=== PATIENT | male | born 1945 | race Caucasian/White ===

== ENCOUNTER 2017-07-06 16:52 | Inpatient (IN) | payer MEDICARE ==
[~2017-07-06] VITALS: Ht 175.3 cm; Wt 121.6 kg
[2017-07-06 16:52] VITALS: BP 113/60
[~2017-07-06 16:52] MED LIST: ADVAIR HFA 230M12 GM INH; ASPIRIN81 M2 PO; BENADRYL25 MG PO; CLOPIDOGREL75 MG PO; COUMADIN 2.5MG2.5 M1 PO; COUMADIN 4 MG TA4 M1 PO; COUMADIN 5 MG TA5 M1 PO; DOCUSATE S100 MG/10 PO; DUONEB 2.5-0.5 M3 ML INH; ENOXAPARIN100 MG/11 SUBQ; ENOXAPARIN150 MG/11 SUBQ; FENTANYL PA50 MCG/HR TRANSDERM; FLEXERIL PO; FOLIC ACID1 MG PO; FUROSEMIDE 40 M40 M1 PO; HYDROCODONE-AP1 EAC6 PO; LASIX 40 MG TAB40 M2 PO; LIDODERM 5%1 PATC1 TOP; LIPITOR 20 MG T20 M1 PO; LISINOPRIL10 MG PO; LISINOPRIL20 MG PO; MAXIPIME1 GM IVPB; METAMUCIL1 EAC1 PO; MILK OF MA2400 MG/10 PO; MINOCYCLINE HC100 M2 PO; MIRALAX17 GM PO; MULTIVITAMINS1 EAC7 PO; NEURONTIN 300300 M1 PO; NORMAL SALINE FL5 ML IV PUSH; OXYCODONE HCL 55 MG PO; PERCOCET 5-3251 EACH PO; PERCOCET PO; PLAVIX 75 MG TA75 M1 PO; PREDNISONE 10 M10 MG PO; SENOKOT-S1 TA1 PO; TYLENOL325 MG PO; VANCOMYCIN1.25 GM/21 IVPB; VENTOLIN HFA INH8 GM INH; VITAMIN D35000 UNI1 PO
[2017-07-06] MEDS ORDERED: CIPRO500 M1 PO (17:17)
[2017-07-06 17:28] LABS: HEMATOCRIT 41.7 % (42.0-52.0); MCH 29.9 pg (26.0-34.0); MCHC 33.5 g/dL (28.0-37.0); MCV 89.4 fL (80.0-100.0); MPV 8.8 fl. (7.2-11.1); NUCLEATED RBCS 0 /100WBC; PLATELET COUNT* 133 thou/uL (150-400); RBC 4.67 mil/uL (4.50-6.00); RDW-CV 14.2 % (10.5-14.5); WBC 15.9 thou/uL (4.0-11.0)
[2017-07-06 17:39] LABS: INR 1.1; PROTIME 10.7 Seconds (9.20-11.50)
[2017-07-06 18:12] LABS: ABSOLUTE LYMPHOCYTES 0.6 thou/uL (0.8-5.3); ABSOLUTE MONOCYTES 0.8 thou/uL (0.0-1.2); ABSOLUTE NEUTROPHILS 14.5 thou/uL (1.6-8.1)
[2017-07-06 18:13] LABS: PLATELET ESTIMATE ADEQUATE
[2017-07-06 18:24] LABS: CALCIUM 10.1 mg/dL (8.5-10.1); CREATININE 1.6 mg/dL (0.6-1.3); POTASSIUM 4.4 mmol/L (3.5-5.1)
[2017-07-06 18:27] LABS: URINE BILIRUBIN 1+ (Negative); URINE BLOOD 1+ (Negative); URINE CLARITY CLEAR; URINE COLOR YELLOW; URINE GLUCOSE-RANDOM 3+ (Negative); URINE KETONES 1+ (Negative); URINE LEUKOCYTES-REFLEX NEGATIVE (Negative); URINE NITRITE-REFLEX NEGATIVE (Negative); URINE PROTEIN TRACE (Negative); URINE UROBILINOGEN 0.2 E.U./dl (0.2-1.0)
[2017-07-06 18:28] LABS: ALBUMIN 3.3 g/dL (3.4-5.0); TOTAL BILIRUBIN 1.4 mg/dL (<0.1-1.0)
[2017-07-06 18:31] LABS: ICTOTEST (BILI CONFIRMATORY) Negative (Negative)
[2017-07-06 18:35] LABS: SQUAMOUS 0-3 Few /LPF (0-3)
[2017-07-06 18:36] LABS: BACTERIA-REFLEX >30 Many /HPF (None Seen); CELLULAR CASTS 0-3 Few /LPF (None Seen); CRYSTALS None Seen /LPF (None Seen); FINE GRANULAR CASTS 0-3 Few /LPF (None Seen); HYALINE CASTS 0-3 Few /LPF (None Seen); MUCUS >6 Heavy strn/LPF (None Seen); URINE RBC 3-10 Few /HPF (0-2); URINE WBC-REFLEX 6-15 Few /HPF (0-5)
[2017-07-06 20:15] VITALS: BP 112/74
[2017-07-06 20:16] VITALS: BP 108/50
[2017-07-07] VITALS (27 sets, daily range): BP systolic 95–156; BP diastolic 43–130
--- NOTE | 2017-07-07 02:41 | NUR ---
PT CAME FROM ER AT 2014 WITH SON. ASSESSMENT COMPLETED CHARTED. PT IS A RIGHT ABOVE THE KNEE AMPUTEE, AND WHEN AT HOME MISSED THE TRANSFER BETWEEN THE WHEELCHAIR AND BED AND LANDED ON THE FLOOR. PT STATES HE HAS SOME WEAKNESS, ON BEDREST CHRISTIAN, IV IN LEFT AC SL, MEDS RESTARTED EXCEPT FOR DIURETICS, NSAIDS, AND VANESSA INHIBITORS R/T RENAL FUNCTION. LEFT LEG HAS A VASCULAR WOUND, CONSULTED WOUND CARE NURSE. NO OTHER WOUNDS NOTED. PT HAS HISTORY OF DVT, CELLULITIS IN LEFT LEG, 2 LITERS OF O2, ALERT AND ORIENTED. PT HAS RED-GREEN COLOR BLINDNESS. VSS. SON WANTS DOCTOR TO SEE LEG AND PT RECIEVED BED BATH TONIGHT. WILL CONTINUE WITH PLAN OF CARE.
[2017-07-07 06:14] LABS: CALCIUM 9.3 mg/dL (8.5-10.1); CREATININE 1.3 mg/dL (0.6-1.3); MAGNESIUM 1.3 mg/dL (1.8-2.4); POTASSIUM 4.4 mmol/L (3.5-5.1)
--- NOTE | 2017-07-07 06:52 | NUR ---
PT WENT INTO VTACH AT AROUND 0515. THIS NURSE AND OTHER NURSES RAN INTO ROOM AND BROUGHT CRASH CART IN. TURNED O2 UP TO 4L AFTER PT STATED HE WAS HAVING TROUBLE BREATHING. PUT PADS ON PT AND LOWERED HEAD OF BED. CALLED CODE BLUE R/T HEART RHYTHM. PT WAS STILL BREATHING, STILL TALKING DURING THIS WHOLE PROCESS. AFTER REEL FILM INSPECTOR SHOWED UP, GAVE 200J AT 0519. CONVERTED BACK TO SR AND YELLED OUT. NO CHEST COMPRESSIONS NEEDED. CONTINUED TO HAVE PULSE. HAD TO SHOCK AGAIN AT 0540 FOR VTACH AND PT CONVERTED BACK TO SR. CALLED DOCTOR ERIN AND UPDATED ON STATUS AND GOT ORDERS FOR DIFFERENT LABS. CALLED DR. NICHOLE PER ORDER AND NOTIFIED OF CONDIION. TRANSFERED PT TO ICU, PT CONVERTED BACK TO VTACH IN THE ELEVATOR AND GAVE ANOTHER SHOCK TO CONVERT HIM BACK TO SR. GOT PT TO ICU AND GAVE REPORT TO CARBON CAPTURE POWER PLANT MANAGER NURSE. CALLED FAMILY MEMBER TO INFORM OF ROOM CHANGE AND CONDITION AND TOLD HIM TO COME SEE HIS FATHER. WILL CONTINUE TO MONITOR.
--- NOTE | 2017-07-07 07:10 | NUR ---
PT EMERGENTLY TRANSFERED TO ICU AT 0600. PT IN VENTRICULAR TACHYCARDIA ON TELEMETRY UNIT. PT SHOCKED TWICE ON UNIT AND ONCE IN ELEVATOR DURING TRANSIT. DR KHAN AND GAVINO NOTIFIED. PT RECIEVED AMIODARONE BOLUS FOLLOWED BY AMIODARONE DRIP AT 1 MG/MINUTE. NOTIFIED DR MANCIA REGARDING LOW MAGNESIUM LEVEL. RECIEVED ORDER TO INFUSE 2 GRAMS MAG SULFATE AND CONSULT NEPHROLOGY FOR ACUTE RENAL FAILURE. SECOND IV SITE STARTED IN RIGHT ANTICUBITAL PER NURSING STAFF.
--- NOTE | 2017-07-07 08:30 | NUR ---
0740 ASSUMED CARE OF PATIENT AT 0730. NSR. TO HOME CARE SCHEDULER PER BED AT 0740 AFTER OBTAINING INFORMED CONSENT
--- NOTE | 2017-07-07 08:47 | NUR ---
0730 ASSUMED CARE OF PATIENT. PLEASE SEE DOCUMENTED ASSESSMENT. DR BAIG TO SEE PATIENT. STAT EKG DONE MONITOR ALARMS A FIB. SINUS WITH BBB NOTED AND BOTH PAC'S AND PVC'S. SON HERE.
[2017-07-07 08:50] LABS: INR 1.2
--- NOTE | 2017-07-07 08:58 | NUR ---
PATIENT TO STAY NPO PER CARDIOLOGY AT THIS TIME
--- NOTE | 2017-07-07 09:58 | NUR ---
ROSARIO INSERTED. CONSENT OBTAINED FOR CATH
[2017-07-07 10:04] LABS: CHOLESTEROL 85 mg/dL (<200); HDL CHOLESTEROL 24 mg/dL (>40); LDL CHOLESTEROL 35 mg/dL (<100); TC:HDL 3.5 Ratio (Not establshd); TRIGLYCERIDE 134 mg/dL (<150); VLDL 27 mg/dL (<40)
[2017-07-07 10:05] LABS: SERUM ASSESSMENT Clear
[2017-07-07 10:40] LABS: MAGNESIUM 1.8 mg/dL (1.8-2.4); TROPONIN-I LEVEL 0.13 ng/mL (<0.06)
--- NOTE | 2017-07-07 12:37 | NUR ---
1148 PATIENT WENT INTO WIDE TACHYCARDIA AT RATE OF 195-200BPM. UNSUCCESSFUL VAGAL MANEUVERS. AMIO GTT STILL AT 1 MG/MN. CARDIOLOGY NOTIFIED. DWAYNE CAME AND PATIENT CARDIOVERTED AT 250 JOULES AFTER PREMEDICATION.
--- NOTE | 2017-07-07 12:39 | NUR ---
1215 PATIENT TO VIRTUAL ASSISTANT PER BED AFTER AMIO BOLUS COMPLETED
--- NOTE | 2017-07-07 13:37 | NUR ---
SPOKE WITH SON EARLIER. PT LIVES WITH SON AND [facility], THEY HAVE A HANDICAP ACCESSIBLE APT IN THE BASEMENT OF THEIR HOUSE FOR PT. PT NORMALLY CAN TRANSFER FROM HIS SCOOTER TO THE BED OR CHAIR, HE CAN TRANSFER IN AND OUT OF THE CAR. SON SAID HE HAS NOTICED RECENTLY THAT PT IS HAVING MORE DIFFICULT GETTING IN AND OUT OF THE CAR. PT WAS JUST SEEN BY HIS PCP DR. MARTINEZ, AND SON STATES THE DR WAS GOING TO SET PT UP FOR HOME HEALTH. SON DOESN'T KNOW IF THAT HAS BEEN DONE OR NOT, NO ONE HAS BEEN OUT TO SEE THE PT YET. CALLED DR. MARTINEZ'S OFFICE ([phone]) AND LEFT VM ASKING THE NURSE TO CALL ME BACK TO LET ME KNOW IF HH IS ARRANGED OR NOT. PT TO HAVE A CARDIAC CATH TODAY. CASE MGT WILL CONTINUE TO FOLLOW.
--- NOTE | 2017-07-07 15:02 | NUR ---
WOUND NURSE: PATIENT SEEN TO ASSESS COLT ON THE LEFT POSTERIOR CALF MEASURING 2.5 X 3.5 X 0.1 CM. PRESENTS DARK PURPLE PARTIALLY RUPTURED BULLA. PATIENT REPORTING HE BUMPED IT ON A POWER CHAIR AT HOME. CLEANSED WITH WOUND CLEANSER AND GAUZE, COVERED WITH AQUACEL AG UNDER A BORDERED FOAM. PATIENT WITH CARDIAC HX IN ICU AND WITH 3+ PERIPHERAL EDEMA. OPTD NOT TO COMPRESS D/T CARDIAC HX
--- NOTE | 2017-07-07 15:48 | 2DMMODE ---
[place] [address] 2 D/M-MODE ECHOCARDIOGRAM Name: RITU MONTE Room: [address] IN [facility]#: [id number] Admission: 07/06/17 Attend Phys: Deo Louie Discharge: Date of : 49 Date of Service: 07/07/17 1547 Report #: [id number] THIS REPORT FOR: //name// APPROVED REPORT Study performed: 07/07/2017 10:45:41 EXAM: Comprehensive 2D, Doppler, and color-flow Echocardiogram Patient Location: In-Patient Room #: [facility] Status: routine BSA: 2.28 HR: 90 bpm BP: 133/78 mmHg Rhythm: NSR Other Information Study Quality: Good Indications Dyspnea renal faliure, pneumonia, weakness 2D Dimensions LVEF(%): 32.17 (>50%) IVSd: 14.11 (7-11mm) LVOT Diam: 21.33 (18-24mm) LVDd: 60.65 mm PWd: 8.36 (7-11mm) Ascending Ao: 38.39 (22-36mm) LVDs: 51.24 (25-40mm) Aortic Root: 34.68 mm Coelho's LVEF: 32.17 % Volumes Left Atrial Volume (Systole) LA ESV Index: 34.50 mL/m2 Aortic Valve AoV Peak Tyrone.: 1.88 m/s AO Peak Gr.: 14.17 mmHg LVOT Max P.86 mmHg AO Mean Gr.: 8.05 mmHg LVOT Mean P.72 mmHg LVOT Max V: 1.65 m/s AO V2 VTI: 25.71 cm LVOT Mean V: 0.97 m/s SHIELA (VTI): 2.93 cm2 LVOT V1 VTI: 21.10 [place] [address] 2 D/M-MODE ECHOCARDIOGRAM Name: RITU MONTE Room: [address] IN .R.#: [id number] Admission: 07/06/17 Attend Phys: Deo Louie Discharge: Date of : 49 Date of Service: 07/07/17 1547 Report #: [id number] E/A Ratio: 0.59 MV Decel. Time: 294.22 ms MV E Max Tyrone.: 0.64 m/s MV PHT: 85.32 ms MVA (PHT): 2.58 cm2 TDI E/Lateral E': 4.57 E/Medial E': 8.00 Medial E' Tyrone.: 0.08 m/s Lateral E' Tyrone.: 0.14 m/s Pulmonary Valve PV Peak Tyrone.: 1.30 m/s PV Peak Gr.: 6.71 mmHg Tricuspid Valve TR Peak Gr.: 27.11 mmHg RVSP: 32.00 mmHg Left Ventricle Left ventricle is mildly dilated. Regional wall motion abnormalities are noted.The inferior wall is severely hypokinetic, the lateral wall is moderately hypokinetic. There is global dysfunction present as well, to a moderate degree There is normal left ventricular wall thickness. Left ventricular systolic function is normal. The left ventricular ejection fraction is within the normal range. LVEF is 35%. Grade I - abnormal relaxation pattern. Right Ventricle The right ventricle is normal size. The right ventricular systolic function is normal. Atria Left atrium is moderately dilated. The right atrium size is normal. Aortic Valve The aortic valve is normal in structure. No aortic regurgitation is present. There is no aortic valvular stenosis. Mitral Valve The mitral valve is normal in structure. Trace mitral regurgitation. No evidence of mitral valve stenosis. Tricuspid Valve The tricuspid valve is normal in structure. Trace tricuspid regurgitation. The RVSP is 30-[place] [address] 2 D/M-MODE ECHOCARDIOGRAM Name: RITU MONTE Room: [address] IN M.R.#: [id number] Admission: 07/06/17 Attend Phys: Deo Louie Discharge: Date of : 49 Date of Service: 07/07/17 1547 Report #: [id number] Pulmonic Valve The pulmonary valve is normal in structure. There is no pulmonic valvular regurgitation. Great Vessels The aortic root is normal in size. IVC is normal in size and collapses with >50% inspiration Pericardium There is no pericardial effusion. <Conclusion> Left ventricle is mildly dilated. LVEF is 35%. Regional wall motion abnormalities are noted.The inferior wall is severely hypokinetic, the lateral wall is moderately hypokinetic. There is global dysfunction present as well, to a moderate degree Grade I - abnormal relaxation pattern. The right ventricle is normal size. Left atrium is moderately dilated. There is no aortic valvular stenosis. No aortic regurgitation is present. Trace mitral regurgitation. Trace tricuspid regurgitation. The RVSP is 30-35 mmHg. There is no pericardial effusion. <ELECTRONICALLY SIGNED> By: Luis Alberto Maynard MD, FACC 07/07/17 1547 1547 1547 Luis Alberto Maynard MD, FACC /INF
--- NOTE | 2017-07-07 16:24 | NUR ---
1638 PATIENT RETURNED FROM BALANCE TRUING INSPECTOR WITH RADSTAT TO R WRIST. SEE POST CATH DOCUMENTATION. AMIODARONE DRIP OFF. INSTRUCTED ON ELEVATING RIGHT LIMB
--- NOTE | 2017-07-07 17:06 | NUR ---
PATIENT MAKING SOME PROGRESS TOWARDS GOALS. CARDIOVERTED AT NOON TODAY WITH RETURN TO SINUS RHYTHM TO HAND FILER BALANCE WHEEL AT 1215 WITH NO INTERVENTION. RIGHT RADIAL SITE CHARTED. WOUND CARE COMPLETED. ECHO DONE AND ULTRASOUND OF LEFT LEG IN PROGRESS. SON PRESENT MOST OF THE DAY
--- NOTE | 2017-07-07 17:07 | EKG ---
[place] [address] ELECTROCARDIOGRAM REPORT Name: RITU MONTE Room: [address] IN ..#: [id number] Admission: 07/06/17 Attend Phys: Camden Velasquez Discharge: Date of : 49 Report #: [id number] THIS REPORT FOR: //name// [facility] ED Test Date: 2017-07-06 Test Time: 17:07:40 Pat Name: RITU MONTE Department: Room: Gender: Specialty Cook: [place] : 1945 Requested By: Matheus Brown Order Number: [id number] MD: Luis Alberto Maynard Measurements Intervals [place] Rate: 93 P: NV: QRS: 22 QRSD: 124 T: 94 QT: 380 QTc: 473 Interpretive Statements nsr Ventricular premature complex Nonspecific intraventricular conduction delay Nonspecific T abnormalities, lateral leads Compared to ECG 09/03/2016 18:22:07 Ventricular premature complex(es) now present T-wave abnormality now present Sinus rhythm no longer present Atrial abnormality no longer present Myocardial infarct finding no longer present Electronically Signed On 07-07-2017 17:07:39 CDT by Luis Alberto Maynard [email or web address] <ELECTRONICALLY SIGNED> By: Luis Alberto Maynard MD, FAC 07/07/171706 06 06 Luis Alberto Maynard MD, FAC /EPI
--- NOTE | 2017-07-07 17:08 | EKG ---
[place] [address] ELECTROCARDIOGRAM REPORT Name: RITU MONTE Room: [address] ADM IN M.R.#: [id number] Admission: 07/06/17 Attend Phys: Camden Velasquez Discharge: Date of : 49 Report #: [id number] THIS REPORT FOR: //name// [place] Test Date: 2017-07-07 Test Time: 07:52:12 Pat Name: RITU MONTE Department: Room: [address] Gender: M Mortgage Manager: JOSE ALBERTO : 1945 Requested By: Deo Louie Order Number: [id number] Reading MD: Luis Alberto Maynard Measurements Intervals [place] Rate: 76 P: 65 RI: 191 QRS: 26 QRSD: 131 T: 88 QT: 382 QTc: 430 Interpretive Statements Sinus rhythm Ventricular premature complex Probable left atrial enlargement Nonspecific intraventricular conduction delay Inferior infarct, old Compared to ECG 09/03/2016 18:22:07 Ventricular premature complex(es) now present Myocardial infarct finding still present Electronically Signed On 07-07-2017 17:08:38 CDT by Luis Alberto Maynard [email or web address] <ELECTRONICALLY SIGNED> By: Luis Alberto Maynard MD, [facility] 07/07/17 1708 [phone] Luis Alberto Maynard MD, [facility] /EPI
--- NOTE | 2017-07-07 17:08 | EKG ---
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 : 1945 Requested By: Deo Louie Order Number: [id number] Mauri MD: Luis Alberto Maynard Measurements Intervals [place] Rate: 88 P: 62 TN: 185 QRS: 73 QRSD: 126 T: 163 QT: 319 QTc: 386 Interpretive Statements Sinus rhythm Multiform ventricular premature complexes Left atrial enlargement Nonspecific intraventricular conduction delay Inferior infarct, old Repol abnrm, severe global ischemia (LM/MVD) Compared to ECG 09/03/2016 18:22:07 Ventricular premature complex(es) now present Early repolarization now present Possible ischemia now present Myocardial infarct finding still present Electronically Signed On 07-07-2017 17:08:27 CDT by Luis Alberto Maynard [email or web address] <ELECTRONICALLY SIGNED> By: Luis Alberto Maynard MD, [facility] 07/07/17 1708 3 3 Luis Alberto Maynard MD, [facility] /EPI
--- NOTE | 2017-07-07 17:10 | EKG ---
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 : 1945 Requested By: Luis Alberto Maynard Order Number: [id number] Reading MD: Luis Alberto Maynard Measurements Intervals [place] Rate: 90 P: 58 MT: 193 QRS: 59 QRSD: 127 T: 135 QT: 306 QTc: 375 Interpretive Statements Sinus tachycardia Ventricular trigeminy Probable left atrial enlargement Nonspecific intraventricular conduction delay Inferior infarct, acute (RCA) Probable RV involvement, suggest recording right precordial leads Compared to ECG 09/03/2016 18:22:07 Ventricular premature complex(es) now present Sinus rhythm no longer present Myocardial infarct finding still present Electronically Signed On 07-07-2017 17:10:34 CDT by Luis Alberto Maynard [email or web address] <ELECTRONICALLY SIGNED> By: Luis Alberto Maynard MD, [facility] 07/07/17 1710 1200 1200 Luis Alberto aMynard MD, [facility] /EPI
[2017-07-08] VITALS (14 sets, daily range): BP systolic 79–126; BP diastolic 41–77
[2017-07-08 04:00] LABS: HEMATOCRIT 37.1 % (42.0-52.0); HEMOGLOBIN 12.5 gm/dL (14.0-18.0); MCH 29.7 pg (26.0-34.0); MCHC 33.7 g/dL (28.0-37.0); MCV 88.1 fL (80.0-100.0); MPV 8.8 fl. (7.2-11.1); RBC 4.21 mil/uL (4.50-6.00); WBC 10.2 thou/uL (4.0-11.0)
[2017-07-08 04:09] LABS: INR 1.1; PROTIME 10.8 Seconds (9.20-11.50)
[2017-07-08 04:13] LABS: CALCIUM 9.1 mg/dL (8.5-10.1); POTASSIUM 4.2 mmol/L (3.5-5.1)
--- NOTE | 2017-07-08 09:59 | NUR ---
ASSUMED PT CARE 0730. TRACING SR. VSS. PT TITRATED DOWN TO 2L NC. WHILE EATING PT DESATTING AND TITRATED BACK UP TO 4L NC. PER DIET ADVANCED. PT TOLERATING HEART HEALTHY DIET. PT WORKING WITH PHYSICAL THERAPY. NO DYSRHYTHMIAS THIS AM. WILL CONTINUE PLAN OF CARE.
--- NOTE | 2017-07-08 14:11 | NUR ---
SPOKE WITH SON AND PT ABOUT SNF, WHEN PT IS READY FOR DISCHARGE. PT AGREES THAT HE IS TOO WEAK TO RETURN TO HIS APT IN HIS SON'T HOME. DISCUSSED SNF OPTIONS. THEY DO NOT WANT [facility] OR [facility]. SON IS INTERESTED IN [facility] OR [place]. CALLED BOTH FACILITIES AND LEFT MESSAGE ON ADMISSIONS VOICE MAIL. FAXED REFERRAL INFO. STAN FROM [place] CALLED BACK AND SAID THEY HAVE A BED AVAILABLE AND CAN ACCEPT PT, THEY CAN TAKE HIM MONDAY OR MONDAY IF READY FOR DISCHARGE. HAVE NOT HEARD BACK FROM [facility], [place] ADMISSION [phone], MAIN NUMBER [phone] [place] ADMISSIONS [phone], MAIN NUMBER [phone]
--- NOTE | 2017-07-08 18:16 | NUR ---
BLOOD GLUCOSE 434. DR NOTIFIED PER PROTOCOL. SLIDING SCALE INCREASED AFTER LUNCH. PT RECEIVED HIGH DOSE SLIDING SCALE AT DINNER. 23 GIVEN. WILL CONTINUE TO MONITOR.
[2017-07-09] VITALS (11 sets, daily range): BP systolic 100–132; BP diastolic 49–84
--- NOTE | 2017-07-09 15:51 | EKG ---
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: : 1945 Requested By: Lamberto Blake Order Number: [id number] Mauri MD: Mikal Sellers Measurements Intervals [place] Rate: 60 P: 60 RI: 186 QRS: 52 QRSD: 139 T: 104 QT: 432 QTc: 432 Interpretive Statements Sinus rhythm Probable left atrial enlargement Nonspecific intraventricular conduction delay Nonspecific T abnormalities, lateral leads Inferior Q waves noted Compared to ECG 07/07/2017 12:00:49 T-wave abnormality now present Sinus tachycardia no longer present Ventricular premature complex(es) no longer present Electronically Signed On 07-09-2017 15:51:26 CDT by Mikal Sellers [email or web address] <ELECTRONICALLY SIGNED> By: Mikal Sellers MD, FACC 07/09/17 1551 [id number] Mikal Sellers MD, FACC /EPI
--- NOTE | 2017-07-09 16:07 | EKG ---
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: : 1945 Requested By: Mikal Sellers Order Number: [id number] Reading MD: Mikal Sellers Measurements Intervals [place] Rate: 54 P: 62 MT: 177 QRS: 56 QRSD: 139 T: 69 QT: 475 QTc: 451 Interpretive Statements Sinus rhythm Probable left atrial enlargement Nonspecific intraventricular conduction delay Compared to ECG 07/07/2017 12:00:49 Sinus tachycardia no longer present Ventricular premature complex(es) no longer present Myocardial infarct finding no longer present Electronically Signed On 07-09-2017 16:06:46 CDT by Mikal Sellers [email or web address] <ELECTRONICALLY SIGNED> By: Mikal Sellers MD, FAC 07/09/17 1606 7 7 Mikal Sellers MD, [facility] /EPI
--- NOTE | 2017-07-09 17:41 | NUR ---
SUHAST PROGRESSING TOWARDS GOALS. AOX4. APPROPRIATE. DENIES PAIN, UNLESS BOTTOM OF LEFT CALF IS PALPATED. [employer] AG WITH BOARDERED FOAM IN PLACE, DOUBLE LAYER TUBIGRIP PLACED PER DR CALVILLO. PATIENT REFUSES TO ELEVATED LEG ON TWO PILLOWS PER DR CALVILLO'S ORDERS. EDUCATION GIVEN, BUT STILL REFUSES. PATIENT WHEEZY ON AM ASSESSMENT, PRN BREATHING TX GIVEN WITH RELIEF. CLEAR/DIMINISHED THE REST OF SHIFT. REMAINS ON 3L NC. BLOOD GLUCOSE LEVELS REMAIN ELEVATED, DR GAMBLE ADDED LONG ACTING INSULIN AND SCHEDULED DOSE WITH MEALS IN ATTEMPT TO CONTROL THIS, HOWEVER THEY STILL REMAIN IN THE 300S. PATIENT FOLLOWS FLUID RESTIRCTION OF 1500 ML ADEQUATLEY. 1,000 IN ON DAY SHIFT. 500 ML LEFT FOR NOC SHIFT. DENIES FURTHER NEEDS FROM NURSING AT THIS TIME.
--- NOTE | 2017-07-09 22:40 | NUR ---
INITAL ASSESMENT COMPLETED AT 1999. PT GIVEN HS MEDS ORDERED. PT'S IV SITES IN LEFT AC AND LEFT HAND LEAKING. BOTH SITES DISCONTINUED. 22 GUAGE SALINE LOCK STARTED IN RIGHT FOREARM ON SECOND ATTEMPT. CALL LIGHT IN REACH, PT DEMONSTRATES PROPER USE.
--- NOTE | 2017-07-09 23:37 | CON ---
[address] [address] CONSULTATION Name: ELIOT MONTE Room: [address] IN .R.#: [id number] Admission: 07/06/17 Attend Phys: Camden Velasquez Discharge: Date of : 49 Report #: [id number] THIS REPORT FOR: //name// CC: Lamberto Louie DATE OF SERVICE: 07/09/2017 CONSULTATION: Infectious Diseases. HISTORY OF PRESENT ILLNESS: Eliot Monte is a 72-year-old white male who presented to the hospital on 07/06/2017. The patient was transferring from his scooter to his bed. He was not quite over the bed and rather than landing, he was on the edge of the bed, the bed slid away any he slithered down to the floor. The patient was weak and has an above-knee amputation, in that position was unable to get himself off the floor. He called 911 who noted the patient was very weak and brought him to the hospital for evaluation. In the ER, the patient gave a history of fever, but no chills, cough without dyspnea and chronic swelling and redness of his left lower leg, which was worse than baseline. He had seen his primary care doctor and his Lasix was doubled to 80 mg a day for this. In the ER, the patient was noted to have a glucose of 427 as well as a temperature of 100.3. He was admitted to the hospital. The next day, the patient developed ventricular tachycardia with pulse of 200, although his blood pressure was maintained. He had cardioversion x 2 and then underwent placement of a permanent pacemaker. Dr. Maynard felt the patient had an acute coronary event. In the course of this workup, the patient had 2 blood cultures. Infectious Disease consultation was requested when one of the 2 blood cultures began to grow Pseudomonas aeruginosa. PAST MEDICAL HISTORY: Includes diabetes mellitus. The patient says he has been told his diabetes was mild, that he was not doing any monitoring or controlling. The patient has chronic kidney disease, grade 3. He has a history of deep vein thrombosis, pulmonary embolus and hypercoagulable state. He is on warfarin. The patient has a diagnosis of coronary artery disease, congestive heart failure, myocardial infarction and now has a defibrillator pacemaker. The patient has history of peripheral artery disease and has had multiple stents in both legs as well as a venous ablation. 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 The patient has a history of chronic obstructive pulmonary disease. He did have C. difficile disease in 2015. Other surgical history includes tonsillectomy. ALLERGIES: The patient has no drug allergies. MEDICATION RECONCILIATION: Current medications include insulin sliding scale, cefepime 1 gram b.i.d., lisinopril 5 mg daily, carvedilol 6.25 mg b.i.d., amiodarone 600 mg daily, vancomycin 1 gram twice a day, lactobacillus 1 [place] [address] CONSULTATION Name: ELIOT MONTE Room: [address]#: [id number] Admission: 07/06/17 Attend Phys: Camden Velasquez Discharge: Date of : 49 Report #: [id number] twice a day, methylprednisolone 40 mg IV b.i.d., pantoprazole 40 mg daily, aspirin 81 mg daily, clopidogrel 75 mg daily, glucose, glucagon, hydrocodone, albuterol, promethazine, ondansetron, all p.r.n., melatonin 10 mg at bedtime. The patient was only on warfarin, but this has been on hold for the pacemaker defibrillator placement. SOCIAL HISTORY: The patient is single. He lives in the basement of his son's house. 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 He did smoke cigarettes more than a pack a day, but in 2012 quit using cigarettes and uses electronic cigarettes with low nicotine. No history of alcohol nor drugs. REVIEW OF SYSTEMS: CONSTITUTIONAL: The patient overall surprised how sick he has been. He was not thinking he was particularly ill when he came to the hospital. He apparently did have fevers, but not chills. He was not having any headache, sinus congestion, sore throat, trouble swallowing. The patient had a cough, but no dyspnea, chest pain. He has no history of arrhythmia. GASTROINTESTINAL: The patient does not complain of nausea, vomiting, diarrhea or constipation. GENITOURINARY: The patient has a Moran catheter now, but prior to admission was voiding normally. He is having increased urination associated with Lasix, but no dysuria or other signs of urinary tract infection. EXTREMITIES: Chronic stasis on his left leg, which was somewhat worse. PHYSICAL EXAMINATION: GENERAL: The patient appears his stated age, alert, oriented, comfortable, not in any distress. VITAL SIGNS: Show maximum temperature 100.3. He was afebrile after admission. SKIN: Shows venous stasis changes of the left leg. There is chronic swelling, chronic erythema. There is some crusting and it appears there was some previous weeping. There is a venous stasis wound on the left calf approximately 3 x 1 cm with a somewhat fibrinous base. The foot is puffy and I cannot feel any pulses. The right lower extremity has a below-knee amputation. ENT: Negative. NEUROLOGICAL: The patient is awake, alert, appropriate. NECK: Supple. HEART: Sounds S1, S2. Regular rate and rhythm. New pacemaker in the left shoulder. Site is unremarkable. LUNGS: Clear. ABDOMEN: Belly is obese. He was weighed 253, then 238 pounds even with his above knee amputation. The belly is soft, nontender with normal bowel sounds. GENITALIA: Shows a Moran catheter with clean urine. It is otherwise unremarkable. LABORATORY DATA: The white count was initially 15.9, is now 10.2, [place] [address] CONSULTATION Name: JONATHANELIOT JAMES Bret Room: [address] IN [facility]#: [id number] Admission: 07/06/17 Attend Phys: Camden Velasquez Discharge: Date of : 47 Report #: [id number] 12.5 with normal MCV, platelet 114,000. Electrolytes: Sodium 132, potassium 4.2, chloride 99, bicarbonate 23, BUN 17, creatinine was 1.6, now down to 1.0. Glucose has gone from 392 to 276. The hemoglobin A1c was 11. Liver function tests are normal. Troponin after cardioversion is 0.15, CPK is 655 with MB band of 7. TSH is normal. Folate was measured and found to be low at 3.8 (8.6-59). The echocardiogram showed ejection fraction 35% with decreased wall motion on the inferior aspect of the ventricle, which is very similar to the echocardiogram of last August. The urinalysis showed 6-15 white cells, positive bacteria. A urine culture had mixed ruben. Chest x-ray was initially clear, then had left lower lobe atelectasis or infiltrate, which has now improved. As noted, 1 out of 2 blood cultures has Pseudomonas aeruginosa susceptible to all antibiotics tested. The KARINA for ceftazidime was somewhat high at 4. ASSESSMENT AND PLAN: In summary, we have a gentleman who presents with overwhelming weakness. Workup demonstrates hyperglycemia and then he developed a ventricular tachycardia, which is successfully cardioverted. He has chronic venous stasis with weeping and a wound. Surprisingly, he had a positive blood culture for pseudomonas. Urinalysis showed probable urinary tract infection, but urine culture showed mixed ruben. At this time, I would like to treat the patient for the bacteremia with Cipro 400 mg IV q.12 hours. When the patient is stable, this can be changed to oral Cipro 750 mg p.o. q.12 hours. We will discontinue the vancomycin and cefepime. I would like to treat the venous stasis with elevation and compression. We will use Aquacel to the wound. We will need Cetaphil to moisturize the dry skin. We will have wound care nurse evaluate and do photo documentation after the weekend. I will order Tubigrip and elevation for now. I will take the liberty of adding a folate supplement because of the low folate level. We will want to do a followup urine testing as well as continue to follow the chest x-ray and the cardiac condition. I appreciate the opportunity to offer input in the care of the patient. Dr. Voss will return tomorrow for additional followup. Thank you for this consultation. <ELECTRONICALLY SIGNED> By: Jamar Gonzalez MD 07/09/17 2337 1052 24Jamar Gonzalez MD /nt
[2017-07-10] VITALS: BP 117/61
[2017-07-10 04:00] VITALS: BP 113/55
[2017-07-10 04:41] LABS: PROTIME 9.9 Seconds (9.20-11.50)
[2017-07-10 04:52] LABS: HEMATOCRIT 34.8 % (42.0-52.0); HEMOGLOBIN 11.6 gm/dL (14.0-18.0); MCH 29.9 pg (26.0-34.0); MCHC 33.3 g/dL (28.0-37.0); MCV 89.8 fL (80.0-100.0); MPV 9.9 fl. (7.2-11.1); NUCLEATED RBCS 0 /100WBC; PLATELET COUNT* 121 thou/uL (150-400); RBC 3.88 mil/uL (4.50-6.00); RDW-CV 14.3 % (10.5-14.5); WBC 8.4 thou/uL (4.0-11.0)
[2017-07-10 04:58] LABS: CALCIUM 10.4 mg/dL (8.5-10.1); CREATININE 1.2 mg/dL (0.6-1.3); POTASSIUM 4.5 mmol/L (3.5-5.1); TOTAL BILIRUBIN 0.3 mg/dL (<0.1-1.0); TOTAL PROTEIN 5.8 g/dL (6.4-8.2)
[2017-07-10 06:31] LABS: ABSOLUTE LYMPHOCYTES 0.3 thou/uL (0.8-5.3); ABSOLUTE MONOCYTES 0.4 thou/uL (0.0-1.2); ABSOLUTE NEUTROPHILS 7.7 thou/uL (1.6-8.1); ANISOCYTOSIS 1+; PLATELET ESTIMATE DECREASED; POIKILOCYTOSIS 1+
[2017-07-10 06:32] LABS: TOXIC GRANULATION Occasional
[2017-07-10 08:00] VITALS: BP 123/84
--- NOTE | 2017-07-10 11:00 | NUR ---
PATIENT TRANFERED TO 201 REPORT CALLED TO SARAVANAN MIRANDA. BLOOD GLUCOSE [address] ZURITA. PRIOR TO TRANSFER. RN INFORMED.
--- NOTE | 2017-07-10 12:16 | NUR ---
PT TO FLOOR FROMicu, APPEARS ALERT O X 4, DENIES CHEST [PAIN, OR SOB, DEFRILLLATOR WOUND SITE TO L CHEST APPEARS INTACT WITH STERI-STRIPS OPEN TO AIR, ROSARIO TO DD, SL, LLE WITH WOUND DRESSING INTACT, SB ON MONITOR MID 50S
--- NOTE | 2017-07-10 13:55 | NUR ---
PT. SON REPORTS MISSING MONEY CLIP WITH CREDIT CARDS AND ID. PT. OLD ROOM 210 SEARCHED, ICU ROOM SEARCHED, AND SECURITY CHECKED WITH NO LUCK IN FINDING. PT. ADMISSION REPORTS CLOTHING AND CELLPHONE UPON ADMISSION. PT. SON REPORT HE BROUGHT UP FOR INSURANCE CARDS. PT. SON TO CHECK AT HOME AND SEE IF MAYBE HE BROUGHHT BACK HOME.
--- NOTE | 2017-07-10 14:18 | NUR ---
WOUND DREESSING CGANGED TO L CALF,CLEANSED, AQUACEL , AND FOAM DRESSING, HAS COMPRESSION STOCKINGS
[2017-07-10 15:36] VITALS: BP 107/56
--- NOTE | 2017-07-10 18:50 | NUR ---
PT RESTING IN BED, WITHOUT C/O, ELEVATED BS TODAY. NO C/O PAIN
[2017-07-10 19:44] VITALS: BP 110/47
[2017-07-11] VITALS: BP 130/66
[2017-07-11 04:00] VITALS: BP 122/61; BP 122/661
[2017-07-11 05:17] LABS: INR 1.1; PROTIME 10.4 Seconds (9.20-11.50)
--- NOTE | 2017-07-11 05:26 | NUR ---
ASSUMED PT CARE AT 1930, NURSING ASSESSMENT COMPLETED AT START OF SHIFT, PT VOICED NO CONCERNS. 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 HR DROPPED TO LOW 40'S THROUGHOUT THE NIGHT. Q2H REPOSITIONING COMPLETED. CALL LIGHT WITHIN REACH. NO FALLS THIS SHIFT.
--- NOTE | 2017-07-11 10:20 | CARD ---
[address] [address] CARDIAC CATH REPORT Name: JONATHANJACOBRITU D Room: [address] IN [facility]#: [id number] Admission: 07/06/17 Attend Phys: Camden Velasquez Discharge: Date of : 47 Report #: [id number] THIS REPORT FOR: //name// APPROVED REPORT Study performed: 07/08/2017 10:54:38 Patient Status: In-Patient Room #: ICU4 Event Personnel: Mikal Sellers Box Bender, Deonna Jay RN Final Touch Up Painter, Emily Barboza RN Monitor, Canelo Agee (R) Scrub Exam: Insertion of Dual Chamber-Single Lead ICD The patient is a 72 year-old male with a history of ischemic cardiomyopathy and sustained unstable ventricular tachycardia.. Patient Info Last EF%: 35% Date: NYHA Heart Class: II Intraoperative Conscious Sedation Fentanyl 50 mcg Versed 2 mg Implanted Devices: Biotronik Inventra 7 VRT DX pro-MRI, model #098567, serial #[id number] Biotronik Plexa ProMRI DF1 S DX 65^15, model #977881, serial #[id number] Procedure After explaining the risks, benefits, and alternative options, informed consent was obtained from the patient. The patient was brought to the cardiac catheterization lab and the left chest and shoulder were prepped and draped in the usual fashion. During this case, Fluoroscopy and visipaque 10cc were used for imaging. After informed consent was obtained the patient was brought to the interventional radiology lab. The area of the left chest was prepped and draped in sterile fashion. Local anesthesia was achieved with 1% lidocaine. After an initial incision was made a device pocket was formed over the left pectoralis muscle using electrocautery and blunt dissection. Next the left subclavian vein was accessed using a micropuncture kit. A safety J guidewire was eventually advanced to the right atrium under fluoroscopic guidance. Next a [address] [place] [address] CARDIAC CATH REPORT Name: RITU MONTE Room: [address] IN [facility]#: [id number] Admission: 07/06/17 Attend Phys: Camden Velasquez Discharge: Date of : 47 Report #: [id number] tear-away introducer was advanced over the guidewire. The dilator and guidewire were removed and the pacing ICD lead advanced to a secure position within the right ventricular apex. The lead was actively fixed. Thresholds were checked and deemed to be satisfactory. There was no evidence of diaphragmatic pacing at maximum output. Tear-away introducer was removed. The lead was secured using the designated cuff and interrupted stitch of 2-0 silk suture. The device pocket was then flushed with antibiotic solution. A pacing ICD generator was attached to the defibrillator lead. The generator and redundant lead were placed within the device pocket. The deep tissues were closed using interrupted stitches of 2-0 Vicryl. The skin incision was then closed with a single subcuticular stitch of 4-0 Vicryl. Several Steri-Strips were placed across the incision. A sterile Telfa dressing was then covered with a Tegaderm. Complications The patient tolerated the procedure well and there were no complications associated with the procedure. Findings Sensed R-wave 10.0 mV. Sensed P-wave 5.0 mV. RV pacing threshold 0.6 V at 0.40 ms. RV pacing impedance 697 ohms. Shocking impedance 81 ohms. Charge time 9.4 seconds VF detection rate to 130 bpm. VT detection rate at the slow rate 154 bpm and epigastric 176 bpm. VF therapies anti-tachycardia pacing times one followed by 45 J shock times a day. Slow VT therapy monitor only. Past VT therapy anti-tach pacing 6 followed by 45-year-old shock times a day. Pacing mode VVI. Lower rate 40 bpm. Conclusion 1. Sustained unstable ventricular tachycardia. 2. Ischemic cardiomyopathy. 3. Successful implantation of a successful implantation of a pacing defibrillator lead placement. Recommendations 1. Follow-up site check in one week. <ELECTRONICALLY SIGNED> By: Mikal Sellers MD, FACC 07/11/17 1020 1020 1020[facility] Sellers MD, FAC /INF
[2017-07-11 12:49] VITALS: BP 113/61
[2017-07-11 15:21] VITALS: BP 112/57
--- NOTE | 2017-07-11 17:56 | CARD ---
[address] [address] CARDIAC CATH REPORT Name: RITU MONTE Room: [address] IN .R.#: [id number] Admission: 07/06/17 Attend Phys: Camden Velasquez Discharge: Date of : 47 Report #: [id number] THIS REPORT FOR: //name// APPROVED REPORT Study performed: 07/07/2017 11:51:55 Patient Details Patient Status: In-Patient Room #: The patient is a 72 year-old male Event Personnel Luis Alberto Maynard Postulant, Halina Murillo RTR Monitor, Canelo Agee (Joni) Tamra Santana Tina RN RN, Lamberto Blake Principal Automation Engineer Procedures Performed Art Access - R radial artery Left Heart Cath [id number] [facility] Hemostasis with Hemoband Indication Abnormal ECG, Arrhythmia Procedure Narrative The patient was brought urgently to the Cardiac Catheterization Laboratory and was prepped and draped in a sterile manner. The right wrist was infiltrated with 1% Lidocaine subcutaneous anesthesia. A Slender Glidesheath sheath was inserted into the right radial artery. Coronary angiography was performed using coronary diagnostic catheters. The right coronary system was accessed and visualized with a 6FR JR4 catheter. The left coronary system was accessed and visualized with a 6FR JL4 catheter. Closure device was deployed with a 6 Fr vascband. The patient tolerated the procedure well and there were no complications associated with the procedure. There was no hematoma. Intraoperative Conscious Sedation Sedation start time: 12:35 Case end Time: 13:46 Fluoro Time: 22 minutes Dose: DAP 751953 cGycm2 4561.81 mGy Contrast Type and Amount: Visipaque 400 [place] [address] CARDIAC CATH REPORT Name: RITU MONTE Room: [address]#: [id number] Admission: 07/06/17 Attend Phys: Camden Velasquez Discharge: Date of : 47 Report #: [id number] The patient's coronary anatomy is right dominant. Diagnostic Cath Left Main mild stenosis, 20% LAD 20% proximally, mid mild <20% apical lad mild diffuse disease <30% Diagonal 1 40% mid, medium sized Circumflex proximal mild disease 40%, mid is occluded and poorly filling collaterals present OM1 small OM2 small normal L PDA small seen w/ collat. severe mid body diffuse disease 70% L DALIA small seen w/ collat Right Coronary large normal Left Ventriculography Left Ventriculography was not performed. Hemodynamics The aortic pressure is 91/58 mmHg with a mean of 71 mmHg. PCI Technique Lesion Anticoagulation was achieved with Heparin. Patient was preloaded with Plavix. Percutaneous coronary intervention was performed on the circumflex artery atrioventricular groove continuation segment. The lesion stenosis prior to intervention was 100% with PRITI 3 flow. A xb 3.5 Guide Catheter was used to engage the lm ostium. A bmw and whisper Interventional Guidewire was used to cross the lesion. BALLOON DILATION A Balloon catheter 2.5 x 12 mm was inserted and inflated up to 0atm for 0seconds. Repeat angiography revealed the following post-dilatation results: 100% occluded. Final angiography reveals 100 % stenosis with PRITI 0 flow. COMMENTS Unable to cross occlusion with 2 different wires and balloon support. The vessel appeared to be chronically occluded and further attempts at crossing the lesion were abandoned. Conclusion 1. chronic occlusion of the mid circumflex that filled distally [place] [address] CARDIAC CATH REPORT Name: JONATHANRITU JAMES Bret Room: [address] IN [facility]#: [id number] Admission: 07/06/17 Attend Phys: Camden Velasquez Discharge: Date of : 47 Report #: [id number] Recommendations Cardiac Rehabilitation Referral Aggressive Medical Therapy Medications Administered Clopidogrel Diagnostic Cath Approved by: Luis Alberto Maynard MD Date/Time: <ELECTRONICALLY SIGNED> By: Lamberto Blake MD, [facility] 07/11/17 1755 1755 1755David Huey Blake MD, FACC /INF
--- NOTE | 2017-07-11 18:53 | NUR ---
PATINET RESTING IN BED. ROSARIO TO DRAIN WITRH CLEAR YELLOW OUTPUT. SB ON MONITOR. FIRST PORTION OF STRESS TESTING COMPLETED. R AKA WITH WOUND TO LEFT CALF, DRESSING CHANGED 07/10/17. BLOOD GLUCOSE ASSESSED AND TGREATED. HOURLY ROUNDING COMPLETD FOR Patient safety.
[2017-07-12] VITALS: BP 120/63
--- NOTE | 2017-07-12 03:38 | NUR ---
ASSUMED PT CARE AT 1930. ASSESSMENT COMPLETED CHARTED. AICD IN PLACE. IV SL AND PATIENT. NO C/O PAIN OR DISCOMFORT. LEFT LEG WOUND CARE COMPLETED DURING DAY SHIFT. A & O X 4, ABLE TO MAKE NEEDS KNOWN, CALL LIGHT WITHIN REACH. RIGHT LEG AMPUTATED ABOVE THE KNEE. WILL CONTINUE TO MONITOR.
[2017-07-12 04:00] VITALS: BP 127/77
[2017-07-12 05:42] LABS: CREATININE 0.9 mg/dL (0.6-1.3); POTASSIUM 4.4 mmol/L (3.5-5.1)
[2017-07-12 05:43] LABS: PROTIME 19.6 Seconds (9.20-11.50)
[2017-07-12 08:00] VITALS: BP 114/77
--- NOTE | 2017-07-12 08:49 | CON ---
[address] [address] CONSULTATION Name: RITU MONTE Room: [address] IN M.R.#: [id number] Admission: 07/06/17 Attend Phys: Camden Velasquez Discharge: Date of : 47 Report #: [id number] THIS REPORT FOR: //name// CC: Lamberto Louie REQUESTING PHYSICIAN: Dr. Louie. PRIMARY CARE DOCTOR: Dr. Tillman. REASON FOR CONSULTATION: Ventricular tachycardia. HISTORY OF PRESENT ILLNESS: The patient is a 72-year-old man admitted for respiratory insufficiency, pneumonia and presumed congestive heart failure yesterday, and he while on telemetry developed a wide complex tachycardia with hemodynamic instability. He was maintaining a pulse, but required 2 separate cardioversions. He was transferred emergently to the ICU and loaded with IV amiodarone per protocol, and presently, he remains in a sinus rhythm. His presenting ECG demonstrated deep Q-waves in the inferior leads. During the event though, he had marked ST segment depression. Clinically, he denies chest pain or pressure, but has been significantly more short of breath over the last several days. He went to see his primary care doctor, and his Lasix was doubled to 80 mg daily as he has been having considerable increase in lower extremity edema. He is also active smoker and has obstructive lung disease. Currently, he is on oxygen per nasal cannula with sats in the 98% range. He denies overt chest pain episodes. PAST MEDICAL HISTORY: Somewhat difficult to obtain. He is somewhat of a poor historian. He has a history of prior right-sided voppt-noi-hasa amputation due to peripheral vascular disease, had numerous peripheral procedures, but he is not usually followed by a rubber washer. He does carry a history of DVT and is on warfarin chronically. He is on Plavix for his history of peripheral vascular disease. He reports he had a heart catheterization procedure some years ago and has never had a coronary intervention. He denies any known history of HI. His son was present and was able to provide some information. He has a history of chronic kidney disease also, generalized fatigue, morbid obesity. HOME MEDICATIONS: Include only aspirin, Lasix 40 mg daily, Plavix and warfarin 5 mg. He presents with an INR of 1.2. PAST SURGICAL HISTORY: Prior tonsillectomy, prior DVTs on 3 separate events from 6187-1022. 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 SOCIAL HISTORY: Tobacco user every day. [place] [address] CONSULTATION Name: JONATHANRITU JAMES Bret Room: [address] IN [facility]#: [id number] Admission: 07/06/17 Attend Phys: Camden Velasquez Discharge: Date of : 49 Report #: [id number] REVIEW OF SYSTEMS: GASTROINTESTINAL: No abdominal pain, nausea, vomiting. GENITOURINARY: No dysuria or hematuria. CARDIOVASCULAR: Positive dyspnea with exertion, positive orthopnea, positive PND, positive edema. No chest pain. GENITOURINARY: No dysuria, hematuria. MUSCULOSKELETAL: No joint pain. HEMATOLOGIC: No anemia or bleeding disorders. RENAL: Positive kidney disease. ENDOCRINE: He is not known to be a diabetic. NEUROLOGIC: Denies numbness, weakness, slurred speech or visual changes. PHYSICAL EXAMINATION: VITAL SIGNS: Blood pressure is 132/68, respiratory rate is 19, pulse is 77, O2 sats 98% on 3 liters. GENERAL: This is a morbidly obese elderly male, who is alert, unkempt, but in no apparent distress. HEENT: Eyes are intact. No facial asymmetry. NECK: Supple. No jugular venous distention. CARDIOVASCULAR: Regular. I cannot hear a rub or gallop. LUNGS: Diminished breath sounds bilaterally. ABDOMEN: Obese, nontender. EXTREMITIES: Amputation on his right side above the knee and his left side has severe edema, which is somewhat brawny and erythematous with 2-3+. LABORATORY DATA: His hemoglobin is 14.0, white blood count is 14.9, platelet counts are 133,000. Sodium is 128, potassium is 4.4, chloride 96, CO2 is 20, BUN is 17, creatinine is 1.3, GFR is 55. INR is 1.2. Chest x-ray on the , this morning demonstrates new mild left basilar atelectasis, infiltrate, small left pleural effusion. EKG shows a sinus rhythm with Q-waves in the inferior leads, during the immediate post-cardioversion showed ST segment depression in anterior precordial leads with T-wave inversion of 1-1.5 mm. IMPRESSION: 1. Ventricular tachycardia-hemodynamically unstable. He required cardioversion upstairs, and this has improved with IV amiodarone. He was hypomagnesemic and is receiving IV mag sulfate replacement therapy. 2. Acute coronary syndrome. His ECG demonstrates evidence of a prior inferior myocardial infarction, probably old and global ischemia post-event. He likely has some degree of left ventricular dysfunction based on cardiomegaly on x-ray. Given his hemodynamic instability, I recommend evaluation with cardiac catheterization. Given his peripheral vascular disease, this will be performed via the right radial artery. 3. History of deep vein thrombosis. We are holding his warfarin for his [address] [address] CONSULTATION Name: JONATHANJACOBRITU Room: [address] IN M.R.#: [id number] Admission: 07/06/17 Attend Phys: Camden Velasquez Discharge: Date of : 49 Report #: [id number] cardiac catheterization. We will continue with his dual antiplatelet therapy. 4. Chronic kidney disease. We will need to monitor renal function closely. 5. Possible pneumonia. He will continue with broad spectrum antibiotics. 6. Acute congestive heart failure, systolic dysfunction. I would like to diurese him prior to his cardiac catheterization as he seems a bit orthopneic currently. <ELECTRONICALLY SIGNED> By: Luis Alberto Maynard MD, FACC 07/12/17 0849 0921 0949Luis Alberto Maynard MD, FAC /nt
--- NOTE | 2017-07-12 08:50 | CARD ---
[address] [address] CARDIAC CATH REPORT Name: RITU MONTE Room: [address] IN .R.#: [id number] Admission: 07/06/17 Attend Phys: Camden Velasquez Discharge: Date of : 49 Report #: [id number] THIS REPORT FOR: //name// CC: Lamberto Louie DATE OF SERVICE: 07/07/2017 PROCEDURE PERFORMED: Bedside DC cardioversion. INDICATION: The patient is a 72-year-old man who was admitted with congestive heart failure exacerbation and had had an episode of unstable ventricular tachycardia, was overnight transferred down to the ICU. He had done well on an IV amiodarone, but had sudden onset of palpitations and was noted to have a wide complex tachycardia at a rate of 200 beats per minute. The patient was alert and coherent. It did not terminate and he had increasing dyspnea, so we proceeded with a DC cardioversion. He was able to be given 2 mg of IV Versed and 25 ____ of IV fentanyl immediately prior to the cardioversion, which was successful with 250 joules biphasic converted to a sinus rhythm and heart rate in the low 100s. He will be reloaded with amiodarone and he has already plans for a diagnostic cardiac catheterization. IMPRESSION: 1. Ventricular tachycardia, unstable. 2. Successful DC cardioversion. <ELECTRONICALLY SIGNED> By: Luis Alberto Maynard MD, [facility] 07/12/17 0850 1226 [id number] Alberto Maynard MD, ZAKIYA /nt
--- NOTE | 2017-07-12 10:37 | NUR ---
ASSUMED PT CARE AT 0700 PT IS ALERT AND ORIENTED X 4 PT DENIES PAIN OR SOA ON 2L/NC, PT IS A FALL RISK BED ALARM IS ON, PT AMBULATION IS IMPAIRED PT/OT IS WORKING WITH PT, PT WENT FOR STRESS TEST, PT VSS, PT HAS DEFIBRLATOR STERI STRIPS IN PLACE, PT IS TURNED Q 2 HOURS, REPORT GIVEN TOON COMING NURSE
--- NOTE | 2017-07-12 10:47 | NUR ---
Spoke with Pt regarding disposition, Pt is in agreement with going to [facility] at [facility], [place], [facility] [place], updated Pt's son, Micah. Spoke with Idalia from [facility], they are able to accept. Following.
[2017-07-12 12:39] VITALS: BP 117/60
[2017-07-12 16:18] VITALS: BP 92/63
--- NOTE | 2017-07-12 18:16 | CARDNUC ---
[place] [address] CARDIAC NUCLEAR IMAGING REPORT Name: RITU MONTE Room: [address] IN [facility]#: [id number] Admission: 07/06/17 Attend Phys: Deo Louie Discharge: Date of : 49 Date of Service: 07/12/17 1816 Report #: [id number] THIS REPORT FOR: //name// APPROVED REPORT Study performed: 07/10/2017 11:25:00 Exam: Nuclear Stress Test Indication: Congestive Heart Failure Patient Location: In-Patient Room #: 201 Stress Tech: Karla Parks Stress Nurse: Tarah Hayden RN Ht: 5 ft 9 in Wt: 240 lbs BSA: 2.23 m2 BMI: 35.43 Medical History Medical History: CAD s/p [place], CHF, Arrhythmia Medications: carvedilol, amiodarone, lisinopril, warfarin, asa Allergies: No known drug allergies Cardiac Risk Factors: Age, DM, HTN, PVD, Smoking Previous Cardiac Procedures: Myocardial infarction, ICD Exercise History: Sedentary Physical Disabilities: Legs Meds Held (24 hrs): carvedilol Stress Test Details Stress Test: Pharmacologic stress testing performed using 0.4 mg of regadenoson per 5 mL given IV over 10 seconds. Reason for pharmacologic stress test: physical limitation. HR Resting HR: 57 bpm Max Heart Rate (APMHR): 150 bpm Max HR Achieved: 60 bpm Target HR (85% APMHR): 127 bpm % of APMHR: 40 Recovery HR: 62 bpm BP Resting BP: 106/53 mmHg Max BP: 126/60 mmHg ECG Resting ECG: [place] [id number] CARDIAC NUCLEAR IMAGING REPORT Name: RITU MONTE Room: [address]#: [id number] Admission: 07/06/17 Attend Phys: Deo Louie Discharge: Date of : 49 Date of Service: 07/12/17 1816 Report #: [id number] Stress ECG: Sinus Rhythm ST Change: None Arrhythmia: None Recovery ECG: Sinus Rhythm Recovery ST Change: None Recovery Arrhythmia: None Clinical Reason for Termination: Completed protocol Stress Symptoms: None Exercise duration: 0 min sec Exercise capacity: 1.0 METs The patient had no significant symptoms with Lexiscan infusion. Stress ECG Conclusion The baseline 12 elect cardiac gram showed sinus rhythm without significant ST or T wave abnormality. 80s obtained during and post Lexiscan infusion showed sinus rhythm with no significant ST or T wave changes when compared to baseline. There were no significant arrhythmias. NM EXAM: Myocardial Perfusion REST/STRESS Imaging Protocol: Stress Tc-99m/Rest Tc-99m 2 days Resting Data Rest SPECT myocardial perfusion imaging was performed in supine position 30 minutes following the intravenous injection of 42.0 mCi of Tc-99m Sestamibi. Time of rest injection: 0820 Date: 07/12/2017 The images were gated to evaluate regional wall motion and calculate left ventricular ejection fraction. Administration Route: IV Administration Site: Right Arm Pharmacologic Stress Pharmacologic stress test was performed by injecting Regadenoson 0.4 mg IV push followed by the intravenous injection of 38.1 mCi of Tc-99m Sestamibi. Time of stress injection: 1210 Date: 07/11/2017 Time of stress imagin Date: 07/11/2017 Administration Route: IV Administration Site: Right Arm Heart Rate at time of stress injection: 60 bpm. The images were gated to evaluate regional wall motion and calculate left [place] [address] CARDIAC NUCLEAR IMAGING REPORT Name: RITU MONTE Room: [address]#: [id number] Admission: 07/06/17 Attend Phys: Deo Louie Discharge: Date of : 49 Date of Service: 07/12/17 1816 Report #: [id number] Study Quality Study: Good Artifact: No artifact Study Data At rest, the left ventricular ejection fraction was 26%.. Post stress, the left ventricular ejection was 31%.. TID = 1.07. Perfusion Perfusion images show a large in size severe in intensity fixed defect involving the inferolateral wall from base to apex. No other significant fixed or reversible defects are identified. Wall Motion Gated studies show akinesis of the inferolateral wall. There is severe global hypokinesis. Nuclear Conclusion ECG Findings: negative for ischemia Clinical Findings: negative for ischemia Nuclear Findings: negative for ischemia Exercise Capacity: not assessed Left Ventricular Function: abnormal Risk Study: moderate Myocardial perfusion images show evidence of prior extensive infarction of the inferolateral wall without ischemia. Left ventricular systolic function is severely decreased with wall motion abnormalities as outlined above. This is a moderate risk study based on left ventricular systolic dysfunction. <Conclusion> The baseline 12 elect cardiac gram showed sinus rhythm without significant ST or T wave abnormality. 80s obtained during and post Lexiscan infusion showed sinus rhythm with no significant ST or T wave changes when compared to baseline. There were no significant arrhythmias. <ELECTRONICALLY SIGNED> By: Mikal Sellers MD, FACC 07/12/171815 15 15 Mikal Sellers MD, FACC /INF
--- NOTE | 2017-07-12 18:45 | NUR ---
PATIENT RESTING IN BED THROUGH OUT THIS SHIFT. PATIENT REPORTING NO PAIN, NAUSEA OR INCREASED SHORTNESS OF AIR. PATIENT PROGRESSING TOWARDS GOALS.
[2017-07-13] VITALS: BP 101/49
[2017-07-13 04:00] VITALS: BP 111/68
[2017-07-13 05:03] LABS: CALCIUM 10.1 mg/dL (8.5-10.1); CREATININE 0.8 mg/dL (0.6-1.3); POTASSIUM 4.7 mmol/L (3.5-5.1)
[2017-07-13 05:11] LABS: INR 4.7
[2017-07-13 05:12] LABS: PROTIME 44.3 Seconds (9.20-11.50)
--- NOTE | 2017-07-13 06:42 | NUR ---
ASSUMED PT CARE AT 1930. ASSESSMENT COMPLETED CHARTED. TUBE SHANK CEMENTER HAND ON LEFT LEG, RIGHT LEG AMPUTEE, ABLE TO MAKE NEEDS KNOWN, CALL LIGHT WITHIN REACH. SLEPT THROUGHOUT THE NIGHT WITH PRN MELATONIN. WILL CONTINUE TO MONITOR.
--- NOTE | 2017-07-13 09:23 | NUR ---
Rehab consult placed, updated clinical rehab specialist. If rehab is able to accept, Pt will be ready to dc today. If Pt is not a rehab candidate, Pt should be ready to dc to skilled in the next few days. Following.
[2017-07-13 11:25] VITALS: BP 94/76
--- NOTE | 2017-07-13 13:45 | NUR ---
Pt discharging to [facility] acute rehab today. Pt and son in agreement. CM will fax dc orders once available.
[2017-07-13] MEDS ORDERED: PACERONE 200 M200 M1 PO (15:34)
[2017-07-13] MEDS ORDERED: CARVEDILOL3.125 MG PO (15:35)
[2017-07-13] MEDS ORDERED: CETAPHIL226 GM TOP (15:36)
[2017-07-13] MEDS ORDERED: FOLIC ACID1 MG PO (15:37)
[2017-07-13] MEDS ORDERED: PROBIOTIC1 EAC1 PO (15:38)
[2017-07-13] MEDS ORDERED: LISINOPRIL5 MG PO (15:39)
[2017-07-13] MEDS ORDERED: PREDNISONE 10 M10 MG PO (15:40)
[2017-07-13] MEDS ORDERED: TYLENOL325 MG PO (15:41)
[2017-07-13] MEDS ORDERED: ALBUTEROL2.5 MG/31 INH (15:42)
[2017-07-13] MEDS ORDERED: DULCOLAX5 MG PO (15:43)
[2017-07-13 15:45] VITALS: BP 105/59
[2017-07-13] MEDS ORDERED: BENADRYL25 MG PO (15:46)
[2017-07-13] MEDS ORDERED: GLUCOSE4 GM PO (15:47)
[2017-07-13] MEDS ORDERED: NORCO 5-325 TA1 EACH PO (15:48)
[2017-07-13] MEDS ORDERED: GLUTOSE GEL 1515 G1 PO (15:48)
[2017-07-13] MEDS ORDERED: MELATONIN10 M2 PO (15:50)
[2017-07-13] MEDS ORDERED: PHENERGAN 25 MG25 M1 PO (15:51)
[2017-07-13] MEDS ORDERED: HUMALOG100 UNIT/1 SUBQ ×2 (15:53→15:54)
[2017-07-13] MEDS ORDERED: LANTUS100 UNIT/M SUBQ (15:58)
[2017-07-13] MEDS ORDERED: MAG-AL PLUS SUS30 ML PO (16:00)
--- NOTE | 2017-08-02 13:38 | CON ---
[address] [address] CONSULTATION Name: RITU MONTE Room: [address] IN M.R.#: [id number] Admission: 07/06/17 Attend Phys: Camden Velasquez Discharge: 07/13/17 Date of : 47 Report #: [id number] THIS REPORT FOR: //name// CC: Lamberto Louie DATE OF SERVICE: 07/13/2017 REASON FOR CONSULTATION: Evaluation and recommendations regarding post-acute rehabilitation in a male known to this service from previous consultation as well as acute inpatient stay. He is currently admitted with pneumonitis, sepsis, Pseudomonas. He is followed by Dr. Voss. He also had significant acute on chronic systolic congestive heart failure, cardiomyopathy, coronary artery disease. He was seen by Cardiology and interventions were attempted. He also has a history of an AKA. He has been working with physical and occupational therapy. He does live in an accessible home with his son and chfrgknw-uk-vci who can provide help if needed. He was previously independent to modified independent with activities of daily living. Current level of function with occupational therapy is limited. He is supervision to minimum assistance with physical therapies. MEDICATIONS: Reviewed and available in the APR. ALLERGIES: No known drug allergies. Vital signs and laboratories were both reviewed. IMAGING: Reviewed. 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 diff in the past. FAMILY HISTORY: Diabetes. SOCIAL HISTORY: E-cigarettes. Otherwise, no recreational drug use, tobacco use. He does have occasional alcohol use. REVIEW OF SYSTEMS: A 14-point review of systems is done and is negative except as mentioned in the HPI. PHYSICAL EXAMINATION: GENERAL: Alert, oriented, in no apparent distress. VITAL SIGNS: Reviewed and are stable. HEENT: Head atraumatic, normocephalic. Pupils equal, round, reactive. ABDOMEN: Soft, nontender, [place] [address] CONSULTATION Name: RITU MONTE Room: [address] IN [facility]#: [id number] Admission: 07/06/17 Attend Phys: Camden Velasquez Discharge: 07/13/17 Date of : 47 Report #: [id number] NEUROLOGIC: Cranial nerves 2-12 are grossly intact. No focal neuro deficit. ASSESSMENT: 1. Cardiac debility. 2. Sepsis secondary to a left lower lobe pneumonia and left lower extremity cellulitis. 3. Above-knee amputation on the right. PLAN: 1. Recommend acute inpatient rehabilitation to facilitate safe discharge to the home setting where he does have an accessible house and family that can help. 2. Continue with antibiotics and cardiac recommendations per those 2 disciplines. <ELECTRONICALLY SIGNED> By: Carly Escobar DO 08/02/17 1338 1424 1901Carly Escobar DO /keturah
== END 2017-07-13 17:00 | DRG 853 ==
LOC: M.ERS 16:52 → M.2W 18:30 → M.TBA-ER 18:30 → M.ICU 18:30 → M.2W 19:38 → M.ICU 07-07 06:05 → M.2W 07-10 12:03
PROVIDERS: Emergency Medicine Emergency Medical Services; Internal Medicine; Internal Medicine Cardiovascular Disease; ADMIT Internal Medicine
PROC: 5A2204Z Restoration of Cardiac Rhythm, Single (ICD-10-PCS; principal; 2017-07-07)
PROC: 0JH60PZ Insertion of Cardiac Rhythm Related Device into Chest Subcutaneous Tissue and Fascia, Open Approach (ICD-10-PCS; 2017-07-11)
PROC: 4A023N7 Measurement of Cardiac Sampling and Pressure, Left Heart, Percutaneous Approach (ICD-10-PCS; 2017-07-11)
PROC: B211YZZ Fluoroscopy of Multiple Coronary Arteries using Other Contrast (ICD-10-PCS; 2017-07-11)
PROC: 0JH608Z Insertion of Defibrillator Generator into Chest Subcutaneous Tissue and Fascia, Open Approach (ICD-10-PCS; 2017-07-11)
DX: A41.52 Sepsis due to Pseudomonas (principal); J18.1 Lobar pneumonia, unspecified organism; I50.23 Acute on chronic systolic (congestive) heart failure; I21.4 Non-ST elevation (NSTEMI) myocardial infarction; I47.2 Ventricular tachycardia; I24.9 Acute ischemic heart disease, unspecified; L03.116 Cellulitis of left lower limb; D68.59 Other primary thrombophilia; I48.92 Unspecified atrial flutter; N17.9 Acute kidney failure, unspecified; I13.0 Hypertensive heart and chronic kidney disease with heart failure and stage 1 through stage 4 chronic kidney disease, or unspecified chronic kidney disease; I25.5 Ischemic cardiomyopathy; E66.01 Morbid (severe) obesity due to excess calories; I25.10 Atherosclerotic heart disease of native coronary artery without angina pectoris; E11.65 Type 2 diabetes mellitus with hyperglycemia; F17.290 Nicotine dependence, other tobacco product, uncomplicated; N18.3 Chronic kidney disease, stage 3 (moderate); E11.51 Type 2 diabetes mellitus with diabetic peripheral angiopathy without gangrene; E11.22 Type 2 diabetes mellitus with diabetic chronic kidney disease; I48.91 Unspecified atrial fibrillation; Z89.611 Acquired absence of right leg above knee; Z79.82 Long term (current) use of aspirin; Z86.718 Personal history of other venous thrombosis and embolism; Z68.39 Body mass index [BMI] 39.0-39.9, adult; Z86.711 Personal history of pulmonary embolism; I25.2 Old myocardial infarction; Z83.3 Family history of diabetes mellitus; Z79.899 Other long term (current) drug therapy

== ENCOUNTER 2017-07-13 14:36 | Inpatient (IN) | payer MEDICARE ==
[~2017-07-13] VITALS: Ht 175.3 cm; Wt 121.6 kg
[~2017-07-13 14:36] MED LIST changes: +CIPRO500 M1 PO
[2017-07-13] MEDS ORDERED: PACERONE 200 M200 M1 PO (15:34)
[2017-07-13] MEDS ORDERED: CARVEDILOL3.125 MG PO (15:35)
[2017-07-13] MEDS ORDERED: CETAPHIL226 GM TOP (15:36)
[2017-07-13] MEDS ORDERED: FOLIC ACID1 MG PO (15:37)
[2017-07-13] MEDS ORDERED: PROBIOTIC1 EAC1 PO (15:38)
[2017-07-13] MEDS ORDERED: LISINOPRIL5 MG PO (15:39)
[2017-07-13] MEDS ORDERED: PREDNISONE 10 M10 MG PO (15:40)
[2017-07-13] MEDS ORDERED: TYLENOL325 MG PO (15:41)
[2017-07-13] MEDS ORDERED: ALBUTEROL2.5 MG/31 INH (15:42)
[2017-07-13] MEDS ORDERED: DULCOLAX5 MG PO (15:43)
[2017-07-13] MEDS ORDERED: BENADRYL25 MG PO (15:46)
[2017-07-13] MEDS ORDERED: GLUCOSE4 GM PO (15:47)
[2017-07-13] MEDS ORDERED: GLUTOSE GEL 1515 G1 PO (15:48)
[2017-07-13] MEDS ORDERED: NORCO 5-325 TA1 EACH PO (15:48)
[2017-07-13] MEDS ORDERED: MELATONIN10 M2 PO (15:50)
[2017-07-13] MEDS ORDERED: PHENERGAN 25 MG25 M1 PO (15:51)
[2017-07-13] MEDS ORDERED: HUMALOG100 UNIT/1 SUBQ ×2 (15:53→15:54)
[2017-07-13] MEDS ORDERED: LANTUS100 UNIT/M SUBQ (15:58)
[2017-07-13] MEDS ORDERED: MAG-AL PLUS SUS30 ML PO (16:00)
[2017-07-13 17:05] VITALS: BP 114/56
--- NOTE | 2017-07-13 18:33 | NUR ---
ORDER RECEIVED TO DISCHARE PATIENT TO REHAB. IV AND TELEMETRY PACK REMOVED. REPORT CALLED TO RESTAURANT CULINARY MANAGER. PATIENT UTILIZING URINAL AND BEDPAN. HOURLY ROUNDING COMPLETD FOR PATIENT SAFETY.
--- NOTE | 2017-07-13 18:42 | NUR ---
PATIENT ADMITTED TO ROOM 323 BY BED FROM TELE UNIT. PATIENT ALERT/ORIENTED, NO COMPLAINTS OF PAIN, HAS TUBIGRIP STOCKING TO LEFT LE/CELLULITIS. RIGHT AKA IN 2015. PATIENT PREVIOUSLY ON UNIT BACK IN 2014 WHEN HE HAD THE R AKA. ORIENTED TO UNIT AND THERAPY SCHEDULE. PATIENT STATES HE KNOWS THE "DRILL". VERY PLEASANT GENTLEMAN STATES HE'S WILLING TO PARTICIPATE
[2017-07-13 20:05] VITALS: BP 104/60
--- NOTE | 2017-07-14 00:22 | NUR ---
ASSUMED CARE AT 1930. PATIENT RESTING IN BED. [place], BUT DOES NOT HAVE HEARING AIDES. HX OF RT AKA APRIL 2014. TURNS SELF, OBSERVED SLEEPING ON SIDE. REFUSES ASSIST WITH TURNS. LT LEG UP ON PILLOW, TUBIGRIP IN PLACE. EDEMA AND ERYTHEMA NOTED. TAKES PILLS WHOLE WITH WATER. REQUESTS INSULIN GIVEN IN ARMS. SLIDING SCALE INSULIN GIVEN FOR BLOOD SUGAR OF 398. ASSESSMENT COMPLETE. SALINE LOCK TO LT FORARM. HAD MOD SOFT BM PER BEDPAN AT 2044, REFUSED TO GET UP TO BSC. VOIDS PER URINAL. HOURLY ROUNDS CONTINUE. BED ALARM ON. CALL LITE IN REACH.
[2017-07-14 03:59] LABS: HEMATOCRIT 40.6 % (42.0-52.0); HEMOGLOBIN 13.3 gm/dL (14.0-18.0); MCH 29.3 pg (26.0-34.0); MCHC 32.6 g/dL (28.0-37.0); MCV 89.9 fL (80.0-100.0); MPV 8.9 fl. (7.2-11.1); RBC 4.52 mil/uL (4.50-6.00); RDW-CV 14.2 % (10.5-14.5); WBC 13.5 thou/uL (4.0-11.0)
[2017-07-14 04:06] LABS: CALCIUM 10.4 mg/dL (8.5-10.1); CREATININE 0.8 mg/dL (0.6-1.3); POTASSIUM 4.3 mmol/L (3.5-5.1)
[2017-07-14 04:28] LABS: INR 5.1; PROTIME 48.5 Seconds (9.20-11.50)
--- NOTE | 2017-07-14 05:41 | NUR ---
SLEPT SOUNDLY UNTIL AROUND 0445 WHEN C/O TUBIGRIP SLIPPING. TUBIGRIP REMOVED AND PICTURES TAKEN OF LT CALF AND LEFT FOOT. LT CALF HAS MACERATED AREA, CLEANSED WITH WOUND CLEANSER, AQUACEL AG APPLIED WITH MIPILEX. LT FOOT HAS BULLA THAT IS IRREGULARILY SHAPED, BUT INTACT. BOTH AREAS PHOTOGRAPHED. TUBIGRIP REAPPLIED. TOLERATED WELL. ATTEMPTING TO RETURN TO SLEEP. HOURLY ROUNDS CONTINUE. BED ALARM ON. CALL LITE IN REACH.
[2017-07-14 08:47] VITALS: BP 99/63
--- NOTE | 2017-07-14 10:56 | NUR ---
Nutrition: Pt admitted to Rehab with cardiac debility. Wt: 238 up to 268# - fluid-related. Edema in all extremities. H/o Rt AKA, DM HTN, HF, DLD. Pt is noncompliant, per RN, and education is unnecessary. RX: warfarin, lisinopril, Cipro, albuteraol, L. acidophilus, insulin, folic acid, aspirin. Labs: TG WNL, BG 400 now down to 127, A1c 11%, alb 2, prealb 11.8, Na 132. +BM. Eating 100% of CHO controlled diet. Poor nutrition-quality of life R/T noncompliance AEB RN report, DM, AKA, labs above. Encourage good meal intake and hydration. RD will follow weekly on Rehab unit.
--- NOTE | 2017-07-14 13:11 | NUR ---
FOLLOWING LUNCH PT C/O OF FEELING WEIRD, BP CHECKED AND WAS 83/49. PT RETURNED TO BED, 1300 FUROSEMIDE HELD. PT STATES HE IS FEELING A LITTLE BETTER, WILL CONTINUE TO MONITOR.
--- NOTE | 2017-07-14 16:54 | NUR ---
I have reviewed the documentation by WILMA AGUILAR from JULY 14, 2017 to 07/14/17 and I concur with it. FRACISCO KAN.
--- NOTE | 2017-07-14 17:10 | NUR ---
SW met with pt to complete initial assessment, introduce self, and SW role on inpt rehab unit. Pt is home with family who pt says is there all of the time. Pt has DME including a hospital bed, ADA bathroom, wc, and scooter. Pt has hx of HH and knows of one he does not want but pt son might know the name of the agency. SW to continue to follow to assist with safe dc planning.
--- NOTE | 2017-07-14 18:09 | NUR ---
PT CONTINUED TO FEEL BETTER THROUGHOUT THE AFTERNOON AND WORKED WITH THERAPY AT BED LEVEL. CALL LIGHT AND PERSONAL BELONGINGS WITHIN REACH.
[2017-07-14 20:11] VITALS: BP 93/47
[2017-07-14 21:00] VITALS: BP 104/62
[2017-07-14 21:07] LABS: eGFR IF AFRICAN AMERICAN 55 (>59)
--- NOTE | 2017-07-15 05:16 | NUR ---
ASSUMED CARE AT 1920. PT ALERT AND ORIENTED. PLEASANT. C/O PAIN TO LEFT LEG AND FOOT. LLE EDEMA WITH TUBIGRIP ON. NORCO GIVEN FOR PAIN. TAKES PILLS WHOLE WITHOUT ISSUES. HAS ON O2 2L NC. PT REQUESTED TO USE BEDPAN X 2 FOR BM. REFUSED TO GET UP ONTO BSC. NURSING STAFF DID ALL CARES. PT USED URINAL. ABLE TO MOVE WELL IN BED AND DOES TURN SELF. USED CALL LIGHT APPROPRIATELY. ALL NEEDS MET. WILL CONTINUE TO MONITOR.
[2017-07-15 07:52] VITALS: BP 82/52
[2017-07-15 09:00] VITALS: BP 86/54
[2017-07-15 15:08] LABS: PARATHYROID HORMONE 221 pg/mL (15-65)
--- NOTE | 2017-07-15 18:16 | NUR ---
ASSUMED CARE AT 0730 PATIENT ALERT/ORIENTED, PAIN TO LEFT LEG BUT REFUSES ANY MEDICATIONS. DID PARTICIPATE IN THERAPIES TODAY IN BED ONLY, B/P'S LOW TODAY AND CARDIOLOGY CONSULTED, DR PATEL UP TO SEE PATIENT AND ADJUSTED MEDICATIONS SEE EMAR. HOURLY ROUNDING COMPLETED, BED/CHAIR ALARMS IN PLACE, CALL LIGHT IN REACH. PATIENT DID REFUSE TO GO TO DINING ROOM FOR MEALS EVEN THOUGH EDUCATED ON IMPORTANCE FOR THERAPY SESSIONS.
[2017-07-15 20:00] VITALS: BP 84/46
[2017-07-16 04:52] LABS: PROTIME 29.6 Seconds (9.20-11.50)
[2017-07-16 05:01] LABS: INR 3.1
--- NOTE | 2017-07-16 05:16 | NUR ---
ASSUMED PT CARE AT 1930. PT ALERT AND ORIENTED X3, POLITE AND COOPERATIVE WITH CARES. PT DENIED PAIN. LLE EDEMA, TURBIGRIP IN PLACE. PT TAKES PILLS WHOLE WITHOUT DIFFICUTLY. 2L 02 PER NC OVERNIGHT. NO STOOL THIS SHIFT. PT USED URINAL, STAFF EMPTIED. PT ABLE TO MOVE WELL IN BED, TURNS SELF. USED CALL LIGHT APPROPRIATELY. CALL LIGHT AND FREQUENTLY USED ITEMS WITHIN REACH. BED ALARM ON FOR SAFETY. HOURLY ROUNDING IN PROGRESS, WILL CONTINUE TO MONITOR.
[2017-07-16 07:52] VITALS: BP 99/50
--- NOTE | 2017-07-16 15:01 | EKG ---
[place] [address] ELECTROCARDIOGRAM REPORT Name: BRYAN MONTEY Room: [address] ADM IN M.R.#: [id number] Admission: 07/13/17 Attend Phys: Carly Escobar DO Discharge: Date of : 49 Report #: [id number] THIS REPORT FOR: //name// [facility] Test Date: 2017-07-16 Test Time: 08:37:07 Pat Name: RTIU MONTE Department: Room: [address] Gender: M Rug Hooker: : 1945 Requested By: Lamberto Blake Order Number: [id number] Mauri MD: Lamberto Blake Measurements Intervals [place] Rate: 54 P: 63 DE: 177 QRS: 42 QRSD: 141 T: -20 QT: 469 QTc: 445 Interpretive Statements Ventricular-paced complexes sinus bradycardia early transition Probable left atrial enlargement Nonspecific intraventricular conduction delay Minimal ST depression, inferior leads Compared to ECG 07/09/2017 08:18:16 ST (T wave) deviation now present ventricular beats now noted Electronically Signed On 07-16-2017 15:01:04 CDT by Lamberto Blake [email or web address] <ELECTRONICALLY SIGNED> By: Lamberto Blake MD, [facility] 07/16/17 1501 0837 0837 Lamberto Blake MD, [facility] /EPI
--- NOTE | 2017-07-16 18:31 | NUR ---
ASSUMED CARE AT 0730 PATIENT IS ALERT/ORIENTED, BED ALARMS IN PLACE, CALL LIGHT IN REACH, HOURLY ROUNDING COMPLETED. DR PATEL D/C'D PATIENTS B/P'S MEDS ALTOGETHER, RESTARTED COUMADIN. PATIENT STILL REFUSING TO GET OUT OF BED TODAY. SPOKE WITH SON THIS AFTERNOON AND HE STATED CONCERNS WITH PATIENTS MOTIVATION. HE STATED AT HOME HE JUST LAYED AROUND AND EVEN THOUGH THEY ENCOURAGED HIM TO GO OUT WITH THEM, HE REFUSED. SPOKE WITH HIM AT LENGTH AND EXPLAINED THAT HE WILL BE GETTING OUT OF BED OR HE WILL NOT BE ELIGABLE TO STAY ON THIS FLOOR FOR REHAB. PATIENT STATES UNDERSTANDING AND THAT THE SWELLING IN HIS LEG IS GOING DOWN AND THAT HE WILL PARTICIPATE IN THERAPIES TOMORROW. DRESSING AND PICTURES TAKEN OF ESTELA.
[2017-07-16 20:27] VITALS: BP 102/42
--- NOTE | 2017-07-17 05:11 | NUR ---
ASSUMED PT CARE AT 1930. PT ALERT AND ORIENTED X3, POLITE AND COOPERATIVE WITH CARES. PT TAKES PILLS WHOLE WITH WATER WITHOUT DIFFICULTY. PT INCONTINENT OF STOOL X2 THIS SHIFT FOR LARGE AMOUNTS OF TARRY STOOL. ALSO USED BEDPAN FOR ADDITIONAL STOOLS. TUBIGRIP TO LEFT LEG INTACT. PROTECTIVE BARRIER WIPE TO BLISTER ON TOP OF LEFT FOOT AND CETAPHIL TO TOES OF LEFT FOOT. MELATONIN AT HS PER PT REQUEST. PT SLEPT OFF ON ON OVERNIGHT. USES CALL LIGHT APPROPRIATELY. CALL LIGHT AND FREQUENTLY USED ITEMS WITHIN REACH. HOURLY ROUNDING IN PROGRESS, WILL CONTINUE TO MONITOR.
[2017-07-17 08:00] VITALS: BP 107/50
[2017-07-17 08:12] LABS: HEMATOCRIT 34.6 % (42.0-52.0); HEMOGLOBIN 11.4 gm/dL (14.0-18.0); MCH 28.9 pg (26.0-34.0); MCV 87.6 fL (80.0-100.0); MPV 8.6 fl. (7.2-11.1); RBC 3.95 mil/uL (4.50-6.00); RDW-CV 13.7 % (10.5-14.5); WBC 19.7 thou/uL (4.0-11.0)
[2017-07-17 08:21] LABS: PROTIME 28.3 Seconds (9.20-11.50)
[2017-07-17 08:23] LABS: CALCIUM 8.6 mg/dL (8.5-10.1); CREATININE 7.6 mg/dL (0.6-1.3); MAGNESIUM 2.6 mg/dL (1.8-2.4)
[2017-07-17 08:45] VITALS: BP 107/50
[2017-07-17 10:29] LABS: HEMOGLOBIN 11.5 gm/dL (14.0-18.0); MCHC 32.8 g/dL (28.0-37.0); MCV 88.5 fL (80.0-100.0); MPV 8.8 fl. (7.2-11.1); NUCLEATED RBCS 0 /100WBC; PLATELET COUNT* 259 thou/uL (150-400); RBC 3.96 mil/uL (4.50-6.00); RDW-CV 14.1 % (10.5-14.5); WBC 24.4 thou/uL (4.0-11.0)
[2017-07-17 11:16] LABS: CALCIUM 8.7 mg/dL (8.5-10.1); CREATININE 7.8 mg/dL (0.6-1.3)
[2017-07-17 11:58] LABS: ABSOLUTE LYMPHOCYTES 1.2 thou/uL (0.8-5.3); ABSOLUTE NEUTROPHILS 22.2 thou/uL (1.6-8.1); PLATELET ESTIMATE ADEQUATE
[2017-07-17 11:59] LABS: MACROCYTES Occasional
--- NOTE | 2017-07-17 15:34 | EKG ---
[place] [address] ELECTROCARDIOGRAM REPORT Name: RITU MONTE Room: [address] DIS IN M.R.#: [id number] Admission: 07/13/17 Attend Phys: Carly Escobar DO Discharge: 07/17/17 Date of : 49 Report #: [id number] THIS REPORT FOR: //name// [facility] Test Date: 2017-07-17 Test Time: 14:26:42 Pat Name: RITU MONTE Department: Room: [address] Gender: M Central Office Trouble Shooter: ENRIQUE : 1945 Requested By: Lamberto Blake Order Number: [id number] Mauri MD: Jamar Monzon Measurements Intervals [place] Rate: 48 P: 57 FL: 188 QRS: 17 QRSD: 149 T: 2 QT: 430 QTc: 385 Interpretive Statements Sinus bradycardia Probable left atrial enlargement Nonspecific intraventricular conduction delay Inferior infarct, old Compared to ECG 07/16/2017 08:37:07 Myocardial infarct finding now present ST (T wave) deviation no longer present Electronically Signed On 07-17-2017 15:34:12 CDT by Jamar Monzon [email or web address] <ELECTRONICALLY SIGNED> By: Jamar Monzon MD, [facility] 07/17/17 1534 1426 1426 Jamar Monzon MD, [facility] /EPI
--- NOTE | 2017-07-17 15:39 | NUR ---
PATIENT'S LABS THIS AM REPORTED TO DR GAMBLE, STAT REDRAWS TO VERIFY. DR GAMBLE ORDERED FOR PATIENT TO BE ADMITED TO TELE DUE TO RENAL FUNCTION HIGH. REPORT CALLED TO FRANK AT 1228. ROSARIO CATHETER INSERTED BEFORE PATIENT LEFT FLOOR, USING STERILE PROCEDURES, CATHETER INSERTED, IMMEDIATE RETURN OF LIGHT YELLOW URINE IN TUBE. BALLOON INFLATED WITH 10CC STERILE WATER. PATIENT TOLERATED WITH MILD DISCOMFORT. PATIENT ALSO HAD A BM BEFORE LEAVING FLOOR, SENT DOWN SAMPLE FOR CDIFF AND QUAIC. PATIENT WAS TRANPORTED TO TELE ROOM 213 VIA BED.
--- NOTE | 2017-08-14 12:16 | D ---
[facility] [address] [place] [address] DISCHARGE SUMMARY Name: JONATHANJACOBRITU Room: [address] IN M.R.#: [id number] Admission: 07/13/17 Attend Phys: Carly Escobar DO Discharge: 07/17/17 Date of : 49 Report #: [id number] THIS REPORT FOR: //name// CC: Lamberto Ecsobar DATE OF SERVICE: 07/17/2017 DISCHARGE DIAGNOSIS: Cardiac debility. DISPOSITION: Discharge to acute telemetry for further monitoring. The patient was working with therapies over the course of the last several days when he was noted to have a potassium of 6, a BUN of 165 and a creatinine of 7.6. He was transferred acutely to have more acute medical management. Medication reconciliation was completed. Goal would be to return to acute inpatient rehabilitation when stabilized. DISCHARGE PHYSICAL EXAMINATION: GENERAL: Alert, oriented, no apparent distress. VITAL SIGNS: Reviewed and are stable. HEENT: Head atraumatic, normocephalic. Pupils equal, round, reactive. ABDOMEN: Soft, nontender, nondistended. <ELECTRONICALLY SIGNED> By: Carly Escobar DO 08/14/17 1216 1431 1519Carly Escobar DO /nt
--- NOTE | 2017-09-06 11:20 | PLAN ---
[facility] [address] [place] [address] REHAB UNIT PLAN OF CARE Name: RITU MONTE Room: [address] IN [facility].#: [id number] Admission: 07/13/17 Attend Phys: Carly Escobar, Discharge: 07/17/17 Date of : 49 Report #: [id number] THIS REPORT FOR: //name// CC: Lamberto Escobar This is a 72-year-old male admitted to inpatient rehabilitation to facilitate safe discharge home, status post acute hospitalization for cardiac issues. He also has a left lower extremity cellulitis and a right above knee amputation. Previous level of function was modified independent to independent with activities of daily living. Current level of function is minimum to moderate assistance of 1-2 depending on therapy, activity and time of day. Estimated length of stay is 14-18 days with discharge disposition to the home setting where he has an accessible house and a supportive family. REHABILITATION PROGNOSIS: Good. MEDICAL PROGNOSIS: Good. Physical therapy will see the patient 60-90 minutes per day, 5 days per week, working on upper and lower body strength, balance, coordination, navigation. Occupational therapy will work with the patient 60-90 minutes per day, 5 days per week, working on upper and lower body strength, balance, coordination, navigation, bathing, dressing, and toileting. Speech language pathology will do a cognitive screen given his age and cardiac issues. This is an overall plan of care, may change from time to time, we will team weekly and make changes to plan of care as needed. <ELECTRONICALLY SIGNED> By: Carly Escobar DO 09/06/17 1120 1327 0401Carly Escobar DO /nt
--- NOTE | 2017-09-06 11:20 | H ---
[facility] [address] [place] [address] HISTORY AND PHYSICAL Name: RITU MONTE Room: [address] IN ..#: [id number] Admission: 07/13/17 Attend Phys: Carly Escobar, Discharge: 07/17/17 Date of : 49 Report #: [id number] THIS REPORT FOR: //name// CC: Lamberto Escobar HISTORY OF PRESENT ILLNESS: This is a 72-year-old male known to this service from previous consultation and previous acute inpatient admission, who presents to inpatient rehabilitation to facilitate safe discharge home, status post acute hospitalization for cardiac debility. He also has a right above knee amputation, alterations in mobility, activities of daily living and functional impairment. No significant changes since the preadmission screening. Previous level of function was modified independent to independent with activities of daily living. Current level of function is minimum to moderate assistance of 1-2 depending on therapy, activity and time of day. Estimated length of stay is 14-18 days with discharge disposition to the home setting where he has an accessible house and supportive family. He also has left lower extremity cellulitis and is being followed by wound care. PAST MEDICAL HISTORY: Unchanged from consultation. MEDICATIONS: Reconciled by myself and are available in the MAR. FAMILY HISTORY: Unchanged from consultation. SOCIAL HISTORY: Unchanged from consultation. REVIEW OF SYSTEMS: A 14-point review of systems was done today, is negative except as mentioned in the HPI, specifically no fever, chest pain, shortness of breath, abdominal pain or distention, change in bowel or change in bladder. PHYSICAL EXAMINATION: GENERAL: Alert, oriented, in no apparent distress. VITAL SIGNS: Reviewed and are stable. HEENT: Head: Atraumatic, normocephalic. Pupils are equal, round, reactive. ABDOMEN: Soft, nontender, nondistended. NEUROLOGIC: Cranial nerves 2-12 are grossly intact with no focal neuro deficits. 5/5 strength in the bilateral upper and lower extremities. SKIN: Warm and dry. There is a left calf lesion. MUSCULOSKELETAL: No clubbing, cyanosis or edema. ASSESSMENT: 1. Cardiac debility. 2. Right lower extremity above-knee amputation. 3. Left lower extremity cellulitis. 4. Alterations in mobility and [place] [address] HISTORY AND PHYSICAL Name: JONATHANRITU JAMES Bret Room: [address]#: [id number] Admission: 07/13/17 Attend Phys: Carly Escobar DO Discharge: 07/17/17 Date of : 49 Report #: [id number] PLAN: 1. Admission to inpatient rehabilitation. 2. PT, OT, speech management, case management to make evaluations and recommendations. 3. Plan of care is pending and we will team him weekly. 4. Wound care will see regarding the lower extremity cellulitis. 5. Nonweightbearing on the right lower extremity. <ELECTRONICALLY SIGNED> By: Carly Escobar DO 09/06/17 1120 1326 1406Kelfelisha Escobar DO /nt
== END 2017-07-17 14:04 | disposition short-term general hospital (02) | DRG 947 ==
LOC: M.REH 14:36
PROVIDERS: Family Medicine; Internal Medicine; Internal Medicine Cardiovascular Disease; ADMIT Physical Medicine & Rehabilitation
DX: R53.81 Other malaise (principal); A41.52 Sepsis due to Pseudomonas; L03.116 Cellulitis of left lower limb; I50.22 Chronic systolic (congestive) heart failure; I47.2 Ventricular tachycardia; I42.9 Cardiomyopathy, unspecified; D68.59 Other primary thrombophilia; N17.9 Acute kidney failure, unspecified; I73.9 Peripheral vascular disease, unspecified; I25.10 Atherosclerotic heart disease of native coronary artery without angina pectoris; R00.1 Bradycardia, unspecified; E11.65 Type 2 diabetes mellitus with hyperglycemia; E66.01 Morbid (severe) obesity due to excess calories; F17.290 Nicotine dependence, other tobacco product, uncomplicated; Z68.39 Body mass index [BMI] 39.0-39.9, adult; Z79.82 Long term (current) use of aspirin; Z79.4 Long term (current) use of insulin; Z79.899 Other long term (current) drug therapy; Z89.611 Acquired absence of right leg above knee; Z95.810 Presence of automatic (implantable) cardiac defibrillator; Z86.718 Personal history of other venous thrombosis and embolism; Z79.01 Long term (current) use of anticoagulants; Z95.820 Peripheral vascular angioplasty status with implants and grafts; I25.2 Old myocardial infarction; Z83.3 Family history of diabetes mellitus

== ENCOUNTER 2017-07-17 11:59 | Inpatient (IN) | payer MEDICARE ==
[~2017-07-17] VITALS: Ht 175.3 cm; Wt 101.2 kg
--- NOTE | ~2017-07-17 | PROC ---
[address] [address] PROCEDURE REPORT Name: RITU MONTE Room: [address] IN ..#: [id number] Admission: 07/17/17 Attend Phys: Micheal Burciaga MD Discharge: Date of : 49 Report #: [id number] THIS REPORT FOR: //name// For GI report, please see the Provation report in Perceptive 7 content. By: [id number] Records Staff [facility] /ILDEFONSO
[~2017-07-17 11:59] MED LIST changes: +ALBUTEROL2.5 MG/31 INH; +CARVEDILOL3.125 MG PO; +CETAPHIL226 GM TOP; +DULCOLAX5 MG PO; +GLUCOSE4 GM PO; +GLUTOSE GEL 1515 G1 PO; +HUMALOG100 UNIT/1 SUBQ; +LANTUS100 UNIT/M SUBQ; +LISINOPRIL5 MG PO; +MAG-AL PLUS SUS30 ML PO; +MELATONIN10 M2 PO; +NORCO 5-325 TA1 EACH PO; +PACERONE 200 M200 M1 PO; +PHENERGAN 25 MG25 M1 PO; +PROBIOTIC1 EAC1 PO
[2017-07-17 15:18] VITALS: BP 111/60
[2017-07-17 16:23] LABS: CALCIUM 9.3 mg/dL (8.5-10.1); CREATININE 8.1 mg/dL (0.6-1.3)
[2017-07-17 16:24] LABS: POTASSIUM 6.5 mmol/L (3.5-5.1)
[2017-07-17 20:00] VITALS: BP 109/37
[2017-07-17 21:04] LABS: URINE BILIRUBIN NEGATIVE (Negative); URINE BLOOD 3+ (Negative); URINE CLARITY SL CLOUDY; URINE COLOR OTHER; URINE GLUCOSE-RANDOM 2+ (Negative); URINE KETONES NEGATIVE (Negative); URINE LEUKOCYTES-REFLEX TRACE (Negative); URINE NITRITE-REFLEX NEGATIVE (Negative); URINE PROTEIN 1+ (Negative); URINE UROBILINOGEN 0.2 E.U./dl (0.2-1.0)
[2017-07-17 21:25] LABS: CASTS None Seen /LPF (None Seen); SQUAMOUS 0-3 Few /LPF (0-3); URINE WBC-REFLEX 6-15 Few /HPF (0-5)
[2017-07-17 21:26] LABS: BACTERIA-REFLEX 1-9 Few /HPF (None Seen); CRYSTALS None Seen /LPF (None Seen); URINE RBC >20 Many /HPF (0-2)
[2017-07-18] VITALS (7 sets, daily range): BP systolic 97–134; BP diastolic 44–63
[2017-07-18 06:48] LABS: ABSOLUTE LYMPHOCYTES 0.6 thou/uL (0.8-5.3); ABSOLUTE MONOCYTES 0.7 thou/uL (0.0-1.2); ABSOLUTE NEUTROPHILS 14.3 thou/uL (1.6-8.1); BASOPHILS 0.2 %; HEMATOCRIT 27.6 % (42.0-52.0); MCH 29.7 pg (26.0-34.0); MCHC 33.8 g/dL (28.0-37.0); MCV 88.1 fL (80.0-100.0); MONOCYTES 4.6 %; MPV 8.3 fl. (7.2-11.1); NUCLEATED RBCS 0 /100WBC; POLYS 91.2 %; RBC 3.14 mil/uL (4.50-6.00); RDW-CV 13.9 % (10.5-14.5); WBC 15.7 thou/uL (4.0-11.0)
[2017-07-18 06:59] LABS: INR 3.5
[2017-07-18 07:00] LABS: HEMOGLOBIN 9.3 gm/dL (14.0-18.0); PLATELET COUNT* 181 thou/uL (150-400)
[2017-07-18 07:11] LABS: CALCIUM 8.8 mg/dL (8.5-10.1); CREATININE 8.8 mg/dL (0.6-1.3)
[2017-07-18 07:20] LABS: POTASSIUM 6.3 mmol/L (3.5-5.1)
--- NOTE | 2017-07-18 09:35 | CON ---
[address] [address] CONSULTATION Name: RITU MONTE Room: [address] IN M.R.#: [id number] Admission: 07/17/17 Attend Phys: Micheal Burciaga MD Discharge: Date of : 49 Report #: [id number] THIS REPORT FOR: //name// CC: Micheal Tillman NEPHROLOGY CONSULTATION CONSULTING PHYSICIAN: Micheal Burciaga M.D. REASON FOR CONSULTATION: Acute kidney injury. HISTORY OF PRESENT ILLNESS: A 72-year-old gentleman who was transferred out from the rehab facility due to acute kidney injury. His creatinine was 0.8 on 07/14/2017. Today, it is trended up to 7.6. It was confirmed with a repeat of 7.8 and 8.1. He also has developed some hyperkalemia. He feels well. He has absolutely no complaints. He did develop some diarrhea last night; he had 4 loose bowel movements. He was also having some problems with bradycardia and was also on lisinopril. He had a cardiac catheterization on 07/06/2017 at 400 mL of dye that he received for that procedure. He has a Moran catheter in place. He has poor and diminished oral intake. His white cell count has been trending up. He is being treated for Pseudomonas sepsis and Infectious Disease was following him as well. C. diff was ordered to evaluate the diarrhea. Beta ayana was put on hold yesterday for heart rates in the 40s. REVIEW OF SYSTEMS: Constitutional, psych, heme, eyes, ENT, respiratory, cardiac, GI, and endocrine, all negative, except as documented above. PAST MEDICAL HISTORY: 1. History of V-Tac during this hospitalization. He was shocked multiple times and underwent cardiac catheterization and had an AICD placed. 2. Pseudomonas sepsis. 3. Left lower extremity cellulitis. 4. History of a right ubwnk-fyy-sgrj amputation. 5. History of deep venous thrombosis and pulmonary embolism. 6. Peripheral vascular disease. 7. History of non-traumatic ischemic infarction, right lower leg. 8. History of bilateral lower extremity DVTs. 9. Coronary artery disease. 10. Chronic systolic heart failure. 11. History of permanent pacemaker. SOCIAL HISTORY: Positive for tobacco. FAMILY HISTORY: Not pertinent, 72-year-old gentleman. CURRENT MEDICATIONS: [place] [address] CONSULTATION Name: RITU MOTNE Room: [address]#: [id number] Admission: 07/17/17 Attend Phys: Micheal Burciaga MD Discharge: Date of : 49 Report #: [id number] PHYSICAL EXAMINATION: VITAL SIGNS: Blood pressure 111/60, pulse 50, respirations 17 and temperature 36.7. GENERAL: On exam, in no acute distress. EYES: Extraocular movements intact. EARS: Externally normal. CARDIOVASCULAR: Bradycardic. No pericardial friction rub. LUNGS: Clear to auscultation. ABDOMEN: Soft, nontender. LYMPHATICS: Right AKA. Left lower extremity is wrapped. PSYCHIATRIC: Awake, alert and oriented. NEUROLOGIC: No asterixis. LABORATORY DATA: Sodium 126, potassium 6.5, chloride 91, bicarbonate 24, BUN 180, creatinine 8.1, glucose 173 and calcium 9.3. White cell count 24, hemoglobin 11.5 and platelets 259,000. INR is 3. ASSESSMENT AND PLAN: 1. Acute kidney injury. Creatinine was 0.8 on 07/14/2017; up to 8 now in the setting of diarrhea, lisinopril, bradycardia and cardiac catheterization, which was 10 days ago and unlikely to be contributing to current condition. 2. Ventricular tachycardia during this recent hospitalization, with AICD placed. 3. Pseudomonas sepsis. 4. Cardiomyopathy with 07/06/2017 ejection fraction of 35%. 5. Coronary artery disease. 6. Right sxtxj-muk-yulj amputation. 7. Left lower extremity cellulitis. 8. History of deep venous thrombosis and pulmonary embolism. He is anticoagulated. 9. Diabetes type 2. 10. Hyperkalemia. PLAN: 1. He had a rapid rise in his creatinine. We will first try hydrating aggressively. 2. Check kidney ultrasound and kidney Doppler. 3. Discontinue lisinopril. 4. Check U/A. 5. Renal diet. 6. We will administer measures to reverse the hyperkalemia and repeat potassium in 2 hours' time. The patient is on a monitor. 7. Send MARCELINO, ANCA and anti-GBM antibody to assess for RPGN. 8. Check labs again in the a.m. 9. No acute indications for dialysis. Should his potassium remain refractory [address] [address] CONSULTATION Name: LAVELLRITU Room: [address] IN M.R.#: [id number] Admission: 07/17/17 Attend Phys: Micheal Burciaga MD Discharge: Date of : 49 Report #: [id number] to medical therapy, then he will need dialysis tonight. Thank you for requesting my opinion in the care and management of this patient. <ELECTRONICALLY SIGNED> By: Jovana Mena MD 07/18/17 0935 1636 0046Avern Mena MD /nt
[2017-07-18 10:47] LABS: CALCIUM 8.9 mg/dL (8.5-10.1)
[2017-07-18 12:30] LABS: INR 3.3; PROTIME 31.5 Seconds (9.20-11.50)
[2017-07-18 14:34] LABS: INR 2.6; PROTIME 24.5 Seconds (9.20-11.50)
[2017-07-18 14:36] LABS: CALCIUM 8.8 mg/dL (8.5-10.1); CREATININE 8.9 mg/dL (0.6-1.3)
[2017-07-18 14:40] LABS: POTASSIUM 6.3 mmol/L (3.5-5.1)
[2017-07-18 18:34] LABS: CALCIUM 8.2 mg/dL (8.5-10.1)
[2017-07-18 18:38] LABS: POTASSIUM 6.2 mmol/L (3.5-5.1)
[2017-07-19] VITALS: BP 97/62
[2017-07-19 04:00] VITALS: BP 86/51
[2017-07-19 05:27] LABS: HEMATOCRIT 24.9 % (42.0-52.0); HEMOGLOBIN 8.3 gm/dL (14.0-18.0); MCH 29.6 pg (26.0-34.0); MCHC 33.5 g/dL (28.0-37.0); MCV 88.5 fL (80.0-100.0); MPV 8.4 fl. (7.2-11.1); NUCLEATED RBCS 0 /100WBC; PLATELET COUNT* 135 thou/uL (150-400); RBC 2.81 mil/uL (4.50-6.00); RDW-CV 14.3 % (10.5-14.5); WBC 8.7 thou/uL (4.0-11.0)
[2017-07-19 05:33] LABS: INR 2.6; PROTIME 24.7 Seconds (9.20-11.50)
[2017-07-19 05:45] LABS: ALBUMIN 1.9 g/dL (3.4-5.0); CALCIUM 7.1 mg/dL (8.5-10.1); MAGNESIUM 2.1 mg/dL (1.8-2.4); TOTAL BILIRUBIN 0.4 mg/dL (<0.1-1.0); TOTAL PROTEIN 4.8 g/dL (6.4-8.2)
[2017-07-19 05:47] LABS: POTASSIUM 5.2 mmol/L (3.5-5.1)
[2017-07-19 06:31] LABS: ALBUMIN 1.9 g/dL (3.4-5.0); CALCIUM 7.6 mg/dL (8.5-10.1); CREATININE 7.1 mg/dL (0.6-1.3); MAGNESIUM 2.2 mg/dL (1.8-2.4); PHOSPHORUS* 7.7 mg/dL (2.5-4.9); POTASSIUM 5.4 mmol/L (3.5-5.1)
[2017-07-19 08:00] VITALS: BP 89/44
[2017-07-19 09:03] LABS: ABSOLUTE LYMPHOCYTES 0.9 thou/uL (0.8-5.3); ABSOLUTE MONOCYTES 0.9 thou/uL (0.0-1.2)
[2017-07-19 09:04] LABS: PLATELET ESTIMATE DECREASED
[2017-07-19 09:05] LABS: ANISOCYTOSIS 1+; HYPOCHROMASIA Occasional
[2017-07-19 16:08] VITALS: BP 129/109
[2017-07-19 16:58] LABS: % SATURATION 49 % (20-39); IRON 104 ug/dL (50-175)
[2017-07-19 20:00] VITALS: BP 95/45
[2017-07-20 00:07] VITALS: BP 103/47
[2017-07-20 02:09] LABS: HEPATITIS B SURFACE AG Negative (Negative)
[2017-07-20 03:42] VITALS: BP 104/52
[2017-07-20 08:00] VITALS: BP 107/67
[2017-07-20 08:11] LABS: HEMATOCRIT 22.2 % (42.0-52.0); HEMOGLOBIN 7.5 gm/dL (14.0-18.0); MCH 29.5 pg (26.0-34.0); MCHC 33.7 g/dL (28.0-37.0); MCV 87.6 fL (80.0-100.0); MPV 8.4 fl. (7.2-11.1); RBC 2.53 mil/uL (4.50-6.00); WBC 8.3 thou/uL (4.0-11.0)
[2017-07-20 08:28] LABS: INR 3.4; PROTIME 32.9 Seconds (9.20-11.50)
[2017-07-20 08:32] LABS: ALBUMIN 1.7 g/dL (3.4-5.0); CALCIUM 6.9 mg/dL (8.5-10.1); CREATININE 6.2 mg/dL (0.6-1.3); MAGNESIUM 1.7 mg/dL (1.8-2.4); POTASSIUM 4.7 mmol/L (3.5-5.1); TOTAL BILIRUBIN 0.4 mg/dL (<0.1-1.0); TOTAL PROTEIN 4.7 g/dL (6.4-8.2)
[2017-07-20 09:12] LABS: GLOMERULR BASEM MEMBRN AB 3 units (0-20)
[2017-07-20 09:44] LABS: ALBUMIN 1.8 g/dL (3.4-5.0); CALCIUM 7.3 mg/dL (8.5-10.1); CREATININE 6.3 mg/dL (0.6-1.3); PHOSPHORUS* 7.4 mg/dL (2.5-4.9); POTASSIUM 4.9 mmol/L (3.5-5.1)
[2017-07-20 11:09] LABS: ANA INTERPRETATION Negative (Negative)
[2017-07-20 12:06] VITALS: BP 102/49
[2017-07-20 15:07] LABS: URINE PROTEIN 328 mg/24 hr (30-150); URINE PROTEIN (MG/DL) 27.3 mg/dL (Not Estab.)
[2017-07-20 16:00] VITALS: BP 109/40
[2017-07-20 20:00] VITALS: BP 105/37
[2017-07-21] VITALS (7 sets, daily range): BP systolic 101–151; BP diastolic 45–79
[2017-07-21 05:00] LABS: HEMATOCRIT 20.8 % (42.0-52.0); MCHC 33.7 g/dL (28.0-37.0); MCV 88.9 fL (80.0-100.0); RBC 2.34 mil/uL (4.50-6.00); RDW-CV 13.6 % (10.5-14.5); WBC 7.2 thou/uL (4.0-11.0)
[2017-07-21 05:03] LABS: INR 3.6; PROTIME 34.8 Seconds (9.20-11.50)
[2017-07-21 05:31] LABS: ALBUMIN 1.8 g/dL (3.4-5.0); CALCIUM 7.3 mg/dL (8.5-10.1); PHOSPHORUS* 9.4 mg/dL (2.5-4.9); POTASSIUM 5.5 mmol/L (3.5-5.1); TOTAL BILIRUBIN 0.3 mg/dL (<0.1-1.0); TOTAL PROTEIN 5.1 g/dL (6.4-8.2)
[2017-07-21 05:32] LABS: CREATININE 7.6 mg/dL (0.6-1.3)
[2017-07-21 09:50] LABS: HEMOGLOBIN 7.1 gm/dL (14.0-18.0); MCH 30.1 pg (26.0-34.0); MCHC 33.7 g/dL (28.0-37.0); MCV 89.4 fL (80.0-100.0); MPV 8.8 fl. (7.2-11.1); RBC 2.35 mil/uL (4.50-6.00); RDW-CV 13.8 % (10.5-14.5); WBC 8.8 thou/uL (4.0-11.0)
[2017-07-22] VITALS (7 sets, daily range): BP systolic 116–133; BP diastolic 48–65
[2017-07-22 04:30] LABS: MCH 29.9 pg (26.0-34.0); MCHC 33.8 g/dL (28.0-37.0); MCV 88.5 fL (80.0-100.0); MPV 8.7 fl. (7.2-11.1); RBC 2.22 mil/uL (4.50-6.00); RDW-CV 13.8 % (10.5-14.5); WBC 9.6 thou/uL (4.0-11.0)
[2017-07-22 04:40] LABS: PROTIME 14.5 Seconds (9.20-11.50)
[2017-07-22 04:51] LABS: HEMATOCRIT 19.7 % (42.0-52.0); HEMOGLOBIN 6.7 gm/dL (14.0-18.0)
[2017-07-22 05:01] LABS: INR 1.5
[2017-07-22 05:24] LABS: CALCIUM 7.9 mg/dL (8.5-10.1); POTASSIUM 5.1 mmol/L (3.5-5.1)
[2017-07-22 13:05] LABS: HEMATOCRIT 23.6 % (42.0-52.0); HEMOGLOBIN 7.9 gm/dL (14.0-18.0)
[2017-07-23] VITALS (8 sets, daily range): BP systolic 99–137; BP diastolic 45–79
[2017-07-23 04:55] LABS: HEMATOCRIT 21.9 % (42.0-52.0); HEMOGLOBIN 7.3 gm/dL (14.0-18.0); MCH 28.8 pg (26.0-34.0); MCHC 33.5 g/dL (28.0-37.0); MCV 86.1 fL (80.0-100.0); MPV 8.1 fl. (7.2-11.1); RBC 2.54 mil/uL (4.50-6.00); RDW-CV 16.3 % (10.5-14.5); WBC 9.1 thou/uL (4.0-11.0)
[2017-07-23 05:02] LABS: INR 1.2; PROTIME 11.4 Seconds (9.20-11.50)
[2017-07-23 05:16] LABS: CALCIUM 8.7 mg/dL (8.5-10.1); CREATININE 6.9 mg/dL (0.6-1.3); POTASSIUM 4.9 mmol/L (3.5-5.1)
--- NOTE | 2017-07-23 10:00 | CON ---
[address] [address] CONSULTATION Name: RITU MONTE Room: [address] IN .R.#: [id number] Admission: 07/17/17 Attend Phys: Micheal Burciaga MD Discharge: Date of : 49 Report #: [id number] THIS REPORT FOR: //name// CC: Micheal Tillman MD DICTATED BY: Madelin Bueno [facility] DATE OF SERVICE: 07/20/2017 PRIMARY CARE PHYSICIAN: Lamberto Tillman MD Please note at the time of this dictation, the patient was seen and physically examined by myself. REASON FOR CONSULTATION: Acute anemia. HISTORY OF PRESENT ILLNESS: This is a 72-year-old male who had been in the rehab setting after being initially admitted to the hospital with sepsis and acute kidney injury the end of June. It was noted then, he was also to have respiratory insufficiency, pneumonia, congestive heart failure, he then developed a wide complex tachycardia, hemodynamically stable, requiring a couple of cardioversions and then subsequently taken to the cytogenetics laboratory manager and had an AICD placed at that time. Due to the significance of his hospitalization, he was transferred to the rehab center for further strengthening. He was then transferred back down to the hospital setting when he was noted to have an elevated BUN and creatinine and his GFR was 9 needing some dialysis. 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 The patient states he had colonoscopies it has been 10+ years ago. He stated that he did have polyps at that time. In looking back at his hemoglobin, the patient when he was first admitted on 07/06/2017 had a hemoglobin of 14. At the time of this consultation, his hemoglobin is 7.5. It is also noted that last evening, he had a very large melanotic stool that was sent off and was positive for blood. He does not recall where his last colonoscopy was done at that time. ALLERGIES: No known drug allergies. MEDICATIONS FROM HOME: See the MAR. PAST MEDICAL HISTORY: Significant for V-tach with subsequent AICD placement, pseudomonas sepsis, left lower extremity cellulitis history, peripheral artery disease, coronary artery disease, congestive heart failure, [place] [address] CONSULTATION Name: RITU MONTE Room: [address] IN [facility]#: [id number] Admission: 07/17/17 Attend Phys: Micheal Burciaga MD Discharge: Date of : 47 Report #: [id number]. PAST SURGICAL HISTORY: Permanent pacemaker and defibrillator, cardiac cath, right above the knee amputation and an IVC filter placed, multiple bilateral lower extremity revascularizations. FAMILY HISTORY: Father has esophageal cancer. SOCIAL HISTORY: He continues to smoke. Denies any alcohol or tobacco use at this time. REVIEW OF SYSTEMS: Twelve-point review of systems is essentially negative except what is mentioned in the HPI. PHYSICAL EXAMINATION: VITAL SIGNS: Temperature 36.3, pulse 50, respirations 18, blood pressure 102/49. HEART: Regular rate and rhythm. LUNGS: Diminished, but clear. ABDOMEN: Soft, positive bowel sounds in all 4 quadrants with no masses or tenderness noted. LABORATORY DATA: Hemoglobin 7.5 on admission, on 07/06/2017 he was 14, hematocrit 22.4, white count is 8.3, platelets 117. PT is 32.9, INR is 3.4. Sodium 130, potassium 4.7, chloride 95, CO2 of 27, BUN is 87, creatinine 6.2, GFR is 9, glucose is 103, total bilirubin 0.4, alkaline phosphatase 47, ALT 18, AST is 18. IMPRESSION: 1. Acute anemia. 2. Anticoagulant therapy. 3. Thrombocytopenia. 4. Acute kidney injury requiring dialysis. 5. History of colon polyps. 6. Family history of esophageal cancer in his father. PLAN: 1. The patient needs EGD and colonoscopy once his coagulability has been reversed. 2. INR remains elevated plus the patient is on Plavix and aspirin. These will need to be discontinued to evaluate his ongoing drop in hemoglobin and melanotic stool. 3. Protonix drip. 4. Further recommendations to be made once Dr. Kennedy sees [place] [address] CONSULTATION Name: RITU MONTE Room: [address] IN [facility]#: [id number] Admission: 07/17/17 Attend Phys: Micheal Burciaga MD Discharge: Date of : 47 Report #: [id number] Thank you for allowing us to participate in this patient's care. Please do not hesitate to call with any questions in regard to this consult. <ELECTRONICALLY SIGNED> By: Arpit Kennedy MD 07/23/17 1000 1627 1954Arpit Kennedy MD /nt
--- NOTE | 2017-07-23 15:17 | CON ---
[address] [address] CONSULTATION Name: RITU MONTE Room: [address] IN .R.#: [id number] Admission: 07/17/17 Attend Phys: Micheal Burciaga MD Discharge: Date of : 47 Report #: [id number] THIS REPORT FOR: //name// CC: Micheal Tillman DATE OF SERVICE: 07/18/2017 This is LUCIEN Lindsay dictating in collaboration with Dr. Harish Douglas. REASON FOR CONSULTATION: Temporary dialysis catheter placement. HISTORY OF PRESENT ILLNESS: The patient is a 72-year-old male that is well known to our practice with a history of peripheral artery disease. He previously underwent right lower extremity revascularization ultimately requiring a right above the knee amputation in April of 2014. He has undergone multiple bilateral lower extremity revascularizations in the past. He was admitted to the hospital this admission with acute kidney injury. He was recently hospitalized with respiratory insufficiency, pneumonia, congestive heart failure. He developed a wide complex tachycardia with hemodynamic instability during that admission requiring 2 separate cardioversions. He ultimately underwent a cardiac catheterization and had a defibrillator placed. He was ultimately transferred to rehab, but was transferred back into inpatient with a creatinine of 7.6. He currently reports only mild shortness of breath. He does report developing recent blisters on his left lower extremity, is wearing a Tubigrip. He has been evaluated by Nephrology. We have been asked to evaluate the patient for placement of a temporary dialysis catheter for the initiation of dialysis. PAST MEDICAL HISTORY: 1. Recent ventricular tachycardia with subsequent AICD placement. 2. Pseudomonas sepsis. 3. Left lower extremity cellulitis. 4. History of right vqpzw-gjt-fcyi amputation. 5. History of deep venous thrombosis and pulmonary emboli. 6. Peripheral artery disease. 7. History of nontraumatic ischemic infarction of the right lower extremity. 8. Coronary artery disease. 9. Chronic systolic heart failure. PAST SURGICAL HISTORY: 1. Permanent pacemaker/defibrillator placement. 2. Cardiac catheterization. 3. Right kgvhj-bjk-atuv amputation. 4. Inferior vena cava filter [place] [address] CONSULTATION Name: RITU MONTE Room: [address] IN [facility]#: [id number] Admission: 07/17/17 Attend Phys: Micheal Burciaga MD Discharge: Date of : 47 Report #: [id number] 5. Right fixbn-ojy-ikth amputation. 6. Right catbk-lsm-xkrl amputation stump debridement. 7. Multiple bilateral lower extremity revascularizations. 9. Bilateral greater saphenous vein radiofrequency ablation. FAMILY HISTORY: Significant for stroke in his mother, cancer in his father. SOCIAL HISTORY: He is a continued smoker. ALLERGIES: No known drug allergies. HOME MEDICATIONS: Please refer to the MAR. REVIEW OF SYSTEMS: A 12-point review of systems has been reviewed and is negative except for the above-mentioned in the history of present illness. PHYSICAL EXAMINATION: VITAL SIGNS: Temperature 36.5, heart rate 74, blood pressure 123/56. GENERAL: He is alert, oriented, in no acute distress. HEENT: Head is normocephalic, atraumatic. NECK: Supple, without jugular venous distention. HEART: Regular rate and rhythm. There is a pacemaker in place to the left chest wall. Incision is clean, dry and intact, mild ecchymosis. CHEST: Lungs are diminished, no wheezing or rhonchi noted. ABDOMEN: Soft, hypoactive bowel sounds, nontender. EXTREMITIES: He has palpable bilateral radial and femoral pulses. He has a well-healed right above the knee amputation with moderate edema. He has 3+ edema to the left lower extremity with erythema. There are areas of ruptured bullae on the left posterior lower leg as well as the dorsum of the left foot. He has nonpalpable left pedal pulses. NEUROLOGIC: No focal deficits. LABORATORY DATA: Hemoglobin 9.3, hematocrit 27.6, white blood cell count 15.7, platelets 181. Sodium 128, potassium 6.0, chloride 93, CO2 of 22, BUN is 188. Creatinine is 9.0. Glucose is 118. INR is 3.3. ASSESSMENT AND PLAN: 1. Acute renal insufficiency in need of hemodialysis. We will plan for placement of a tunneled dialysis catheter at the bedside today. His INR is currently 3.3. One unit of FFP has been ordered to transfuse. He has been given Kayexalate. 2. Peripheral artery disease with history of a right cmhkf-fys-dtbs amputation as well as multiple bilateral lower extremity revascularizations. He currently has 2 wounds on the left lower leg from ruptured bullae, nonpalpable pulses. His wounds are likely associated with his edema. We will check an arterial duplex to ensure [place] [address] CONSULTATION Name: HARMSEN,RITU D Room: [address] IN M.R.#: [id number] Admission: 07/17/17 Attend Phys: Micheal Burciaga MD Discharge: Date of : 47 Report #: [id number] 3. History of deep venous thrombosis and pulmonary emboli, chronically anticoagulated with warfarin. 4. Recent ventricular tachycardia status post AICD placement. 5. Sepsis. Continue IV antibiotic therapy per Infectious Disease, Cipro has been discontinued in light of his acute renal insufficiency. We thank you for the opportunity to participate in the care of the patient. Please feel free to contact our office with any questions or concerns. <ELECTRONICALLY SIGNED> By: Rupert Thorpe DO 07/23/17 1517 1248 [id number] Mckeon /keturah
[2017-07-24] VITALS (10 sets, daily range): BP systolic 92–158; BP diastolic 33–93
[2017-07-24 05:24] LABS: HEMATOCRIT 23.4 % (42.0-52.0); HEMOGLOBIN 7.8 gm/dL (14.0-18.0); MCH 28.9 pg (26.0-34.0); MCHC 33.3 g/dL (28.0-37.0); MCV 86.7 fL (80.0-100.0); MPV 8.1 fl. (7.2-11.1); RBC 2.71 mil/uL (4.50-6.00); RDW-CV 16.3 % (10.5-14.5)
[2017-07-24 05:34] LABS: INR 1.1; PROTIME 10.9 Seconds (9.20-11.50)
[2017-07-24 05:39] LABS: CREATININE 8.4 mg/dL (0.6-1.3); MAGNESIUM 1.9 mg/dL (1.8-2.4); POTASSIUM 4.9 mmol/L (3.5-5.1)
[2017-07-25] VITALS: BP 122/56
[2017-07-25 04:38] VITALS: BP 137/74
[2017-07-25 05:56] LABS: ALBUMIN 2.5 g/dL (3.4-5.0); POTASSIUM 4.9 mmol/L (3.5-5.1); TOTAL BILIRUBIN 0.4 mg/dL (<0.1-1.0); TOTAL PROTEIN 5.6 g/dL (6.4-8.2)
[2017-07-25 05:58] LABS: CREATININE 5.5 mg/dL (0.6-1.3)
[2017-07-25 08:00] VITALS: BP 137/74
[2017-07-25 20:05] VITALS: BP 138/58
[2017-07-25] MEDS ORDERED: PANTOPRAZOLE SO40 M1 PO (23:19)
[2017-07-25] MEDS ORDERED: TRAMADOL 50 MG50 MG PO (23:19)
[2017-07-25] MEDS ORDERED: FERREX 150 PLU1 EAC1 PO (23:19)
[2017-07-25] MEDS ORDERED: CARAFATE 1 GM TA1 G1 PO (23:19)
[2017-07-25] MEDS ORDERED: MIDODRINE HCL 55 M1 PO (23:19)
[2017-07-25] MEDS ORDERED: CALCIUM ACETAT667 MG PO (23:19)
[2017-07-25] MEDS ORDERED: CETAPHIL GENTL TOP (23:19)
[2017-07-26] VITALS: BP 142/66
[2017-07-26 05:12] LABS: HEMATOCRIT 24.3 % (42.0-52.0); HEMOGLOBIN 8.1 gm/dL (14.0-18.0); MCH 28.9 pg (26.0-34.0); MCHC 33.3 g/dL (28.0-37.0); MCV 86.9 fL (80.0-100.0); MPV 8.2 fl. (7.2-11.1); RBC 2.8 mil/uL (4.50-6.00); RDW-CV 16.1 % (10.5-14.5); WBC 10.6 thou/uL (4.0-11.0)
[2017-07-26 05:34] LABS: CALCIUM 9.6 mg/dL (8.5-10.1); CREATININE 5.5 mg/dL (0.6-1.3); MAGNESIUM 1.9 mg/dL (1.8-2.4); POTASSIUM 4.2 mmol/L (3.5-5.1)
[2017-07-26 08:05] VITALS: BP 123/69
[2017-07-26 11:33] VITALS: BP 123/69
[2017-07-26] MEDS ORDERED: TRAMADOL 50 MG50 MG PO (15:59)
--- NOTE | 2017-07-26 16:07 | PATH ---
[address] [address] PATHOLOGY RPT PROCEDURE Name: ELIOT MONTE Room: [address] IN .R.#: [id number] Admission: 07/17/17 Date of : 49 Discharge: 07/26/17 Report #: [id number] Path Case #: [id number] [facility] Accession Number: [id number] . 01 Material submitted: . PART A: DUODENAL ULCER BIOPSY PART B: GASTRITIS BIOPSY PART C: ESOPHAGITIS/ESOPHAGEAL ULCER BIOPSY . 02 Diagnosis: A. Duodenal ulcer biopsy: - Benign duodenal mucosa with prominence of Essie's glands suggesting hyperplasia, negative for cryptitis, granulomas, and dysplasia. . B. Gastritis biopsy: - Moderate nonspecific active gastritis with dystrophic calcification, negative for Helicobacter pylori organisms, granulomas and dysplasia. . C. Esophagitis/esophageal ulcer biopsy: - Acutely inflamed and necrotic fibromuscular ulcer bed, negative for granulomas, diagnostic viral inclusions, and dysplasia (see comment). [facility]/07/25/2017 . 02 Comment: No epithelial tissues are present in the esophageal biopsy (C). (DEREK:pit; 07/25/2017) . Special stain on B: H. pylori immuno . 02 Electronically signed: . Tiago Avilez MD, Pathologist NPI- [id number] . 01 Gross description: . A. Received in formalin labeled "Eliot Harmsen, duodenal ulcer biopsy" and consists of a 0.3 cm soft aceves tissue fragment which is entirely submitted as A1. . B. Received in formalin labeled "Eliot Harmsen, gastritis BX" and consists of a 0.2 cm soft aceves tissue fragment which is entirely submitted as B1. . C. Received in formalin labeled "Eliot Emekaen, esophagitis, esophageal ulcer biopsy" and consists of 2 soft oliver tissue fragments each averaging 0.4 cm. They are entirely submitted as C1. (RAÚL; 07/24/2017) JBR/JBR . 02 Pathologist provided ICD-10: K29.50, K20.9, K22.10 [place] [address] PATHOLOGY RPT PROCEDURE Name: ELIOT MONTE Room: [address] IN M.R.#: [id number] Admission: 07/17/17 Date of : 49 Discharge: 07/26/17 Report #: [id number] Path Case #: [id number] . 02 CPT . 466112, [id number], [id number], [id number] Performed at: [address] [facility] [address], [place], [place] [id number] MD Hilario Eldridge MD Phone: [phone] Performed at: 02 [facility] [address], [place], [place] [id number] MD Tiago Avilez MD Phone: [phone]
--- NOTE | 2017-08-01 16:18 | CON ---
[address] [address] CONSULTATION Name: RITU MONTE Room: [address] IN M.R.#: [id number] Admission: 07/17/17 Attend Phys: Micheal Burciaga MD Discharge: 07/26/17 Date of : 47 Report #: [id number] THIS REPORT FOR: //name// CC: Micheal Tillman DATE OF SERVICE: 07/20/2017 ADDENDUM TO CONSULT #[id number] I have personally seen and examined the patient who presents with acute on chronic anemia with melenic stool. The patient also complains of GERD and occasional dysphagia. She is on anticoagulation therapy including warfarin and Plavix and has an INR of 3.5. We will continue monitoring hemoglobin and transfuse as needed. We tried to reverse the INR and consider endoscopic evaluation. The patient is agreeable with plan. <ELECTRONICALLY SIGNED> By: Arpit Kennedy MD 08/01/17 1618 0934 1051Farviktoria Kennedy MD /nt
--- NOTE | 2017-09-06 08:35 | OP ---
[facility] [address] [place] [address] OPERATIVE REPORT Name: RITU MONTE Room: [address] IN .R.#: [id number] Admission: 07/17/17 Attend Phys: Micheal Burciaga MD Discharge: 07/26/17 Date of : 49 Report #: [id number] THIS REPORT FOR: //name// CC: Micheal Tillman DATE OF SERVICE: 07/26/2017 PREOPERATIVE DIAGNOSIS: Acute renal failure. POSTOPERATIVE DIAGNOSIS: Acute renal failure. SURGEON: Rupert Thorpe DO. MEAT GRINDER: None. PROCEDURE: 1. Ultrasound-guided access, right internal jugular vein. 2. Tunneled dialysis catheter placement. ANESTHESIA: Moderate sedation. ESTIMATED BLOOD LOSS: Minimal. SPECIMEN: None. COMPLICATIONS: None. CONDITION: Stable. DISPOSITION: Floor. INDICATIONS FOR THE PROCEDURE AND CONSENT: The patient was admitted with acute renal insufficiency as well as peripheral vascular disease. The patient is being evaluated for hemodialysis by nephrology team on a short, possible long-term basis. A recommendation for tunneled dialysis catheter placement was made. Risks and benefits were discussed, infection, bleeding, need for additional procedures. The patient wished to proceed, was consented and scheduled. PROCEDURE IN DETAIL: After timeout was performed, the patient was placed in supine position with sterile prep and drape of the anterior neck and chest wall. Ultrasound was utilized to identify the internal jugular vein and Seldinger technique used to place an introducer sheath over a wire. A second wire was placed through the introducer sheath. The introducer sheath was removed. Serial dilation was performed and under fluoroscopic guidance, the tunneled [address] [address] OPERATIVE REPORT Name: LAVELLRITU Bret Room: [address] IN M.R.#: [id number] Admission: 07/17/17 Attend Phys: Micheal Burciaga MD Discharge: 07/26/17 Date of : 49 Report #: [id number] dialysis catheter advanced over two wires into the atriocaval junction. Catheter was then tunneled out on to the anterior chest wall after instilling lidocaine and making a counter incision without difficulty. Each port was applied to the catheter and aspirated and flushed without difficulty and locked with hep saline 1000 units per mL. The neck incision was closed with a 4-0 Monocryl suture and a stay suture placed at the exit site of the catheter. Sterile dressings were applied. The patient tolerated the procedure well. All lap, needle and instrument counts correct. <ELECTRONICALLY SIGNED> By: Rupert Thorpe DO 09/06/17 0835 1017 1122Rupert Thorpe DO /nt
== END 2017-07-26 15:23 | DRG 871 ==
LOC: M.2W 11:59
PROVIDERS: Internal Medicine; Internal Medicine Nephrology; Nurse Practitioner Family; Pathology Anatomic Pathology & Clinical Pathology; ADMIT Internal Medicine
PROC: 02HV33Z Insertion of Infusion Device into Superior Vena Cava, Percutaneous Approach (ICD-10-PCS; principal; 2017-07-18)
PROC: 30243K1 Transfusion of Nonautologous Frozen Plasma into Central Vein, Percutaneous Approach (ICD-10-PCS; principal; 2017-07-18)
PROC: B548ZZA Ultrasonography of Superior Vena Cava, Guidance (ICD-10-PCS; principal; 2017-07-18)
PROC: 5A1D70Z Performance of Urinary Filtration, Intermittent, Less than 6 Hours Per Day (ICD-10-PCS; 2017-07-19)
PROC: 5A1D70Z Performance of Urinary Filtration, Intermittent, Less than 6 Hours Per Day (ICD-10-PCS; 2017-07-21)
PROC: 30243N1 Transfusion of Nonautologous Red Blood Cells into Central Vein, Percutaneous Approach (ICD-10-PCS; 2017-07-22)
PROC: 0DB68ZX Excision of Stomach, Via Natural or Artificial Opening Endoscopic, Diagnostic (ICD-10-PCS; 2017-07-23)
PROC: 0DB38ZX Excision of Lower Esophagus, Via Natural or Artificial Opening Endoscopic, Diagnostic (ICD-10-PCS; 2017-07-23)
PROC: 0DB98ZX Excision of Duodenum, Via Natural or Artificial Opening Endoscopic, Diagnostic (ICD-10-PCS; 2017-07-23)
PROC: 5A1D70Z Performance of Urinary Filtration, Intermittent, Less than 6 Hours Per Day (ICD-10-PCS; 2017-07-24)
PROC: 0TB13ZX Excision of Left Kidney, Percutaneous Approach, Diagnostic (ICD-10-PCS; 2017-07-24)
DX: A41.52 Sepsis due to Pseudomonas (principal); K22.11 Ulcer of esophagus with bleeding; K26.0 Acute duodenal ulcer with hemorrhage; N17.9 Acute kidney failure, unspecified; L03.116 Cellulitis of left lower limb; I47.2 Ventricular tachycardia; I50.32 Chronic diastolic (congestive) heart failure; E44.0 Moderate protein-calorie malnutrition; I42.9 Cardiomyopathy, unspecified; I74.3 Embolism and thrombosis of arteries of the lower extremities; D68.59 Other primary thrombophilia; K22.10 Ulcer of esophagus without bleeding; E11.40 Type 2 diabetes mellitus with diabetic neuropathy, unspecified; K21.0 Gastro-esophageal reflux disease with esophagitis; K26.9 Duodenal ulcer, unspecified as acute or chronic, without hemorrhage or perforation; E87.5 Hyperkalemia; D50.9 Iron deficiency anemia, unspecified; E78.5 Hyperlipidemia, unspecified; F17.210 Nicotine dependence, cigarettes, uncomplicated; E66.01 Morbid (severe) obesity due to excess calories; I25.2 Old myocardial infarction; D69.6 Thrombocytopenia, unspecified; R31.9 Hematuria, unspecified; I25.10 Atherosclerotic heart disease of native coronary artery without angina pectoris; J44.9 Chronic obstructive pulmonary disease, unspecified; Z95.810 Presence of automatic (implantable) cardiac defibrillator; Z89.611 Acquired absence of right leg above knee; Z86.718 Personal history of other venous thrombosis and embolism; Z79.01 Long term (current) use of anticoagulants; Z86.711 Personal history of pulmonary embolism; Z98.890 Other specified postprocedural states; Z68.32 Body mass index [BMI] 32.0-32.9, adult; Z79.2 Long term (current) use of antibiotics; Z79.82 Long term (current) use of aspirin; Z79.4 Long term (current) use of insulin; Z79.899 Other long term (current) drug therapy; Z80.0 Family history of malignant neoplasm of digestive organs; Z82.3 Family history of stroke

== ENCOUNTER 2017-07-26 13:58 | Inpatient (IN) | payer MEDICARE ==
[~2017-07-26] VITALS: Ht 175.3 cm; Wt 96.3 kg
[~2017-07-26 13:58] MED LIST changes: +CALCIUM ACETAT667 MG PO; +CARAFATE 1 GM TA1 G1 PO; +CETAPHIL GENTL TOP; +FERREX 150 PLU1 EAC1 PO; +MIDODRINE HCL 55 M1 PO; +PANTOPRAZOLE SO40 M1 PO; +TRAMADOL 50 MG50 MG PO
[2017-07-26] MEDS ORDERED: TRAMADOL 50 MG50 MG PO (15:59)
[2017-07-26 17:00] VITALS: BP 113/59
[2017-07-26 19:30] VITALS: BP 106/60
[2017-07-27 04:19] LABS: HEMATOCRIT 24.7 % (42.0-52.0); HEMOGLOBIN 8.3 gm/dL (14.0-18.0); MCH 28.9 pg (26.0-34.0); MCHC 33.7 g/dL (28.0-37.0); MCV 85.8 fL (80.0-100.0); RBC 2.87 mil/uL (4.50-6.00); RDW-CV 15.8 % (10.5-14.5); WBC 9.3 thou/uL (4.0-11.0)
[2017-07-27 04:38] LABS: ALBUMIN 2.6 g/dL (3.4-5.0); CALCIUM 9.1 mg/dL (8.5-10.1); CREATININE 5.1 mg/dL (0.6-1.3); POTASSIUM 4.2 mmol/L (3.5-5.1); TOTAL BILIRUBIN 0.3 mg/dL (<0.1-1.0); TOTAL PROTEIN 5.6 g/dL (6.4-8.2)
[2017-07-27 07:30] VITALS: BP 118/71
[2017-07-27 20:00] VITALS: BP 103/63
[2017-07-28 07:19] LABS: ALBUMIN 2.8 g/dL (3.4-5.0); CALCIUM 10.5 mg/dL (8.5-10.1); CREATININE 4.3 mg/dL (0.6-1.3); POTASSIUM 3.8 mmol/L (3.5-5.1); TOTAL BILIRUBIN 0.4 mg/dL (<0.1-1.0); TOTAL PROTEIN 6.5 g/dL (6.4-8.2)
[2017-07-28 08:00] VITALS: BP 116/63
[2017-07-28 19:55] VITALS: BP 123/69
[2017-07-29 07:12] LABS: HEMATOCRIT 24.9 % (42.0-52.0); HEMOGLOBIN 8.4 gm/dL (14.0-18.0); MCH 29.2 pg (26.0-34.0); MCHC 33.9 g/dL (28.0-37.0); MCV 86.1 fL (80.0-100.0); MPV 7.7 fl. (7.2-11.1); RBC 2.89 mil/uL (4.50-6.00); WBC 7.5 thou/uL (4.0-11.0)
[2017-07-29 07:28] LABS: ALBUMIN 2.8 g/dL (3.4-5.0); CALCIUM 10.4 mg/dL (8.5-10.1); CREATININE 3.8 mg/dL (0.6-1.3); POTASSIUM 3.8 mmol/L (3.5-5.1); TOTAL BILIRUBIN 0.5 mg/dL (<0.1-1.0); TOTAL PROTEIN 6.3 g/dL (6.4-8.2)
[2017-07-29 08:08] VITALS: BP 128/65
[2017-07-29 19:54] VITALS: BP 122/67
[2017-07-30 07:08] LABS: CALCIUM 10.6 mg/dL (8.5-10.1); CREATININE 3.2 mg/dL (0.6-1.3); POTASSIUM 3.6 mmol/L (3.5-5.1)
[2017-07-30 08:05] VITALS: BP 106/52
[2017-07-30 20:11] VITALS: BP 100/80
[2017-07-31 08:04] VITALS: BP 137/76
[2017-07-31 20:14] VITALS: BP 111/76
[2017-08-01 07:49] VITALS: BP 105/58
[2017-08-01 09:13] LABS: HEMATOCRIT 26.6 % (42.0-52.0); HEMOGLOBIN 8.6 gm/dL (14.0-18.0); MCH 28.6 pg (26.0-34.0); MCHC 32.5 g/dL (28.0-37.0); MCV 87.9 fL (80.0-100.0); MPV 8.2 fl. (7.2-11.1); RBC 3.02 mil/uL (4.50-6.00); RDW-CV 16.4 % (10.5-14.5)
[2017-08-01 09:15] LABS: CALCIUM 11.5 mg/dL (8.5-10.1); CREATININE 2.8 mg/dL (0.6-1.3); MAGNESIUM 1.7 mg/dL (1.8-2.4); POTASSIUM 3.5 mmol/L (3.5-5.1)
[2017-08-01 11:20] VITALS: BP 105/58
[2017-08-01 19:30] VITALS: BP 121/73
[2017-08-02 07:52] VITALS: BP 128/67
[2017-08-02 19:50] VITALS: BP 105/65
[2017-08-03 08:01] VITALS: BP 124/69
[2017-08-03 19:22] VITALS: BP 131/63
[2017-08-04 08:00] VITALS: BP 106/47
[2017-08-04 19:55] VITALS: BP 105/47
[2017-08-05 07:30] VITALS: BP 115/69
[2017-08-05 07:48] LABS: CALCIUM 11.6 mg/dL (8.5-10.1); CREATININE 2.4 mg/dL (0.6-1.3)
[2017-08-05 20:00] VITALS: BP 122/74
[2017-08-06 07:45] VITALS: BP 109/52
[2017-08-06 19:50] VITALS: BP 109/64
[2017-08-07 07:16] LABS: HEMOGLOBIN 8.4 gm/dL (14.0-18.0); MCH 29.4 pg (26.0-34.0); MCHC 33.5 g/dL (28.0-37.0); MCV 87.6 fL (80.0-100.0); MPV 7.7 fl. (7.2-11.1); NUCLEATED RBCS 0 /100WBC; PLATELET COUNT* 115 thou/uL (150-400); RBC 2.85 mil/uL (4.50-6.00); RDW-CV 16.7 % (10.5-14.5)
[2017-08-07 07:34] LABS: CALCIUM 11.3 mg/dL (8.5-10.1); CREATININE 2.1 mg/dL (0.6-1.3); POTASSIUM 3.7 mmol/L (3.5-5.1); TOTAL BILIRUBIN 0.4 mg/dL (<0.1-1.0); TOTAL PROTEIN 6.3 g/dL (6.4-8.2)
[2017-08-07 08:00] VITALS: BP 117/64
[2017-08-07 08:25] LABS: ABSOLUTE EOSINOPHILS 0.1 thou/uL (0.0-0.7); ABSOLUTE LYMPHOCYTES 0.7 thou/uL (0.8-5.3); ABSOLUTE MONOCYTES 0.3 thou/uL (0.0-1.2); ABSOLUTE NEUTROPHILS 2.9 thou/uL (1.6-8.1)
[2017-08-07 08:26] LABS: PLATELET ESTIMATE DECREASED
[2017-08-07 08:27] LABS: HYPOCHROMASIA 1+; MACROCYTES 1+
[2017-08-07 08:28] LABS: ANISOCYTOSIS 1+; MICROCYTES 1+
[2017-08-07 20:27] VITALS: BP 100/55
[2017-08-08 08:09] VITALS: BP 114/61
[2017-08-08 19:49] VITALS: BP 111/77
[2017-08-09 07:22] LABS: HEMATOCRIT 25.5 % (42.0-52.0); HEMOGLOBIN 8.6 gm/dL (14.0-18.0); MCH 29.3 pg (26.0-34.0); MCHC 33.6 g/dL (28.0-37.0); MCV 87.3 fL (80.0-100.0); MPV 7.9 fl. (7.2-11.1); RBC 2.92 mil/uL (4.50-6.00); WBC 4.2 thou/uL (4.0-11.0)
[2017-08-09 07:25] LABS: POTASSIUM 3.8 mmol/L (3.5-5.1)
[2017-08-09 07:28] LABS: INR 1.3
[2017-08-09 07:57] VITALS: BP 128/67
[2017-08-09 19:30] VITALS: BP 118/68
[2017-08-10 07:48] VITALS: BP 123/71
[2017-08-10 08:12] LABS: CALCIUM 11.6 mg/dL (8.5-10.1); CREATININE 1.9 mg/dL (0.6-1.3); HEMATOCRIT 24.9 % (42.0-52.0); HEMOGLOBIN 8.3 gm/dL (14.0-18.0); MCHC 33.3 g/dL (28.0-37.0); MCV 87.3 fL (80.0-100.0); MPV 7.8 fl. (7.2-11.1); POTASSIUM 3.4 mmol/L (3.5-5.1); RBC 2.85 mil/uL (4.50-6.00); WBC 3.5 thou/uL (4.0-11.0)
[2017-08-10 08:52] LABS: PROTIME 20.8 Seconds (9.20-11.50)
[2017-08-10 08:59] LABS: INR 2.2
[2017-08-10 19:30] VITALS: BP 124/76
[2017-08-11 02:06] LABS: GLYCOHEMOGLOBIN (HGB A1C) 7.4 % (4.8-5.6)
[2017-08-11] MEDS ORDERED: ASPIR 8181 MG PO (06:47)
[2017-08-11] MEDS ORDERED: PLAVIX 75 MG TA75 M1 PO (06:55)
[2017-08-11] MEDS ORDERED: COUMADIN 5 MG TA5 M1 PO (06:58)
[2017-08-11] MEDS ORDERED: [UNRECOGNIZED DRUG - OTHER] PO (07:05)
[2017-08-11 07:26] VITALS: BP 105/58
[2017-08-11 07:32] VITALS: BP 105/58
[2017-08-11 07:35] LABS: PROTIME 32.7 Seconds (9.20-11.50)
[2017-08-11 07:36] LABS: INR 3.4
[2017-08-11 08:23] VITALS: BP 117/70
[2017-08-11 09:40] VITALS: BP 105/58
[2017-08-11 14:11] LABS: CALCIUM 11.3 mg/dL (8.5-10.1); CREATININE 1.8 mg/dL (0.6-1.3); MAGNESIUM 1.6 mg/dL (1.8-2.4); POTASSIUM 3.5 mmol/L (3.5-5.1)
--- NOTE | 2017-08-11 14:47 | EKG ---
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1945 Requested By: Carly Escobar Order Number: [id number] Reading MD: Lamberto Blake Measurements Intervals Foster Rate: 83 P: 35 [place]: 194 QRS: 23 QRSD: 133 T: 39 QT: 406 QTc: 477 Interpretive Statements Sinus rhythm early transition Probable left atrial enlargement Nonspecific intraventricular conduction delay Borderline repolarization abnormality Compared to ECG 07/17/2017 14:26:42 Sinus bradycardia no longer present Electronically Signed On 08-11-2017 14:47:01 CDT by Lamberto Blake [email or web address] <ELECTRONICALLY SIGNED> By: Lamberto Blake MD, [facility] 08/11/17 1447 1416 1416 Lamberto Blake MD, [facility] /EPI
[2017-08-11 15:07] LABS: CALCIUM 11.8 mg/dL (8.5-10.1); CREATININE 1.9 mg/dL (0.6-1.3); POTASSIUM 3.4 mmol/L (3.5-5.1)
[2017-08-11 19:50] VITALS: BP 128/66
[2017-08-12 07:21] LABS: PROTIME 44.3 Seconds (9.20-11.50)
[2017-08-12 07:23] LABS: MAGNESIUM 1.7 mg/dL (1.8-2.4)
[2017-08-12 07:28] LABS: INR 4.7
[2017-08-12 07:40] VITALS: BP 122/51
[2017-08-12 08:00] VITALS: BP 122/51
[2017-08-12 11:13] VITALS: BP 123/65
[2017-08-12 19:58] VITALS: BP 110/61
[2017-08-13 08:08] LABS: HEMOGLOBIN 7.7 gm/dL (14.0-18.0); MCH 29.1 pg (26.0-34.0); MCHC 33.6 g/dL (28.0-37.0); MCV 86.5 fL (80.0-100.0); MPV 7.6 fl. (7.2-11.1); RBC 2.66 mil/uL (4.50-6.00); RDW-CV 16.6 % (10.5-14.5); WBC 3.3 thou/uL (4.0-11.0)
[2017-08-13 08:18] LABS: CALCIUM 11.2 mg/dL (8.5-10.1); CREATININE 1.6 mg/dL (0.6-1.3); MAGNESIUM 1.8 mg/dL (1.8-2.4); POTASSIUM 3.8 mmol/L (3.5-5.1)
[2017-08-13 08:22] LABS: PROTIME 50.9 Seconds (9.20-11.50)
[2017-08-13 08:24] VITALS: BP 109/72
[2017-08-13 09:00] LABS: INR 5.4
[2017-08-13 14:17] VITALS: BP 132/57
--- NOTE | 2017-08-13 14:42 | EKG ---
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1945 Requested By: Vernell Case Order Number: [id number] Mauri MD: Mikal Sellers Measurements Intervals [place] Rate: 48 P: 57 NM: 185 QRS: 22 QRSD: 134 T: 74 QT: 446 QTc: 399 Interpretive Statements Sinus bradycardia Nonspecific intraventricular conduction delay Compared to ECG 08/11/2017 14:16:07 Sinus rhythm no longer present Electronically Signed On 08-13-2017 14:42:33 CDT by Mikal Sellers [email or web address] <ELECTRONICALLY SIGNED> By: Mikal Sellers MD, [facility] 08/13/17 1442 8 8 Mikal Sellers MD, [facility] /EPI
--- NOTE | 2017-08-13 14:50 | EKG ---
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1945 Requested By: Vernell Case Order Number: [id number] Mauri MD: Mikal Sellers Measurements Intervals [place] Rate: 56 P: 81 [place]: 192 QRS: 12 QRSD: 132 T: 53 QT: 438 QTc: 423 Interpretive Statements Sinus rhythm Nonspecific intraventricular conduction delay Inferior infarct, old Compared to ECG 08/11/2017 14:16:07 Myocardial infarct finding now present Electronically Signed On 08-13-2017 14:50:01 CDT by Mikal Sellers [email or web address] <ELECTRONICALLY SIGNED> By: Mikal Sellers MD, [facility] 08/13/17 1450 5 5 Mikal Sellers MD, [facility] /EPI
[2017-08-13 18:10] LABS: HEMATOCRIT 23.8 % (42.0-52.0); HEMOGLOBIN 8.1 gm/dL (14.0-18.0)
[2017-08-13 18:20] LABS: PROTIME 33.8 Seconds (9.20-11.50)
[2017-08-13 18:39] LABS: INR 3.5
[2017-08-13 19:30] VITALS: BP 130/61
[2017-08-14 07:59] LABS: HEMATOCRIT 23.7 % (42.0-52.0); HEMOGLOBIN 7.8 gm/dL (14.0-18.0); MCH 28.7 pg (26.0-34.0); MPV 6.9 fl. (7.2-11.1); RBC 2.72 mil/uL (4.50-6.00); RDW-CV 16.5 % (10.5-14.5); WBC 3.4 thou/uL (4.0-11.0)
[2017-08-14 08:00] VITALS: BP 126/66
[2017-08-14 08:04] LABS: PROTIME 17.6 Seconds (9.20-11.50)
[2017-08-14 08:07] LABS: CALCIUM 11.6 mg/dL (8.5-10.1); CREATININE 1.6 mg/dL (0.6-1.3); MAGNESIUM 1.7 mg/dL (1.8-2.4); POTASSIUM 3.7 mmol/L (3.5-5.1)
[2017-08-14 08:31] LABS: INR 1.8
--- NOTE | 2017-08-14 12:16 | H ---
[address] [address] HISTORY AND PHYSICAL Name: RITU MONTE Room: [address] IN ..#: [id number] Admission: 07/26/17 Attend Phys: Carly Escobar DO Discharge: Date of : 49 Report #: [id number] THIS REPORT FOR: //name// CC: Lamberto Escobar HISTORY OF PRESENT ILLNESS: This is a 72-year-old male admitted to inpatient rehabilitation to facilitate safe discharge home, status post acute hospitalization. He is familiar to this service from previous admission as well as consultation. He did have pacemaker placement and sepsis while he was on acute, previously he did have increase in his BUN and creatinine was, taken down to telemetry to be monitored closely where he was also requiring hemodialysis. He is now stable and appropriate for rehabilitation, again to facilitate safe discharge to the home setting. No significant changes since the preadmission screening. Previous level of function was minimum to moderate assistance of 1-2 depending on therapy, activity and time of day. He does have a Moran. He has mild impairment of comprehension, expression, social interaction, problem solving and memory. Currently, he is minimum to moderate assistance of 1-2 depending on therapy, activity and time of day. He is dependent with his toilet transfers. ALLERGIES: No changes. SOCIAL HISTORY: No changes. FAMILY HISTORY: No changes. PAST MEDICAL HISTORY: No changes. PAST SURGICAL HISTORY: No changes with the exception of the port that was placed for his dialysis. REVIEW OF SYSTEMS: A 14-point review of systems is done today, is negative except as mentioned in HPI, specifically no fever, chest pain, shortness of breath, abdominal pain or distention. PHYSICAL EXAMINATION: GENERAL: Alert, oriented, in no apparent distress. VITAL SIGNS: Reviewed and are stable. HEENT: Head atraumatic, normocephalic. Pupils equal, round and rapid. ABDOMEN: Soft, nontender, nondistended. NEUROLOGIC: Cranial nerves 2-12 are grossly intact. No focal neuro deficits, 5/5 strength in bilateral upper and lower extremity, does have above-knee amputation that is stable and intact. ASSESSMENT: 1. Status post sepsis and acute kidney injury requiring hemodialysis[place] [address] HISTORY AND PHYSICAL Name: RITU MONTE Room: [address] [facility] IN [facility].#: [id number] Admission: 07/26/17 Attend Phys: Carly Escobar DO Discharge: Date of : 49 Report #: [id number] debility. 2. Above-knee amputation. PLAN: 1. Low endurance. 2. PT, OT, speech, language, case management, nursing and HIMS to make evaluations and recommendations. Plan of care is pending. We will team him weekly. We will have Renal follow along with him and consult. Already ordered his appropriate labs. <ELECTRONICALLY SIGNED> By: Carly Escobar DO 08/14/17 1216 1538 1604Carly Escobar DO /keturah
[2017-08-14 19:30] VITALS: BP 113/74
[2017-08-14 21:07] LABS: eGFR IF AFRICAN AMERICAN 48 (>59)
[2017-08-15 07:28] LABS: INR 1.7; PROTIME 16.6 Seconds (9.20-11.50)
[2017-08-15 07:48] VITALS: BP 128/70
[2017-08-15 08:20] VITALS: BP 125/70
[2017-08-15] MEDS ORDERED: CARAFATE 1 GM TA1 G1 PO (10:20)
[2017-08-15] MEDS ORDERED: PACERONE 200 M200 M1 PO (12:16)
[2017-08-15] MEDS ORDERED: MIDODRINE HCL 55 M1 PO (12:49)
[2017-08-15 15:11] LABS: PARATHYROID HORMONE 65 pg/mL (15-65)
--- NOTE | 2017-09-06 11:20 | PLAN ---
[address] [address] REHAB UNIT PLAN OF CARE Name: RITU MONTE Room: [address] IN [facility].#: [id number] Admission: 07/26/17 Attend Phys: Carly Escobar DO Discharge: 08/15/17 Date of : 49 Report #: [id number] THIS REPORT FOR: //name// CC: Lamberto Escobar OVERALL PLAN OF CARE This is a 72-year-old male known to this service from previous admission. He is now admitted with acute kidney injury requiring hemodialysis and debility. No significant changes since his admission. MEDICAL PROGNOSIS: Good. REHABILITATION PROGNOSIS: Good. Estimated length of stay is 12-14 days with discharge disposition to the home setting with supportive family. Previous level of function was minimum assistance of 1-2. Current level of function is minimum assistance of 1-2 with dependency on toileting. He also has mild impairment of comprehension, expression, social interaction, problem solving, and memory. He does have a Moran intact at this time. Physical therapy will see the patient 60-90 minutes per day, 5 days per week, working on upper and lower body strength, balance, coordination, navigation. Occupational therapy will work with the patient 60-90 minutes per day, 5 days per week, working on upper and lower body strength, balance, coordination, navigation, bathing, dressing, and toileting. Speech and language pathology will work with the patient 30-90 minutes per day, 5 days per week, working on comprehension, expression, social interaction, problem solving and memory. This is an overall plan of care, may change from time to time. We will team weekly and make changes to plan of care as needed. <ELECTRONICALLY SIGNED> By: Carly Escobar DO 09/06/17 1120 1539 Cherrie Escobar DO /nt
--- NOTE | 2017-09-21 12:46 | D ---
[facility] [address] [place] [address] DISCHARGE SUMMARY Name: RITU MONTE Room: [address] IN M.Joni.#: [id number] Admission: 07/26/17 Attend Phys: Carly Escobar DO Discharge: 08/15/17 Date of : 49 Report #: [id number] THIS REPORT FOR: //name// CC: Lamberto Escobar DATE OF SERVICE: 08/15/2017 DISCHARGE DIAGNOSES: Cardiac debility and sepsis. DISCHARGE DISPOSITION: To home with home health, PT, OT, nursing. Port was removed, hemodialysis was discontinued. Recommendations for followup included primary care physician, Dr. Tillman within 1 week and nephrology within 1 month. Also, follow up included wound care within 1 week. DISCHARGE PHYSICAL EXAMINATION: GENERAL: Alert, oriented, in no apparent distress. VITAL SIGNS: Reviewed and are stable. HEENT: Head atraumatic, normocephalic. Pupils are equal, round, and reactive. ABDOMEN: Soft, nontender, and nondistended. NEUROLOGIC: Cranial nerves 2-12 are grossly intact with no focal neuro deficits, 5/5 strength in the bilateral upper and lower extremities. He does have an above knee amputation, which is well healed. He does have wound on the lower extremity. <ELECTRONICALLY SIGNED> By: Carly Escobar DO 09/21/17 1246 1127 1220Kelfelisha Escobar DO /keturah
--- NOTE | 2017-10-08 08:16 | D ---
[facility] [place] [address] [place] [address] DISCHARGE SUMMARY Name: RITU MONTE Room: [address] IN M.R.#: [id number] Admission: 07/26/17 Attend Phys: Carly Escobar DO Discharge: 08/15/17 Date of : 47 Report #: [id number] THIS REPORT FOR: //name// CC: Lamberto Escobar DATE OF SERVICE: 08/15/2017 DISCHARGE DIAGNOSES: Left lower extremity peripheral arterial disease with nonhealing wounds, status post previous history of amputation. Discharge disposition is to home. Medications were reviewed and reconciled by myself and are available in the MAR. Notifications for physician were given. He will follow with his orthopedic surgeon within 1-2 weeks. He will follow with his wound care doctor within 1 week and his primary care physician within one week. Any prescriptions needed were given for one month's time. DISCHARGE PHYSICAL EXAMINATION: GENERAL: Alert, oriented, in no apparent distress. VITAL SIGNS: Reviewed and are stable. HEENT: Head atraumatic, normocephalic. Pupils are equal, round, and reactive. ABDOMEN: Soft, nontender, and nondistended. NEUROLOGIC: Cranial nerves 2-12 are grossly intact with no focal neuro deficits. <ELECTRONICALLY SIGNED> By: Carly Escobar DO 10/08/17 0816 1338 [id number] Escobar DO /keturah
== END 2017-08-15 15:45 | disposition home health service (06) | DRG 947 ==
LOC: M.REH 13:58
PROVIDERS: Family Medicine; Internal Medicine; Internal Medicine Nephrology; Nurse Practitioner Family; ADMIT Physical Medicine & Rehabilitation
PROC: 0JPT3XZ Removal of Tunneled Vascular Access Device from Trunk Subcutaneous Tissue and Fascia, Percutaneous Approach (ICD-10-PCS; principal; 2017-08-01)
DX: R53.81 Other malaise (principal); A41.52 Sepsis due to Pseudomonas; N17.0 Acute kidney failure with tubular necrosis; I47.2 Ventricular tachycardia; D68.59 Other primary thrombophilia; K22.10 Ulcer of esophagus without bleeding; K26.3 Acute duodenal ulcer without hemorrhage or perforation; I50.22 Chronic systolic (congestive) heart failure; N18.4 Chronic kidney disease, stage 4 (severe); E11.22 Type 2 diabetes mellitus with diabetic chronic kidney disease; I25.10 Atherosclerotic heart disease of native coronary artery without angina pectoris; R00.1 Bradycardia, unspecified; E11.65 Type 2 diabetes mellitus with hyperglycemia; E66.01 Morbid (severe) obesity due to excess calories; E11.51 Type 2 diabetes mellitus with diabetic peripheral angiopathy without gangrene; E87.5 Hyperkalemia; D64.9 Anemia, unspecified; K29.50 Unspecified chronic gastritis without bleeding; K29.00 Acute gastritis without bleeding; R60.9 Edema, unspecified; E83.42 Hypomagnesemia; I48.91 Unspecified atrial fibrillation; E87.6 Hypokalemia; E83.52 Hypercalcemia; I25.5 Ischemic cardiomyopathy; Z79.01 Long term (current) use of anticoagulants; Z95.0 Presence of cardiac pacemaker; Z87.891 Personal history of nicotine dependence; Z86.711 Personal history of pulmonary embolism; Z86.718 Personal history of other venous thrombosis and embolism; Z83.3 Family history of diabetes mellitus; Z89.611 Acquired absence of right leg above knee; Z68.31 Body mass index [BMI] 31.0-31.9, adult; Z79.02 Long term (current) use of antithrombotics/antiplatelets; Z79.4 Long term (current) use of insulin

== ENCOUNTER → 2017-08-18 | Outpatient (CLI) | payer MEDICARE ==
[~2017-08-18] MED LIST changes: +ACIDOPHILUS1 EAC4 PO; +AMBIEN 5 MG TABL5 M1 PO; +ASPIR 8181 MG PO; +BISACODYL SUPP10 MG RECTAL; +CEFEPIME 22 GM/100 M IV; +COLACE 100 MG100 MG PO; +FLORANEX TABLE1 EACH PO; +HYDROCODON-ACE1 EAC7 PO; +KEFLEX500 M1 PO; +LIDOCAINE 2%2 %/5 GM TOP; +PROMETHAZINE IV; +VANCOMYCIN1.25 GM/22 IV; +ZOFRAN IV; +[UNRECOGNIZED DRUG - OTHER] PO
== END ==
LOC: M.WC 08:59
DX: E11.622 Type 2 diabetes mellitus with other skin ulcer (principal); I70.242 Atherosclerosis of native arteries of left leg with ulceration of calf; L97.221 Non-pressure chronic ulcer of left calf limited to breakdown of skin; E11.621 Type 2 diabetes mellitus with foot ulcer; L97.521 Non-pressure chronic ulcer of other part of left foot limited to breakdown of skin; E11.36 Type 2 diabetes mellitus with diabetic cataract; E11.22 Type 2 diabetes mellitus with diabetic chronic kidney disease; N18.9 Chronic kidney disease, unspecified; I50.9 Heart failure, unspecified; I25.2 Old myocardial infarction; K21.9 Gastro-esophageal reflux disease without esophagitis; Z99.2 Dependence on renal dialysis; Z86.718 Personal history of other venous thrombosis and embolism; Z86.711 Personal history of pulmonary embolism; Z87.891 Personal history of nicotine dependence

== ENCOUNTER → 2017-08-23 | Outpatient (CLI) | payer MEDICARE | LOC: M.WC 04:37 | DX: E11.621 Type 2 diabetes mellitus with foot ulcer (principal); L97.521 Non-pressure chronic ulcer of other part of left foot limited to breakdown of skin; I70.248 Atherosclerosis of native arteries of left leg with ulceration of other part of lower leg; E11.622 Type 2 diabetes mellitus with other skin ulcer; L97.221 Non-pressure chronic ulcer of left calf limited to breakdown of skin; E11.51 Type 2 diabetes mellitus with diabetic peripheral angiopathy without gangrene; K21.9 Gastro-esophageal reflux disease without esophagitis; E11.36 Type 2 diabetes mellitus with diabetic cataract; E11.22 Type 2 diabetes mellitus with diabetic chronic kidney disease; I50.9 Heart failure, unspecified; N18.9 Chronic kidney disease, unspecified; I25.2 Old myocardial infarction; Z86.718 Personal history of other venous thrombosis and embolism; Z86.711 Personal history of pulmonary embolism; Z87.891 Personal history of nicotine dependence; Z68.31 Body mass index [BMI] 31.0-31.9, adult; Z99.2 Dependence on renal dialysis ==

== ENCOUNTER 2017-08-30 12:43 | Inpatient (IN) | payer MEDICARE ==
[~2017-08-30] VITALS: Ht 175.3 cm; Wt 94.8 kg
[~2017-08-30 12:43] MED LIST changes: -ACIDOPHILUS1 EAC4 PO; -AMBIEN 5 MG TABL5 M1 PO; -BISACODYL SUPP10 MG RECTAL; -CEFEPIME 22 GM/100 M IV; -COLACE 100 MG100 MG PO; -FLORANEX TABLE1 EACH PO; -HYDROCODON-ACE1 EAC7 PO; -KEFLEX500 M1 PO; -LIDOCAINE 2%2 %/5 GM TOP; -PROMETHAZINE IV; -VANCOMYCIN1.25 GM/22 IV; -ZOFRAN IV
[2017-08-30 12:45] VITALS: BP 156/84
[2017-08-30 13:31] LABS: HEMATOCRIT 26.8 % (42.0-52.0); HEMOGLOBIN 8.8 gm/dL (14.0-18.0); MCH 29.1 pg (26.0-34.0); MCHC 32.9 g/dL (28.0-37.0); MCV 88.3 fL (80.0-100.0); NUCLEATED RBCS 0 /100WBC; PLATELET COUNT* 384 thou/uL (150-400); RBC 3.03 mil/uL (4.50-6.00); RDW-CV 19.2 % (10.5-14.5); WBC 8.1 thou/uL (4.0-11.0)
[2017-08-30 13:40] LABS: CALCIUM 10.7 mg/dL (8.5-10.1); CREATININE 2.5 mg/dL (0.6-1.3)
[2017-08-30 13:42] LABS: POTASSIUM 6.3 mmol/L (3.5-5.1)
[2017-08-30 13:45] LABS: ALBUMIN 3.3 g/dL (3.4-5.0); TOTAL BILIRUBIN 0.3 mg/dL (<0.1-1.0); TOTAL PROTEIN 7.4 g/dL (6.4-8.2)
[2017-08-30 13:53] LABS: ABSOLUTE BASOPHILS 0.1 thou/uL (0.0-0.2); ABSOLUTE EOSINOPHILS 0.1 thou/uL (0.0-0.7); ABSOLUTE LYMPHOCYTES 0.9 thou/uL (0.8-5.3); ABSOLUTE MONOCYTES 0.2 thou/uL (0.0-1.2); ABSOLUTE NEUTROPHILS 6.9 thou/uL (1.6-8.1); ATYPICAL LYMPHS 1 %
[2017-08-30 13:54] LABS: PLATELET ESTIMATE ADEQUATE; POLYCHROMASIA 1+
[2017-08-30 14:20] LABS: POTASSIUM 6.4 mmol/L (3.5-5.1)
[2017-08-30 14:32] LABS: TROPONIN-I LEVEL <0.06 ng/mL (<0.06)
[2017-08-30 14:57] LABS: PROTIME > 210.1 Seconds (9.20-11.50)
[2017-08-30 15:01] LABS: INR > 18.0
[2017-08-30 15:02] LABS: APTT 121.7 Seconds (25.0-31.3)
[2017-08-30 15:55] VITALS: BP 109/58
[2017-08-30 16:20] VITALS: BP 97/68
[2017-08-30 17:43] VITALS: BP 115/62
[2017-08-30 17:45] VITALS: BP 88/58
[2017-08-30 19:21] LABS: CALCIUM 10.5 mg/dL (8.5-10.1); CREATININE 2.5 mg/dL (0.6-1.3)
[2017-08-30 20:35] VITALS: BP 115/57
[2017-08-31] VITALS (7 sets, daily range): BP systolic 102–126; BP diastolic 40–61
[2017-08-31 03:52] LABS: HEMATOCRIT 22.5 % (42.0-52.0); HEMOGLOBIN 7.5 gm/dL (14.0-18.0); MCH 29.5 pg (26.0-34.0); MCHC 33.6 g/dL (28.0-37.0); MCV 87.8 fL (80.0-100.0); MPV 6.9 fl. (7.2-11.1); RBC 2.56 mil/uL (4.50-6.00); RDW-CV 19.2 % (10.5-14.5); WBC 5.9 thou/uL (4.0-11.0)
[2017-08-31 04:01] LABS: CALCIUM 9.6 mg/dL (8.5-10.1); CREATININE 2.4 mg/dL (0.6-1.3); PHOSPHORUS* 4.3 mg/dL (2.5-4.9); POTASSIUM 4.3 mmol/L (3.5-5.1); PROTIME 29.1 Seconds (9.20-11.50)
--- NOTE | 2017-08-31 10:42 | EKG ---
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: Chirag MOSQUERA : 1945 Requested By: Amanda Thorpe Order Number: [id number] MD: Lamberto Blake Measurements Intervals [place] Rate: 49 P: 36 [place]: 203 QRS: 9 QRSD: 141 T: 32 QT: 436 QTc: 394 Interpretive Statements Sinus bradycardia early transition consider previous IWMI Compared to ECG 08/13/2017 08:26:40 no change Electronically Signed On 08-31-2017 10:42:26 CDT by Lamberto Blake [email or web address] <ELECTRONICALLY SIGNED> By: Lamberto Blake MD, [facility] 08/31/17 1042 1353 52 Lamberto Blake MD, [facility] /EPI
--- NOTE | 2017-08-31 10:43 | EKG ---
[place] [address] ELECTROCARDIOGRAM REPORT Name: RITU MONTE Room: [address] ADM IN M.R.#: [id number] Admission: 08/30/17 Attend Phys: Toni Spicer MD Discharge: Date of : 49 Report #: [id number] THIS REPORT FOR: //name// [facility] ED Test Date: 2017-08-30 Test Time: 13:59:29 Pat Name: RITU MONTE Department: Room: [address] Gender: M Larry Operator: Chirag MOSQUERA : 1945 Requested By: Toni Spicer Order Number: [id number] Mauri MD: Lamberto Blake Measurements Intervals [place] Rate: 49 P: 35 [place]: 195 QRS: 9 QRSD: 148 T: 36 QT: 445 QTc: 402 Interpretive Statements Sinus bradycardia Probable left atrial enlargement Nonspecific intraventricular conduction delay consider old inferior MA Baseline wander in lead(s) V3 Electronically Signed On 08-31-2017 10:43:36 CDT by Lamberto Blake [email or web address] <ELECTRONICALLY SIGNED> By: Lamberto Blake MD, [facility] 08/31/17 1043 1359 1359 Lamberto Blake MD, [facility] /EPI
[2017-09-01] VITALS: BP 103/55
[2017-09-01 04:00] VITALS: BP 122/67
[2017-09-01 04:12] LABS: HEMATOCRIT 22.8 % (42.0-52.0); HEMOGLOBIN 7.4 gm/dL (14.0-18.0); MCH 28.9 pg (26.0-34.0); MCHC 32.4 g/dL (28.0-37.0); MCV 89.3 fL (80.0-100.0); MPV 7.1 fl. (7.2-11.1); RBC 2.55 mil/uL (4.50-6.00); RDW-CV 19.6 % (10.5-14.5); WBC 5.8 thou/uL (4.0-11.0)
[2017-09-01 04:17] LABS: INR 2.8; PROTIME 27.2 Seconds (9.20-11.50)
[2017-09-01 04:22] LABS: CALCIUM 10.5 mg/dL (8.5-10.1); MAGNESIUM 1.9 mg/dL (1.8-2.4); POTASSIUM 4.1 mmol/L (3.5-5.1)
[2017-09-01 08:00] VITALS: BP 109/52
--- NOTE | 2017-09-01 08:27 | CON ---
[facility] [address] [place] [address] CONSULTATION Name: RITU MONTE Room: [address] IN .R.#: [id number] Admission: 08/30/17 Attend Phys: Toni Spicer MD Discharge: Date of : 49 Report #: [id number] THIS REPORT FOR: //name// CC: Lamberto Spicer INDICATION: Anticoagulation management. HISTORY OF PRESENT ILLNESS: The patient is a very pleasant 72-year-old gentleman, well known to myself. He was admitted to the hospital after having uncontrollable bleeding from a recent debridement site on his left foot. He has peripheral vascular disease. He is status post right AKA. The patient was initially seen by our service in June of this year with ventricular tachycardia. He ultimately underwent ICD placement for secondary prevention. By echocardiogram, he has moderate left ventricular systolic dysfunction with wall motion abnormalities, consistent with ischemic cardiomyopathy. By catheterization, he was found to have a chronically occluded circumflex that fills distally by collaterals. Percutaneous coronary intervention to this region was not successful. He has a diffusely diseased PDA. Findings consistent with ischemic cardiomyopathy. His hospitalizations of recent had been complicated by renal failure and lower gastrointestinal bleeding. He is on warfarin, aspirin and Plavix. He is on warfarin for a history of DVT and pulmonary embolus. Presently, he is not having chest pain or symptoms to suggest heart failure. PAST MEDICAL HISTORY: 1. Coronary artery disease. 2. Ischemic cardiomyopathy. 3. Symptomatic ventricular tachycardia. 4. Status post ICD placement for secondary prevention. 5. History of DVT and pulmonary emboli. 6. Peripheral vascular disease. 7. History of DVT. 8. Type 2 diabetes mellitus. 9. Hypertension. 10. Chronic renal insufficiency. CURRENT MEDICATIONS: Keflex 500 mg p.o. t.i.d., amiodarone 400 mg p.o. daily, Plavix 75 mg p.o. daily, aspirin 81 mg p.o. daily, iron 150 mg p.o. daily, folic acid 1 mg daily, insulin 15 units b.i.d., midodrine 5 mg t.i.d., Protonix 40 mg b.i.d., sliding scale insulin, Carafate 1 g a.c. PHYSICAL EXAMINATION: VITAL SIGNS: Blood pressure 102/58, pulse 52 and regular. GENERAL: This is a pleasant gentleman who was not in distress. [place] [address] CONSULTATION Name: RITU MONTE Room: [address]#: [id number] Admission: 08/30/17 Attend Phys: Toni Spicer MD Discharge: Date of : 49 Report #: [id number] HEENT: He is wearing glasses. Extraocular muscles intact. Mucous membranes moist. NECK: Shows no jugular venous distention. There are no carotid bruits. CHEST: Reveals clear lung lion without wheezes or rales. CARDIOVASCULAR: Reveals regular rhythm with normal S1, S2. I do not appreciate gallop or murmur. ICD site appears to have a superficial infection involving the incision. The pocket itself appears stable and nontender. ABDOMEN: Reveals normal bowel sounds. The abdomen is soft, nontender. EXTREMITIES: Shows previous right lower extremity amputation with left lower extremity wrapped. IMPRESSION AND RECOMMENDATIONS: 1. Persistent bleeding post-debridement of foot wounds. Okay to discontinue Coumadin at this time. He has been reversed with vitamin K. I suspect this will stop his overt bleeding. 2. Superficial infection of implantable cardioverter-defibrillator site. Recommend Keflex 500 mg t.i.d. at this point in time. 3. Ischemic cardiomyopathy, presently well compensated. 4. Coronary artery disease. Continue aspirin and Plavix as tolerated. He is not having any angina at this point in time. 5. Hypertension. Blood pressure low-normal presently. We will follow. 6. Diabetes. Per primary physician. 7. Peripheral vascular disease. Per Vascular Surgery. <ELECTRONICALLY SIGNED> By: Mikal Sellers MD, FACC 09/01/17 0827 1211 1237Mikal Sellers MD, FACC /nt
--- NOTE | 2017-09-01 10:55 | EKG ---
[place] [address] ELECTROCARDIOGRAM REPORT Name: RITU MONTE Room: [address] ADM IN M.R.#: [id number] Admission: 08/30/17 Attend Phys: Toni Spicer MD Discharge: Date of : 49 Report #: [id number] THIS REPORT FOR: //name// [facility] Test Date: 2017-09-01 Test Time: 07:59:43 Pat Name: RITU MONTE Department: Room: [address] Gender: M Electrical/Instrument Technician: : 1945 Requested By: Ted Napoles Order Number: [id number] Mauri MD: Lamberto Blake Measurements Intervals [place] Rate: 55 P: 51 NE: 202 QRS: 28 QRSD: 138 T: 68 QT: 510 QTc: 488 Interpretive Statements Ventricular-paced complexes sinus bradycardia with pac's Probable left atrial enlargement previous inferior-posterior infarction Compared to ECG 08/30/2017 13:59:29 pac's and ventricular paced beats seen Electronically Signed On 09-01-2017 10:55:04 CDT by Lamberto Blake [email or web address] <ELECTRONICALLY SIGNED> By: Lamberto Blake MD, FACC 09/01/17 1055 0759 0759 Lamberto Blake MD, [facility] /EPI
[2017-09-01 12:07] VITALS: BP 102/53
[2017-09-01 16:26] VITALS: BP 133/66
[2017-09-01 20:00] VITALS: BP 128/61
[2017-09-02] VITALS: BP 102/53
[2017-09-02 04:00] VITALS: BP 103/56
[2017-09-02 05:01] LABS: CALCIUM 9.8 mg/dL (8.5-10.1); CREATININE 1.7 mg/dL (0.6-1.3); MAGNESIUM 2.1 mg/dL (1.8-2.4); POTASSIUM 4.6 mmol/L (3.5-5.1)
[2017-09-02 05:11] LABS: INR 4.7
[2017-09-02 08:00] VITALS: BP 133/67
[2017-09-02 11:26] VITALS: BP 135/58
[2017-09-02 15:47] VITALS: BP 124/55
[2017-09-02 20:00] VITALS: BP 100/56
[2017-09-03] VITALS: BP 109/62
[2017-09-03 04:00] VITALS: BP 106/57
[2017-09-03 05:04] LABS: HEMATOCRIT 24.2 % (42.0-52.0); HEMOGLOBIN 7.8 gm/dL (14.0-18.0); MCHC 32.2 g/dL (28.0-37.0); MCV 90.1 fL (80.0-100.0); MPV 7.3 fl. (7.2-11.1); RBC 2.69 mil/uL (4.50-6.00); RDW-CV 19.4 % (10.5-14.5); WBC 6.3 thou/uL (4.0-11.0)
[2017-09-03 05:12] LABS: POTASSIUM 4.2 mmol/L (3.5-5.1)
[2017-09-03 05:33] LABS: CALCIUM 10.6 mg/dL (8.5-10.1); CREATININE 1.6 mg/dL (0.6-1.3)
[2017-09-03 05:34] LABS: INR 5.3
[2017-09-03 05:35] LABS: PROTIME 50.4 Seconds (9.20-11.50)
[2017-09-03 05:41] LABS: PROTIME 44.8 Seconds (9.20-11.50)
[2017-09-03 08:00] VITALS: BP 113/67
[2017-09-03 12:00] VITALS: BP 118/59
[2017-09-03 15:43] VITALS: BP 125/64
[2017-09-03 19:55] VITALS: BP 123/60
[2017-09-04] VITALS: BP 112/52
[2017-09-04 04:00] VITALS: BP 98/54
[2017-09-04 05:22] LABS: PROTIME 29.1 Seconds (9.20-11.50)
[2017-09-04 08:00] VITALS: BP 123/60
[2017-09-04 12:48] VITALS: BP 108/68
[2017-09-04 15:33] VITALS: BP 122/51
[2017-09-04 19:30] VITALS: BP 122/89
[2017-09-05] VITALS: BP 118/69
[2017-09-05 04:00] VITALS: BP 117/61
[2017-09-05 04:30] LABS: HEMATOCRIT 26.3 % (42.0-52.0); HEMOGLOBIN 8.4 gm/dL (14.0-18.0); MCH 28.9 pg (26.0-34.0); MCHC 31.9 g/dL (28.0-37.0); MCV 90.7 fL (80.0-100.0); MPV 7.2 fl. (7.2-11.1); RBC 2.9 mil/uL (4.50-6.00); RDW-CV 20.1 % (10.5-14.5); WBC 6.7 thou/uL (4.0-11.0)
[2017-09-05 04:40] LABS: CALCIUM 10.6 mg/dL (8.5-10.1); CREATININE 1.4 mg/dL (0.6-1.3); POTASSIUM 4.2 mmol/L (3.5-5.1)
[2017-09-05 04:46] LABS: INR 1.9; PROTIME 18.4 Seconds (9.20-11.50)
[2017-09-05 08:00] VITALS: BP 138/60
[2017-09-05 12:00] VITALS: BP 111/53
[2017-09-05 19:45] VITALS: BP 120/61
[2017-09-06 04:00] VITALS: BP 114/65
[2017-09-06 05:11] LABS: HEMATOCRIT 25.8 % (42.0-52.0); HEMOGLOBIN 8.3 gm/dL (14.0-18.0)
[2017-09-06 05:33] LABS: INR 1.7; PROTIME 16.8 Seconds (9.20-11.50)
[2017-09-06 07:30] VITALS: BP 107/58
[2017-09-06 15:57] VITALS: BP 120/53
[2017-09-06 19:45] VITALS: BP 137/79
[2017-09-07] VITALS: BP 134/59
[2017-09-07 05:07] LABS: HEMATOCRIT 25.6 % (42.0-52.0); HEMOGLOBIN 8.4 gm/dL (14.0-18.0); MCH 29.6 pg (26.0-34.0); MCHC 32.7 g/dL (28.0-37.0); MCV 90.3 fL (80.0-100.0); MPV 6.8 fl. (7.2-11.1); RBC 2.83 mil/uL (4.50-6.00); RDW-CV 19.5 % (10.5-14.5); WBC 4.9 thou/uL (4.0-11.0)
[2017-09-07 05:19] LABS: INR 1.6; PROTIME 15.2 Seconds (9.20-11.50)
[2017-09-07 05:29] LABS: CALCIUM 10.6 mg/dL (8.5-10.1); CREATININE 1.4 mg/dL (0.6-1.3); POTASSIUM 4.2 mmol/L (3.5-5.1)
[2017-09-07 20:00] VITALS: BP 111/72
[2017-09-07 20:30] VITALS: BP 111/61
[2017-09-07 21:00] VITALS: BP 104/44
[2017-09-07 22:00] VITALS: BP 116/62
[2017-09-07 23:00] VITALS: BP 113/60
[2017-09-08] VITALS: BP 117/69
[2017-09-08 01:00] VITALS: BP 136/71
[2017-09-08 04:00] VITALS: BP 114/56
[2017-09-08 04:42] LABS: HEMATOCRIT 24.9 % (42.0-52.0); MCH 29.2 pg (26.0-34.0); MCHC 32.2 g/dL (28.0-37.0); MCV 90.8 fL (80.0-100.0); MPV 7.3 fl. (7.2-11.1); RBC 2.74 mil/uL (4.50-6.00); RDW-CV 19.2 % (10.5-14.5); WBC 4.5 thou/uL (4.0-11.0)
[2017-09-08 04:57] LABS: CALCIUM 9.8 mg/dL (8.5-10.1); CREATININE 1.2 mg/dL (0.6-1.3); MAGNESIUM 1.8 mg/dL (1.8-2.4); POTASSIUM 4.1 mmol/L (3.5-5.1)
[2017-09-08 04:59] LABS: INR 1.4; PROTIME 13.9 Seconds (9.20-11.50)
[2017-09-08 08:00] VITALS: BP 117/60
[2017-09-08 16:02] VITALS: BP 114/56
[2017-09-08 20:37] VITALS: BP 121/53
[2017-09-09] VITALS: BP 107/55
[2017-09-09 04:25] LABS: CALCIUM 10.3 mg/dL (8.5-10.1); CREATININE 1.1 mg/dL (0.6-1.3); MAGNESIUM 1.7 mg/dL (1.8-2.4); POTASSIUM 4.1 mmol/L (3.5-5.1)
[2017-09-09 04:27] LABS: INR 1.6; PROTIME 15.6 Seconds (9.20-11.50)
[2017-09-09 08:08] VITALS: BP 112/66
[2017-09-09] MEDS ORDERED: KEFLEX500 M1 PO (12:11)
[2017-09-09] MEDS ORDERED: HYDROCODON-ACE1 EAC7 PO (12:11)
[2017-09-09] MEDS ORDERED: ACIDOPHILUS1 EAC4 PO (12:11)
[2017-09-09] MEDS ORDERED: ENOXAPARIN100 MG/11 SUBQ (12:12)
[2017-09-09 14:35] VITALS: BP 112/66
--- NOTE | 2017-09-22 14:40 | OP ---
[facility] [address] [place] [address] OPERATIVE REPORT Name: RITU MONTE Room: [address]#: [id number] Admission: 08/30/17 Attend Phys: Toni Spicer MD Discharge: 09/09/17 Date of : 49 Report #: [id number] THIS REPORT FOR: //name// CC: Lamberto Spicer DATE OF SERVICE: 09/07/2017 PREOPERATIVE DIAGNOSIS: Peripheral vascular disease with ulcer, left lower extremity in the setting of diabetes mellitus and renal insufficiency. POSTOPERATIVE DIAGNOSIS: Peripheral vascular disease with ulcer, left lower extremity in the setting of diabetes mellitus and renal insufficiency. SURGEON: Rupert Thorpe DO. DIPPER CLOCK AND WATCH HANDS: None. ANESTHESIA: Moderate sedation. PROCEDURES: 1. Ultrasound-guided access, right common femoral artery. 2. Aortogram. 3. Catheter position third order, left lower extremity angiogram. 4. Angioplasty and stent with Bard Humeston 6 mm x 150, Ultraverse 5 mm x 20, 3 mm x 100 and stenting with , 6 x 50 and a 6 mm x 150 Supera stent of the left SFA and proximal popliteal artery. 5. Limited angiogram, right common femoral artery. 6. Angio-Seal closure, right common femoral artery. ESTIMATED BLOOD LOSS: 50 mL. SPECIMEN: None. COMPLICATIONS: None. CONDITION: Stable. DISPOSITION: Home. INDICATIONS FOR THE PROCEDURE AND CONSENT: The patient is a 72-year-old male status post right leg amputation and severe wounds of his left lower extremity, was recently admitted to the hospital and had renal insufficiency. His angiogram was delayed to allow his kidneys to recover and to limit his immediate exposure to contrast. Risks and benefits of left lower extremity angiogram including contrast nephropathy was discussed with the patient. The patient [address] [address] OPERATIVE REPORT Name: RITU MONTE Room: [address]#: [id number] Admission: 08/30/17 Attend Phys: Toni Spicer MD Discharge: 09/09/17 Date of : 47 Report #: [id number] wished to proceed, was consented and scheduled. PROCEDURE IN DETAIL: After timeout was performed, the patient was placed in supine position with sterile prep and drape of the anterior abdomen, bilateral groins and bilateral thighs. Ultrasound was utilized to identify the right common femoral artery. Seldinger technique was used to place a 6-Burundian sheath. Glidewire Advantage and UF catheter were advanced into the infrarenal aorta and an aortogram was performed. This demonstrated the aorta to be widely patent without flow limitation or stenosis. The bilateral common, internal and external iliac arteries were seen to be patent and without significant disease. I retracted the UF catheter to the angiogram position and the left lower extremity external iliac artery and common and proximal profunda arteries were well visualized and noted to be free of disease. The origin of the left SFA stent was identified and it was noted to be completely occluded. I then advanced the UF catheter into the left common femoral region left lower extremity angiogram. This demonstrated left SFA stent to be completely occluded with reconstitution in the mid popliteal artery below a previously placed stent. Below this, there were small collaterals and the anterior tibial vessel appeared to be the predominant runoff to the lower extremity. I administered the patient with 6000 units of heparin with intention to treat and exchanged for an up and over 6-Burundian sheath. I then was able to use a Glidewire Advantage and seeker catheter and was able to advance quite easily through down to the mid popliteal artery. An outflow angiogram demonstrated the distal popliteal and what was likely the posterior tibial vessel to be patent. Unfortunately, my catheter did not wish to tract in the true lumen of the stent and it likely was in a subintimal or space between the stent and the artery. I then spent the majority of the case attempting to balloon and stent this area. Because there was a previously placed stent and the artery was heavily calcified, I had quite a bit of difficulty advancing balloons through the entire SFA and popliteal. I was able with a combination of wires, catheters and balloons to open a channel between the common femoral and popliteal artery. Please see the operative record for the sequence. Ultimately, I was only able to balloon with small balloons of a 3 mm size in certain locations and required 0.018 technology. There was a very heavily calcified portion within the proximal SFA. Then, I was not able to pass any 0.035 catheter through because of the hang or catch on either the piece of plaque or on the stent. I was able to pass a 0.014 and 0.018 technology through this. I therefore requested if there was any stent available on the shelf, that would work over an 0.018 system. I was handed the Guillermo product, which was a 6 x 150 Supera stent. I did deploy it under fluoroscopic guidance. However, because of the severe resistance in stenosis within this area, the stent deployed more proximally than I would have liked, then up into the common femoral vessel. It was then post-angioplastied with Bard Humeston angioplasty balloon [place] [address] OPERATIVE REPORT Name: RITU MONTE Room: [address]#: [id number] Admission: 08/30/17 Attend Phys: Toni Spicer MD Discharge: 09/09/17 Date of : 47 Report #: [id number] pass Viabahn stents beyond this area and stent all the way down to the popliteal. Completion angiography demonstrated excellent radiographic result without flow limitation or stenosis. Below knee angiography demonstrated an inline flow to the anterior tibial vessel and some flow within the peroneal and posterior tibial collaterals. At this point, I terminated the procedure. I retracted my sheath into the right external iliac artery and performed a limited angiogram, which demonstrated to be appropriate for Angio-Seal closure and a 6-Burundian Angio-Seal was selected and deployed in standard fashion. Pressure was held for hemostasis. The patient tolerated the procedure well. All lap, needle and instrument counts were correct. <ELECTRONICALLY SIGNED> By: Rupert Thorpe DO 09/22/17 1440 [id number] [id number] Thorpe DO /nt
--- NOTE | 2017-09-27 10:37 | CON ---
[address] [address] CONSULTATION Name: RITU MONTE Room: [address] IN .R.#: [id number] Admission: 08/30/17 Attend Phys: Toni Spicer MD Discharge: 09/09/17 Date of : 49 Report #: [id number] THIS REPORT FOR: //name// CC: Lamberto Spicer DATE OF SERVICE: 08/31/2017 REQUESTING PHYSICIAN: Toni Spicer M.D. REASON FOR CONSULTATION: Acute kidney injury and hyperkalemia. HISTORY OF PRESENT ILLNESS: The patient is a 72-year-old gentleman well known to us. We have seen him while he was here a month ago. He has chronic kidney disease stage 3, has severe peripheral vascular disease, coronary artery disease, diabetes mellitus type 2, cardiomyopathy. He presents now with the complaints of bleeding from his chronic wound of his left leg. His INR was elevated, so he was admitted, he was found also to be in acute kidney injury. Creatinine went up to 2.4, baseline around 1.8, 1.9, potassium was 6.3. He was given some treatment for potassium in the ER and potassium now is normal. PAST MEDICAL HISTORY: As mentioned earlier. FAMILY HISTORY: Noncontributory. SOCIAL HISTORY: Used to smoke, but no current tobacco or alcohol abuse. MEDICATIONS: Prior to admission reviewed. Here in the hospital. He is on cephalexin 500 t.i.d., folic acid, Plavix, aspirin, amiodarone, insulin, Protonix, and Carafate. REVIEW OF SYSTEMS: Positive for overall not feeling well, being weak, poor appetite. No chest pain, no shortness of breath. He had some bleeding from his wound, but now bleeding stopped. PHYSICAL EXAMINATION: GENERAL: Awake, alert, oriented. VITAL SIGNS: Blood pressure now is 102/58, heart rate 52, afebrile. HEENT: Pupils are round. NECK: Supple. LUNGS: Clear. CARDIOVASCULAR: Regular rate. ABDOMEN: Obese, soft. EXTREMITIES: He has a right above knee amputation, left. His wound is dressed. LABORATORY DATA: Report from this morning revealed hemoglobin [place] 7.5. [place] [address] CONSULTATION Name: RITU MONTE Room: [address]#: [id number] Admission: 08/30/17 Attend Phys: Toni Spicer MD Discharge: 09/09/17 Date of : 47 Report #: [id number] sodium 135, potassium 4.3, chloride 103, carbon dioxide 24, BUN 41, creatinine 2.4. ASSESSMENT: A 72-year-old gentleman with bleeding from his left leg wound. The patient was on Coumadin. INR is back to therapeutic now. Bleeding stopped. He developed acute kidney injury likely due to bleeding and mild hyperkalemia also due to acute kidney injury. Today, his kidney function is stabilizing. His potassium is normal. Recommend to keep him euvolemic. He has good p.o. intake. There is no need for IV fluids. Antibiotics per primary team. Keep on low potassium diet and avoid VANESSA inhibitors and angiotensin receptor blockers. Thank you very much for asking my opinion on patient's renal function and hyperkalemia. <ELECTRONICALLY SIGNED> By: Blanco Beltran MD 09/27/17 1037 [id number] [id number] Beltran MD /[facility]
== END 2017-09-09 19:00 | DRG 673 ==
LOC: M.ERS 12:43 → M.2W 14:43 → M.TBA-ER 14:43 → M.2W 16:10
PROVIDERS: Internal Medicine; Nurse Practitioner Family; ADMIT Internal Medicine
PROC: 047L3FZ Dilation of Left Femoral Artery with Three Intraluminal Devices, Percutaneous Approach (ICD-10-PCS; principal; 2017-08-30)
PROC: 047N3EZ Dilation of Left Popliteal Artery with Two Intraluminal Devices, Percutaneous Approach (ICD-10-PCS; principal; 2017-08-30)
DX: N17.0 Acute kidney failure with tubular necrosis (principal); I50.23 Acute on chronic systolic (congestive) heart failure; T82.7XXA Infection and inflammatory reaction due to other cardiac and vascular devices, implants and grafts, initial encounter; D68.32 Hemorrhagic disorder due to extrinsic circulating anticoagulants; D68.59 Other primary thrombophilia; I13.0 Hypertensive heart and chronic kidney disease with heart failure and stage 1 through stage 4 chronic kidney disease, or unspecified chronic kidney disease; E11.51 Type 2 diabetes mellitus with diabetic peripheral angiopathy without gangrene; N18.3 Chronic kidney disease, stage 3 (moderate); R00.1 Bradycardia, unspecified; I87.8 Other specified disorders of veins; F17.210 Nicotine dependence, cigarettes, uncomplicated; E87.5 Hyperkalemia; E11.22 Type 2 diabetes mellitus with diabetic chronic kidney disease; E86.0 Dehydration; I25.10 Atherosclerotic heart disease of native coronary artery without angina pectoris; K27.9 Peptic ulcer, site unspecified, unspecified as acute or chronic, without hemorrhage or perforation; E83.52 Hypercalcemia; I25.5 Ischemic cardiomyopathy; Y83.8 Other surgical procedures as the cause of abnormal reaction of the patient, or of later complication, without mention of misadventure at the time of the procedure; Y92.89 Other specified places as the place of occurrence of the external cause; Z79.82 Long term (current) use of aspirin; Z79.01 Long term (current) use of anticoagulants; Z86.718 Personal history of other venous thrombosis and embolism; Z89.611 Acquired absence of right leg above knee; Z95.820 Peripheral vascular angioplasty status with implants and grafts; Z79.899 Other long term (current) drug therapy; Z83.3 Family history of diabetes mellitus; Z95.810 Presence of automatic (implantable) cardiac defibrillator

== ENCOUNTER → 2017-08-30 | Outpatient (CLI) | payer MEDICARE | LOC: M.WC 05:09 | DX: E11.621 Type 2 diabetes mellitus with foot ulcer (principal); I70.245 Atherosclerosis of native arteries of left leg with ulceration of other part of foot; L97.521 Non-pressure chronic ulcer of other part of left foot limited to breakdown of skin; E11.622 Type 2 diabetes mellitus with other skin ulcer; L97.221 Non-pressure chronic ulcer of left calf limited to breakdown of skin; I70.248 Atherosclerosis of native arteries of left leg with ulceration of other part of lower leg; L97.821 Non-pressure chronic ulcer of other part of left lower leg limited to breakdown of skin; L02.818 Cutaneous abscess of other sites; E11.51 Type 2 diabetes mellitus with diabetic peripheral angiopathy without gangrene; E11.36 Type 2 diabetes mellitus with diabetic cataract; E11.22 Type 2 diabetes mellitus with diabetic chronic kidney disease; N18.9 Chronic kidney disease, unspecified; I25.10 Atherosclerotic heart disease of native coronary artery without angina pectoris; I50.9 Heart failure, unspecified; I25.2 Old myocardial infarction; K21.9 Gastro-esophageal reflux disease without esophagitis; Z99.2 Dependence on renal dialysis; Z86.718 Personal history of other venous thrombosis and embolism; Z86.711 Personal history of pulmonary embolism; Z87.891 Personal history of nicotine dependence; Z89.611 Acquired absence of right leg above knee ==

== ENCOUNTER 2017-09-20 04:06 | Inpatient (IN) | payer MEDICARE ==
[~2017-09-20] VITALS: Ht 175.3 cm; Wt 98.4 kg
[~2017-09-20 04:06] MED LIST changes: +ACIDOPHILUS1 EAC4 PO; +HYDROCODON-ACE1 EAC7 PO; +KEFLEX500 M1 PO
--- NOTE | 2017-09-20 12:43 | NUR ---
1220-PT ARRIVED ON UNIT WITH RUBEN PEDRO IN WHEELCHAIR. PT HAS RAKA, LLE IS WRAPPED AND PIX TAKEN AT WOUND CLINIC AND PLACED IN CHART. MRI WITH AND WITHOUT CONTRAST OF LLE ORDER HAS BEEN PLACED COMMENTS AND IN COMMENT SECTION HAVE MRI READ TODAY. PT ABLE TO PIVOT TO BED FROM WHEELCHAIR UPON ADMISSION BUT PT IS FATIGUED. DR ABRAMS PAGED AT THIS TIME TO INFORM THAT PT HAS ARRIVED MRI CALLED AND STATED THAT THE PT WILL GO TO MRI AT 1500. WILL ADMIT PT INTO SYSTEM AND CONTINUE TO ASSESS AND MONITOR.
[2017-09-20 14:27] LABS: ABSOLUTE BASOPHILS 0.1 thou/uL (0.0-0.2); ABSOLUTE EOSINOPHILS 0.2 thou/uL (0.0-0.7); ABSOLUTE MONOCYTES 0.4 thou/uL (0.0-1.2); ABSOLUTE NEUTROPHILS 5.5 thou/uL (1.6-8.1); BASOPHILS 0.7 %; EOSINOPHILS 2.5 %; HEMATOCRIT 28.9 % (42.0-52.0); HEMOGLOBIN 9.3 gm/dL (14.0-18.0); LYMPHOCYTES 13.8 %; MCH 28.9 pg (26.0-34.0); MCHC 32.1 g/dL (28.0-37.0); MCV 90.1 fL (80.0-100.0); MONOCYTES 5.8 %; MPV 7.1 fl. (7.2-11.1); NUCLEATED RBCS 0 /100WBC; PLATELET COUNT* 265 thou/uL (150-400); POLYS 77.2 %; RBC 3.21 mil/uL (4.50-6.00); WBC 7.2 thou/uL (4.0-11.0)
[2017-09-20 14:35] LABS: INR 1.7; PROTIME 16.8 Seconds (9.20-11.50)
[2017-09-20 14:36] LABS: CALCIUM 10.5 mg/dL (8.5-10.1); CREATININE 1.2 mg/dL (0.6-1.3); MAGNESIUM 1.8 mg/dL (1.8-2.4); POTASSIUM 4.5 mmol/L (3.5-5.1)
[2017-09-20 18:55] VITALS: BP 108/59
[2017-09-20 20:00] VITALS: BP 110/61
[2017-09-21 00:31] VITALS: BP 110/62
[2017-09-21 05:00] LABS: HEMATOCRIT 28.1 % (42.0-52.0); MCH 28.9 pg (26.0-34.0); MCHC 32.1 g/dL (28.0-37.0); MCV 89.8 fL (80.0-100.0); MPV 7.7 fl. (7.2-11.1); RBC 3.13 mil/uL (4.50-6.00); WBC 6.4 thou/uL (4.0-11.0)
--- NOTE | 2017-09-21 05:10 | NUR ---
PT SLEPT AT INTERVALS TONIGHT, VOIDED PER URINAL, NPO SINCE MIDNIGHT, PLEASANT, PRN PAIN MEDS PER REQUEST, LEFT LEG ON PILLOW WITH DRESSINGS C/D/I, CALL LIGHT IN REACH, WILL CONTINUE TO MONITOR
[2017-09-21 05:15] LABS: CALCIUM 10.5 mg/dL (8.5-10.1); CREATININE 1.1 mg/dL (0.6-1.3); MAGNESIUM 1.9 mg/dL (1.8-2.4); POTASSIUM 4.5 mmol/L (3.5-5.1)
[2017-09-21 08:00] VITALS: BP 99/59
--- NOTE | 2017-09-21 11:04 | EKG ---
[place] [address] ELECTROCARDIOGRAM REPORT Name: RITU MONTE Room: [address] ADM IN M.R.#: [id number] Admission: 09/20/17 Attend Phys: Toni Spicer MD Discharge: Date of : 49 Report #: [id number] THIS REPORT FOR: //name// 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 [employer]: BS : 1945 Requested By: Rupert Thorpe Order Number: [id number] Reading MD: Luis Alberto Maynard Measurements Intervals [place] Rate: 57 P: 67 [place]: 202 QRS: 45 QRSD: 136 T: 50 QT: 515 QTc: 502 Interpretive Statements Ventricular-paced complexes No further rhythm analysis attempted due to paced rhythm Probable left atrial enlargement Nonspecific intraventricular conduction delay Compared to ECG 09/01/2017 07:59:43 Intraventricular conduction delay now present Sinus bradycardia no longer present Myocardial infarct finding no longer present Electronically Signed On 09-21-2017 11:04:25 CDT by Luis Alberto Maynard [email or web address] <ELECTRONICALLY SIGNED> By: Luis Alberto Maynard MD, FAC 09/21/17 1104 1033 1033 Luis Alberto Maynard MD, FAC /EPI
[2017-09-21 13:30] VITALS: BP 110/62
[2017-09-21 13:59] VITALS: BP 133/69
--- NOTE | 2017-09-21 16:45 | NUR ---
SW attempted to meet pt but pt was out of the room. SW will continue to follow. Pt known to BERNICE/CM from previous admissions and on the inpt rehab unit.
[2017-09-21 17:45] VITALS: BP 154/54
--- NOTE | 2017-09-21 18:52 | NUR ---
SHIFT NOTE - PT OFF UNIT THIS AFTERNOON FOR I/D OF LEFT LEG AND NEW DRESSING PLACEMENT. RETURNED TO FLOOR AT 1820. PHOTO IN THE CHART. USED URINIAL WITHOUT DIFFICULTLY.
[2017-09-21 20:35] VITALS: BP 103/44
[2017-09-22 04:00] VITALS: BP 110/61
--- NOTE | 2017-09-22 05:36 | NUR ---
PT SLEPT ON AND OFF THIS SHIFT. ASSESSMENT DOCUMENTED, MEDS GIVEN PER E-APR. IV PATNET. PAIN MEDS GIVEN PER E-MAR WITH RELIEF. PT STATED HE IS HAVING LEFT HIP PAIN WHICH IS NEW FOR HIM. PT STATES HE IS NO LONGER TAKING AMIODARONE AND DOES NOT KNOW WHY IT IS ON HIS MED LIST. PT STATED THAT HE IS ALSO UNSURE IF HE WANTS TO RETURN TO THE FACILITY HE WAS AT. DRESSING REMAINED C/D/I. WILL CONTINUE WITH PLAN OF CARE.
[2017-09-22 15:02] VITALS: BP 99/55
[2017-09-22 16:34] VITALS: BP 120/62
--- NOTE | 2017-09-22 17:54 | NUR ---
PATIENT IS ALERT AND ORIENTED TODAY VERY PLEASANT. VITAL SIGNS STABLE ON ROOM AIR. CALL LIGHT IS IN REACH, HAD SOME COMPLAINTS OF PAIN THAT IS CONTROLLED WITH ORAL PAIN MEDICATIONS. WOUND VAC PLACED TODAY BY WOUND NURSE. WILL CONTINUE TO MONITOR.
--- NOTE | 2017-09-22 18:38 | NUR ---
WOUND CARE NOTE: CONSULT RECEIVED FOR WOUND VAC PLACEMENT. PATIENT IS POD #1 FROM AN I&D TO HIS LEFT LATERAL AND POSTERIOR LEG WOUNDS. LEFT LATERAL LEG: ULCERATION MEASURING 2.5X2.5X1. MOIST, RED, NON-GRANULAR WOUND BED. NURIA-WOUND PALE IN COLOR. CLEANSED WITH WOUND CERTIFIED PHARMACIST ASSISTANT, PATTED DRY. SKIN PREPPED. CUT BLACK FOAM TO FIT INTO WOUND BED. SECURED WITH DRAPE. LEFT POSTERIOR LEG: ULCERATION MEASURING 13.2X3X0.7. MOIST, RED, YELLOW, NON-GRANULAR WOUND BED. NURIA-WOUND WITH SLIGHT MACERATION AND ECCHYMOSIS. CLEANSED WOUND WITH WOUND CLEANSER, PATTED DRY. SKIN PREPPED. CUT BLACK FOAM TO FIT INTO WOUND BED. SECURED WITH DRAPE. BRIDGED POSTERIOR AND LATERAL WOUNDS TOGETHER. GOOD SEAL OBTAINED WITH SUCTION AT 150MMHG. LEFT FOOT, DORSAL ASPECT: FULL THICKNESS ULCERATION MEASURING 4.8X4.3X0.8. WOUND BED IS 90% PINK, MOIST, GRANULAR TISSUE. 10% YELLOW ADHERENT SLOUGH. NURIA-WOUND IS EDEMATOUS. CLEANSED WITH WOUND CLEANSER, PATTED DRY. APPLIED AQUACEL AG AND COVERED WITH ABD. SECURED WITH KERLIX AND VANESSA. LEFT LORENZ: AREA APPEARS TO BE A CONTUSION. PURPLE DISCOLORATION. AFTER CLEANSING, TOP LAYER OF SKIN PEELED AWAY REVEALING A MOIST, PURPLE WOUND BED. CLEANSED WITH WOUND CLEANSER, PATTED DRY. APPLIED OPTIFOAM AG AND SECURED WITH KERLIX AND VANESSA. PATIENT TOLERATED DRESSING CHANGE WELL, DID HAVE PAIN DURING WOUND VAC PLACEMENT AND REQUESTED PAIN MEDICATION FROM HIS RN. EDUCATED PATIENT ON WOUND VAC, HAS HAD BEFORE AND REMEMBERS. RECOMMEND ELEVATE LLE TIGHT BLOOD GLUCOSE CONTROL ENCOURAGE GOOD NUTRITION AND HYDRATION FOLLOW UP IN WOUND CENTER UPON DISCHARGE
[2017-09-23] VITALS: BP 127/66
[2017-09-23 04:41] LABS: HEMOGLOBIN 9.1 gm/dL (14.0-18.0); MCH 28.4 pg (26.0-34.0); MCHC 32.4 g/dL (28.0-37.0); MCV 87.8 fL (80.0-100.0); MPV 7.8 fl. (7.2-11.1); RBC 3.19 mil/uL (4.50-6.00); RDW-CV 16.8 % (10.5-14.5); WBC 7.5 thou/uL (4.0-11.0)
--- NOTE | 2017-09-23 04:55 | NUR ---
PATIENT SLEPT WELL DURING THIS SHIFT. PT WITH 2100 BLOOD SUGAR OF 113, NO HUMALOG NEEDED. LANTUS 15 UNITS SCHEDULED GIVEN AT HS. PT WITH SALINE LOCK IN LT FOREARM. PT REQUESTED HYDROCODONE 1 TAB AT HS FOR LEG PAIN. PT VOIDS YELLOW URINE PER URINAL. PT IS ON ROOM AIR. PT HAS WOUND VAC ON LT LOWER EXTREMITY. DSG IN PLACE WITH NO AIR LEAKS NOTED. PT TO BE TURNED Q2H BUT REPOSITIONS BY HIMSELF. PT DENIES NEEDS AT THIS TIME. FREQUENTLY USED ITEMS AND CALL LIGHT WITHIN REACH. SIDERAILS UPX3. WILL CONTINUE TO MONITOR.
[2017-09-23 05:33] LABS: CALCIUM 10.4 mg/dL (8.5-10.1); CREATININE 1.2 mg/dL (0.6-1.3); MAGNESIUM 1.9 mg/dL (1.8-2.4); POTASSIUM 4.6 mmol/L (3.5-5.1); TOTAL BILIRUBIN 0.2 mg/dL (<0.1-1.0); TOTAL PROTEIN 5.9 g/dL (6.4-8.2)
[2017-09-23 08:30] VITALS: BP 118/45
--- NOTE | 2017-09-23 17:32 | NUR ---
PATIENT IS ALERT AND ORIENTED TODAY VERY PLEASANT. VITAL SIGNS STABLE ON ROOM AIR. NO COMPLAINTS OF PAIN TODAY OTHER THAN A HEADACHE THAT WAS CONTROLLED WITH TYLENOL THIS MORNING. CALL LIGHT IS IN REACH, WILL CONTINUE TO MONITOR.
[2017-09-24] VITALS: BP 143/71
[2017-09-24 08:40] VITALS: BP 117/79
[2017-09-24 16:41] VITALS: BP 116/60
--- NOTE | 2017-09-24 17:39 | NUR ---
PATIENT HAS BEEN ALERT AND ORIENTED TODAY VERY PLEASANT. VITAL SIGNS STABLE ON ROOM AIR, HAS REQUESTED TWO BREATHING TREATMENTS TODAY, LUNGS ARE CLEAR. APPETITE IS GOOD. REFUSED WOUND CARE AND PHOTOS TODAY, DUE TO WOUND VAC PLACEEMENT, SAID THE WOUND CARE NURSE WOULD BE HERE TOMORROW. NO COMPLAINTS OF PAIN TODAY, CALL LIGHT IS IN REACH, WILL CONTINUE TO MONITOR.
[2017-09-24 18:47] LABS: INR 1.2; PROTIME 11.2 Seconds (9.20-11.50)
[2017-09-25 00:28] VITALS: BP 118/64
[2017-09-25 08:00] VITALS: BP 114/61
[2017-09-25 16:00] VITALS: BP 116/64
--- NOTE | 2017-09-25 16:20 | NUR ---
RECEIVED CONSULT FOR POSSIBLE REHAB ADMISSION. CONSULT HAS BEEN ACKNOWLEDGED BY PRINTS AND DRAWINGS CURATOR AND DR. DAVIS. PATIENT ADMITTED WITH PVD AND LE OPEN WOUND. PT/OT/ST EVALUATIONS ARE PENDING. WILL FOLLOW ALONG WITH PATIENT TO SEE THERAPY EVALUATIONS, PROGRESS AND MEDICAL AND WOUND CARE NEEDS TO SEE IF PATIENT QUALIFIES FOR ACUTE REHAB. THANK YOU FOR THIS REFERRAL.
--- NOTE | 2017-09-25 17:03 | NUR ---
SHIFT NOTE - WOUND NURSE CHANGED DRESSING AND WOUND VAC. PT TOLERATED WELL. PT ABLE TO USE URINAL. GAVE HYDROCODONE ONCE THIS SHIFT. IV CAME OUT THIS SHIFT. NO REPLACED BECAUSE NO IV MEDICATIONS AT THIS TIME. PT TO POSSIBLY GO TO OR FOR DEBRIDEMENT ON 09/27 WITH .
[2017-09-26 00:11] VITALS: BP 123/80
--- NOTE | 2017-09-26 06:16 | NUR ---
ASSESSMENT COMPLETE. PT SLEPT GOOD THROUGH THE NIGHT. DENIES NEED FOR PAIN MEDICATION. DENIES N/V. WOUND VAC TO LEFT LEG IN PLACE, DRESSING INTACT. PT ENCOURAGED TO TURN Q2 HOURS. PT IS ON ROOM AIR WITH ADEQAUTE SATS. PO ABX GIVEN SCHEDULED. PT REPORTS CONSTIPATION, SENNA GIVEN. PT USES URINAL NEEDED. SEE ASSESSMENT AND VITALS FOR OTHER DETAILS. CALL LIGHT WITHIN REACH, WILL CONTINUE PLAN OF CARE
[2017-09-26 08:00] VITALS: BP 109/69
[2017-09-26 12:35] LABS: ABSOLUTE EOSINOPHILS 0.2 thou/uL (0.0-0.7); ABSOLUTE LYMPHOCYTES 1.2 thou/uL (0.8-5.3); ABSOLUTE MONOCYTES 0.5 thou/uL (0.0-1.2); ABSOLUTE NEUTROPHILS 5.4 thou/uL (1.6-8.1); BASOPHILS 0.6 %; EOSINOPHILS 3.3 %; HEMATOCRIT 29.7 % (42.0-52.0); HEMOGLOBIN 9.5 gm/dL (14.0-18.0); MCH 27.4 pg (26.0-34.0); MCHC 31.8 g/dL (28.0-37.0); MPV 7.1 fl. (7.2-11.1); NUCLEATED RBCS 0 /100WBC; PLATELET COUNT* 345 thou/uL (150-400); POLYS 73.1 %; RBC 3.45 mil/uL (4.50-6.00); RDW-CV 16.7 % (10.5-14.5); WBC 7.4 thou/uL (4.0-11.0)
[2017-09-26 12:45] LABS: ALBUMIN 2.9 g/dL (3.4-5.0); CALCIUM 11.9 mg/dL (8.5-10.1); CREATININE 1.4 mg/dL (0.6-1.3); POTASSIUM 4.4 mmol/L (3.5-5.1); TOTAL BILIRUBIN 0.2 mg/dL (<0.1-1.0); TOTAL PROTEIN 6.9 g/dL (6.4-8.2)
[2017-09-26 13:50] LABS: ESR (SEDRATE) 80 mm/hr (0-20)
--- NOTE | 2017-09-26 15:27 | NUR ---
SW continuing to follow and completed initial assessment. Pt possibly to have procedure tomorrow. Awaiting decision on dc plan...SW informed pt considering inpt rehab option or possibly [facility] in the future? Pt was at home with family at times to assist but was independent with transfers and ADLs; pt family reported that they would want pt to be more independent at home. Pt has hx with [facility] and has hx with [facility] but does not want to return to [facility]. SW to continue to follow to assist with safe dc planning.
[2017-09-26 17:42] VITALS: BP 129/72
--- NOTE | 2017-09-26 18:54 | NUR ---
PATIENT A&OX4, ROOM AIR, LEFT UPPER MIDLINE PLACED TODAY SALINE LOCK WITH ABX. PATIENT UP WITH ASSISTX1-2 WITH TRANSFER FROM BED TO BSC. PATIENT HAD LARGE BM TODAY. WOUND VAC DRESSING TO LEFT LEG REINFORCED. C/O HEADACHE AND LT LEG PAIN, PARTAIL RELIEF WITH MEDICATION. NO OTHER CONCERNS AT THIS TIME. APPROPRAITE AND COOPORATIVE WITH CARE.
[2017-09-26 21:08] LABS: IgA 126 mg/dL (61-437); IgG 783 mg/dL (700-1600); IgM 35 mg/dL (20-172)
[2017-09-27 00:22] VITALS: BP 118/56
--- NOTE | 2017-09-27 06:34 | NUR ---
ASSESSMENT COMPLETE. PT SLEPT THROUGH THE NIGHT WITHOUT ANY CONCERNS. PT GIVEN PRN PAIN MEDICATION ONCE AT HS. DRESSINGS AND WOUND VAC TO LEFT LEG IN PLACE. PT HAS BEEN NPO FOR I&D OF WOUND TODAY. CONSENTS SIGNED AND IN CHART. IV CEFAPIME GIVEN ORDERED. PT HAS MIDLINE IN LEFT UPPER ARM, FLUSHES WITHOUT DIFFICULTY. PT IS ON ROOM AIR WITH [place]DEQAUTE SATS. DENIES N/V. SEE ASSESSMENT AND VITALS FOR OTHER DETAILS. CALL LIGHT WITHIN REACH, WILL CONTINUE PLAN OF CARE
[2017-09-27 08:00] VITALS: BP 104/55
--- NOTE | 2017-09-27 11:34 | CON ---
[facility] [address] [place] [address] CONSULTATION Name: RITU MONTE Room: [address] IN .R.#: [id number] Admission: 09/20/17 Attend Phys: Toni Spicer MD Discharge: Date of : 47 Report #: [id number] THIS REPORT FOR: //name// CC: Lamberto Thorpe DATE OF SERVICE: 09/26/2017 INFECTIOUS DISEASE CONSULTATION ATTENDING PHYSICIAN: Dr. Riggs. REASON FOR EVALUATION: Left lower extremity peripheral vascular disease, complicated by chronic lower extremity wounds, apparently now secondarily infected. HISTORY OF PRESENT ILLNESS: He has polymicrobial growth including Pseudomonas and Proteus in preliminary cultures. He is scheduled to undergo operative debridement for a second time of the sites. He does have some degree of pain and discomfort. He has not been systemically ill in terms of fevers, although he has had some generalized discomfort and weakness. Appetite has been somewhat variable. ALLERGIES: None known. MEDICATIONS: Include ceftriaxone, ipratropium and albuterol inhaler, midodrine, folic acid, sucralfate, pantoprazole, insulin and lactobacillus. Warfarin was held. PAST MEDICAL HISTORY: As described above, diabetes mellitus type 2, complicated by vasculopathy and multiple lower extremity vascular procedures, including the right zigbi-lsj-kfwf amputation in 2015 and history of C. diff colitis. SOCIAL HISTORY: Former smoker. No ethanol. FAMILY HISTORY: Noncontributory. REVIEW OF SYSTEMS: Denies any significant pulmonary-related complaints. No GI issues at present. PHYSICAL EXAMINATION: GENERAL: Appears chronically ill and undernourished. He is alert, cooperative. He is not encephalopathic. He is in hdoy-je-iuqozwzc distress. VITAL SIGNS: Temperature 98.5, pulse 46, respirations 16 and blood pressure 109/69[place] [address] CONSULTATION Name: JONATHANRITU JAMES Bret Room: [address]#: [id number] Admission: 09/20/17 Attend Phys: Toni Spicer MD Discharge: Date of : 47 Report #: [id number] SKIN: Warm, dry. No rashes. HEENT: Otherwise, unremarkable. NECK: Supple. LUNGS: He does have some wheezes. HEART: Regular. Borderline bradycardic. I do not appreciate a murmur. ABDOMEN: Soft, nontender. EXTREMITIES: He has a right yupbv-pdx-jcdy amputation. He has got a dressing in place on the left lower extremity. LABORATORY DATA: Cultures with polymicrobial growth including Pseudomonas aeruginosa, collected on 09/20/2017. Also had Proteus mirabilis, the latter of which was moderately resistant in vitro in view of previous Pseudomonas susceptibilities showed resistance to ticarcillin, intermediate to levofloxacin and was dated 08/30 of this year. ASSESSMENT AND PLAN: Lower extremity chronic ulcers. This has been complicated by gram-negative polymicrobial infection. We will adjust therapy. Ceftriaxone may well cover the Proteus, although this would not cover the Pseudomonas. We will treat with latter generation cephalosporins. I am going to get a chest x-ray as well, ionized calcium and serum immunoglobulins and then we will follow perioperatively. <ELECTRONICALLY SIGNED> By: Kevin Voss MD 09/27/17 1134 1203 [id number] Voss MD /nt
[2017-09-27 12:18] VITALS: BP 117/64
--- NOTE | 2017-09-27 13:35 | NUR ---
Nutrition: Pt assessed for LOS. Admitted with LLE DM wound. NPO for debridement today. RD familiar with pt. From assisted living. H/o DM, CKD III, PAD, PUD, CAD, HF, HTN, DLD. RX: insulin, warfarin. Albumin 2.9, BG ok, BUN 31, cr 1.4. Usual wt is ~215#. Current wt is 217#. Inadequate oral intake R/T diet order AEB NPO status. Please advance diet to goal of CHO controlled once pt is clinically able. Mild risk.
[2017-09-27 16:00] VITALS: BP 107/64
--- NOTE | 2017-09-27 17:28 | NUR ---
PATIENT A&OX4. POST I&D ON 2L O2 DUE TO ANETHESIA 98%. MIDLINE LEFT UPPER ARM SALINE LOCK. WENT FOR I&D AT 1200, WOUND VAC PLACED TO 3 WOUNDS TO LEFT LEG. WOUND VAC IN PLACE SUCTION GOOD AND DRESSING INTACT. C/O HEADACHE AND LEG PAIN, RELIEF WITH MEDICATION. UP WITH ASSISTX1-2 WITH GAITBELT TO BSC. TRASFER WELL WITH MINIMAL ASSISTANCE. NO OTHER CONCERNS AT THIS TIME. APPROPRIATE AND COOPORATIVE WITH CARE.
[2017-09-28 00:03] VITALS: BP 116/52
[2017-09-28 04:16] LABS: HEMATOCRIT 26.3 % (42.0-52.0); HEMOGLOBIN 8.5 gm/dL (14.0-18.0); MCH 27.9 pg (26.0-34.0); MCHC 32.4 g/dL (28.0-37.0); MCV 86.1 fL (80.0-100.0); MPV 7.2 fl. (7.2-11.1); RBC 3.05 mil/uL (4.50-6.00); RDW-CV 16.4 % (10.5-14.5); WBC 6.9 thou/uL (4.0-11.0)
[2017-09-28 04:27] LABS: PROTIME 10.2 Seconds (9.20-11.50)
[2017-09-28 04:32] LABS: CALCIUM 10.8 mg/dL (8.5-10.1); CREATININE 1.3 mg/dL (0.6-1.3); MAGNESIUM 2.1 mg/dL (1.8-2.4); POTASSIUM 4.4 mmol/L (3.5-5.1)
--- NOTE | 2017-09-28 05:18 | NUR ---
ASSESSMENT COMPLETE. PT SLEPT THROUGH THE NIGHT WITHOUT ANY CONCERNS. PRN PAIN MEDICATION GIVEN ONCE NEEDED FOR LEFT LEG PAIN. PT IS ON 2L PER NC WITH CAPNO IN PLACE OVERNIGHT. PT HAS WOUND VAC TO LEFT LEG, CONT AT 150. PT DENIES N/V. MIDLINE IN LEFT UPPER ARM, SALINE LOCKED. SEE ASSESSMENT AND VITALS FOR OTHER DETAILS. CALL LIGHT WITHIN REACH, WILL CONTINUE PLAN OF CARE
[2017-09-28 08:15] VITALS: BP 122/68
[2017-09-28 14:35] LABS: HEMATOCRIT 27.4 % (42.0-52.0); HEMOGLOBIN 8.9 gm/dL (14.0-18.0)
[2017-09-28 16:06] VITALS: BP 105/43
--- NOTE | 2017-09-28 16:35 | NUR ---
CONTINUING TO FOLLOW PATIENT ALONG WITH DR. DAVIS. PATIENT HAD I&D WITH WOUND VAC PLACEMENT. CONTINUEING TO WORK AND PROGRESS WITH THERAPIES. PLAN TO ACCEPT PATIENT TO ACUTE REHAB ONCE MEDICALLY STABLE.
--- NOTE | 2017-09-28 17:46 | NUR ---
PATIENT IS ALERT AND ORIENTED TODAY VERY PLEASANT. VITAL SIGNS HAVE BEEN STABLE ON ROOM AIR TODAY. NO COMPLAINTS TODAY OTHER THAN A HEADACHE THIS MORNING. CALL LIGHT IS IN REACH, WILL CONTINUE TO MONITOR.
[2017-09-28 20:00] VITALS: BP 114/43
[2017-09-29 02:07] LABS: eGFR IF AFRICAN AMERICAN 71 (>59)
--- NOTE | 2017-09-29 04:37 | NUR ---
PT UP MOST OF THE NIGHT, IV ANTIBIOTIC GIVEN, VOIDED PER URINAL, DRSG C/D/I TO LEFT LEG WITH WOUND VAC IN PLACE, PLEASANT, CALL LIGHT IN REACH, WILL CONTINUE TO MONITOR
[2017-09-29 04:52] LABS: INR 1.1; PROTIME 10.7 Seconds (9.20-11.50)
[2017-09-29 06:05] LABS: PARATHYROID HORMONE 87 pg/mL (15-65)
[2017-09-29 07:45] VITALS: BP 117/52
[2017-09-29 11:15] VITALS: BP 117/52
--- NOTE | 2017-09-29 11:29 | NUR ---
Pt to dc today to inpt rehab. Pt had a meeting today with food service representative from [facility] as pt is considering if he might be able to transition to [facility] whenever he is ready to dc from inpt rehab.
[2017-09-29] MEDS ORDERED: CEFEPIME 22 GM/100 M IV (12:08)
[2017-09-29] MEDS ORDERED: ACIDOPHILUS1 EAC4 PO (12:13)
--- NOTE | 2017-09-29 13:32 | NUR ---
PATIENT IS ALERT AND ORIENTED TODAY VERY PLEASANT. UP WITH ASSIST TO RESTROOM OF BEDSIDE COMMODE. PAIN MEDICATIONS GIVEN BEFORE DRESSING/WOUND VAC CHANGE. VITAL SIGNS ARE STABLE ON ROOM AIR. PATIENT IS BEING DISCHARGED TO REHAB UNIT. LEFT VIA BED TO REHAB IN STABLE CONDITION TRANSPORTED BY NURSING STAFF WITH BELONGINGS.
[2017-09-29 13:45] VITALS: BP 117/52
--- NOTE | 2017-10-04 07:36 | OP ---
[facility] [address] [place] [address] OPERATIVE REPORT Name: RITU MONTE Room: [address]#: [id number] Admission: 09/20/17 Attend Phys: Toni Spicer MD Discharge: 09/29/17 Date of : 47 Report #: [id number] THIS REPORT FOR: //name// CC: Lamberto Thorpe DATE OF SERVICE: 09/27/2017 PREOPERATIVE DIAGNOSIS: Left lower extremity venous ulcers. POSTOPERATIVE DIAGNOSIS: Left lower extremity venous ulcers. OPERATION: 1. Excisional debridement of the 4 right lower extremity wounds. Wound #1 measured 11 x 3 cm in dimension. Wound #1 was the left posterior medial calf, #2 is the left lateral posterior calf and measures 2 x 2 cm dimension, next is a left anterior lower leg that measures 3 x 3 cm in dimension, next is dorsum of the left foot, which measures about 5 x 5 cm in dimension. 2. Wound VAC placement to the wounds. SURGEON: Harish Douglas DO. INDUSTRY ANALYST: None. ANESTHESIA: General. ESTIMATED BLOOD LOSS: 25 mL. FLUIDS: 100 crystalloid. URINE OUTPUT: None. SPECIMENS: None. COMPLICATIONS: None. FINDINGS: Wounds all had nonviable tissue, slough, fibrinous exudate and debris. These were all debrided down to and including subcutaneous tissue. He tolerated it well. The wound VAC had a good seal and suction. CLINICAL HISTORY: The patient is a 72-year-old man with chronic left lower extremity wounds. He has been getting local wound care and wound VAC therapy to lower calf wounds. He has felt the third wound on the anterior leg that has eschar overlying it and some drainage that has already been cultured. He has a wound on the dorsum of his foot, which has been treating with [employer] [address] OPERATIVE REPORT Name: LAVELLRITU D Room: [address]#: [id number] Admission: 09/20/17 Attend Phys: Toni Spicer MD Discharge: 09/29/17 Date of : 47 Report #: [id number] DETAILS OF PROCEDURE: After informed consent was obtained, the patient was taken to the operating room and placed on the OR bed in supine position. He was administered LMA anesthesia by the anesthesia team. Left lower extremity was prepped and draped in usual sterile fashion. Full timeout was performed identifying correct patient and procedure. Next, all 4 lower extremity wounds were surgically debrided with scalpel and pickups. Debrided nonviable tissue, slough exudate including subcutaneous tissue from all 4 wounds. There was excellent bleeding noted. These were all controlled with direct pressure. He tolerated it well given his general anesthetic. The wounds were irrigated with antibiotic solution. Once hemostasis was ensured in the wounds, the 3 lower leg wounds were then dressed with a wound VAC dressing. It had good seal and suction. The dorsal foot wound was then covered with Aquacel Ag, 4 x 4s, and wrapped with an Jaden wrap. All sponge, sharp and instrument counts reported as correct x 2. He tolerated the procedure well and was transferred to recovery in stable condition. <ELECTRONICALLY SIGNED> By: Harish Douglas DO 10/04/17 0736 [id number] Douglas DO /nt
--- NOTE | 2017-10-15 12:29 | OP ---
[facility] [address] [place] [address] OPERATIVE REPORT Name: RITU MONTE Room: [address]#: [id number] Admission: 09/20/17 Attend Phys: Toni Spicer MD Discharge: 09/29/17 Date of : 49 Report #: [id number] THIS REPORT FOR: //name// CC: Lamberto Thorpe DICTATED BY: Slava Cormier DO DATE OF SERVICE: 09/21/2017 PREOPERATIVE DIAGNOSIS: Left lower leg wounds. POSTOPERATIVE DIAGNOSIS: Left lower leg wounds. SURGEON: Rupert Thorpe DO. SALES REPRESENTATIVE LEATHER GOODS: Slava Cormier DO, PGY3. OPERATION PERFORMED: Debridement of left lower extremity wounds x 2. ANESTHESIA: General. ESTIMATED BLOOD LOSS: 40 mL. SPECIMEN REMOVED: Culture of calf wound. COMPLICATIONS: None. INDICATIONS: The patient is a 72-year-old male with chronic wounds of the left lower extremity. He was admitted from clinic for necessary debridement of his wounds under anesthesia due to possible involvement of the Achilles sheath. DESCRIPTION OF PROCEDURE: After informed consent was obtained, the patient was brought to the operating room and placed in the supine position. General anesthesia was administered. Preoperative Ancef was given. The patient was prepped and draped in the usual sterile fashion. A surgical pause was taken to confirm proper patient and procedure. The left posterior calf wounds were initially about 2 x 2 cm on the superior wound and 2 x 2 cm on the inferior calf. These wounds were debrided sharply using a 10 blade and a large curette. There was a significant amount of purulent and necrotic tissue inside of both wounds. This was removed and cultured. The two wounds were noticed to track along fascial plane and communicate. A #10 blade was used to open the overlying skin between these 2 wounds as well as extending from either wound superiorly and inferiorly to unroof all tunneled areas. The wound was then thoroughly curetted until healthy bleeding tissue was encountered. The wound edges were [facility] [address] [place] [address] OPERATIVE REPORT Name: RITU MONTE Room: [address] IN ..#: [id number] Admission: 09/20/17 Attend Phys: Toni Spicer MD Discharge: 09/29/17 Date of : 49 Report #: [id number] sharply excised using Metzenbaum scissors and a 10 blade. A perforating vein was ligated using a 2-0 silk stick tie. The wound was irrigated. Hemostasis was achieved using Bovie electrocautery. Attention was then turned to the lateral left leg wound, which was also found to have necrotic tissue. This was curetted and the posterior margin was sharply excised to clean wound edges to clean bleeding tissue. Bovie electrocautery was used to obtain hemostasis. Wound was irrigated and hemostatic. The forefoot wound was previously debrided in clinic and was not treated during this operation. Both wounds were once more examined for hemostasis. They were dressed with Aquacel Ag, 4 x 4s, ABD and wrapped with Kerlix and a tight Jaden wrap. The patient tolerated the procedure well. He was emerged from anesthesia and transferred to the PACU. The patient will return to the floor, is planned for wound VAC placement tomorrow. <ELECTRONICALLY SIGNED> By: Rupert Thorpe DO 10/15/17 1229 1829 1935Jocapri Thorpe DO /nt
== END 2017-09-29 13:46 | DRG 264 ==
LOC: M.WC 04:06 → M.3W 11:57
PROVIDERS: Family Medicine; Specialist; ADMIT Internal Medicine
PROC: 0JBP0ZZ Excision of Left Lower Leg Subcutaneous Tissue and Fascia, Open Approach (ICD-10-PCS; principal; 2017-09-21)
PROC: 05HY33Z Insertion of Infusion Device into Upper Vein, Percutaneous Approach (ICD-10-PCS; 2017-09-26)
PROC: 0KBT0ZZ Excision of Left Lower Leg Muscle, Open Approach (ICD-10-PCS; 2017-09-27)
DX: E11.51 Type 2 diabetes mellitus with diabetic peripheral angiopathy without gangrene (principal); I50.22 Chronic systolic (congestive) heart failure; L97.829 Non-pressure chronic ulcer of other part of left lower leg with unspecified severity; I25.10 Atherosclerotic heart disease of native coronary artery without angina pectoris; N18.3 Chronic kidney disease, stage 3 (moderate); E11.22 Type 2 diabetes mellitus with diabetic chronic kidney disease; M25.552 Pain in left hip; I48.91 Unspecified atrial fibrillation; B96.4 Proteus (mirabilis) (morganii) as the cause of diseases classified elsewhere; B96.5 Pseudomonas (aeruginosa) (mallei) (pseudomallei) as the cause of diseases classified elsewhere; Z89.611 Acquired absence of right leg above knee; Z86.718 Personal history of other venous thrombosis and embolism; Z95.820 Peripheral vascular angioplasty status with implants and grafts; I25.2 Old myocardial infarction; Z95.810 Presence of automatic (implantable) cardiac defibrillator; Z87.891 Personal history of nicotine dependence; Z79.4 Long term (current) use of insulin; Z79.01 Long term (current) use of anticoagulants; Z79.899 Other long term (current) drug therapy; Z83.3 Family history of diabetes mellitus

== ENCOUNTER 2017-09-29 11:45 | Inpatient (IN) | payer MEDICARE ==
[~2017-09-29] VITALS: Ht 175.3 cm; Wt 100.5 kg
[2017-09-29] MEDS ORDERED: CEFEPIME 22 GM/100 M IV (12:08)
[2017-09-29] MEDS ORDERED: ACIDOPHILUS1 EAC4 PO ×2 (12:13)
[2017-09-29 13:30] VITALS: BP 106/42
--- NOTE | 2017-09-29 16:34 | NUR ---
ASSUMMED CARE OF PT UPON ADMISSION TO UNIT, PT ALERT AND ORIENTED, DRESSING TO LEFT LEG DRY AND INTACT, PER REPORT FROM DISCHARGING UNIT DRESSING/WD VAC CHANGED PER WD CARE NURSE TODAY AND PICTURES TAKEN, PT STATES WOUNDS ARE LOOKING BETTER WITH EACH DRESSING CHANGE, MIDLINE IN UPPER LEFT ARM, PT DENIES NEED FOR PAIN MEDICATION AT THIS TIME, PT ENCOURAGED TO TURN ON SIDE, ASSESSMENT COMPLETE, HOURLY ROUNDING COMPLTED WILL CONTINUE TO MONITOR.
[2017-09-29 20:17] VITALS: BP 126/66
[2017-09-30 04:16] LABS: HEMATOCRIT 27.7 % (42.0-52.0); HEMOGLOBIN 8.8 gm/dL (14.0-18.0); MCH 27.5 pg (26.0-34.0); MCHC 31.9 g/dL (28.0-37.0); MCV 86.3 fL (80.0-100.0); MPV 8.1 fl. (7.2-11.1); RBC 3.21 mil/uL (4.50-6.00); RDW-CV 16.4 % (10.5-14.5)
[2017-09-30 04:33] LABS: INR 1.1; PROTIME 10.9 Seconds (9.20-11.50)
[2017-09-30 04:46] LABS: CALCIUM 10.8 mg/dL (8.5-10.1); CREATININE 1.4 mg/dL (0.6-1.3); POTASSIUM 4.6 mmol/L (3.5-5.1)
--- NOTE | 2017-09-30 04:47 | NUR ---
PATIENT SLEPT WELL DURING THIS SHIFT. PT ABLE TO REPOSITION HIMSELF IN BED. PT WITH WOUND VAC ON LT LEG. DSG INTACT; NO AIR LEAKS NOTED. PT WITH 2100 BLOOD SUGAR OF 116. LANTUS 15 UNITS AND HUMALOG 4 UNITS GIVEN. PT GIVEN ONE HYDROCODONE AT HS FOR LEG PAIN. PT WITH MIDLINE IN LT UPPER ARM; ANTIBIOTICS INFUSED PER DR ORDER. PT VOIDS YELLOW URINE. PT IN ISOLATION FOR MRSA. FREQUENTLY USED ITEMS AND CALL LIGHT WITHIN REACH. SIDERAILS UPX3 AND BED ALARM ON. WILL CONTINUE TO MONITOR.
[2017-09-30 07:57] VITALS: BP 117/53
--- NOTE | 2017-09-30 17:02 | NUR ---
ASSUMMED CARE OF PT AT 729, PT ALERT AND ORIENTED, TRANSFERS WITH SLIDING BOARD, PT PERFERS NOT TO USE SLIDING BOARD, WANTS TO STAND AND PIVOT, THERAPY DISCUSSED WITH PT AND HE HAS AGREED HE WILL USE SLIDING BOARD THRU THE WEEKEND UNTIL HE CAN DISCUSS WITH THERAPY AGAIN ON MONDAY, MIDLINE IN UPPER LEFT ARM, DRESSING C/D/I TO LEFT LEG, ISOLATION MAINTAINED, WD VAC PATENT AND DRAINING DK RED/BROWN DRAINAGE, PT DENIES NEED FOR PAIN MEDICATION THIS SHIFT, TAKING FOOD AND FLUIDS WELL, HOURLY ROUNDING COMPLETED, PARTICIPATED IN ALL THERAPIES, ASSESSMENT COMPLETE, WILL CONTINUE TO MONITOR.
[2017-09-30 22:17] VITALS: BP 125/80
[2017-10-01 04:05] LABS: INR 1.1; PROTIME 11.1 Seconds (9.20-11.50)
--- NOTE | 2017-10-01 05:06 | NUR ---
ASSUMED CARES AT 1920. ALERT AND ORIENTED. PLEASANT. TOOK NORCO AT BEDTIME FOR SLEEP AND ANY DISCOMFORT DURING THE NIGHT. CONTINUE ON CONTACT ISOLATION. LEFT LOWER EXTREMITY VANESSA WRPAPPED AND INTACT. WOUND VAC AT 150 WITH NO LEAKAGE NOTED. MIDLINE CATHETER TO LEFT UPPER ARM. MIN ASSIST WITH GAIT BELT. UP TO BSC. DID HAVE BM. NURSING ASSISTED WITH CARES AND DRESSING. TURNS SELF IN BED. USED URINAL AND NURSING EMPTIED. CALL LIGHT IN REACH AND BED ALARM ON.
[2017-10-01 09:23] VITALS: BP 102/49
--- NOTE | 2017-10-01 18:32 | NUR ---
ASSUMMED CARE OF PT AT 0730, PT ALERT AND ORIENTED, PT TRANSFERS WITH GB AND SLIDING BOARD, GOING FROM BED INTO WHEELCHAIR WAS MIN ASSIST, BUT GOING FROM WHEELCHAIR INTO BED WAS DIFFICULTY AND NEEDED ASSIST OF 2. PT COMPLAINS OF LEFT LEG PAIN WITH MOVEMENT BUT DENIES NEED FOR PAIN MEDICATION, PT REFUSED TO GET IN CHAIR UNTIL THIS AFTERNOON, SLEEPING ON AND OFF MUCH OF SHIFT, DID MINIMAL GROOMING AND BATHING, PT VOIDS PER URINAL, NO BM THIS SHIFT, ISOLATION PRECAUTIONS MAINTAINED, PT TAKING FOOD AND FLUIDS WELL, HOURLY ROUNDING COMPLETED, ASSESSMENT COMPLETE, WILL CONTINUE TO MONITOR.
[2017-10-01 20:41] VITALS: BP 121/68
[2017-10-02 04:57] LABS: INR 1.2; PROTIME 12.1 Seconds (9.20-11.50)
--- NOTE | 2017-10-02 05:39 | NUR ---
ASSUMED CARES AT 1920. ALERT AND ORIENTED. CALM AND COOPERATIVE. CONTACT ISOLATION. C/O SOME RIGHT PHANTOM PAIN. NORCO GIVEN. WOUND VAC RUNNING ON 150 MMHG. NO LEAKS NOTED. DRESSING TO LLE INTACT. MIDLINE CATHETER TO AMAN. FLUSHING WELL. USED URINAL AND NURSING EMPTIED. NO ISSUES OVERNIGHT. CALL LIGHT IN REACH AND BED ALARM.
[2017-10-02 08:00] VITALS: BP 111/54
--- NOTE | 2017-10-02 11:00 | NUR ---
SW met with pt to complete initial assessment, introduce self, and SW role on inpt rehab unit. Pt familiar with inpt rehab unit from previous rehab stay; pt known to SW as well from previous admissions. Pt lived at home with family however pt is hopeful to be able to transition to [facility] at hi. After [facility] met with pt and assessed, they are not likely to accept pt due to pt severity of wounds. SW discussed with pt who said that he only wants to go the [facility] and he would want to return home if he was unable to go there. Pt discussed he will plan to go to the wound clinic once a week and have HH services. Pt has a wc and was questioning receiving a motorized wc eventually. SW to continue to follow to assist with safe dc planning.
--- NOTE | 2017-10-02 11:44 | NUR ---
Nutrition: Consult for wound. Pt admitted to Rehab with PAD and wounds. Labs: albumin 2.9, BUN 23, cr 1.4, BG ok. Has wound VAC. Eating 80-100% of CHO controlled diet. +BM yday. Wt is stable, 218#. Usual wt is ~215#. H/o PAD, HTN, DLD. Increased nutrient needs R/T wound healing AEB wounds, PAD. RD will order Seferino b.i.d., and recommend MVI use. Low risk. Follow weekly.
--- NOTE | 2017-10-02 13:32 | NUR ---
WOUND NURSE: PATIENT SEEN FOR WOUND CARE TO LEFT FOOT AND LEG WOUNDS. REMOVED DRESSINGS AND CLEANSED WITH SOAP AND WATER, RINSED WITH WATER, THEN PATTED DRY. APPLIED SKIN PREP TO INTACT PERIWOUND TISSUE, APPLIED AQUACEL AG TO AREAS OF EXCORIATION BY THE TIBIAL WOUND. ALL LEG WOUNDS WERE TREATED USING WOUND VAC WITH SKIN PREP, TRANSPARENT DRAPE, AND GRANUFOAM. ALL 3 WOUNDS WERE BRIDGED TOGETHER. VAC WAS SET AT 150MMHG CONTINOUS NEGATIVE PRESSURE. FOOT WOUNDS WERE TREATED WITH AQUACEL AG UNDER ABD. THE FOOT AND LEG WAS LOOSELY WRAPPED WITH KERLEX ROLL GAUZE UNDER 6 INCH VANESSA WRAP. CALF AND LATERAL LEG WOUND PRESENTED WITH BEEFY RED GRANULATION TISSUE IN THE WOUND BED. THE TIBIAL WOUND CONTAINED PALE PINKISH RED, NONGRANULATING TISSUE AND A BLACKENED AREA IN THE CENTRAL MOST PART OF THE WOUND. THERE IS MODERATE TO LARGE AMOUNT OF SEROSANGUINOUS DRAINAGE NOTED FROM THE WOUND. PATIENT REPORTED PAIN OF 4 FOLLOWING COMPLETION OF THE WOUND CARE. PATINT WAS INSTRUCTED ON MEASURES TO PROMOTE WOUND HEALING WITH AND WITH FUTURE REINFORCEMENT NEEDED.
--- NOTE | 2017-10-02 17:05 | NUR ---
PT CARE ASSUMED AT 0730, AM ASSESSMENT AND VITAL SIGNS COMPLETED DOCUMENTED. PT WORKED WITH OT, PT AND ST TODAY BUT HAS BEEN DIFFICULT TO GET OUT OF BED FOR EXTENDED PERIODS DUE TO MULTIPLE COMPLAINTS WHEN HE IS UP. PT REFUSES TO ELEVATE THE LEFT LEG WHEN HE IS IN A WHEELCHAIR AND HAS REFUSED TO OFFERS TO SIT IN THE RECLINER. IV VANCOMYCIN ADDED TO ABX THERAPY AND STARTED TODAY. DRESSING TO AMAN MIDLINE C/D/I. WOUND VAC CONTINUES TO OPERATE ORDERED. FALL PRECAUTIONS AND HOURLY ROUNDING CONTINUE. FREQUENT TURNS AND REPOSITIONS ATTEMPTED BUT FREQUENTLY REFUSES TO CHANGE POSITION WELL. NO ACUTE DISTRESS, MINIMAL PROGRESS TOWARD DISCHARGE GOALS.
[2017-10-02 20:09] VITALS: BP 103/70
[2017-10-03 04:14] LABS: INR 1.5; PROTIME 14.2 Seconds (9.20-11.50)
--- NOTE | 2017-10-03 05:40 | NUR ---
ASSUMED CARES AT 1920. ALERT AND ORIENTED. ALREADY IN BED. HAS WOUND VAC AT 150 MMHG WITH DARK RED/BROWNISH DRAINAGE NOTED. DRESSING TO LLE INTACT. C/O LEFT LEG PAIN. NORCO GIVEN. MIDLINE CATHETER TO AMAN FLUSHING WELL. PT USED URINAL AND NURSING EMPTIED. SLEPT VERY LITTLE. DID NOT GET UP DURING THE NIGHT. CALL LIGHT IN REACH AND BED ALARM ON.
[2017-10-03 09:18] VITALS: BP 141/70
--- NOTE | 2017-10-03 13:35 | NUR ---
SW called pt dtr in law Sayda in preparation for team conference tomorrow. Sayda did not answer so SW left detailed message requesting call back with any questions or concerns. Sayda called back and discussed that pt son will plan to visit with pt sudhakar about looking into other options for LONG TERM; possibly [facility] (even though pt does not want to go back there for SNF). SW to continue to follow to assist with safe dc planning.
--- NOTE | 2017-10-03 18:26 | NUR ---
PT CARE ASSUMED THIS AM, ASSESSMENT AND VITAL SIGNS COMPLETED AND DOCUMENTED. PT WAS OUT OF BED FOR SOME THERAPY SESSIONS BUT REFUSED TO GET OUT OF BED TO GO TO DINING ROOM FOR MEALS. WOUND VAC AND DRESSINGS TO LEFT LOWER LEG REMAIN IN PLACE. PT'S APPETITE HAS BEEN GOOD, BLOOD GLUCOSE WELL CONTROLLED AND PROTEIN ENCOURAGED FOR WOUND HEALING. IV ABX CONTINUE WITHOUT ADVERSE REACTIONS. FALL PRECAUTIONS AND HOURLY ROUNDING IN PLACE.
[2017-10-03 20:38] VITALS: BP 113/56
[2017-10-04 04:37] LABS: INR 1.8; PROTIME 17.7 Seconds (9.20-11.50)
--- NOTE | 2017-10-04 05:16 | NUR ---
ASSUMED PT CARE AT 1930. PT ALERT AND ORIENTED X4, POLITE AND COOPERATIVE WITH CARES. PT ALREADY IN BED AT SHIFT CHANGE. WOUND VAC SET AT 150 MMHG WITH DARK REDDISH/BROWN DRAINAGE NOTED TO LLE. DRESSING TO LLE INTACT. C/O LEFT LEG PAIN, NORCO GIVEN AT HS. MIDLINE CATHETER TO AMAN FLUSHES WELL, ANTIBIOTICS INFUSED PER ORDERS. PT USED URINAL, STAFF EMPTIED. USES CALL LIGHT APPROPRIATELY. CALL LIGHT AND FREQUENTLY USED ITEMS WITHIN REACH. HOURLY ROUNDING IN PROGRESS, WILL CONTINUE TO MONITOR.
[2017-10-04 08:17] VITALS: BP 123/54
--- NOTE | 2017-10-04 16:54 | NUR ---
SW met with pt to review team conference summary and plan for pt to remain on rehab unit at least another week with team to reassess pt length of stay during team conference next Monday. Pt in agreement with plan and states that he wants to continue to work and make progress towards strengthening and healing. SW discussed planning to contact [facility] to ask to reevaluate pt possibly being able to move there at dc. SW also discussed other [facility] options if needed. SW to continue to follow to assist with safe dc planning.
--- NOTE | 2017-10-04 18:15 | NUR ---
ASSUMED CARE AT 0730 PATIENT ALERT/ORIENTED, PAIN TO LEFT LEG WITH PAIN MEDS GIVEN BEFORE WOUND VAC CHANGE BY WOUND NURSE AT 1300. PATIENT ALERT/ORIENTED, UP WITH ASSIST OF ONE WITH SLIDE BOARD AND GAIT BELT WITH THERAPIES, IV ANTIBIOTICS INFUSING TO [facility] PICC. PARTICIPATED IN ALL THERAPIES TODAY, DID NOT GO TO DINING ROOM TODAY, BUT AGREES TO GO TOMORROW. HOURLY ROUNDING COMPLETED. BED/CHAIR ALARMS IN PLACE, CALL LIGHT IN REACH
[2017-10-04 20:15] VITALS: BP 112/42
[2017-10-05 04:08] LABS: INR 2.2; PROTIME 21.4 Seconds (9.20-11.50)
--- NOTE | 2017-10-05 05:54 | NUR ---
ASSUMED PT CARE AT 1930. PT ALERT AND ORIENTED X4, POLITE AND COOPERATIVE WITH CARES. PT ALREADY IN BED AT SHIFT CHANGE. WOUND VAC TO LLE RUNNING WITHOUT DIFFICUTLY. DRESSING TO LLE INTACT. C/O LEFT LEG PAIN, NORCO GIVEN AT HS. PT STAYS UP LATE WATCHING TELEVISION AND LAPTOP. IV ABX INFUSING TO AMAN PICC WITHOUT DIFFICULTY. PT USED URINAL, STAFF EMPTIES. USES CALL LIGHT APPROPRIATELY. CALL LIGHT AND FREQUENTLY USED ITEMS WITHIN REACH. HOURLY ROUNDING IN PROGRESS, WILL CONTINUE TO MONITOR.
[2017-10-05 08:18] VITALS: BP 132/72
--- NOTE | 2017-10-05 15:50 | NUR ---
CM WAS INFORMED BY COUNTY EXTENSION AGENT THAT PATIENT IS IN NEED OF DME OR ADJUSTMENT TO W/C FOR WOUND AND NEW AKA, AND SHE INFORMS THAT THE PATIENT'S W/C WAS PROVIDED BY [employer]. CM SPOKE TO ROSS WITH [employer] TO INQUIRE ABOUT THE ORDER NEEDED TO OBTAIN DME, AND SHE INFORMS THAT WHAT IS NEEDED IS ON THE [facility] ORDER, BUT THE PHYSISCIAN WILL NEED TO WRITE ADDITIONAL INFO TO RECIEVE THE DME. CM TO PROVIDE DR DAVIS WITH WHAT IS REQUIRED. CM TO FAX ORDER AND ADDITIONAL INFO TO [employer] WHEN AVAILABLE. CM WILL REMAIN AVAILABLE TO ASSIST AND FOLLOW NEEDED.
--- NOTE | 2017-10-05 18:48 | NUR ---
ASSUMED CARE AT 0730 PATIENT ALERT/ORIENTED, UP WITH ASSIST OF ONE AND SLIDE BOARD/GAIT BELT, UP 30 MIN AT A TIME DUE TO WOUNDS TO LLE. WOUND VAC INTACT/DRAINING. DRESSING TO LLE INTACT. TYLENOL GIVEN X1 FOR HEADACHE WITH GOOD RELIEF. PARTICIPATED IN ALL THERAPIES TODAY, UP TO CHAIR FOR MEALS. HOURLY ROUNDING COMPLETED, BED/CHAIR ALARMS IN PLACE, CALL LIGHT IN REACH.
[2017-10-05 20:19] VITALS: BP 139/80
[2017-10-06 04:49] LABS: ABSOLUTE EOSINOPHILS 0.2 thou/uL (0.0-0.7); ABSOLUTE LYMPHOCYTES 1.2 thou/uL (0.8-5.3); ABSOLUTE MONOCYTES 0.4 thou/uL (0.0-1.2); ABSOLUTE NEUTROPHILS 3.6 thou/uL (1.6-8.1); BASOPHILS 0.6 %; EOSINOPHILS 3.4 %; HEMATOCRIT 27.7 % (42.0-52.0); LYMPHOCYTES 21.9 %; MCHC 32.6 g/dL (28.0-37.0); MCV 85.9 fL (80.0-100.0); MONOCYTES 7.6 %; MPV 8.2 fl. (7.2-11.1); NUCLEATED RBCS 0 /100WBC; PLATELET COUNT* 191 thou/uL (150-400); POLYS 66.5 %; RBC 3.23 mil/uL (4.50-6.00); WBC 5.5 thou/uL (4.0-11.0)
[2017-10-06 05:06] LABS: INR 2.3; PROTIME 21.8 Seconds (9.20-11.50)
--- NOTE | 2017-10-06 05:07 | NUR ---
ASSUMED CARES AT 1920. ALERT AND ORIENTED. PLEASANT. TAKES PILLS WITHOUT ISSUES. WOUND VAC AT 175 MMHG AND DRESSING TO LLE INTACT. NO LEAKAGE. MIDLINE CATHETER TO AMAN. MIN ASSIST WITH GAIT BELT. SLIDING BOARD. UP TO BSC. DID HAVE BM. NURSING ASSISTED WITH CARES AND BOARD PLACEMENT. DRESSING TO JULIANNE SKIN TEAR IS INTACT. SLEPT FOR SHORT TIME. CALL LIGHT IN REACH.
[2017-10-06 05:21] LABS: CALCIUM 10.2 mg/dL (8.5-10.1); POTASSIUM 4.3 mmol/L (3.5-5.1); TOTAL BILIRUBIN 0.2 mg/dL (<0.1-1.0); TOTAL PROTEIN 5.9 g/dL (6.4-8.2)
[2017-10-06 08:36] VITALS: BP 138/57
--- NOTE | 2017-10-06 14:30 | NUR ---
SW discussed with PT the pt possible wc/mobility needs and recommendations. PT yesterday voiced concern that pt may need more support and/or adjustments to pt manual wc. Pt had previously mentioned to SW that he was questioning possibility of a motorized wc. Pt said that he is already working with a company but could not recall the name and that he thought it was [employer] who he was working with and has his phone number. Pt plans to contact [employer] and then SW can assist with coordinating pt, PT, and company to eval for pt wc needs. SW to continue to follow to assist with safe dc planning.
--- NOTE | 2017-10-06 14:58 | NUR ---
REPORT GIVEN TO RUBEN JOHNSON
--- NOTE | 2017-10-06 17:41 | NUR ---
TOOK OVER CARE OF PATIENT AT 1500 TODAY, AGREE WITH PREVIOUS NURSES ASSESSMENT. PATIENT HAS HAD NO COMPLAINTS TODAY. WOUND VAC AND DRESSING CHMAGED BY WOUND NURSE. CALL LIGHT IS IN REACH, WILL CONTINUE TO MONITOR.
[2017-10-06 20:11] VITALS: BP 124/64
--- NOTE | 2017-10-07 05:59 | NUR ---
PT UP LATE, WOUND VAC TO LEFT LEG, MAX ASSIST TO THE BSC WITH SLIDING BOARD AND TWO ASSIST, IV ANTIBIOTICS GIVEN, VOID PER URINAL BY SELF, BED ALARM ON FOR SAFETY, CALL LIGHT IN REACH, WILL CONTINUE TO MONITOR
[2017-10-07 08:00] VITALS: BP 142/58
--- NOTE | 2017-10-07 14:54 | NUR ---
ASSUMED CARE THIS AM, NO DISTRESS NOTED, [place], AFFECT IS APATHETIC. SEE ASSESSMENT FOR DETAILS. GENERALLY COMPLIANT WITH MEDS/ CARES, TYPICALLY DECLINES TO REPOSITION, RELUCTANT TO PARTICIPATE WITH THERAPY, AT TIMES TRYING TO EVADE THE THERAPY SESSION DUE TO VARIOUS REASONS. AMAN MIDLINE REMOVED DUE TO INFILTRATION, NEW 22G TO RAC X 1 ATTEMPT PLACED, GRACIOUS RETURN, YASMIN IV ABT W/O S/S ADR. CONT POC.
[2017-10-07 20:10] VITALS: BP 149/69
--- NOTE | 2017-10-08 05:18 | NUR ---
PT SLEPT AT INTERVALS DURING THE NIGHT, NEW IV WAS PLACED EARLY THIS AM, IV ANTIBIOTICS THEN GIVEN, PT VOIDED PER URINAL, PT TURNED SELF BUT REFUSED ASSIST ON TURNING TO A SIDE. WOUND VAC C/D/I ON LLE. CALL LIGHT IN REACH, BED ALARM ON FOR SAFETY, WILL CONTINUE TO MONITOR
--- NOTE | 2017-10-08 08:16 | PLAN ---
[address] [address] REHAB UNIT PLAN OF CARE Name: RITU MONTE Room: [address] IN [facility].#: [id number] Admission: 09/29/17 Attend Phys: Carly Escobar DO Discharge: Date of : 47 Report #: [id number] THIS REPORT FOR: //name// CC: Lamberto Escobra DATE OF SERVICE: 09/30/2017 Overall Plan of Care This is a 72-year-old male admitted to inpatient rehabilitation to facilitate safe discharge home, status post acute hospitalization for left lower extremity peripheral vascular disease, nonhealing wound, infected with Proteus and Pseudomonas with known right above-knee amputation. He has negative wound therapy on the left lower extremity, changes on Monday, Monday, and Monday, is being followed by ID and wound care, as well as vascular. Previous level of function prior to this was modified independent with activities of daily living. Current level of function is siiwvjg-zk-nrcyzzzoz depending on therapy, activity, and time of day. He does have arvb-te-aroeetzu impairment of his comprehension, expression, social interaction, problem solving, and memory. MEDICAL PROGNOSIS: Fair. REHABILITATION PROGNOSIS: Fair. Estimated length of stay is 14 to 16 days with discharge disposition to the home setting where he lives with his son in a basement apartment. The son can assist. Physical therapy will see the patient 60 to 90 minutes per day, 5 days per week, working on upper and lower body strength, balance, coordination, and navigation. Occupational therapy will work with the patient 60 to 90 minutes per day, 5 days per week, working on upper and lower body strength, balance, coordination, navigation, bathing, dressing, and toileting. Speech and language pathology will work with the patient 30 to 60 minutes per day, 5 days per week, working on memory, cognition, expression, social interaction, [place] [address] REHAB UNIT PLAN OF CARE Name: RITU MONTE Room: [address] IN .R.#: [id number] Admission: 09/29/17 Attend Phys: Carly Escobar DO Discharge: Date of : 47 Report #: [id number] This is an overall plan of care, may change from time to time, we will team weekly and make changes to plan of care as needed. <ELECTRONICALLY SIGNED> By: Carly Escobar DO 10/08/17 0816 1620 [id number] Escobar DO /nt
--- NOTE | 2017-10-08 08:16 | H ---
[address] [address] HISTORY AND PHYSICAL Name: RITU MONTE Room: [address] IN [facility].#: [id number] Admission: 09/29/17 Attend Phys: Carly Escobar DO Discharge: Date of : 47 Report #: [id number] THIS REPORT FOR: //name// CC: Lamberto Escobar DATE OF SERVICE: 09/29/2017 HISTORY OF PRESENT ILLNESS: This is a 72-year-old male, known to this service from previous consultation as well as an acute inpatient hospitalization in the past. He is admitted to rehab post-acute hospitalization on 09/20/2017 with a left lower extremity peripheral vascular disease with nonhealing wound, infected with Proteus and Pseudomonas, who is status post I and D with wound VAC placement, requiring IV antibiotics and close monitoring of the wound as well as the bacterial content and infection given the fact that he has previous right above knee amputation as well as peripheral vascular disease, DVT, history of PE and diabetes. MEDICAL PROGNOSIS: Fair. REHABILITATION PROGNOSIS: Fair. ESTIMATED LENGTH OF STAY: 12-14 days with discharge disposition to the home setting. PREVIOUS LEVEL OF FUNCTION: Prior to this was modified independent with activities of daily living. Current level of function is minimum to dependent depending on therapy, activity and time of day. He does have qmcs-ws-drullgwj impairment of comprehension, expression, social interaction, problem solving and memory. He is participating in all therapies. No significant changes since the preadmission screening. He does have an accessible house living in the basement apartment of his son's home. PAST MEDICAL HISTORY: Unchanged from consultation and is notable for hypertension, diabetes, chronic kidney disease, PVD, atrial fibrillation, peripheral arterial disease, coronary artery disease, previous history of DVT and PE. PAST SURGICAL HISTORY: Unchanged from consultation. ALLERGIES: No known drug allergies. SOCIAL HISTORY: Tobacco: Former smoker. No alcohol or illicit drug use. FAMILY HISTORY: Unchanged from previous consultation and [place] [id number] HISTORY AND PHYSICAL Name: RITU MONTE Room: [address] IN [facility].#: [id number] Admission: 09/29/17 Attend Phys: Carly Escobar DO Discharge: Date of : 47 Report #: [id number] MEDICATIONS: Have been reviewed and reconciled by myself. REVIEW OF SYSTEMS: A 14-point review of systems is done and is negative except as mentioned in HPI, specifically no fever, chest pain, shortness of breath, abdominal pain or distention, change in bowel or change in bladder. PHYSICAL EXAMINATION: GENERAL: Alert, oriented, no apparent distress. VITAL SIGNS: Reviewed and are stable. HEENT: Head is atraumatic, normocephalic. Pupils equal, round, reactive. ABDOMEN: Soft, nontender, nondistended. NEUROLOGIC: Cranial nerves 2-12 are grossly intact. No focal neuro deficits, 5/5 strength in bilateral upper and lower extremity. SKIN: Warm and dry. Left lower extremity does display some Jaden wrap with freshly changed negative wound pressure device. Wounds are not directly visualized at this time. Right above knee amputation is well healed. NEUROLOGIC: Cranial nerves 2-12 are grossly intact. MUSCULOSKELETAL: No clubbing, cyanosis or edema. ASSESSMENT: 1. Status post left lower extremity peripheral vascular disease, nonhealing wound, status post I and D, cultured with Proteus and Pseudomonas, on long-term IV antibiotics. 2. Multiple medical comorbidities including hypertension, diabetes, chronic kidney disease. 3. Coronary artery disease, peripheral vascular disease, atrial fibrillation, peripheral arterial disease and history of a right above-knee amputation. PLAN: 1. Admission to inpatient rehabilitation. 2. PT, OT, case management, speech and HIMS to make evaluations and recommendations. 3. Medications have been reviewed. 4. Plan of care is pending and we will team weekly. <ELECTRONICALLY SIGNED> By: Carly Escobar DO 10/08/17 0816 1617 1713Kcleveland Escobar DO /nt
[2017-10-08 09:30] VITALS: BP 126/63
--- NOTE | 2017-10-08 17:34 | NUR ---
PATIENT HAS BEEN ALERT AND OREINTED TODAY, NO COMPLAINTS OF PAIN TODAY, REFUSES TO GET UP AND MOST POSTION CHANGES ALTHOUGH POSITIONS HIMSELF BED FREQUENTLY. VITAL SIGNS STABLE. DID NOT TAKE PHOTOS OF WOUNDS SINCE WOUND NURSE WILL CHANGE DRESSING AND WOUND VAC TOMORROW. PATIENT TO BEDSIDE COMMODE WITH SLIDE BOARD TODAY. CALL LIGHT IS IN REACH, WILL CONTINUE TO MONITOR.
[2017-10-08 20:00] VITALS: BP 145/61
--- NOTE | 2017-10-09 04:25 | NUR ---
ASSUMED PT CARE AT 1930. ASSESSMENT COMPLETED CHARTED. [id number] WHICH HE REFUSES BUT MOVES HIMSELF FREQUENTLY. PT SLEEPING ON AND OFF ALL NIGHT, STARTED NEW IV IN RIGHT FOREARM TO GIVE ABT TONIGHT, TO HAVE CENTRAL LINE REPLACED TOMORROW. C/O LEFT LEG PAIN OF 2/10 WITH NO NEED FOR MEDICATION PER PT. ABLE TO MAKE NEEDS KNOWN. WILL CONTINUE TO MONITOR.
[2017-10-09 07:44] VITALS: BP 154/56
--- NOTE | 2017-10-09 11:11 | NUR ---
SW called and left a message for Morris at [facility] to discuss pt situation further and explore if there is a possibility of pt to dc to [facility] after all. SW to continue to assist with possible motorized wc need and wound vac order. Plan for reteam on Monday, possible pt to dc home with family or [facility] with HH services and follow up wound care. SW to continue to follow to assist with safe dc planning.
--- NOTE | 2017-10-09 14:48 | NUR ---
WOUND CARE NOTE: PATIENT TO HAVE I AND D TOMORROW. SPOKE WITH VASCULAR ROD WELDER AND PLAN TO DEFER DRESSING CHANGE UNTIL MONDAY BECAUSE WILL HAVE DRESSINGS CHANGED TOMORROW IN OR.
--- NOTE | 2017-10-09 15:13 | NUR ---
INFUSION NURSE CALLED STATING SHE WILL PLACE A NEW MIDLINE FIRST THING IN THE AM.
--- NOTE | 2017-10-09 16:59 | NUR ---
PATIENT REMAINS ALERT AND ORIENTED. WOUND VAC IN PLACE- DRESSING CHANGE DERFERRED DUE TO SURGERY TOMORROW. NPO AFTER MIDNIGHT. MIDLINE TO BE PLACED IN AM. PARTICPATED WITH THERAPIES. TOLERARTING MEALS. TRANSFERRING WITH ASSIST OF 1, GB, AND SLIDEBOARD. ENCOURAGED TO REPOSITION EVERY 2 HOURS- PATIENT SOMETIMES REFUSES. UP TO CHAIR FOR 30 MINUTE INTERVALS. BED ALARM IN USE. CALL LIGHT WITHIN REACH. WILL CONTINUE TO MONITOR.
[2017-10-09 20:00] VITALS: BP 139/66
--- NOTE | 2017-10-10 05:30 | NUR ---
PT SLEPT FAIRLY WELL OVERNIGHT, WATCHING MOVIES ON COMPUTER LATE. HS ACCUCHECK 108, INSULIN GIVEN ORDERED. PT NPO SINCE MIDNIGHT FOR DEBRIDEMENT LLE TODAY. RFA SL IV ABX GIVEN ORDERED. PT TURNS SELF IN BED WITH REMINDERS. LLE DRSG CDI, WOUND VAC ON AND OPERATING. PT HAS DENIED PAIN OR PROBLEMS THIS SHIFT. USING URINAL TO VOID INDEPENDENTLY. ABLE TO USE CALL LITE AND MAKE NEEDS KNOWN.
--- NOTE | 2017-10-10 06:21 | NUR ---
[employer] CALLED TO INQUIRE ABOUT INSURANCE COVERAGE FOR DEBRIDEMENT SCHEDULED FOR TODAY. MESSAGE LEFT FOR CASE MANAGEMENT BY THIS NURSE THIS MORNING TO FOLLOW UP AND CONFIRM COVERAGE FOR PLANNED PROCEDURE. WILL REPORT TO ONCOMING DAY RN.
[2017-10-10 06:23] VITALS: BP 139/66
--- NOTE | 2017-10-10 09:39 | NUR ---
CONSULTED TO PLACE MIDLINE. CHART AND HISTORY REVIEWED. PT REQUESTED IT BE PLACED IN LEFT ARM. LEFT CEPHALIC IDENTIFIED. INABLE TO ADVANCE WIRE. RIGHT UPPER ARM ASSESSED AND RIGHT CEPHALIC IDENTIFIED AND NOTED TO BE WIDLEY PATENT. RIGHT CEPHALIC MIDLINE PLACED WITH EASE. LINE TRIMMED AT 11CM AND ADVANCED TO 0CM. GOOD BRISK BLOOD RETURN NOTED AND FLUSHED WITH EASE. LINE RELEASED FOR USE. PRIMARY NURSING AWARE.
--- NOTE | 2017-10-10 10:10 | NUR ---
ASSUMED CARE FOR THIS PATIENT THIS AM, A/O, AFFECT FLAT, VSS, DENIES DISCOMFORT AT THIS TIME. NEG PRESSURE DRESSING TO LLE WOUNDS INTACT, LLE WRAPPED IN KERLIX/VANESSA, DSG IS C/D/I. NPO FOR PROCEDURE THIS AM, CONSENT SIGNED, GLUCOSE 81. PLACED IN GOWN, TO PRE-OP BEFORE 10 AM, PERSONAL EFFECTS GATHERED AND READY TO TRANSPORT TO NEW ROOM.
--- NOTE | 2017-11-27 10:19 | D ---
[facility] [address] [place] [address] DISCHARGE SUMMARY Name: RITU MONTE Room: [address] IN M.R.#: [id number] Admission: 09/29/17 Attend Phys: Carly Escobar DO Discharge: 10/10/17 Date of : 49 Report #: [id number] THIS REPORT FOR: //name// CC: Lamberto Escobar DATE OF SERVICE: 10/10/2017 DISCHARGE DIAGNOSES: Status post sepsis with acute kidney injury requiring hemodialysis with debility and alterations in activities of daily living. DISCHARGE DISPOSITION: To home with home health PT, OT and nursing. Maintain ADA diet. Follow with primary care physician within 1 week and wound care weekly as well as renal as needed for hemodialysis. MEDICATIONS: Reviewed and reconciled by myself and are available in MR. Notifications for physician were given. Maintain fall precautions, nonweightbearing on the right lower extremity. Fall precautions. DISCHARGE PHYSICAL EXAMINATION: GENERAL: Alert, oriented, in no apparent distress. VITAL SIGNS: Reviewed and are stable. HEENT: Atraumatic, normocephalic. Pupils equal, round, reactive. ABDOMEN: Soft, nontender, nondistended. NEUROLOGIC: Cranial nerves 2-12 are grossly intact with no focal neuro deficits, 5/5 strength in bilateral upper and lower extremities. SKIN: Warm and dry. EXTREMITIES: Right AKA is noted. Left lower extremity wounds are also noted. <ELECTRONICALLY SIGNED> By: Carly Escobar DO 11/27/17 1019 1610 1945Kelly Jonathan Escobar DO /nt
== END 2017-10-10 09:43 | disposition home health service (06) | DRG 299 ==
LOC: M.REH 11:45
PROVIDERS: Internal Medicine; Specialist; ADMIT Physical Medicine & Rehabilitation
DX: E11.51 Type 2 diabetes mellitus with diabetic peripheral angiopathy without gangrene (principal); N17.0 Acute kidney failure with tubular necrosis; I13.0 Hypertensive heart and chronic kidney disease with heart failure and stage 1 through stage 4 chronic kidney disease, or unspecified chronic kidney disease; I50.22 Chronic systolic (congestive) heart failure; R53.81 Other malaise; Z95.820 Peripheral vascular angioplasty status with implants and grafts; L08.89 Other specified local infections of the skin and subcutaneous tissue; B96.5 Pseudomonas (aeruginosa) (mallei) (pseudomallei) as the cause of diseases classified elsewhere; B96.4 Proteus (mirabilis) (morganii) as the cause of diseases classified elsewhere; Z16.39 Resistance to other specified antimicrobial drug; E11.22 Type 2 diabetes mellitus with diabetic chronic kidney disease; I48.91 Unspecified atrial fibrillation; D64.9 Anemia, unspecified; I25.10 Atherosclerotic heart disease of native coronary artery without angina pectoris; N18.3 Chronic kidney disease, stage 3 (moderate); B95.62 Methicillin resistant Staphylococcus aureus infection as the cause of diseases classified elsewhere; E87.5 Hyperkalemia; Z86.711 Personal history of pulmonary embolism; Z86.718 Personal history of other venous thrombosis and embolism; Z79.01 Long term (current) use of anticoagulants; Z89.611 Acquired absence of right leg above knee; I25.2 Old myocardial infarction; Z95.810 Presence of automatic (implantable) cardiac defibrillator; Z83.3 Family history of diabetes mellitus; Z87.891 Personal history of nicotine dependence

== ENCOUNTER 2017-10-10 08:37 | Inpatient (IN) | payer MEDICARE ==
[~2017-10-10] VITALS: Ht 175.3 cm; Wt 105.7 kg
[2017-10-10 08:00] VITALS: BP 155/74
[~2017-10-10 08:37] MED LIST changes: +CEFEPIME 22 GM/100 M IV
[2017-10-10 10:07] VITALS: BP 144/63
[2017-10-10 10:46] LABS: ABSOLUTE EOSINOPHILS 0.2 thou/uL (0.0-0.7); ABSOLUTE LYMPHOCYTES 1.1 thou/uL (0.8-5.3); ABSOLUTE MONOCYTES 0.4 thou/uL (0.0-1.2); ABSOLUTE NEUTROPHILS 3.2 thou/uL (1.6-8.1); EOSINOPHILS 4.6 %; HEMATOCRIT 29.8 % (42.0-52.0); HEMOGLOBIN 9.6 gm/dL (14.0-18.0); LYMPHOCYTES 21.9 %; MCH 27.5 pg (26.0-34.0); MCHC 32.1 g/dL (28.0-37.0); MCV 85.5 fL (80.0-100.0); MONOCYTES 7.7 %; MPV 7.9 fl. (7.2-11.1); NUCLEATED RBCS 0 /100WBC; PLATELET COUNT* 176 thou/uL (150-400); POLYS 64.8 %; RBC 3.49 mil/uL (4.50-6.00); RDW-CV 17.3 % (10.5-14.5); WBC 4.9 thou/uL (4.0-11.0)
[2017-10-10 10:55] LABS: CALCIUM 10.7 mg/dL (8.5-10.1); CREATININE 0.9 mg/dL (0.6-1.3); POTASSIUM 3.9 mmol/L (3.5-5.1)
--- NOTE | 2017-10-10 11:50 | NUR ---
BERNICE attempted to talk with pt dtr in law Sayda in preparation for team conference tomorrow and to discuss safe dc planning but Sayda was unable to answer and so SW left detailed message requesting call back with any questions or comments. SW to continue to follow to assist with safe dc planning, arranging for wound vac and follow up on other DME as well; possible IV abx. Possible ISHMAEL with [facility] and wound care OP follow up at dc. Pt off unit for debridement today.
--- NOTE | 2017-10-10 14:00 | NUR ---
vss, assumed care OF PT FROM PACU, PT IS A&O4 ON RA AND DENIES ANY PAIN AT THIE TIME, HE IS SB ON THE MONITOR IS NONE POP BEARING/ BEDREST AT THIS TIME, PT GOAL IS TO D/C TO REHAB. WILL FOLLOW WITH PLAN OF CARE, AND HOURLY ROUNDS
--- NOTE | 2017-10-10 14:13 | OP ---
[facility] [address] [place] [address] OPERATIVE REPORT Name: RITU MONTE Room: [address] IN [facility]#: [id number] Admission: 10/10/17 Attend Phys: Bret Fernandez Discharge: Date of : 49 Report #: [id number] THIS REPORT FOR: //name// CC: Lamberto Napoles DATE OF SERVICE: 10/10/2017 PREOPERATIVE DIAGNOSIS: Chronic left lower extremity wounds secondary to diabetes and venous insufficiency. POSTOPERATIVE DIAGNOSIS: Chronic left lower extremity wounds secondary to diabetes and venous insufficiency. OPERATION: 1. Excisional debridement of the left anterior lower leg wound down to and including fascia, 5 x 5 x 1 cm in dimension. 2. Excisional debridement down to and including subcutaneous tissue of wound on the dorsum of the foot that measured 4 x 4 x 0.1 cm in dimension. 3. Excisional debridement down to and including subcutaneous tissue of the left lateral leg wound, which measures 3 x 2 x 1 cm in dimension. 4. Excisional debridement of the left posterior calf wound, which measures 13 x 4 x 0.1 cm in dimension. SURGEON: Hairsh Douglas DO. VENEER JOINTER RETURNER: SONU Correia. ANESTHESIA: LMA. ESTIMATED BLOOD LOSS: 50 mL. FLUIDS: Less than 100 crystalloid. URINE OUTPUT: None. SPECIMENS: None. COMPLICATIONS: None. FINDINGS: He had fibrinous debris and slough in all the wounds and the primary anterior tibial wound, some nonviable subcutaneous tissue and fascia as well. This was all sharply debrided and excised back. All the wounds were sharply debrided and excised tissue back to good healthy bleeding tissue. This is all controlled with direct pressure. [address] [address] OPERATIVE REPORT Name: RITU MONTE Room: [address] IN [facility].#: [id number] Admission: 10/10/17 Attend Phys: Bret Fernandez Discharge: Date of : 49 Report #: [id number] CLINICAL HISTORY: The patient is a 72-year-old man with chronic left lower extremity wounds. He has had multiple debridements, most of his wounds are progressing well. Most of the anterior holland wound still has some tissue necrosis that needs further debridement, so we plan to debride all the wounds in the operating room today. DESCRIPTION OF PROCEDURE: After informed consent was obtained, the patient was taken to the operating room and placed on the OR bed in supine position. He was administered LMA anesthesia by the anesthesia team. Left lower extremity was prepped and draped in the usual sterile fashion. A full timeout was performed identifying correct patient and procedure. Using pickups and scalpel, I started with the left anterior holland wound. This was sharply debrided and excised tissue down to and including some fascia overlying the tibialis anterior muscle. 100% of the wound was debrided back to good healthy bleeding tissue. I then turned my attention to the dorsal foot wound. Again, this was debrided down to and including subcutaneous tissues with the pickups and scalpel to healthy bleeding tissue, and then the left lateral lower leg wound again was debrided down to and including subcutaneous tissues and excised with tissue with pickups and scalpel, all nonviable fibrinous debris and slough as well and then turned to my posterior calf wound, which again tissue was excised with pickups and scalpel down to and including the subcutaneous tissue, again to good healthy bleeding tissue. All the wounds were then irrigated with antibiotic solution. Once hemostasis was ensured in the wounds, they were packed with Aquacel Ag. Because of the good bleeding that was noted, I did not feel that the VAC would be appropriate at this point and packed the wound with Aquacel Ag, 4 x 4 gauze and Kerlix and Jaden wraps. We plan to re-dress the wound VAC tomorrow with his regular scheduled local wound care changes. He tolerated the procedure well. All sponge, sharp and instrument counts reported correct x 2 and was transferred to recovery area in stable condition. <ELECTRONICALLY SIGNED> By: Harish Douglas DO 10/10/17 1413 1224 1300Harish Douglas DO /nt
[2017-10-10 15:43] VITALS: BP 122/101
[2017-10-10 19:30] VITALS: BP 106/63
[2017-10-10 23:00] VITALS: BP 123/69
--- NOTE | 2017-10-11 02:39 | NUR ---
RECEIVED REPORT AND ASSUMED CARE AT 1900. VSS. CARDIAC MONITORING IN PLACE. PT DENIES ANY COMPLAINTS OF PAIN. ASSESSMENT COMPLETED CHARTED. MEDICATION ADMIN PER EMAR. DISCUSSED PLAN OF CARE WITH PT, VERBALIZED UNDERSTANDING. PT ON BEDREST, ON RA. POSITION CHANGE ENCOURAGED EVERY TWO HOURS, PT REFUSES AT TIMES, EDUCATED ON RISK OF PRESSURE SORE WITHOUT OFF LOADING/CHANGING POSITION, PT VERBALIZED UNDERSTANDING. PT HAD I AND D LLE 10/10/17. RIGHT AKA. BED LOCKED IN LOWEST POSITION, CALL LIGHT WITHIN REACH. BED ALARM ON HOURLY ROUNDING COMPLETED AND ALL NEEDS MET. WILL CONTINUE TO MONITOR
[2017-10-11 04:00] VITALS: BP 123/62
[2017-10-11 04:34] LABS: ABSOLUTE BASOPHILS 0.1 thou/uL (0.0-0.2); ABSOLUTE EOSINOPHILS 0.3 thou/uL (0.0-0.7); ABSOLUTE LYMPHOCYTES 1.1 thou/uL (0.8-5.3); ABSOLUTE MONOCYTES 0.4 thou/uL (0.0-1.2); ABSOLUTE NEUTROPHILS 3.4 thou/uL (1.6-8.1); BASOPHILS 1.1 %; EOSINOPHILS 4.8 %; HEMOGLOBIN 9.5 gm/dL (14.0-18.0); LYMPHOCYTES 21.6 %; MCH 27.6 pg (26.0-34.0); MCHC 31.8 g/dL (28.0-37.0); MCV 86.6 fL (80.0-100.0); MPV 8.7 fl. (7.2-11.1); NUCLEATED RBCS 0 /100WBC; PLATELET COUNT* 175 thou/uL (150-400); POLYS 64.5 %; RBC 3.46 mil/uL (4.50-6.00); RDW-CV 17.1 % (10.5-14.5); WBC 5.3 thou/uL (4.0-11.0)
[2017-10-11 04:38] LABS: CALCIUM 10.7 mg/dL (8.5-10.1); POTASSIUM 4.2 mmol/L (3.5-5.1)
[2017-10-11 08:00] VITALS: BP 132/56
--- NOTE | 2017-10-11 10:27 | NUR ---
SW met with pt to reassess and follow as pt left inpt rehab yesterday for debridement and plans to return to inpt rehab tomorrow. Pt alert, oriented. Pt lived with his son and son's family with hx of [facility] and hx of [facility]. Pt does not want to return to [facility]. Pt had wanted to go to [facility]; BERNICE called again to clarify pt wound and needs to see if pt would be able to dc to [facility], however, [facility] again stated that they would be unable to accept pt due to pt medical needs. Pt open to dc to [facility] after inpt rehab stay. Pt does not want to consider [facility] after all. SW to continue to follow to assist with safe dc planning. BERNICE called pt contact with agency that may be pending motorized wheelchairEnrico at [phone] and left a detailed message requesting a return call. SW to follow for arranging for wound vac needs at dc as well.
[2017-10-11 11:57] VITALS: BP 119/59
--- NOTE | 2017-10-11 13:55 | NUR ---
Nutrition: Consult received for "wound." RD has been following pt on Rehab unit. Seferino was ordered b.i.d. - RD will reorder. Pt has wound VAC. H/o PAD, wounds. Transferred from Rehab to acute for wound debridement. Has been eating 80-100% of meals, per OOYYO. BG WNL, albumin 3. CHO controlled diet. No other nutrition interventions needed today. Mild risk. RECOMMEND MVI.
--- NOTE | 2017-10-11 14:00 | NUR ---
VSS, ASSUMED CARE IN THE AM, ASSESSMENT PERFORMED AND CHARTED, FALL PRECAUTIONS IN PLACE AND CALL LIGHT IN REACH, PT IS A&O4 AND IS ON RA, HE IS TRANCING SB WITH PVC AAND IS A AND AV PACED, I HAVE REACHED OUT TO CARDIOLOGY AND THEY ARE NOT WORRIED ABOUT HIS LOWE HR, PT HAS PAIN IN LLE And has been up in chair WORKING WITH PT/OT, PT IS PROGRESSING TOWARDS GOAL AND HOURLY ROUNDS HAVE BEEN COMPLETED, WILL FOLLOW WITH PLAN. PT IS UP WITH ONE TO CHAIR
--- NOTE | 2017-10-11 15:17 | NUR ---
WOUND CARE NOTE: CONSULT RECEIVED FOR WOUNDS. PATIENT WELL KNOWN TO ME. PRESENTS POD #1 DEBRIDEMENT OF 4 ULCERATIONS TO LEFT LEG/FOOT. LEFT FOOT, DORSUM: FULL THICKNESS UCLERATION MEASURING 4.3X4.5X0.5. RED, MOIST GRANULAR WOUND BED. NURIA-WOUND EDEMATOUS. CLEANSED WITH WOUND CLEANSER, PATTED DRY. APPLIED AQUACEL AG AND SECURED WITH KERLIX AND LIGHT VANESSA. LEFT ANTERIOR LEG: FULL THICKNESS ULCERATION MEASURING 6.7X4.5X1.5. RED, MOIST, NON-GRANULAR TISSUE. APPROXIMATELY 40% YELLOW, ADHERENT, MOIST SLOUGH. CLEANSED WOUND WITH WOUND CLEANSER, PATTED DRY. NURIA-WOUND INTACT. SKIN PREPED. APPLIED GRANUFOAM INTO WOUND BED. DRAPED. LEFT LATERAL LEG: FULL THICKNESS ULCERATION MEASURING 2X3X0.5. RED, MOIST, GRANULAR TISSUE. NURIA-WOUND INTACT. SKIN PREPPED. APPLIED GRANUFOAM INTO WOUND BED. DRAPED. LEFT POSTERIOR LEG: FULL THICKNESS ULCERATION MEASURING 12X3.1X0.5. PINK, MOIST, NON-GRANULAR WOUND BED. NURIA-WOUND INTACT. SKIN PREPPED. APPLIED GRANUFOAM INTO WOUND BED THEN DRAPED. LEFT LATERAL, ANTERIOR, AND POSTERIOR LEG WOUNDS WERE ALL BRIDGED TOGETHER AND IMPLEMENTED WOUND VAC AT 175 MMHG. GOOD SEAL OBTAINED. PATIENT WITHOUT ANY QUESTIONS, HAS BEEN ON THIS THERAPY FOR AWHILE. RECOMMEND TIGHT BLOOD GLUCOSE CONTROL ENCOURAGE GOOD NUTRITION/HYDRATION IF PATIENT STATES VANESSA WRAP IS TOO TIGHT, LOOSEN
[2017-10-11 16:00] VITALS: BP 128/65
[2017-10-11 19:50] VITALS: BP 142/72
[2017-10-12] VITALS: BP 147/67
[2017-10-12 04:00] VITALS: BP 128/71
[2017-10-12 04:38] LABS: ABSOLUTE EOSINOPHILS 0.2 thou/uL (0.0-0.7); ABSOLUTE LYMPHOCYTES 1.3 thou/uL (0.8-5.3); ABSOLUTE MONOCYTES 0.4 thou/uL (0.0-1.2); ABSOLUTE NEUTROPHILS 2.6 thou/uL (1.6-8.1); BASOPHILS 0.7 %; EOSINOPHILS 4.7 %; HEMATOCRIT 28.4 % (42.0-52.0); HEMOGLOBIN 9.3 gm/dL (14.0-18.0); LYMPHOCYTES 29.1 %; MCH 27.8 pg (26.0-34.0); MCHC 32.8 g/dL (28.0-37.0); MCV 84.9 fL (80.0-100.0); MONOCYTES 8.3 %; MPV 8.5 fl. (7.2-11.1); NUCLEATED RBCS 0 /100WBC; PLATELET COUNT* 166 thou/uL (150-400); POLYS 57.2 %; RBC 3.35 mil/uL (4.50-6.00); RDW-CV 17.3 % (10.5-14.5); WBC 4.6 thou/uL (4.0-11.0)
[2017-10-12 05:03] LABS: CALCIUM 10.8 mg/dL (8.5-10.1); CREATININE 0.9 mg/dL (0.6-1.3)
--- NOTE | 2017-10-12 05:43 | NUR ---
A&O X4 CALM COOPERITVE. PT HAS PACEMAKER, SB ON THE MONITOR. SLIDING BOARD TO WHEELCHAIR. 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 PT TO BE TRASFERED TO REHAB SOME TIME IN THE AM. SEE MAR. SEE CHARTING. VITALS WNL. FALL PREACUTIONS IN PLACE. HOURLY ROUNDING FOR SAFETY.
[2017-10-12 08:00] VITALS: BP 134/63
[2017-10-12 09:49] LABS: INR 1.2; PROTIME 12.1 Seconds (9.20-11.50)
--- NOTE | 2017-10-12 10:49 | NUR ---
ASSUMED PT CARE AT 0700 PT IS ALERT AND ORIENTED X 4 PT C/O PAIN DOES NOT WANT PAIN MEDS, PT DENIES SOA ON RA, PT IS UP WITH ASSIST X 2 USES SLIDE BOARD AND WHEELCHAIR FOR AMBULATION PT IS A FALL RISK BED ALARM IS ON, PT IS SB ON THE MONITOR PT HAS PAACEMAKER PHYSICIANS ARE AWARE THAT PT HEART RATE IS LOW AND STOPPED BETA BLOCKERS THIS PT WILL DISCAHRGE WITH NO BETA BLOCKERS DUE TO LOW HEART RATE, PT IS DISCHARGING TO INPATIENT REHAB TODAY AWAITING CONFIRMATION, PT IS Q 2 TURNS, PT HAS WOUND VAC ON LEFT LORENZ WHERE WOUND IS UNABLE TO OBTAIN DISCHARGE PICTURES WOUND VAC T0 STAY ON, WILL CONTINUE TO MONITOR
[2017-10-12 11:56] VITALS: BP 136/71
--- NOTE | 2017-10-12 11:56 | NUR ---
Pt discharging back to acute rehab today, to room 324. Updated nurse, faxed dc orders. Updated family.
[2017-10-12] MEDS ORDERED: COLACE 100 MG100 MG PO (11:58)
[2017-10-12] MEDS ORDERED: VANCOMYCIN1.25 GM/22 IV (12:01)
[2017-10-12] MEDS ORDERED: FLORANEX TABLE1 EACH PO (12:03)
[2017-10-12] MEDS ORDERED: LIDOCAINE 2%2 %/5 GM TOP (12:05)
[2017-10-12] MEDS ORDERED: PROMETHAZINE IV (12:15)
[2017-10-12] MEDS ORDERED: ZOFRAN IV (12:16)
[2017-10-12 16:37] VITALS: BP 127/64
[2017-10-12 20:10] VITALS: BP 155/93
[2017-10-13] VITALS: BP 138/73
[2017-10-13 04:00] VITALS: BP 131/63
--- NOTE | 2017-10-13 06:06 | NUR ---
PT SLEPT ON AND OFF THIS SHIFT. ASSESSMENT DOCUMENTED. MEDS GIVEN PER E-MAR. MIDLINE PATENT. PT HAD LARGE BM THIS SHIFT. NO REPORTS OF PAIN. TELE MONITOR IN PLACE READING RUCHI TO AV PACED. WILL CONTINUE WITH PLAN OF CARE.
[2017-10-13 09:30] VITALS: BP 120/63
--- NOTE | 2017-10-13 11:30 | NUR ---
DISCUSSED WITH . CM SPOKE WITH VICTORINO. BYPASS VS.ARTERIOGRAM ON . PT.WILL NEED TO STAY ON ACUTE FLOOR UNTIL THEN.
[2017-10-13 12:32] VITALS: BP 109/60
[2017-10-13 14:09] LABS: INR 1.2; PROTIME 12.6 Seconds (9.20-11.50)
--- NOTE | 2017-10-13 15:00 | NUR ---
ASSUMED PT CARE AT 0700 PT IS ALERT AND ORIENTED X 4 PT C/O PAIN GAVE PAIN MEDS BEFORE WOUND CARE NURSE AND VASCULAR NURSE CHANGE DRESSING AND WOUND VAC, PT IS UP WITH SLIDING BOARD TO BEDSIDE COMMODE AND WHEELCHAIR PT USES URINAL, PT IS SB 1ST ON THE MONITOR, TALKED WITH VASCULAR NURSE FREIDA PIERSON AND VASCULAR WILL DO A BYPASS NEXT WEEK LOOKING AT MONDAY PT WILL STAY ON UNIT UNTIL THEN AND MAY TRANSFER TO REHAB AFTER PROCEDURE, PT HAS BRUISING AND SCABS ON ARMS, PT HAS VANCYO TROUGH WHICH WAS DONE AROUND 1400 WILL HOLD DOSE UNTIL RESULTS ARE BACK LAB HAVING ISSUES WITH MACHINE, WILL CONTINUE TO MONITOR
[2017-10-13 16:36] VITALS: BP 145/75
[2017-10-13 20:00] VITALS: BP 150/97
[2017-10-14] VITALS: BP 133/68
[2017-10-14 04:00] VITALS: BP 146/60
[2017-10-14 04:48] LABS: INR 1.3
--- NOTE | 2017-10-14 05:09 | NUR ---
PT ALERT ORIENTED. WOUND VAC TO LEFT LEG. R BKA. WC IN ROOM. TELEMETRT SHOWS SB 30S-50S. INTERMITTENTLY V-PACED BBB. PT REQUESTED A SLEEPING MEDICATION. DR ABRAMS NOTIFIED. MELATONIN ORDERED. PT AWAKE UNTIL 0400 ON LAP TOP WATCHING VIDEOS. PT STATED HE HAS DRIFTED OFF ASLEEP FOR BREIF PERIODS. RATES PAIN 2/10. REFUSES PAIN MEDICATION. WILL CONTINUE TO MONITOR.
[2017-10-14 08:00] VITALS: BP 144/79
--- NOTE | 2017-10-14 08:00 | NUR ---
AM ASSESSMENT COMPLETE, DEFER TO COMPUTER CHARTING. DCS ENGINEER TRACKING SB WITH V-PACED, PJC, PAC'S AT TIMES - PATIENT REPORTS THAT HIS HEART RATE IS ALWAYS SLOW. DENIES DIZZZINESS, CHEST PAIN, SOA AT THIS TIME. DOES REPORT HAVING LEFT LEG DISCOMFORT, REFUSING PAIN MEDICATION WHEN OFFERED. DRESSING CDI TO LOWER LEFT LEG WITH WOUND VAC IN PLACE. IN BED WITH HOB ELEVATED, WATCHING MOVIE ON HOME LAP TOP - CALL LIGHT WITHIN REACH. WILL MONITOR.
[2017-10-14 12:00] VITALS: BP 131/59
[2017-10-14 14:00] VITALS: BP 129/69
--- NOTE | 2017-10-14 18:08 | NUR ---
REGRIND MILL OPERATOR TRACKING WITH NO CHANGE IN RHYTHM, CONTINUES TO HAVE PERIODS OF RUCHI RHYTHM DROPPING IN TO 40'S AT TIMES - THEN BACK TO 50'S, PACING AT TIMES - CARDIOLOGY AWARE. CONTINUES TO REPORTING PAIN IN LEFT LEG A 2 AND REFUSING PAIN MEDICATION WHEN OFFERED. CALL PLACED TO DR MCKEON TO NOTIFY OF PER DR ABRAMS REQUEST TO NOTIFY VASCULAR RESULTS OF PJ MAPPING CLOT NOTED, DR MCKEON RETURNING CALL AND AWARE OF CLOT, NO NEW ORDERS RECEIVED. PATIENT TURNING SELF IN BED INDEPENDENTLY. CALL LIGHT REMAINS WITHIN REACH, WILL CONTINUE WITH PLAN OF CARE.
[2017-10-14 20:00] VITALS: BP 144/61
[2017-10-15] VITALS: BP 149/53
[2017-10-15 04:00] VITALS: BP 138/59
--- NOTE | 2017-10-15 04:11 | NUR ---
PT ALERT ORIENTED. L LEG WITH WOUND VAC -175 AND VANESSA WRAPPED. RBKA. PT IS WC BOUND. TELEMETRY SHOWS SB SR PVCS 1ST DEGREE AVB. ON RA. RATES PAIN AT 2/10 L LEG. REFUSED PAIN MEDICATION. VOIDS PER URINAL.
[2017-10-15 04:59] LABS: INR 1.3; PROTIME 13.8 Seconds (9.20-11.50)
[2017-10-15 08:00] VITALS: BP 121/56
--- NOTE | 2017-10-15 11:30 | NUR ---
ASSUMED CARE OF PATIENT AT THIS TIME. REPORT RECEIVED FROM MILTON MIRANDA. PATIENT RESTING IN BED. PATIENTHAS COMPLAINTS OF SHORTNESS OF BREATH. OXYGEN ON AT 2L/NC WITH SATS AT 100%. DR ABRAMS AWARE AND CHEST X-RAY TO BE ORDERED. WILL CONTINUE TO MONITOR.
[2017-10-15 12:01] VITALS: BP 125/52
--- NOTE | 2017-10-15 12:32 | NUR ---
PATINET RESTING IN BED. VITAL SIGNS STABLE AND PATIENT IN NO APPARENT SIGNS OF DISTRESS AT THIS TIME. WOUND VAC IN PLACE. REPORT GIVEN TO ONCOMING NURSE AT 11:30. HOURLY ROUNDING COMPLETED FOR PATINET SAFETY.
[2017-10-15 16:21] VITALS: BP 114/98
--- NOTE | 2017-10-15 17:58 | NUR ---
PATIENT RESTING IN BED. PATIENT DENIES ANY PAIN. PATIENT WAS SHORT OF AOR THIS AFTERNOON, DR DIETRICH AND LASIX GIVEN ORDERED. PATIENT DENIES SHORTNESS OF AIR AT THIS TIME. PATIENT HAS WOUND VAC IN PLACE TO LEFT LEG. PATIENT HAS GOOD APPETITE. PATIENT DENIES ANY NEEDS AT THIS TIME. CALL LIGHT WITHIN REACH. WILL CONTINUE TO MONITOR.
[2017-10-15 20:00] VITALS: BP 125/58
--- NOTE | 2017-10-15 23:51 | NUR ---
CALL TO DOCTOR ABRAMS REGARDING SLEEPING MEDS, SEE ORDERS.
[2017-10-16] VITALS: BP 135/88
[2017-10-16 04:00] VITALS: BP 122/73
[2017-10-16 05:21] LABS: INR 1.3; PROTIME 13.4 Seconds (9.20-11.50)
--- NOTE | 2017-10-16 05:47 | NUR ---
PATIENT RESTED IN BED, NO ACUTE CHANGES. PATIENT DID NOT SHOW SIGNS OF DISTRESS. FALL PRECAUTIONS IN PLACE, BED ALARM ON, CALL LIGHT WITH IN REACH, HOURLY ROUNDING OBSERVED. PATIENT DID NOT SHOW SIGNS OF DISTRESS.
[2017-10-16 08:00] VITALS: BP 116/78
[2017-10-16 16:00] VITALS: BP 148/110
[2017-10-16 20:00] VITALS: BP 150/59
[2017-10-17] VITALS (14 sets, daily range): BP systolic 91–144; BP diastolic 44–73
--- NOTE | 2017-10-17 03:32 | NUR ---
PT ALERT ORIENTED. BENADRYL GIVEN HS FOR SLEEP. PT NPO AT MN. ORDER TO START NS AT 80MLS/HR AT MN. PT REFUSED IVF. DR MCKEON ANSWERING SERVICE NOTIFIED. RN CONTINUED TO TALK WITH PT AND HE EVENTUALLY AGREED TO RUN NS AT A LOWER RATE. MS STATUS. NOT MONITORED. PT PLACED IN GOWN.
[2017-10-17 04:51] LABS: HEMATOCRIT 31.2 % (42.0-52.0); MCH 27.4 pg (26.0-34.0); MCHC 32.1 g/dL (28.0-37.0); MCV 85.3 fL (80.0-100.0); MPV 8.7 fl. (7.2-11.1); RBC 3.66 mil/uL (4.50-6.00); RDW-CV 16.7 % (10.5-14.5); WBC 4.6 thou/uL (4.0-11.0)
[2017-10-17 05:01] LABS: APTT 30.4 Seconds (25.0-31.3); INR 1.2; PROTIME 12.1 Seconds (9.20-11.50)
[2017-10-17 05:28] LABS: ALBUMIN 3.2 g/dL (3.4-5.0); CALCIUM 10.8 mg/dL (8.5-10.1); POTASSIUM 3.8 mmol/L (3.5-5.1); TOTAL BILIRUBIN 0.2 mg/dL (<0.1-1.0); TOTAL PROTEIN 6.1 g/dL (6.4-8.2)
--- NOTE | 2017-10-17 10:48 | NUR ---
RECEIVED CONSULT FOR POSSIBLE REHAB ADMISSION. CONSULT HAS BEEN ACKNOWLEDGED BY LOCOMOTIVE MECHANIC AND DR. DAVIS. PATIENT KNOWN TO THIS REHAB UNIT AND WAS RECENTLY ON THIS UNIT. HE WAS DISCHARGED TO ACUTE ON 10/10/17 FOR SURGICAL I&D TO LLE. PLAN WAS FOR PATIENT TO RETURN TO REHAB 10/12/17 HOWEVER PATIENT FOUND TO HAVE OCCLUDDED LE STENTS WITH NEED FOR REVASCULARIZATION. PATIENT TO HAVE SURGERY TODAY. WILL FOLLOW ALONG WITH PATIENT TO SEE HOW HE DOES POST OP AND AWAIT SX RESULTS AND THERAPY EVALUATIONS TO DETERMINE IF PATIENT QUALIFIES TO RETURN TO ACUTE REHAB. THANK YOU FOR THIS CONSULT.
--- NOTE | 2017-10-17 12:38 | OP ---
[facility] [address] [place] [address] OPERATIVE REPORT Name: RITU MONTE Room: [address] IN .R.#: [id number] Admission: 10/10/17 Attend Phys: Bret Fernandez Discharge: Date of : 49 Report #: [id number] THIS REPORT FOR: //name// CC: Lamberto Napoles DATE OF SERVICE: 10/17/2017 PREOPERATIVE DIAGNOSIS: Critical left lower extremity ischemia. POSTOPERATIVE DIAGNOSIS: Critical left lower extremity ischemia. OPERATION: 1. Left femoral endarterectomy with a bovine pericardial patch angioplasty. 2. Left femoral popliteal open thrombectomy. 3. Left lower extremity angiogram. 4. Left popliteal and superficial femoral artery angioplasty and stent with a 6 x 59 Atrium iCAST stent in the mid left SFA. SURGEON: Harish Douglas DO. FINANCIAL SERVICES EDUCATION CONSULTANT: SONU Correia. ANESTHESIA: General. ESTIMATED BLOOD LOSS: 150 mL. FLUIDS: See Anesthesia report. URINE OUTPUT: See Anesthesia report. IMPLANTS: A 6 x 59 Atrium iCAST stent in the left mid SFA in previous placed position of in-stent restenosis. SPECIMENS: None. COMPLICATIONS: None. FINDINGS: Left common femoral artery had moderate amount of plaque, but his previous Supera stent was crossing well into the femoral artery and into the external iliac artery. This stent was thrombosed. After thrombectomy, angioplasty and stenting of the SFA and popliteal, he had now jehovah's witness of inline flow through the stents into his primarily anterior tibial artery runoff. He also had peroneal and posterior tibial artery runoff occluded at the ankle. Upon completion, he had good anterior tibial artery Doppler signal. [address] [address] OPERATIVE REPORT Name: LAVELLRITU Bret Room: [address] IN [facility].#: [id number] Admission: 10/10/17 Attend Phys: Bret Fernandez Discharge: Date of : 49 Report #: [id number] CLINICAL HISTORY: The patient is a 72-year-old man with chronic left lower extremity wounds. He had previously undergone multiple percutaneous interventions to the left lower extremity. His wounds have been healing. However, during recent hospitalization, it was found that his stents were thrombosed. Recommended revascularization for optimization of perfusion for wound healing. DESCRIPTION OF PROCEDURE: After informed consent was obtained, the patient was taken to the operating room and placed on the OR bed in supine position. He was administered general anesthesia by the Anesthesia team. Left lower extremity was prepped and draped in the usual sterile fashion. Full timeout was performed identifying correct patient and procedure. Next, a longitudinal incision was made in the left groin. Dissection was carried down through skin and subcutaneous tissue both sharply and electrocautery. The femoral sheath was entered. The common femoral artery was circumferentially mobilized. It was controlled with Silastic vessel loops in Goodman fashion. I then dissected out the deep femoral artery and the superficial femoral artery, controlled with Silastic vessel loops in Goodman fashion as well. I then administered 8000 units of intravenous heparin. This was allowed to circulate for 3 minutes. I then occluded the external iliac and deep femoral artery, made a longitudinal arteriotomy on the common femoral artery, extended with Goodman scissors on to the superficial femoral artery as well. The previously placed Supera stent was obviously extending well into the common femoral artery, near the external iliac artery. I transected it and removed it from the proximal superficial femoral artery. At this point, it was no longer crossing the deep femoral artery. There was no backbleeding from the previously placed stents. I then sequentially thrombectomized it with 3, 4 and 5 Bishop catheters with return of a small amount of thrombus and a moderate amount of backbleeding. At this point, I then flushed all the vessels and then re-occluded them. I performed a patch angioplasty with a bovine pericardial patch with running 5-0 Prolene suture. At this point, I then punctured the patch in an antegrade fashion with a micropuncture needle, passed the microwire using Seldinger technique in the microsheath in the superficial femoral artery. I then performed the left lower extremity angiogram, with the findings noted above. I then passed a Glidewire Advantage and a seeker catheter down into the distal popliteal artery and performed followup imaging confirmed intraluminal position from the distal popliteal artery and his tibial runoff. At this point, I then exchanged out for an 0.018 wire and then serial angioplasty of the popliteal and superficial femoral artery with 4 mm and subsequently 5 mm Ultraverse balloon. There was good result with return of inline flow, but there was an area within the mid SFA, where there was a moderately severe stenosis from external compression of his stent. Therefore, I decided to place balloon expandable [facility] [address] [place] [address] OPERATIVE REPORT Name: RITU MONTE Room: M.007-P ADM IN M.R.#: [id number] Admission: 10/10/17 Attend Phys: Bret Fernandez Discharge: Date of : 49 Report #: [id number] stent to optimize radial force in this area. Again, as it appeared to be external compression, at this point, I then positioned the 6 mm Atrium iCAST stent across the area and deployed this in standard fashion. Followup imaging demonstrated good position. He still had some [id number] residual stenosis, but felt this would better support this area from compression. At this point, he had a good anterior tibial artery Doppler signal that was confirmed angiographically. Satisfied with the result, the heparin was then partially reversed with 40 mg protamine. Once hemostasis was ensured, wound was irrigated with antibiotic solution. It was closed in layers with 2-0 and 3-0 Vicryl and 4-0 Monocryl on the skin and Dermabond was applied. His other lower extremity wounds were dressed with silver alginate dressings. He tolerated the procedure well and was transferred to recovery in stable condition. <ELECTRONICALLY SIGNED> By: Harish Douglas DO 10/17/17 1238 1102 1220Harish Douglas DO /nt
--- NOTE | 2017-10-17 13:17 | NUR ---
PATIENT CARE ASSUMED AT 1220 IN ICU AFTER ARRIVING FROM PACU. PATIENT UPON ARRIVING WAS STILL GROGGY/NOT ANSWERING QUESTIONS. SINCE IS NOW AOX4, ABLE TO ANSWER ALL QUESTIONS APPROPRIATELY. ON 5L NC UPON ARRIVING, TITRATED DOWN TO 4 AND O2 SAT REMAINS AT 98%. RATES PAIN IN HEAD/STOMACH/GROIN AT 5. TYLNEOL AND HYDROCODONE GIVEN PER PATIENT REQUEST. HE STATES "THIS IS THE ONLY THING THAT WORKS." PATIENT HAS NOTED AICD/PACEMAKER WITH PACING FUNCTIONED TURNED OFF PER PACU NURSE. PATIENT HAD COMPLEX LEFT LEG SURGERY WITH INCLUDED ANGIOPLASTY AND THROMBECTOMY. PATIENT STATES HE HAS SENSATION IN HIS TOES AND KNEE, BUT DOES NOT FEEL PAIN THERE, ONLY PAIN IS IN GROIN WHERE APPROX 3 INCH INCISION SITE IS AND IT RADIATES TO HIS STOMACH. DERMABOND COVERING THAT INCISION IS INTACT, INCISION IS WELL APPROXIMATED WITH MINIMAL SWELLING/BRUISING. PATIENT HAD WOUND VAC, BUT PER PACU NURSE AT THIS TIME PHYSICIAN IS LEAVING IT OFF. DRESSING IS AQUACEL AG/KERLIX/VANESSA PLACED BY PHYSICIAN. IS INTACT/CLEAN/DRY. UNABLE TO PALPATE OR DOPPLER PEDAL PULSE IN LEFT LEG R/T DRESSING, BUT PATIENT HAS SENSATION AND CAP REFILL IS LESS THAN 3 SECONDS. VITALS STABLE. AFEBRILE. BLOOD SUGAR WNL. PATIENT REFUSING LUNCH AT THIS TIME. SON IN ROOM, UPDATED ON PLAN OF CARE. PATIENT AND SON DENY FURTHER CONCERNS ABOUT PATIENT CARE AT THIS TIME.
[2017-10-17 13:19] LABS: HEMATOCRIT 30.1 % (42.0-52.0); HEMOGLOBIN 9.6 gm/dL (14.0-18.0)
[2017-10-17 13:35] LABS: POTASSIUM 3.3 mmol/L (3.5-5.1)
--- NOTE | 2017-10-17 15:16 | NUR ---
PATIENT STATING LEFT GROIN INCISION "HURTS A LOT". STATES IT IS A 5/10, BUT STATES HE DOES NOT NEED MEDICATION. EDUCATED THAT ICE HELPS WITH THE SWELLING, BUT PATIENT STATED "I'LL JUST SIT HERE AND RELAX". SITE CHECKED AND IS SOFT AND STILL WELL APPROXIMATED WITH SOME SWELLING/BRUISING.
--- NOTE | 2017-10-17 18:04 | NUR ---
PATIENT HAS RESTED COMFORTABLY SINCE ADMISSION TO ICU. GIVEN HYDROCODONE AND TYLENOL PRN X2, STATES PAIN IS STILL THERE BUT CONTROLLED. TRACING SINUS RUCHI ON OVERLOCK WAISTLINE JOINER WITH RATE IN 40S AND 50S WITH PVCS AND PACS, THIS IS PATIENT'S BASELINE. CARDIOLOGY HAS BEEN NOTIFIED. ON 4L NC WITH SAT IN HIGH 90S. BLOOD PRESSURES SOFT, ON MIDODRINE. FLUIDS INFUSING PER EMAR IN RIGHT UPPER EXTREMETY. PATIENT REPORTS NO APPETITE. BLOOD SUGARS WNL. TURNED Q2H TO PROMOTE FURTHER SKIN INTEGRITY. NEUROVASCULAR CHECKS REMAIN INTACT. INCISION SITE REMAINS WELL APPROXIMATED WITH MINOR SWELLING/BRUISING. DENIES FURTHER NEEDS FROM NURSING AT THIS TIME.
[2017-10-18 00:01] VITALS: BP 123/58
[2017-10-18 01:01] VITALS: BP 123/54
[2017-10-18 02:01] VITALS: BP 112/52
[2017-10-18 04:01] VITALS: BP 102/47
[2017-10-18 04:29] LABS: INR 1.2; PROTIME 11.8 Seconds (9.20-11.50)
--- NOTE | 2017-10-18 05:11 | NUR ---
PATIENT PROGRESSING TOWARDS GOALS: PATIENT HAS RESTED WELL THIS SHIFT WITH MINIMAL C/O PAIN. PATIENT HAS DENIED NEED FOR PAIN MEDICATION AND STATES HE IS "FINE IF HE LAYS STILL." LEFT GROIN INCISION APPROX 3 INCH REMAINS WELL APPROXIMATED WITH DERMABOND. MINIMAL SWELLING AND BRUISING. SENSATION REMAINS INTACT IN LEFT TOES WITH CAP REFILL <3 SECONDS. PEDAL PULSES UNABLE TO BE ASSESSED DUE TO WOUND DRESSINGS IN PLACE. DRESSINGS C/D/I. PATIENT WEANED OFF O2, NOW ON ROOM AIR WITH SATS >92%. PATIENT DENIES SHORTNESS OF AIR. CALL LIGHT WITHIN REACH.
[2017-10-18 08:00] VITALS: BP 123/61
--- NOTE | 2017-10-18 10:00 | NUR ---
INTERDISICPLINARY ROUNDS: PER NURSING, PT READY TO TRANSITION TO REHAB, HAS INPT REHAB CONSULT. CALL TO VICTORINO/LIASON TO DISCUSS. AWAITING THERAPY RE-EVALS. BROOKE/PT IN TO EVAL PT
--- NOTE | 2017-10-18 12:28 | NUR ---
PATIENT ALERT VERY JUMPY. CO OF PAIN GENERALIZED.
--- NOTE | 2017-10-18 14:00 | NUR ---
PATIENT DISCHARGED TO REHAB
--- NOTE | 2017-10-19 11:09 | PATH ---
[facility] [address] [place] [address] PATHOLOGY RPT PROCEDURE Name: ELIOT MONTE Room: [address] IN .R.#: [id number] Admission: 10/10/17 Date of : 49 Discharge: 10/18/17 Report #: [id number] Path Case #: [id number] LCA Accession Number: [id number] . 01 Material submitted: . LEFT LOWER EXTREMITY THROMBOSIS . 01 Clinical history: . Left lower extremity peripheral vascular disease with non-healing wound . 02 Diagnosis: Left lower extremity thrombosis: - Thrombus with evidence of organization and calcified debris. (DEREK:marisol; 10/19/2017) QMS/10/19/2017 . 02 Electronically signed: . Tiago Avilez MD, Pathologist NPI- [id number] . 01 Gross description: . The specimen is received in formalin, labeled "Eliot Monte, left lower extremity thrombosis". Received are multiple segments of pink-aceves possible soft tissue admixed with a slight amount of blood coagulum measuring 1.8 x 0.7 x 0.4 cm in aggregate dimensions. The specimen is filtered and entirely submitted in cassette A1. (CAA; 10/18/2017) QAC/QAC . 02 Pathologist provided ICD-10: I74.3 . 02 CPT . 138211 Performed at: [address], [place] [address] MD Hilario Eldridge MD Phone: [phone] Performed at: [address] [facility] [address] [address], [place], [place] [id number] MD Tiago Avilez MD Phone: [phone]
== END 2017-10-18 13:50 | DRG 270 ==
LOC: M.ORTHSURG 08:37 → M.TBA 08:51 → M.ORTHSURG 08:51 → M.2W 09:44 → M.TBA 09:44 → M.2W 13:25 → M.ICU 10-17 09:45
PROVIDERS: Internal Medicine; Physician Assistant Surgical; Surgery; ADMIT Internal Medicine
PROC: 05HY33Z Insertion of Infusion Device into Upper Vein, Percutaneous Approach (ICD-10-PCS; principal; 2017-10-10)
PROC: 0JBP0ZZ Excision of Left Lower Leg Subcutaneous Tissue and Fascia, Open Approach (ICD-10-PCS; principal; 2017-10-10)
PROC: 0JBR0ZZ Excision of Left Foot Subcutaneous Tissue and Fascia, Open Approach (ICD-10-PCS; principal; 2017-10-10)
PROC: 047N3DZ Dilation of Left Popliteal Artery with Intraluminal Device, Percutaneous Approach (ICD-10-PCS; 2017-10-17)
PROC: 047L3DZ Dilation of Left Femoral Artery with Intraluminal Device, Percutaneous Approach (ICD-10-PCS; 2017-10-17)
PROC: 04CN3ZZ Extirpation of Matter from Left Popliteal Artery, Percutaneous Approach (ICD-10-PCS; 2017-10-17)
PROC: B41J1ZZ Fluoroscopy of Other Lower Arteries using Low Osmolar Contrast (ICD-10-PCS; 2017-10-17)
PROC: 04UL3KZ Supplement Left Femoral Artery with Nonautologous Tissue Substitute, Percutaneous Approach (ICD-10-PCS; 2017-10-17)
PROC: 04CL3ZZ Extirpation of Matter from Left Femoral Artery, Percutaneous Approach (ICD-10-PCS; 2017-10-17)
DX: T82.856A Stenosis of peripheral vascular stent, initial encounter (principal); I50.43 Acute on chronic combined systolic (congestive) and diastolic (congestive) heart failure; L97.929 Non-pressure chronic ulcer of unspecified part of left lower leg with unspecified severity; I13.0 Hypertensive heart and chronic kidney disease with heart failure and stage 1 through stage 4 chronic kidney disease, or unspecified chronic kidney disease; J98.11 Atelectasis; E11.51 Type 2 diabetes mellitus with diabetic peripheral angiopathy without gangrene; I87.2 Venous insufficiency (chronic) (peripheral); I25.10 Atherosclerotic heart disease of native coronary artery without angina pectoris; N18.3 Chronic kidney disease, stage 3 (moderate); E11.22 Type 2 diabetes mellitus with diabetic chronic kidney disease; I48.91 Unspecified atrial fibrillation; B96.5 Pseudomonas (aeruginosa) (mallei) (pseudomallei) as the cause of diseases classified elsewhere; B96.4 Proteus (mirabilis) (morganii) as the cause of diseases classified elsewhere; Z79.4 Long term (current) use of insulin; D64.9 Anemia, unspecified; Z89.611 Acquired absence of right leg above knee; Z83.3 Family history of diabetes mellitus; Z87.891 Personal history of nicotine dependence; Y65.8 Other specified misadventures during surgical and medical care; Y92.89 Other specified places as the place of occurrence of the external cause

== ENCOUNTER 2017-10-12 11:42 | Inpatient (IN) | payer MEDICARE ==
[~2017-10-12] VITALS: Ht 175.3 cm; Wt 104.3 kg
[2017-10-12] MEDS ORDERED: COLACE 100 MG100 MG PO (11:58)
[2017-10-12] MEDS ORDERED: VANCOMYCIN1.25 GM/22 IV (12:01)
[2017-10-12] MEDS ORDERED: FLORANEX TABLE1 EACH PO (12:03)
[2017-10-12] MEDS ORDERED: LIDOCAINE 2%2 %/5 GM TOP (12:05)
[2017-10-12] MEDS ORDERED: PROMETHAZINE IV (12:15)
[2017-10-12] MEDS ORDERED: ZOFRAN IV (12:16)
[2017-10-18 14:15] VITALS: BP 129/62
[2017-10-18 20:00] VITALS: BP 129/65
[2017-10-19 04:33] LABS: ABSOLUTE EOSINOPHILS 0.2 thou/uL (0.0-0.7); ABSOLUTE MONOCYTES 0.6 thou/uL (0.0-1.2); BASOPHILS 0.6 %; EOSINOPHILS 3.5 %; HEMATOCRIT 26.4 % (42.0-52.0); HEMOGLOBIN 8.5 gm/dL (14.0-18.0); LYMPHOCYTES 17.1 %; MCH 27.4 pg (26.0-34.0); MCHC 32.2 g/dL (28.0-37.0); MCV 85.2 fL (80.0-100.0); MONOCYTES 9.6 %; MPV 9.3 fl. (7.2-11.1); NUCLEATED RBCS 0 /100WBC; PLATELET COUNT* 110 thou/uL (150-400); POLYS 69.2 %; RBC 3.09 mil/uL (4.50-6.00); RDW-CV 16.6 % (10.5-14.5); WBC 5.9 thou/uL (4.0-11.0)
[2017-10-19 04:51] LABS: CALCIUM 10.1 mg/dL (8.5-10.1); CREATININE 0.9 mg/dL (0.6-1.3); POTASSIUM 3.8 mmol/L (3.5-5.1)
[2017-10-19 08:00] VITALS: BP 132/54
[2017-10-19 20:00] VITALS: BP 119/48
[2017-10-20 07:30] VITALS: BP 139/72
[2017-10-20 20:00] VITALS: BP 153/73
[2017-10-21 08:19] VITALS: BP 135/63
[2017-10-21 17:07] LABS: INR 1.1; PROTIME 11.7 Seconds (9.20-11.50)
[2017-10-21 20:10] VITALS: BP 114/54
[2017-10-22 05:17] LABS: INR 1.2; PROTIME 12.4 Seconds (9.20-11.50)
[2017-10-22 08:11] VITALS: BP 136/76
[2017-10-22 20:40] VITALS: BP 146/69
[2017-10-23 04:33] LABS: HEMATOCRIT 28.9 % (42.0-52.0); HEMOGLOBIN 9.4 gm/dL (14.0-18.0); MCH 27.3 pg (26.0-34.0); MCHC 32.4 g/dL (28.0-37.0); MCV 84.3 fL (80.0-100.0); MPV 8.7 fl. (7.2-11.1); RBC 3.43 mil/uL (4.50-6.00); RDW-CV 16.6 % (10.5-14.5); WBC 3.9 thou/uL (4.0-11.0)
[2017-10-23 04:41] LABS: INR 1.3; PROTIME 13.7 Seconds (9.20-11.50)
[2017-10-23 04:57] LABS: CALCIUM 10.5 mg/dL (8.5-10.1); CREATININE 1.1 mg/dL (0.6-1.3); POTASSIUM 3.8 mmol/L (3.5-5.1)
[2017-10-23 08:00] VITALS: BP 140/75
[2017-10-23 20:45] VITALS: BP 127/61
[2017-10-24 08:26] LABS: INR 1.7; PROTIME 16.9 Seconds (9.20-11.50)
[2017-10-24 08:30] VITALS: BP 136/74
[2017-10-24 20:00] VITALS: BP 95/46
[2017-10-25 03:42] LABS: INR 2.2; PROTIME 22.7 Seconds (9.20-11.50)
[2017-10-25 08:03] VITALS: BP 155/85
--- NOTE | 2017-10-25 13:47 | PLAN ---
[address] [address] REHAB UNIT PLAN OF CARE Name: RITU MONTE Room: [address] IN [facility].#: [id number] Admission: 10/18/17 Attend Phys: Carly Escobar DO Discharge: Date of : 49 Report #: [id number] THIS REPORT FOR: //name// CC: Lamberto Escobar This is a 72-year-old male admitted to inpatient rehabilitation to facilitate safe discharge home, status post acute hospitalization for severe peripheral vascular disease, left lower extremity ischemia and a recent left fem-pop open thrombectomy and angiogram with also surgical debridement on 10/10/2017 and 10/17/2017. Previous level of function prior to these surgeries and acute hospitalizations was modified independent. Current level of function is minimum to moderate assistance of 1-2 depending on therapy, activity and time of day. Estimated length of stay is 14-16 days with discharge disposition to the home setting. MEDICAL PROGNOSIS: Fair. REHABILITATION PROGNOSIS: Fair. Physical therapy will see the patient 60-90 minutes per day, 5 days per week, working on upper and lower body strength, balance, coordination, navigation. Occupational therapy will work with the patient 60-90 minutes per day, 5 days per week, working on upper and lower body strength, balance, coordination, navigation, bathing, dressing, and toileting. Speech language pathology will evaluate the patient. However, during his last stay he was rather functional; however, if needed, they will work within 30-60 minutes per day, 5 days per week, working on comprehension, expression, problem solving and memory. This is an overall plan of care, may change from time to time, we will team weekly and make changes to plan of care as needed. <ELECTRONICALLY SIGNED> By: Carly Escobar DO 10/25/17 1347 0934 2124Carly Escobar DO /nt
[2017-10-25 20:40] VITALS: BP 105/51
[2017-10-26 04:30] LABS: INR 2.6; PROTIME 26.3 Seconds (9.20-11.50)
[2017-10-26 08:26] VITALS: BP 139/67
[2017-10-26 20:15] VITALS: BP 131/66
[2017-10-27 03:56] LABS: INR 3.2; PROTIME 32.5 Seconds (9.20-11.50)
[2017-10-27 08:04] VITALS: BP 135/76
[2017-10-27 20:14] VITALS: BP 113/48
[2017-10-28 05:02] LABS: HEMOGLOBIN 9.7 gm/dL (14.0-18.0); MCH 27.1 pg (26.0-34.0); MCHC 32.4 g/dL (28.0-37.0); MCV 83.9 fL (80.0-100.0); MPV 9.2 fl. (7.2-11.1); RBC 3.58 mil/uL (4.50-6.00); RDW-CV 16.5 % (10.5-14.5); WBC 4.4 thou/uL (4.0-11.0)
[2017-10-28 05:25] LABS: ALBUMIN 3.2 g/dL (3.4-5.0); CALCIUM 10.7 mg/dL (8.5-10.1); CREATININE 1.3 mg/dL (0.6-1.3); MAGNESIUM 2.1 mg/dL (1.8-2.4); POTASSIUM 4.1 mmol/L (3.5-5.1); TOTAL BILIRUBIN 0.2 mg/dL (<0.1-1.0); TOTAL PROTEIN 6.2 g/dL (6.4-8.2)
[2017-10-28 06:31] LABS: INR 3.3; PROTIME 33.1 Seconds (9.20-11.50)
[2017-10-28 08:00] VITALS: BP 127/48
[2017-10-28 20:00] VITALS: BP 148/75
[2017-10-29 04:19] LABS: INR 2.8; PROTIME 28.5 Seconds (9.20-11.50)
[2017-10-29 07:55] VITALS: BP 148/65
[2017-10-29 19:00] VITALS: BP 137/68
[2017-10-30 04:51] LABS: INR 2.7; PROTIME 27.7 Seconds (9.20-11.50)
[2017-10-30 07:15] VITALS: BP 126/74
[2017-10-30 20:00] VITALS: BP 134/59
[2017-10-31 04:22] LABS: HEMATOCRIT 32.5 % (42.0-52.0); HEMOGLOBIN 10.3 gm/dL (14.0-18.0); MCH 26.7 pg (26.0-34.0); MCHC 31.6 g/dL (28.0-37.0); MCV 84.5 fL (80.0-100.0); MPV 9.1 fl. (7.2-11.1); RBC 3.85 mil/uL (4.50-6.00); RDW-CV 16.5 % (10.5-14.5)
[2017-10-31 04:51] LABS: ALBUMIN 3.4 g/dL (3.4-5.0); CALCIUM 10.7 mg/dL (8.5-10.1); CREATININE 1.5 mg/dL (0.6-1.3); POTASSIUM 3.9 mmol/L (3.5-5.1); TOTAL BILIRUBIN 0.2 mg/dL (<0.1-1.0); TOTAL PROTEIN 6.5 g/dL (6.4-8.2)
[2017-10-31 08:27] VITALS: BP 140/68
[2017-10-31 11:02] LABS: INR 2.5; PROTIME 25.8 Seconds (9.20-11.50)
[2017-10-31 15:41] VITALS: BP 140/68
[2017-10-31 20:00] VITALS: BP 107/67
[2017-11-01 05:16] LABS: INR 2.8; PROTIME 28.2 Seconds (9.20-11.50)
[2017-11-01 05:35] LABS: CALCIUM 10.7 mg/dL (8.5-10.1); CREATININE 1.4 mg/dL (0.6-1.3)
[2017-11-01 08:00] VITALS: BP 123/67
[2017-11-01 13:58] VITALS: BP 123/67
[2017-11-01] MEDS ORDERED: AMBIEN 5 MG TABL5 M1 PO (14:25)
[2017-11-01] MEDS ORDERED: DULCOLAX5 MG PO (14:27)
[2017-11-01] MEDS ORDERED: BISACODYL SUPP10 MG RECTAL (14:29)
[2017-11-01] MEDS ORDERED: BENADRYL25 MG PO (14:33)
[2017-11-01] MEDS ORDERED: LASIX 40 MG TAB40 M2 PO (14:42)
[2017-11-01] MEDS ORDERED: HUMALOG100 UNIT/1 SUBQ (14:43)
--- NOTE | 2017-11-02 13:19 | H ---
[address] [address] HISTORY AND PHYSICAL Name: RITU MONTE Room: [address] IN .R.#: [id number] Admission: 10/18/17 Attend Phys: Carly Escobar, Discharge: 11/01/17 Date of : 47 Report #: [id number] THIS REPORT FOR: //name// CC: Lamberto Escobar DATE OF SERVICE: 10/18/2017 HISTORY OF PRESENT ILLNESS: This is a 72-year-old man known well to this service from previous admissions and consultations who is now admitted with severe peripheral vascular disease, left lower extremity ischemia, status post surgical debridement on 10/10/2017 and 10/17/2017 on the left lower extremity and also left femoral endarterectomy, angioplasty and a left fem-pop open thrombectomy, being followed by Vascular Surgery as well. He is also status post previous history of a right above knee amputation, which is well healed. He has had no significant changes since the preadmission screening. Previous level of function prior to all of this was modified independent with activities of daily living. Current level of function is minimum to moderate assistance depending on therapy, activity and time of day. He does have needs in physical and occupational therapy. Estimated length of stay is 14-16 days with discharge disposition to the home setting where he has an accessible house and supportive family. PAST MEDICAL HISTORY: Unchanged and includes diabetes, peripheral arterial disease, peripheral vascular disease, kidney disease stage 3, CHF, CAD, history of CA, OA, hypertension, debility, cardiomegaly, vitamin D deficiency, nonhealing wounds, bradycardia, cardiomyopathy, hyperkalemia and a history of PE. PAST SURGICAL HISTORY: Unchanged. FAMILY HISTORY: Unchanged. SOCIAL HISTORY: Former smoker. ALLERGIES: No known drug allergies. FAMILY HISTORY: Unchanged and includes cardiac disease. REVIEW OF SYSTEMS: A 14-point review of systems is done and is negative except as mentioned in HPI, specifically no fever, chest pain, shortness of breath, abdominal pain or distention, change in bowel or change in bladder. SKIN: Warm and dry. Wound VAC is in place, but wounds from yesterday are visualized and available in the chart. ASSESSMENT: [place] [address] HISTORY AND PHYSICAL Name: JONATHANRITU JAMES Bret Room: [address] IN [facility]#: [id number] Admission: 10/18/17 Attend Phys: Carly Escobar DO Discharge: 11/01/17 Date of : 49 Report #: [id number] 1. Peripheral vascular disease. 2. Left lower extremity ischemia. 3. Status post left femoropopliteal open thrombectomy and angiogram. 4. Debility. 5. History of right above-knee amputation. PLAN: 1. Admission to inpatient rehabilitation. 2. PT, OT, case management, nursing and HIMS to make evaluations and recommendations. 3. We will team him weekly and plan of care is pending. 4. Medications were reviewed and reconciled. <ELECTRONICALLY SIGNED> By: Carly Escobar DO 11/02/17 1319 0932 1055Carly Escobar DO /nt
--- NOTE | 2017-12-07 10:39 | D ---
[facility] [address] [place] [address] DISCHARGE SUMMARY Name: RITU MONTE Room: [address] IN .R.#: [id number] Admission: 10/18/17 Attend Phys: Carly Escobar DO Discharge: 11/01/17 Date of : 47 Report #: [id number] THIS REPORT FOR: //name// CC: Lamberto Escobar DATE OF SERVICE: 11/01/2017 DISCHARGE DIAGNOSES: Severe peripheral vascular disease, status post stenting with secondary nonhealing wounds. DISCHARGE DISPOSITION: To skilled level of care for continued rehabilitation. He is a full code. Rehabilitation potential is good. He will continue with physical and occupational therapy. He is full weightbearing on the left lower extremity, nonweightbearing on the right upper extremity due to his AKA. He will maintain a carb-controlled ADA diet. Blood sugar q.a.c. and at bedtime. He will follow with Vascular Surgery on Wednesdays in the wound care clinic for negative pressure wound therapy, wound VAC changes. Otherwise, a skilled facility will maintain those on Mondays and Fridays. Primary care physician in 1 week after discharge. MEDICATIONS: Reviewed and reconciled by myself and are available in the MAR. DISCHARGE PHYSICAL EXAMINATION: GENERAL: Alert, oriented, no apparent distress. VITAL SIGNS: Reviewed and are stable. HEENT: Head atraumatic, normocephalic. Pupils equal, round, reactive. ABDOMEN: Soft, nontender, nondistended. NEUROLOGIC: Cranial nerves 2-12 are grossly intact. No focal neuro deficits, 5/5 strength in bilateral upper and lower extremities. SKIN: Warm and dry. [facility] [address] [facility] [place] [address] DISCHARGE SUMMARY Name: JONATHANRITU JAMES Bret Room: [address] IN .R.#: [id number] Admission: 10/18/17 Attend Phys: Carly Escobar DO Discharge: 11/01/17 Date of : 49 Report #: [id number] VASCULAR: Wounds were visualized prior to dressing change [facility] <ELECTRONICALLY SIGNED> By: Carly Escobar DO 12/07/17 1039 1350 1408Carly Escobar DO /nt
== END 2017-11-01 15:39 | DRG 299 ==
LOC: M.REH 11:42
PROVIDERS: Family Medicine; Internal Medicine; ADMIT Physical Medicine & Rehabilitation
DX: E11.51 Type 2 diabetes mellitus with diabetic peripheral angiopathy without gangrene (principal); I50.43 Acute on chronic combined systolic (congestive) and diastolic (congestive) heart failure; I13.0 Hypertensive heart and chronic kidney disease with heart failure and stage 1 through stage 4 chronic kidney disease, or unspecified chronic kidney disease; L97.829 Non-pressure chronic ulcer of other part of left lower leg with unspecified severity; T82.818A Embolism due to vascular prosthetic devices, implants and grafts, initial encounter; I42.9 Cardiomyopathy, unspecified; R53.81 Other malaise; I82.812 Embolism and thrombosis of superficial veins of left lower extremity; B96.5 Pseudomonas (aeruginosa) (mallei) (pseudomallei) as the cause of diseases classified elsewhere; E11.22 Type 2 diabetes mellitus with diabetic chronic kidney disease; N18.3 Chronic kidney disease, stage 3 (moderate); M19.90 Unspecified osteoarthritis, unspecified site; E11.622 Type 2 diabetes mellitus with other skin ulcer; B96.4 Proteus (mirabilis) (morganii) as the cause of diseases classified elsewhere; M25.552 Pain in left hip; I25.10 Atherosclerotic heart disease of native coronary artery without angina pectoris; I48.91 Unspecified atrial fibrillation; Y83.2 Surgical operation with anastomosis, bypass or graft as the cause of abnormal reaction of the patient, or of later complication, without mention of misadventure at the time of the procedure; Z89.611 Acquired absence of right leg above knee; Z87.891 Personal history of nicotine dependence; Z87.01 Personal history of pneumonia (recurrent); Z95.810 Presence of automatic (implantable) cardiac defibrillator; Z83.3 Family history of diabetes mellitus; Z95.820 Peripheral vascular angioplasty status with implants and grafts; Z86.711 Personal history of pulmonary embolism; Z79.899 Other long term (current) drug therapy; Z79.01 Long term (current) use of anticoagulants; Z79.4 Long term (current) use of insulin; Y92.89 Other specified places as the place of occurrence of the external cause

== ENCOUNTER → 2017-11-08 | Outpatient (CLI) | payer MEDICARE ==
[~2017-11-08] MED LIST changes: +AMBIEN 5 MG TABL5 M1 PO; +BISACODYL SUPP10 MG RECTAL; +COLACE 100 MG100 MG PO; +FLORANEX TABLE1 EACH PO; +LIDOCAINE 2%2 %/5 GM TOP; +PROMETHAZINE IV; +VANCOMYCIN1.25 GM/22 IV; +ZOFRAN IV
== END ==
LOC: M.WC 04:25
DX: T81.89XD Other complications of procedures, not elsewhere classified, subsequent encounter (principal); E11.621 Type 2 diabetes mellitus with foot ulcer; L97.521 Non-pressure chronic ulcer of other part of left foot limited to breakdown of skin; E11.622 Type 2 diabetes mellitus with other skin ulcer; L97.221 Non-pressure chronic ulcer of left calf limited to breakdown of skin; L97.821 Non-pressure chronic ulcer of other part of left lower leg limited to breakdown of skin; I70.245 Atherosclerosis of native arteries of left leg with ulceration of other part of foot; E11.51 Type 2 diabetes mellitus with diabetic peripheral angiopathy without gangrene; E11.42 Type 2 diabetes mellitus with diabetic polyneuropathy; E11.36 Type 2 diabetes mellitus with diabetic cataract; I25.2 Old myocardial infarction; I50.9 Heart failure, unspecified; Z99.2 Dependence on renal dialysis; Z86.718 Personal history of other venous thrombosis and embolism; Z86.711 Personal history of pulmonary embolism; Z89.611 Acquired absence of right leg above knee; Z87.891 Personal history of nicotine dependence; Y83.8 Other surgical procedures as the cause of abnormal reaction of the patient, or of later complication, without mention of misadventure at the time of the procedure

== ENCOUNTER → 2017-11-15 | Outpatient (CLI) | payer MEDICARE | LOC: M.WC 03:57 | DX: T81.89XA Other complications of procedures, not elsewhere classified, initial encounter (principal); E11.621 Type 2 diabetes mellitus with foot ulcer; I70.245 Atherosclerosis of native arteries of left leg with ulceration of other part of foot; L97.521 Non-pressure chronic ulcer of other part of left foot limited to breakdown of skin; E11.622 Type 2 diabetes mellitus with other skin ulcer; I70.248 Atherosclerosis of native arteries of left leg with ulceration of other part of lower leg; L97.821 Non-pressure chronic ulcer of other part of left lower leg limited to breakdown of skin; L97.221 Non-pressure chronic ulcer of left calf limited to breakdown of skin; E11.36 Type 2 diabetes mellitus with diabetic cataract; I25.2 Old myocardial infarction; I50.9 Heart failure, unspecified; Z99.2 Dependence on renal dialysis; Z87.891 Personal history of nicotine dependence; Z86.711 Personal history of pulmonary embolism; Z86.718 Personal history of other venous thrombosis and embolism; Y92.89 Other specified places as the place of occurrence of the external cause; Y83.8 Other surgical procedures as the cause of abnormal reaction of the patient, or of later complication, without mention of misadventure at the time of the procedure ==

== ENCOUNTER → 2017-11-22 | Outpatient (CLI) | payer MEDICARE | LOC: M.WC 01:34 | DX: T81.89XD Other complications of procedures, not elsewhere classified, subsequent encounter (principal); E11.621 Type 2 diabetes mellitus with foot ulcer; I70.245 Atherosclerosis of native arteries of left leg with ulceration of other part of foot; L97.521 Non-pressure chronic ulcer of other part of left foot limited to breakdown of skin; L97.221 Non-pressure chronic ulcer of left calf limited to breakdown of skin; L97.821 Non-pressure chronic ulcer of other part of left lower leg limited to breakdown of skin; E11.51 Type 2 diabetes mellitus with diabetic peripheral angiopathy without gangrene; E11.36 Type 2 diabetes mellitus with diabetic cataract; I50.9 Heart failure, unspecified; I25.2 Old myocardial infarction; Z99.2 Dependence on renal dialysis; Z86.711 Personal history of pulmonary embolism; Z87.891 Personal history of nicotine dependence; Z86.718 Personal history of other venous thrombosis and embolism; Z89.611 Acquired absence of right leg above knee; Y83.8 Other surgical procedures as the cause of abnormal reaction of the patient, or of later complication, without mention of misadventure at the time of the procedure ==

== ENCOUNTER → 2017-12-06 | Outpatient (CLI) | payer MEDICARE | LOC: M.WC 11-29 09:30 | DX: T81.89XD Other complications of procedures, not elsewhere classified, subsequent encounter (principal); E11.621 Type 2 diabetes mellitus with foot ulcer; I70.245 Atherosclerosis of native arteries of left leg with ulceration of other part of foot; L97.521 Non-pressure chronic ulcer of other part of left foot limited to breakdown of skin; E11.622 Type 2 diabetes mellitus with other skin ulcer; I70.248 Atherosclerosis of native arteries of left leg with ulceration of other part of lower leg; L97.221 Non-pressure chronic ulcer of left calf limited to breakdown of skin; E11.36 Type 2 diabetes mellitus with diabetic cataract; I50.9 Heart failure, unspecified; I25.2 Old myocardial infarction; Z86.711 Personal history of pulmonary embolism; Z86.718 Personal history of other venous thrombosis and embolism; Z99.2 Dependence on renal dialysis; Z87.891 Personal history of nicotine dependence; Y83.8 Other surgical procedures as the cause of abnormal reaction of the patient, or of later complication, without mention of misadventure at the time of the procedure ==

== ENCOUNTER → 2017-12-13 | Outpatient (CLI) | payer MEDICARE | LOC: M.WC 03:00 | DX: T81.89XD Other complications of procedures, not elsewhere classified, subsequent encounter (principal); E11.621 Type 2 diabetes mellitus with foot ulcer; I70.245 Atherosclerosis of native arteries of left leg with ulceration of other part of foot; L97.528 Non-pressure chronic ulcer of other part of left foot with other specified severity; E11.622 Type 2 diabetes mellitus with other skin ulcer; I70.248 Atherosclerosis of native arteries of left leg with ulceration of other part of lower leg; L97.821 Non-pressure chronic ulcer of other part of left lower leg limited to breakdown of skin; L97.221 Non-pressure chronic ulcer of left calf limited to breakdown of skin; E11.51 Type 2 diabetes mellitus with diabetic peripheral angiopathy without gangrene; E11.36 Type 2 diabetes mellitus with diabetic cataract; I50.9 Heart failure, unspecified; I25.2 Old myocardial infarction; Z99.2 Dependence on renal dialysis; Z86.711 Personal history of pulmonary embolism; Z86.718 Personal history of other venous thrombosis and embolism; Z87.891 Personal history of nicotine dependence; Z89.519 Acquired absence of unspecified leg below knee; Z89.611 Acquired absence of right leg above knee; Z95.820 Peripheral vascular angioplasty status with implants and grafts; Y83.8 Other surgical procedures as the cause of abnormal reaction of the patient, or of later complication, without mention of misadventure at the time of the procedure ==

== ENCOUNTER → 2017-12-20 | Outpatient (CLI) | payer MEDICARE | LOC: M.WC 03:09 | DX: T81.89XD Other complications of procedures, not elsewhere classified, subsequent encounter (principal); E11.622 Type 2 diabetes mellitus with other skin ulcer; I70.248 Atherosclerosis of native arteries of left leg with ulceration of other part of lower leg; L97.821 Non-pressure chronic ulcer of other part of left lower leg limited to breakdown of skin; L97.221 Non-pressure chronic ulcer of left calf limited to breakdown of skin; E11.36 Type 2 diabetes mellitus with diabetic cataract; E11.51 Type 2 diabetes mellitus with diabetic peripheral angiopathy without gangrene; I50.9 Heart failure, unspecified; I25.2 Old myocardial infarction; Z99.2 Dependence on renal dialysis; Z87.891 Personal history of nicotine dependence; Z86.711 Personal history of pulmonary embolism; Z86.718 Personal history of other venous thrombosis and embolism; Z89.611 Acquired absence of right leg above knee; Z95.820 Peripheral vascular angioplasty status with implants and grafts; Y83.8 Other surgical procedures as the cause of abnormal reaction of the patient, or of later complication, without mention of misadventure at the time of the procedure ==

== ENCOUNTER → 2017-12-27 | Outpatient (CLI) | payer MEDICARE | LOC: M.WC 05:04 | DX: T81.89XD Other complications of procedures, not elsewhere classified, subsequent encounter (principal); I70.242 Atherosclerosis of native arteries of left leg with ulceration of calf; E11.622 Type 2 diabetes mellitus with other skin ulcer; L97.822 Non-pressure chronic ulcer of other part of left lower leg with fat layer exposed; L97.222 Non-pressure chronic ulcer of left calf with fat layer exposed; E11.51 Type 2 diabetes mellitus with diabetic peripheral angiopathy without gangrene; E11.36 Type 2 diabetes mellitus with diabetic cataract; I50.9 Heart failure, unspecified; I25.2 Old myocardial infarction; Z99.2 Dependence on renal dialysis; Z87.891 Personal history of nicotine dependence; Z86.711 Personal history of pulmonary embolism; Z86.718 Personal history of other venous thrombosis and embolism; Z89.611 Acquired absence of right leg above knee; Y83.8 Other surgical procedures as the cause of abnormal reaction of the patient, or of later complication, without mention of misadventure at the time of the procedure ==

== ENCOUNTER → 2018-01-03 | Outpatient (CLI) | payer MEDICARE | LOC: M.WC 05:03 | DX: T81.89XD Other complications of procedures, not elsewhere classified, subsequent encounter (principal); E11.622 Type 2 diabetes mellitus with other skin ulcer; I70.248 Atherosclerosis of native arteries of left leg with ulceration of other part of lower leg; L97.821 Non-pressure chronic ulcer of other part of left lower leg limited to breakdown of skin; L97.221 Non-pressure chronic ulcer of left calf limited to breakdown of skin; E11.36 Type 2 diabetes mellitus with diabetic cataract; E11.42 Type 2 diabetes mellitus with diabetic polyneuropathy; E11.51 Type 2 diabetes mellitus with diabetic peripheral angiopathy without gangrene; I50.9 Heart failure, unspecified; I25.2 Old myocardial infarction; Z89.611 Acquired absence of right leg above knee; Z87.891 Personal history of nicotine dependence; Z86.711 Personal history of pulmonary embolism; Z86.718 Personal history of other venous thrombosis and embolism; Z99.2 Dependence on renal dialysis; Y83.8 Other surgical procedures as the cause of abnormal reaction of the patient, or of later complication, without mention of misadventure at the time of the procedure ==

== ENCOUNTER → 2018-01-10 | Outpatient (CLI) | payer MEDICARE | LOC: M.WC 03:15 | DX: T81.89XD Other complications of procedures, not elsewhere classified, subsequent encounter (principal); E11.622 Type 2 diabetes mellitus with other skin ulcer; L97.821 Non-pressure chronic ulcer of other part of left lower leg limited to breakdown of skin; I70.242 Atherosclerosis of native arteries of left leg with ulceration of calf; L97.221 Non-pressure chronic ulcer of left calf limited to breakdown of skin; E11.51 Type 2 diabetes mellitus with diabetic peripheral angiopathy without gangrene; E11.36 Type 2 diabetes mellitus with diabetic cataract; I50.9 Heart failure, unspecified; I25.2 Old myocardial infarction; Z87.891 Personal history of nicotine dependence; Z86.711 Personal history of pulmonary embolism; Z86.718 Personal history of other venous thrombosis and embolism; Z99.2 Dependence on renal dialysis; Z89.611 Acquired absence of right leg above knee; Y83.8 Other surgical procedures as the cause of abnormal reaction of the patient, or of later complication, without mention of misadventure at the time of the procedure ==

== ENCOUNTER → 2018-01-17 | Outpatient (CLI) | payer MEDICARE | LOC: M.WC 04:29 | DX: T81.89XD Other complications of procedures, not elsewhere classified, subsequent encounter (principal); E11.622 Type 2 diabetes mellitus with other skin ulcer; L97.821 Non-pressure chronic ulcer of other part of left lower leg limited to breakdown of skin; E11.621 Type 2 diabetes mellitus with foot ulcer; I70.245 Atherosclerosis of native arteries of left leg with ulceration of other part of foot; L97.521 Non-pressure chronic ulcer of other part of left foot limited to breakdown of skin; E11.51 Type 2 diabetes mellitus with diabetic peripheral angiopathy without gangrene; E11.36 Type 2 diabetes mellitus with diabetic cataract; I50.9 Heart failure, unspecified; I25.2 Old myocardial infarction; Z86.718 Personal history of other venous thrombosis and embolism; Z99.2 Dependence on renal dialysis; Z89.611 Acquired absence of right leg above knee; Z87.891 Personal history of nicotine dependence; Z86.711 Personal history of pulmonary embolism; Z95.820 Peripheral vascular angioplasty status with implants and grafts; Y83.8 Other surgical procedures as the cause of abnormal reaction of the patient, or of later complication, without mention of misadventure at the time of the procedure ==

== ENCOUNTER → 2018-01-24 | Outpatient (CLI) | payer MEDICARE | LOC: M.WC 02:48 | DX: T81.89XD Other complications of procedures, not elsewhere classified, subsequent encounter (principal); E11.622 Type 2 diabetes mellitus with other skin ulcer; L97.821 Non-pressure chronic ulcer of other part of left lower leg limited to breakdown of skin; E11.51 Type 2 diabetes mellitus with diabetic peripheral angiopathy without gangrene; E11.36 Type 2 diabetes mellitus with diabetic cataract; I50.9 Heart failure, unspecified; I25.2 Old myocardial infarction; Z86.718 Personal history of other venous thrombosis and embolism; Z89.611 Acquired absence of right leg above knee; Z99.2 Dependence on renal dialysis; Z87.891 Personal history of nicotine dependence; Z86.711 Personal history of pulmonary embolism; Y83.8 Other surgical procedures as the cause of abnormal reaction of the patient, or of later complication, without mention of misadventure at the time of the procedure ==

== ENCOUNTER → 2018-01-31 | Outpatient (CLI) | payer MEDICARE | LOC: M.WC 04:38 | DX: T81.89XD Other complications of procedures, not elsewhere classified, subsequent encounter (principal); E11.622 Type 2 diabetes mellitus with other skin ulcer; L97.821 Non-pressure chronic ulcer of other part of left lower leg limited to breakdown of skin; E11.36 Type 2 diabetes mellitus with diabetic cataract; I50.9 Heart failure, unspecified; I25.2 Old myocardial infarction; I87.2 Venous insufficiency (chronic) (peripheral); E11.51 Type 2 diabetes mellitus with diabetic peripheral angiopathy without gangrene; Z99.2 Dependence on renal dialysis; Z87.891 Personal history of nicotine dependence; Z86.711 Personal history of pulmonary embolism; Z86.718 Personal history of other venous thrombosis and embolism; Z89.611 Acquired absence of right leg above knee; Y83.8 Other surgical procedures as the cause of abnormal reaction of the patient, or of later complication, without mention of misadventure at the time of the procedure ==

== ENCOUNTER → 2018-02-07 | Outpatient (CLI) | payer MEDICARE | LOC: M.WC 01:51 | DX: T81.89XD Other complications of procedures, not elsewhere classified, subsequent encounter (principal); E11.622 Type 2 diabetes mellitus with other skin ulcer; L97.821 Non-pressure chronic ulcer of other part of left lower leg limited to breakdown of skin; E11.621 Type 2 diabetes mellitus with foot ulcer; I70.245 Atherosclerosis of native arteries of left leg with ulceration of other part of foot; L97.521 Non-pressure chronic ulcer of other part of left foot limited to breakdown of skin; E11.36 Type 2 diabetes mellitus with diabetic cataract; E11.51 Type 2 diabetes mellitus with diabetic peripheral angiopathy without gangrene; I50.9 Heart failure, unspecified; I25.2 Old myocardial infarction; Z87.891 Personal history of nicotine dependence; Z86.711 Personal history of pulmonary embolism; Z99.2 Dependence on renal dialysis; Z86.718 Personal history of other venous thrombosis and embolism; Z89.611 Acquired absence of right leg above knee; Y83.8 Other surgical procedures as the cause of abnormal reaction of the patient, or of later complication, without mention of misadventure at the time of the procedure ==

== ENCOUNTER → 2018-02-21 | Outpatient (CLI) | payer MEDICARE | LOC: M.WC 09:00 | DX: T81.89XD Other complications of procedures, not elsewhere classified, subsequent encounter (principal); E11.622 Type 2 diabetes mellitus with other skin ulcer; L97.821 Non-pressure chronic ulcer of other part of left lower leg limited to breakdown of skin; E11.621 Type 2 diabetes mellitus with foot ulcer; I70.245 Atherosclerosis of native arteries of left leg with ulceration of other part of foot; L97.521 Non-pressure chronic ulcer of other part of left foot limited to breakdown of skin; E11.36 Type 2 diabetes mellitus with diabetic cataract; I50.9 Heart failure, unspecified; I25.2 Old myocardial infarction; Z99.2 Dependence on renal dialysis; Z86.711 Personal history of pulmonary embolism; Z86.718 Personal history of other venous thrombosis and embolism; Z87.891 Personal history of nicotine dependence; Y83.8 Other surgical procedures as the cause of abnormal reaction of the patient, or of later complication, without mention of misadventure at the time of the procedure ==

== ENCOUNTER → 2018-02-28 | Outpatient (CLI) | payer MEDICARE | LOC: M.WC 04:34 | DX: E11.622 Type 2 diabetes mellitus with other skin ulcer (principal); L97.821 Non-pressure chronic ulcer of other part of left lower leg limited to breakdown of skin; E11.36 Type 2 diabetes mellitus with diabetic cataract; E11.51 Type 2 diabetes mellitus with diabetic peripheral angiopathy without gangrene; I50.9 Heart failure, unspecified; I25.2 Old myocardial infarction; I87.2 Venous insufficiency (chronic) (peripheral); Z87.891 Personal history of nicotine dependence; Z86.718 Personal history of other venous thrombosis and embolism; Z99.2 Dependence on renal dialysis; Z86.711 Personal history of pulmonary embolism; Z89.611 Acquired absence of right leg above knee ==

== ENCOUNTER → 2018-03-07 | Outpatient (CLI) | payer MEDICARE | LOC: M.WC 04:53 | DX: E11.622 Type 2 diabetes mellitus with other skin ulcer (principal); I70.245 Atherosclerosis of native arteries of left leg with ulceration of other part of foot; L97.821 Non-pressure chronic ulcer of other part of left lower leg limited to breakdown of skin; E11.51 Type 2 diabetes mellitus with diabetic peripheral angiopathy without gangrene; I87.2 Venous insufficiency (chronic) (peripheral); Z87.891 Personal history of nicotine dependence; Z89.611 Acquired absence of right leg above knee ==

== ENCOUNTER → 2018-03-14 | Outpatient (CLI) | payer MEDICARE | LOC: M.WC 03:58 | DX: T81.89XA Other complications of procedures, not elsewhere classified, initial encounter (principal); E11.622 Type 2 diabetes mellitus with other skin ulcer; I70.248 Atherosclerosis of native arteries of left leg with ulceration of other part of lower leg; L97.821 Non-pressure chronic ulcer of other part of left lower leg limited to breakdown of skin; E11.51 Type 2 diabetes mellitus with diabetic peripheral angiopathy without gangrene; E11.36 Type 2 diabetes mellitus with diabetic cataract; I50.9 Heart failure, unspecified; I25.2 Old myocardial infarction; I87.2 Venous insufficiency (chronic) (peripheral); Z86.718 Personal history of other venous thrombosis and embolism; Z99.2 Dependence on renal dialysis; Z87.891 Personal history of nicotine dependence; Z86.711 Personal history of pulmonary embolism; Z89.611 Acquired absence of right leg above knee; Z95.820 Peripheral vascular angioplasty status with implants and grafts; Y92.89 Other specified places as the place of occurrence of the external cause; Y83.8 Other surgical procedures as the cause of abnormal reaction of the patient, or of later complication, without mention of misadventure at the time of the procedure ==

== ENCOUNTER → 2018-03-21 | Outpatient (CLI) | payer MEDICARE | LOC: M.WC 05:16 | DX: T81.89XD Other complications of procedures, not elsewhere classified, subsequent encounter (principal); E11.621 Type 2 diabetes mellitus with foot ulcer; I70.245 Atherosclerosis of native arteries of left leg with ulceration of other part of foot; L97.521 Non-pressure chronic ulcer of other part of left foot limited to breakdown of skin; E11.51 Type 2 diabetes mellitus with diabetic peripheral angiopathy without gangrene; E11.36 Type 2 diabetes mellitus with diabetic cataract; I50.9 Heart failure, unspecified; I25.2 Old myocardial infarction; Z86.718 Personal history of other venous thrombosis and embolism; Z99.2 Dependence on renal dialysis; Z87.891 Personal history of nicotine dependence; Z86.711 Personal history of pulmonary embolism; Z89.611 Acquired absence of right leg above knee; Z95.820 Peripheral vascular angioplasty status with implants and grafts; Y83.8 Other surgical procedures as the cause of abnormal reaction of the patient, or of later complication, without mention of misadventure at the time of the procedure ==

== ENCOUNTER → 2018-03-28 | Outpatient (CLI) | payer MEDICARE | LOC: M.WC 04:55 | DX: T81.89XD Other complications of procedures, not elsewhere classified, subsequent encounter (principal); E11.51 Type 2 diabetes mellitus with diabetic peripheral angiopathy without gangrene; E11.36 Type 2 diabetes mellitus with diabetic cataract; I50.9 Heart failure, unspecified; I25.2 Old myocardial infarction; Z86.718 Personal history of other venous thrombosis and embolism; Z99.2 Dependence on renal dialysis; Z87.891 Personal history of nicotine dependence; Z86.711 Personal history of pulmonary embolism; Z89.611 Acquired absence of right leg above knee; Z95.820 Peripheral vascular angioplasty status with implants and grafts; Y83.8 Other surgical procedures as the cause of abnormal reaction of the patient, or of later complication, without mention of misadventure at the time of the procedure ==

== ENCOUNTER → 2018-04-11 | Outpatient (CLI) | payer MEDICARE | LOC: M.WC 05:02 | DX: T81.89XD Other complications of procedures, not elsewhere classified, subsequent encounter (principal); E11.621 Type 2 diabetes mellitus with foot ulcer; I70.245 Atherosclerosis of native arteries of left leg with ulceration of other part of foot; L97.521 Non-pressure chronic ulcer of other part of left foot limited to breakdown of skin; E11.51 Type 2 diabetes mellitus with diabetic peripheral angiopathy without gangrene; E11.36 Type 2 diabetes mellitus with diabetic cataract; I50.9 Heart failure, unspecified; I25.2 Old myocardial infarction; Z89.611 Acquired absence of right leg above knee; Z87.891 Personal history of nicotine dependence; Z86.711 Personal history of pulmonary embolism; Z86.718 Personal history of other venous thrombosis and embolism; Z99.2 Dependence on renal dialysis; Y83.8 Other surgical procedures as the cause of abnormal reaction of the patient, or of later complication, without mention of misadventure at the time of the procedure ==

== ENCOUNTER → 2018-04-18 | Outpatient (CLI) | payer MEDICARE | LOC: M.WC 04:38 | DX: T81.89XD Other complications of procedures, not elsewhere classified, subsequent encounter (principal); E11.621 Type 2 diabetes mellitus with foot ulcer; I70.245 Atherosclerosis of native arteries of left leg with ulceration of other part of foot; L97.521 Non-pressure chronic ulcer of other part of left foot limited to breakdown of skin; E11.42 Type 2 diabetes mellitus with diabetic polyneuropathy; E11.36 Type 2 diabetes mellitus with diabetic cataract; I50.9 Heart failure, unspecified; I25.2 Old myocardial infarction; E11.51 Type 2 diabetes mellitus with diabetic peripheral angiopathy without gangrene; Z87.891 Personal history of nicotine dependence; Z86.711 Personal history of pulmonary embolism; Z86.718 Personal history of other venous thrombosis and embolism; Z89.611 Acquired absence of right leg above knee; Z99.2 Dependence on renal dialysis; Y83.8 Other surgical procedures as the cause of abnormal reaction of the patient, or of later complication, without mention of misadventure at the time of the procedure ==

== ENCOUNTER → 2018-04-25 | Outpatient (CLI) | payer MEDICARE | LOC: M.WC 05:28 | DX: T81.89XD Other complications of procedures, not elsewhere classified, subsequent encounter (principal); E11.621 Type 2 diabetes mellitus with foot ulcer; I70.245 Atherosclerosis of native arteries of left leg with ulceration of other part of foot; L97.521 Non-pressure chronic ulcer of other part of left foot limited to breakdown of skin; E11.36 Type 2 diabetes mellitus with diabetic cataract; E11.51 Type 2 diabetes mellitus with diabetic peripheral angiopathy without gangrene; I50.9 Heart failure, unspecified; I25.2 Old myocardial infarction; Z89.611 Acquired absence of right leg above knee; Z99.2 Dependence on renal dialysis; Z87.891 Personal history of nicotine dependence; Z86.711 Personal history of pulmonary embolism; Z86.718 Personal history of other venous thrombosis and embolism; Y83.8 Other surgical procedures as the cause of abnormal reaction of the patient, or of later complication, without mention of misadventure at the time of the procedure ==

== ENCOUNTER → 2018-05-02 | Outpatient (CLI) | payer MEDICARE | LOC: M.WC 04:53 | DX: T81.89XD Other complications of procedures, not elsewhere classified, subsequent encounter (principal); E11.621 Type 2 diabetes mellitus with foot ulcer; I70.245 Atherosclerosis of native arteries of left leg with ulceration of other part of foot; L97.521 Non-pressure chronic ulcer of other part of left foot limited to breakdown of skin; E11.51 Type 2 diabetes mellitus with diabetic peripheral angiopathy without gangrene; E11.36 Type 2 diabetes mellitus with diabetic cataract; I50.9 Heart failure, unspecified; I25.2 Old myocardial infarction; Z89.611 Acquired absence of right leg above knee; Z86.718 Personal history of other venous thrombosis and embolism; Z99.2 Dependence on renal dialysis; Z87.891 Personal history of nicotine dependence; Z86.711 Personal history of pulmonary embolism; Y83.8 Other surgical procedures as the cause of abnormal reaction of the patient, or of later complication, without mention of misadventure at the time of the procedure ==

== ENCOUNTER → 2018-05-09 | Outpatient (CLI) | payer MEDICARE | LOC: M.WC 04:14 | DX: T81.89XD Other complications of procedures, not elsewhere classified, subsequent encounter (principal); E11.621 Type 2 diabetes mellitus with foot ulcer; I70.245 Atherosclerosis of native arteries of left leg with ulceration of other part of foot; L97.521 Non-pressure chronic ulcer of other part of left foot limited to breakdown of skin; E11.51 Type 2 diabetes mellitus with diabetic peripheral angiopathy without gangrene; E11.36 Type 2 diabetes mellitus with diabetic cataract; I50.9 Heart failure, unspecified; I25.2 Old myocardial infarction; Z89.611 Acquired absence of right leg above knee; Z99.2 Dependence on renal dialysis; Z86.718 Personal history of other venous thrombosis and embolism; Z87.891 Personal history of nicotine dependence; Z86.711 Personal history of pulmonary embolism; Y83.8 Other surgical procedures as the cause of abnormal reaction of the patient, or of later complication, without mention of misadventure at the time of the procedure ==

== ENCOUNTER → 2018-05-16 | Outpatient (CLI) | payer MEDICARE | LOC: M.WC 05:39 | DX: T81.89XD Other complications of procedures, not elsewhere classified, subsequent encounter (principal); E11.621 Type 2 diabetes mellitus with foot ulcer; I70.245 Atherosclerosis of native arteries of left leg with ulceration of other part of foot; L97.521 Non-pressure chronic ulcer of other part of left foot limited to breakdown of skin; E11.51 Type 2 diabetes mellitus with diabetic peripheral angiopathy without gangrene; E11.36 Type 2 diabetes mellitus with diabetic cataract; I50.9 Heart failure, unspecified; I25.2 Old myocardial infarction; Z86.718 Personal history of other venous thrombosis and embolism; Z99.2 Dependence on renal dialysis; Z87.891 Personal history of nicotine dependence; Z86.711 Personal history of pulmonary embolism; Z89.611 Acquired absence of right leg above knee; Z95.820 Peripheral vascular angioplasty status with implants and grafts; Y83.8 Other surgical procedures as the cause of abnormal reaction of the patient, or of later complication, without mention of misadventure at the time of the procedure ==

== ENCOUNTER → 2018-05-30 | Outpatient (CLI) | payer MEDICARE | LOC: M.WC 05:08 | DX: T81.31XD Disruption of external operation (surgical) wound, not elsewhere classified, subsequent encounter (principal); E11.622 Type 2 diabetes mellitus with other skin ulcer; L97.122 Non-pressure chronic ulcer of left thigh with fat layer exposed; E11.621 Type 2 diabetes mellitus with foot ulcer; I70.245 Atherosclerosis of native arteries of left leg with ulceration of other part of foot; L97.521 Non-pressure chronic ulcer of other part of left foot limited to breakdown of skin; E11.36 Type 2 diabetes mellitus with diabetic cataract; E11.51 Type 2 diabetes mellitus with diabetic peripheral angiopathy without gangrene; I50.9 Heart failure, unspecified; I25.2 Old myocardial infarction; Z99.2 Dependence on renal dialysis; Z87.891 Personal history of nicotine dependence; Z86.711 Personal history of pulmonary embolism; Z86.718 Personal history of other venous thrombosis and embolism; Z89.611 Acquired absence of right leg above knee; Y83.8 Other surgical procedures as the cause of abnormal reaction of the patient, or of later complication, without mention of misadventure at the time of the procedure ==

== ENCOUNTER → 2018-06-06 | Outpatient (CLI) | payer MEDICARE | LOC: M.WC 05:06 | DX: T81.31XD Disruption of external operation (surgical) wound, not elsewhere classified, subsequent encounter (principal); E11.622 Type 2 diabetes mellitus with other skin ulcer; L97.122 Non-pressure chronic ulcer of left thigh with fat layer exposed; E11.621 Type 2 diabetes mellitus with foot ulcer; I70.245 Atherosclerosis of native arteries of left leg with ulceration of other part of foot; L97.521 Non-pressure chronic ulcer of other part of left foot limited to breakdown of skin; E11.51 Type 2 diabetes mellitus with diabetic peripheral angiopathy without gangrene; E11.36 Type 2 diabetes mellitus with diabetic cataract; I50.9 Heart failure, unspecified; I25.2 Old myocardial infarction; Z99.2 Dependence on renal dialysis; Z86.718 Personal history of other venous thrombosis and embolism; Z87.891 Personal history of nicotine dependence; Z86.711 Personal history of pulmonary embolism; Z89.612 Acquired absence of left leg above knee; Z95.820 Peripheral vascular angioplasty status with implants and grafts; Y83.8 Other surgical procedures as the cause of abnormal reaction of the patient, or of later complication, without mention of misadventure at the time of the procedure ==

== ENCOUNTER → 2018-06-13 | Outpatient (CLI) | payer MEDICARE ==
[~2018-06-13] MED LIST changes: +FLORASTOR250 MG PO; +IPRAT-ALBUT 0.5-3 ML; +LOPERAMIDE 2 MG2 M1; +MILK OF MA2400 MG/11 PO; +NIFEREX TABLET1 EACH; +PACERONE 200 M200 M1; +VITAMINC500 PO; +ZANTAC 150MG T150 MG
== END ==
LOC: M.WC 05:04
DX: T81.31XD Disruption of external operation (surgical) wound, not elsewhere classified, subsequent encounter (principal); E11.622 Type 2 diabetes mellitus with other skin ulcer; L97.122 Non-pressure chronic ulcer of left thigh with fat layer exposed; E11.621 Type 2 diabetes mellitus with foot ulcer; I70.245 Atherosclerosis of native arteries of left leg with ulceration of other part of foot; L97.521 Non-pressure chronic ulcer of other part of left foot limited to breakdown of skin; E11.51 Type 2 diabetes mellitus with diabetic peripheral angiopathy without gangrene; E11.36 Type 2 diabetes mellitus with diabetic cataract; I50.9 Heart failure, unspecified; I25.2 Old myocardial infarction; Z86.718 Personal history of other venous thrombosis and embolism; Z99.2 Dependence on renal dialysis; Z89.611 Acquired absence of right leg above knee; Z87.891 Personal history of nicotine dependence; Z86.711 Personal history of pulmonary embolism; Y83.8 Other surgical procedures as the cause of abnormal reaction of the patient, or of later complication, without mention of misadventure at the time of the procedure

== ENCOUNTER 2018-06-15 21:31 | Inpatient (IN) | payer MEDICARE ==
[~2018-06-15] VITALS: Ht 175.3 cm; Wt 89.4 kg
[~2018-06-15 21:31] MED LIST changes: -FLORASTOR250 MG PO; -IPRAT-ALBUT 0.5-3 ML; -LOPERAMIDE 2 MG2 M1; -MILK OF MA2400 MG/11 PO; -NIFEREX TABLET1 EACH; -PACERONE 200 M200 M1; -VITAMINC500 PO; -ZANTAC 150MG T150 MG
[2018-06-15 21:34] VITALS: BP 94/61
[2018-06-15 21:52] LABS: HEMATOCRIT 41.9 % (42.0-52.0); HEMOGLOBIN 14.4 gm/dL (14.0-18.0); MCH 30.6 pg (26.0-34.0); MCHC 34.4 g/dL (28.0-37.0); MCV 89.1 fL (80.0-100.0); MPV 8.1 fl. (7.2-11.1); NUCLEATED RBCS 0 /100WBC; PLATELET COUNT* 207 thou/uL (150-400); WBC 9.3 thou/uL (4.0-11.0)
[2018-06-15 22:06] LABS: CALCIUM 11.3 mg/dL (8.5-10.1); CREATININE 1.5 mg/dL (0.6-1.3)
[2018-06-15 22:07] LABS: INR 1.5; PROTIME 15.4 Seconds (9.20-11.50)
[2018-06-15] MEDS ORDERED: MILK OF MA2400 MG/11 PO (22:08)
[2018-06-15] MEDS ORDERED: IPRAT-ALBUT 0.5-3 ML INH (22:12)
[2018-06-15] MEDS ORDERED: LOPERAMIDE 2 MG2 M1 (22:14)
[2018-06-15] MEDS ORDERED: VITAMINC500 PO (22:16)
[2018-06-15 22:18] LABS: TOTAL BILIRUBIN 0.2 mg/dL (<0.1-1.0); TOTAL PROTEIN 7.4 g/dL (6.4-8.2); TROPONIN-I LEVEL 0.18 ng/mL (<0.06)
[2018-06-15] MEDS ORDERED: NIFEREX TABLET1 EACH PO (22:18)
[2018-06-15] MEDS ORDERED: ZANTAC 150MG T150 MG PO (22:19)
[2018-06-15] MEDS ORDERED: FLORASTOR250 MG PO (22:21)
[2018-06-15] MEDS ORDERED: PACERONE 200 M200 M1 PO (22:21)
--- NOTE | 2018-06-15 23:20 | NUR ---
SYCHRONIZED CARDIOVERSION PERFORMED AT 2318 BY THIS RN AND AT 200J. PT RESPONDED WELL TO PROCEDURE AND HEART RATE AND RHYTHM RESPONDED WELL.
[2018-06-15 23:35] LABS: URINE BILIRUBIN NEGATIVE (Negative); URINE BLOOD 3+ (Negative); URINE CLARITY CLEAR; URINE COLOR YELLOW; URINE GLUCOSE-RANDOM NEGATIVE (Negative); URINE KETONES TRACE (Negative); URINE PROTEIN 1+ (Negative); URINE UROBILINOGEN 0.2 E.U./dl (0.2-1.0)
[2018-06-15 23:37] LABS: URINE LEUKOCYTES-REFLEX 2+ (Negative); URINE NITRITE-REFLEX POSITIVE (Negative)
[2018-06-15 23:38] LABS: ABSOLUTE BASOPHILS 0.1 thou/uL (0.0-0.2); ABSOLUTE EOSINOPHILS 0.2 thou/uL (0.0-0.7); ABSOLUTE LYMPHOCYTES 0.8 thou/uL (0.8-5.3); ABSOLUTE MONOCYTES 0.5 thou/uL (0.0-1.2); ABSOLUTE NEUTROPHILS 7.7 thou/uL (1.6-8.1); ANISOCYTOSIS Occasional; PLATELET ESTIMATE ADEQUATE; TOXIC GRANULATION Occasional
[2018-06-16 00:06] LABS: BACTERIA-REFLEX >30 Many /HPF (None Seen); CASTS None Seen /LPF (None Seen); CRYSTALS None Seen /LPF (None Seen); MUCUS 4-6 Moderate strn/LPF (None Seen); SQUAMOUS 0-3 Few /LPF (0-3); URINE RBC >20 Many /HPF (0-2); URINE WBC-REFLEX >25 Many /HPF (0-5); WBC CLUMPS Few (None Seen)
--- NOTE | 2018-06-16 00:39 | NUR ---
[facility]URSE WILL CALL BACK
[2018-06-16 01:24] VITALS: BP 118/68; BP 126/72
[2018-06-16 04:00] VITALS: BP 124/67
--- NOTE | 2018-06-16 06:58 | NUR ---
VITALS WNL. SEE MAR. SEE CHARTING. FALL PRECAUTIONS IN PLACE. HOURLY ROUNDING FOR SAFETY.
--- NOTE | 2018-06-16 07:45 | NUR ---
ASSUMED CARE OF PT ASSESSED AND DOCUMENTED. PT IS ON CARDIAC MONITER TRACING SB PVC'S HR 48. HE IS A&O WITH NO C/O PAIN. VSS WNL. NJ IS 48. PT HAS A PACEMAKER/DIFIB. HE IS ON ISO FOR A HX OF MRSA. HE IS A BKA AND IS ON FALL PRECAUTIONS PER FACILITY PROTOCOL. PT IS AFEBRILE. BED IS IN LOW POSITION CALL LIGHT IS IN REACH. WM.
[2018-06-16 08:00] VITALS: BP 120/54
--- NOTE | 2018-06-16 13:42 | EKG ---
[place] [address] ELECTROCARDIOGRAM REPORT Name: RITU MONTE Room: [address] ADM IN .R.#: [id number] Admission: 06/15/18 Attend Phys: Bret Fernandez Discharge: Date of : 49 Report #: [id number] THIS REPORT FOR: //name// [facility] ED Test Date: 2018-06-15 Test Time: 21:35:15 Pat Name: RITU MONTE Department: Room: [address] Gender: M Card Hand: Chirag CARIAS : 1945 Requested By: Virginia Sheldon Order Number: [id number] Mauri MD: Lamberto Blake Measurements Intervals [place] Rate: 158 P: [place]: QRS: 182 QRSD: 219 T: -49 QT: 346 QTc: 561 Interpretive Statements Extreme tachycardia with wide complex, no further rhythm analysis attempted Compared to ECG 09/21/2017 10:33:42 wide QRS tachycardia now noted Electronically Signed On 06-16-2018 13:42:21 CDT by Lamberto Blake [email or web address] <ELECTRONICALLY SIGNED> By: Lamberto Blake MD, [facility] 06/16/18 1342 2135 2135 Lamberto Blake MD, [facility] /EPI
--- NOTE | 2018-06-16 13:43 | EKG ---
[place] [address] ELECTROCARDIOGRAM REPORT Name: RITU MONTE Room: [address] ADM IN .R.#: [id number] Admission: 06/15/18 Attend Phys: Bret Fernandez Discharge: Date of : 49 Report #: [id number] THIS REPORT FOR: //name// [facility] ED Test Date: 2018-06-15 Test Time: 22:51:39 Pat Name: RITU MONTE Department: Room: [address] Gender: M Bodywork Therapist: Chirag CARIAS : 1945 Requested By: Virginia Sheldon Order Number: [id number] Mauri MD: Lamberto Blake Measurements Intervals [place] Rate: 150 P: 77 HI: 144 QRS: 196 QRSD: 229 T: QT: 344 QTc: 544 Interpretive Statements Extreme tachycardia with wide complex, no further rhythm analysis attempted Electronically Signed On 06-16-2018 13:43:33 CDT by Lamberto Blake [email or web address] <ELECTRONICALLY SIGNED> By: Lamberto Blake MD, [facility] 06/16/18 1343 D: [id number] 50 Lamberto Blake MD, FACC /EPI
--- NOTE | 2018-06-16 13:44 | EKG ---
[place] [address] ELECTROCARDIOGRAM REPORT Name: RITU MONTE Room: [address] ADM IN [facility]#: [id number] Admission: 06/15/18 Attend Phys: Bret Fernandez Discharge: Date of : 49 Report #: [id number] THIS REPORT FOR: //name// [facility] ED Test Date: 2018-06-15 Test Time: 23:26:33 Pat Name: RITU MONTE Department: Room: [facility] Gender: Java Websphere Developer: Chirag CARIAS : 1945 Requested By: Virginia Sheldon Order Number: [id number] MD: Lamberto Blake Measurements Intervals [place] Rate: 67 P: 53 [place]: 203 QRS: 49 QRSD: 132 T: 15 QT: 373 QTc: 394 Interpretive Statements Sinus rhythm consider old inferior infarction Left atrial enlargement Nonspecific intraventricular conduction delay Electronically Signed On 06-16-2018 13:44:31 CDT by Lamberto Blake [email or web address] <ELECTRONICALLY SIGNED> By: Lamberto Blake MD, [facility] 06/16/18 1344 2326 25 Lamberto Blake MD, FACC /EPI
[2018-06-16 15:37] VITALS: BP 145/56
--- NOTE | 2018-06-16 17:53 | NUR ---
PT HAS RESTED IN HIS ROOM THIS SHIFT. HE HAS REFUSED HIS SS INSULLIN. EDUCATION GIVEN. HOURLY ROUNDING CONT.
[2018-06-16 20:00] VITALS: BP 117/76
[2018-06-16 23:59] VITALS: BP 126/55
--- NOTE | 2018-06-17 03:47 | NUR ---
ASSUMED PT CARE AT APPROX 1930. PT IS AWAKE AND ORIENTED X4. VSS ON ROOM AIR. TRACING SR WITH 1DAVB ON TELE. PT DENIES CHEST PAIN/SOA. REASSESSMENT DONE AND CHARTED. PT WAS ABLE TO SLEEP THROUGH THE NIGHT. CALL LIGHT WITHIN REACH. HOURLY ROUNDING DONE FOR PT SAFETY.
[2018-06-17 04:00] VITALS: BP 131/53
[2018-06-17 05:04] LABS: INR 1.5; PROTIME 15.8 Seconds (9.20-11.50)
[2018-06-17 05:15] LABS: ABSOLUTE EOSINOPHILS 0.3 thou/uL (0.0-0.7); ABSOLUTE LYMPHOCYTES 1.1 thou/uL (0.8-5.3); BASOPHILS 0.2 %; EOSINOPHILS 2.7 %; HEMATOCRIT 37.5 % (42.0-52.0); HEMOGLOBIN 12.7 gm/dL (14.0-18.0); LYMPHOCYTES 11.6 %; MCH 30.1 pg (26.0-34.0); MCV 88.7 fL (80.0-100.0); MONOCYTES 10.4 %; MPV 8.1 fl. (7.2-11.1); NUCLEATED RBCS 0 /100WBC; PLATELET COUNT* 185 thou/uL (150-400); POLYS 75.1 %; RBC 4.22 mil/uL (4.50-6.00); RDW-CV 14.5 % (10.5-14.5); WBC 9.3 thou/uL (4.0-11.0)
[2018-06-17 05:21] LABS: ALBUMIN 2.8 g/dL (3.4-5.0); CALCIUM 10.5 mg/dL (8.5-10.1); CREATININE 1.2 mg/dL (0.6-1.3); POTASSIUM 4.1 mmol/L (3.5-5.1); TOTAL BILIRUBIN 0.3 mg/dL (<0.1-1.0); TOTAL PROTEIN 6.8 g/dL (6.4-8.2)
--- NOTE | 2018-06-17 07:45 | NUR ---
ASSUMED CARE OF PT ASSESSED AND DOCUMENTED. PT IS ON CARDIAC MONITER TRACING SB HR 49. PT HAS A ICD. HE IS A&O WITH NO C/O PAIN. VSS WNL. PT HAS A TEMP OF 99.1. HE IS ON ROOM AIR. PT IS A RBKA. THE L LEG IS DISCLORED WITH NOTED EDEMA. HE CONT ON FALL PRECAUTIONS PER FACILITY PROTOCOL. PT IS ON ISO FOR HX OF MRSA. BED IS IN LOW POSITION CALL LIGHT IS IN REACH. WM.
[2018-06-17 12:00] VITALS: BP 125/50
[2018-06-17 16:00] VITALS: BP 139/61
--- NOTE | 2018-06-17 16:47 | NUR ---
PT HAS RESTED IN HIS ROOM WATCHING TV AND USING HIS COMPUTER. HE HAS HAD NO S OR SX OF ADVERSE REACTION TO ABT. PT REFUSED ALL SS INSULLIN. HE DID SHOWER TODAY. EDUCATION GIVEN ON DEMAND. HOURLY ROUNDING CONT.
[2018-06-17 20:00] VITALS: BP 119/49
[2018-06-18] VITALS: BP 107/60
[2018-06-18 04:00] VITALS: BP 112/65
[2018-06-18 04:28] LABS: INR 1.8; PROTIME 18.4 Seconds (9.20-11.50)
[2018-06-18 04:36] LABS: CALCIUM 10.1 mg/dL (8.5-10.1); CREATININE 1.3 mg/dL (0.6-1.3)
--- NOTE | 2018-06-18 05:07 | NUR ---
ASSUMED PT CARE AFTER REPORT. PT IS AWAKE AND ORIENTED X4. VSS ON ROOM AIR. EMAIL ADMINISTRATOR IN PLACE TRACING SR 1DAVB. REASSESSMENT DONE AND CHARTED. PT DENIES PAIN/DISCOMFORT. PT IS ABLE TO SLEEP MOST OF THE NIGHT. WOUND CARE CONSULTED FOR NON HEALING WOUND ON LEFT GROIN (FROM PREVIOUS CARDIAC CATH INSERTION SITE). CALL LIGHT WITHIN REACH. FALL PRECAUTIONS IN PLACE. HOURLY ROUNDING DONE FOR PT SAFETY.
[2018-06-18 08:00] VITALS: BP 146/65
--- NOTE | 2018-06-18 08:00 | NUR ---
ASSUMED PT CARE AT 0700, FALL PRECAUTIONS IN PLACE, REMAINS IN CONTACT PRECAUTIONS. CRO TRACING PACED SINUS RUCHI WITH 1ST DEGREE BLOCK, NEW ORDER FOR DECREASE IN AMIODARONE D/T BRADYCARDIA WITH HR IN 40'S, PT IS ASYMPTOMATIC, BP STABLE. WILL CONT POC.
--- NOTE | 2018-06-18 10:35 | EKG ---
[place] [address] ELECTROCARDIOGRAM REPORT Name: RITU MONTE Room: [address] ADM IN .R.#: [id number] Admission: 06/15/18 Attend Phys: Bret Fernandez Discharge: Date of : 49 Report #: [id number] THIS REPORT FOR: //name// [facility] Test Date: 2018-06-18 Test Time: 08:34:52 Pat Name: RITU MONTE Department: Room: [address] Gender: M Immigration Coordinator: : 1945 Requested By: Lamberto Blake Order Number: [id number] Mauri MD: Lamberto Blake Measurements Intervals [place] Rate: 44 P: 64 LA: 201 QRS: 81 QRSD: 143 T: 83 QT: 518 QTc: 444 Interpretive Statements Sinus bradycardia Probable left atrial enlargement Nonspecific intraventricular conduction delay Compared to ECG 06/15/2018 23:26:33 Sinus rhythm no longer present Electronically Signed On 06-18-2018 10:35:23 CDT by Lamberto Blake [email or web address] <ELECTRONICALLY SIGNED> By: Lamberto Blake MD, [facility] 06/18/18 1035 0834 0834 Lamberto Blake MD, [facility] /EPI
[2018-06-18 12:00] VITALS: BP 137/56
--- NOTE | 2018-06-18 14:37 | NUR ---
MET WITH PT AND SPOKE WITH SON/OLYA WHO IS DPOA OVER THE PHONE. PT WAS ADMITTED FROM [facility], HE HAS BEEN THERE IN LTC OR SNF SINCE DECEMBER OF 2017. PRIOR TO THAT WAS AT [facility] AND [facility]. PT STATES THAT SON IS WORKING ON ISHMAEL PLACMENT. OLYA CONFIRMED THIS BUT DOES NOT HAVE A FACILITY PICKED YET, PLANS TO DO THAT WITH PT TODAY. HE IS UNSURE WILL HAVE ARRANGED IN TIME FOR PT'S DC. PT DOESN'T WANT TO RETURN TO [place] AND THINKS HE IS GOING TO SON'S HOME. SON DID NOT OFFER THAT A SOLUTION HE WORKS. OLYA ASKED IF PT COULD GO TO [facility]. CALLED AND FAXED REFERRAL TO [facility]. AWAIT THAT ANSWER. DID UPDATE [facility] THAT PT WOULD BE IN HOSPITAL 1-2 DAYS. WILL FOLLOW
--- NOTE | 2018-06-18 14:38 | CON ---
[facility] [address] [place] [address] CONSULTATION Name: RITU MONTE Room: [address] IN .R.#: [id number] Admission: 06/15/18 Attend Phys: Bret Fernandez Discharge: Date of : 49 Report #: [id number] THIS REPORT FOR: //name// CC: Lamberto Napoles DATE OF SERVICE: 06/16/2018 HISTORY OF PRESENT ILLNESS: The patient is a 73-year-old single white male who I was asked to see in the hospital today after he had an episode of shortness of breath. The history is obtained from the patient as well as the old records. The patient has an extensive past medical history. He has history of a cardiomyopathy and previous heart catheterization showed a chronically occluded circumflex. Dr. Sellers implanted ICD a year ago for primary prevention. The patient has had an episode of nonsustained ventricular tachycardia in the past, was placed on amiodarone. He actually just saw Dr. Sellers in [facility] less than a month ago. The patient has a long history of PAD with previous stenting of both legs. He eventually required right sctkn-tnl-smvs amputation. His wounds have cleared at this time. He currently is in a fpc. He is not very active because of the amputation. He actually denied any recent chest pain. He has noticed some shortness of breath and tachycardia. The patient was brought to the Emergency Room last night by ambulance. He was noted to have a wide complex tachycardia. The patient was given fentanyl and cardioverted. He was admitted to a monitored bed. He denied any recent chest pain or edema. He denies any noncompliance. PAST MEDICAL HISTORY: Significant for tonsillectomy. He has a history of diabetes. He has had a history of chronic kidney disease, has been on temporary dialysis in the past. He has a history of anemia. MEDICATIONS: Include aspirin, Plavix, insulin, Carafate, warfarin, apparently because of history of PAD. ALLERGIES: He has no known drug allergies. FAMILY HISTORY: Negative for heart disease. SOCIAL HISTORY: He has been three times. Currently, single. Quit smoking years ago. No alcohol abuse. REVIEW OF SYSTEMS: He has had no history of stroke, asthma, peptic ulcer disease, liver disease. He has chronic kidney disease. No psychiatric illness. No chronic skin condition. No history of cancer. PHYSICAL EXAMINATION: GENERAL: Revealed a middle-aged male, lying [place] [address] CONSULTATION Name: RITU MONTE Room: [address]#: [id number] Admission: 06/15/18 Attend Phys: Bret Fernandez Discharge: Date of : 49 Report #: [id number] distress. VITAL SIGNS: He had a blood pressure of 120/70, pulse 60. He is afebrile. HEENT: He was anicteric. Conjunctivae pink. Mucous members moist. NECK: Veins do not appear distended. No carotid bruits. Neck supple. CHEST: Clear to auscultation. CARDIAC: Regular rate and rhythm. ABDOMEN: Obese. EXTREMITIES: Left lower extremity had no pitting edema. Dorsalis pedis pulse could not be palpated. SKIN: Cool and dry. NEUROLOGIC: Nonfocal. LABORATORY DATA: His ECG on admission showed a wide complex tachycardia at 160 beats per minute with right axis, right bundle-branch block morphology consistent with ventricular tachycardia. Currently, he is in a sinus rhythm. His most recent echocardiogram in 06/2017 showing ejection fraction of 35% with left atrial enlargement. His nuclear stress test in 06/2017 was significant for a fixed inferolateral defect, no reversible ischemia, ejection fraction 26%. His workup in the Emergency Room last night included a chest x-ray that showed cardiomegaly, no pulmonary edema. His lab work, sodium 138, BUN 40, creatinine 1.5. TSH a year ago was 0.6. White blood cell count 9.3, hemoglobin 14.4. IMPRESSION AND RECOMMENDATIONS: 1. Wide complex tachycardia. Suspect ventricular tachycardia. The rate was 160, which may be under the cut off for his defibrillator. I would recommend re-interrogation of defibrillator. At this time, I will start amiodarone. 2. Cardiomyopathy. Recommend repeat echo. 3. Peripheral arterial disease. The patient is on Plavix and aspirin. 4. Diabetes. 5. Cardiomyopathy. I would recommend Coreg and ARB. Would not recommend Aldactone because of chronic kidney disease. 6. Chronic kidney disease. The patient has been dialyzed in the past. 7. Obesity. 8. Peripheral arterial disease with previous amputation. <ELECTRONICALLY SIGNED> By: Lamberto Blake MD, [facility] 06/18/18 1438 0951 [id number] Huey Blake MD, FAC /nt
[2018-06-18 16:00] VITALS: BP 119/56
--- NOTE | 2018-06-18 16:49 | 2DMMODE ---
[place] [address] 2 D/M-MODE ECHOCARDIOGRAM Name: RITU MONTE Room: [address] IN .R.#: [id number] Admission: 06/15/18 Attend Phys: Ted Napoles Discharge: Date of : 49 Date of Service: 06/18/18 1649 Report #: [id number] THIS REPORT FOR: //name// APPROVED REPORT Study performed: 06/18/2018 14:35:20 EXAM: Comprehensive 2D, Doppler, and color-flow Echocardiogram Patient Location: Bedside BSA: 2.20 HR: 43 bpm BP: 112/65 mmHg Other Information Study Quality: Fair Indications CAD 2D Dimensions IVSd: 13.67 (7-11mm) LVOT Diam: 20.75 (18-24mm) LVDd: 53.92 mm PWd: 12.75 (7-11mm) Ascending Ao: 34.77 (22-36mm) LVDs: 40.63 (25-40mm) Aortic Root: 36.17 mm Volumes Left Atrial Volume (Systole) LA ESV Index: 41.30 mL/m2 Aortic Valve AoV Peak Tyrone.: 1.81 m/s AO Peak Gr.: 13.16 mmHg LVOT Max P.69 mmHg AO Mean Gr.: 6.38 mmHg LVOT Mean P.13 mmHg LVOT Max V: 1.08 m/s AO V2 VTI: 35.57 cm LVOT Mean V: 0.66 m/s SHIELA (VTI): 1.98 cm2 LVOT V1 VTI: 20.85 cm Mitral Valve E/A Ratio: 3.58 MV Decel. Time: 150.13 ms MV E Max Tyrone.: 0.77 m/s MV PHT: 43.54 ms MVA (PHT): 5.05 cm2 [place] [address] 2 D/M-MODE ECHOCARDIOGRAM Name: RITU MONTE Room: [address] IN ..#: [id number] Admission: 06/15/18 Attend Phys: Ted Napoles Discharge: Date of : 49 Date of Service: 06/18/18 1649 Report #: [id number] TDI E/Lateral E': 9.63 E/Medial E': 9.63 Medial E' Tyrone.: 0.08 m/s Lateral E' Tyrone.: 0.08 m/s Pulmonary Valve PV Peak Tyrone.: 1.13 m/s PV Peak Gr.: 5.12 mmHg Tricuspid Valve RAP Estimate: 5.00 mmHg TR Peak Gr.: 33.28 mmHg RVSP: 38.28 mmHg PA Pressure: 38.28 mmHg Left Ventricle The left ventricle is normal size. There is global hypokinesis of the left ventricle. Mild concentric left ventricular hypertrophy. Left ventricular systolic function is moderately decreased. LVEF is 35-40%. Right Ventricle The right ventricle is normal size. The right ventricular systolic function is normal. Device lead is present in the right ventricle. Atria Left atrium is mildly dilated. Right atrium is mildly dilated. Aortic Valve The Aortic valve is sclerotic. No aortic regurgitation is present. No hemodynamically significant valvular aortic stenosis. Mitral Valve The mitral valve is normal in structure. Mild mitral regurgitation. No evidence of mitral valve stenosis. Tricuspid Valve The tricuspid valve is normal in structure. Trace tricuspid regurgitation. Pulmonic Valve The pulmonary valve is normal in structure. Mild pulmonic regurgitation. Great Vessels The aortic root is normal in size. IVC is [place] [address] 2 D/M-MODE ECHOCARDIOGRAM Name: RITU MONTE Room: [address] IN [facility]#: [id number] Admission: 06/15/18 Attend Phys: Ted Napoles Discharge: Date of : 49 Date of Service: 06/18/18 1649 Report #: [id number] collapses >50% with inspiration. Pericardium There is no pericardial effusion. <Conclusion> Mild concentric left ventricular hypertrophy. LVEF is 35-40%. Left atrium is mildly dilated. Mild mitral regurgitation. <ELECTRONICALLY SIGNED> By: Lamberto Blake MD, [facility] 06/18/181648 48 48 Lamberto Blake MD, FAC /INF
--- NOTE | 2018-06-18 18:35 | NUR ---
PT UP IN BED, REMAINS BRADYCARDIC DISPITE DECREASE IN AMIODARONE WITH HR DOWN TO 30'S, DR GAMBLE AND DR HICKS AWARE. CONT ON ISOLATION FOR PROTEUS MIRABILIS IN URINE. UP WITH ASSIST X1, STAND/PIVOT FOR ALL TRANSFERS. HOURLY ROUNDING COMPLETED.
[2018-06-18 20:00] VITALS: BP 136/75
--- NOTE | 2018-06-18 20:00 | NUR ---
RECEIVED REPORT AND ASSUMED CARE OF PT, ASSESSMENT COMPLETE. PT DOZING OFF AND ON. TELEMTRY ON SHOWING EXTREME RUCHI WITH 1ST AVB AND BBB. PT HAS PACEMAKER AND ICD. NO COMPLAINTS VOICED. WILL CONT TO MONITOR AND ASSIST NEEDED.
--- NOTE | 2018-06-18 21:30 | NUR ---
HS MEDS FOR CORDARONE 400 MG. PT KNOW TO HAVE HR SUSTAINED INTO 40'S AND ASYMPTOMATIC WITH THIS. MED HELD AT THIS TIME DUE TO HR GOING TO 37 WHILE SLEEPING. PACEMAKER NOT OVER RIDING ALWAYS. WILL CONT TO MONITOR.
[2018-06-19] VITALS: BP 98/48
[2018-06-19 04:00] VITALS: BP 104/45
--- NOTE | 2018-06-19 06:16 | NUR ---
SLEPT WELL TONIGHT. TELEMETRY SHOWING MOSTLY V-PACED WITH RATE OF 40 BUT DOES GO LOWER WHEN SOUNDLY ASLEEP. VOIDING WELL PER URINAL. NO CHANGE IN ASSESSMENT. HOURLY ROUNDING OBSERVED. HS GOALS OF REST AND SAFETY ACHIEVED.
[2018-06-19 08:00] VITALS: BP 97/52
--- NOTE | 2018-06-19 13:16 | NUR ---
WOUND CARE NOTE: WOUND CARE CONSULT FOR POST DEBRIEDMENT NON HEALING WOUND ON LEFT HIP. LEFT GROIN ULCERATION, PT REPORTS HE HAD A PROCEDURE THIS FALL TO PLACE A STENT IN LEG. HE STATES IT HAS BEEN AN ISSUE SINCE THEN AND WAS DEBREEDED IN FEBRUARY. WOUND OPEN, HEALING, SMALL AMOUNT OF BLOOD NOTED WHEN DRESSING REMOVED. APPROXIMATED WELL. NURIA WOUND HEALING, RED, INTACT. WOUND MEASURES 4.5X1.3X1.7 WOUND CLEASNED WITH WOUND CLEANSER AND 4X4'S, DRAWTEX APPLIED TO WOUND BED, COVERED WITH 3X3 BOARDERED FOAM. PT TOLERATED DRESSING CHANGE WELL. PT REPORTS WEARING SINGLE LAYER TUBIGRIP TO E. MEASURED FOR SIZE F. PTS LEFT LEG CLEANSED WITH SOAP AND WATER. PATTED DRY. BARRIOR CREAM APPLIED. TUBIGRIPS PLACED TO JUST BELOW THE KNEE. PT TOLERATED WELL. RECOMENDATION: LEFT GROIN DRESSING CHANGE M/W/F AND PRN LEFT LEG TUBIGRIPS REMOVED DAILY FOR CARES. MONITOR GROIN FOR BLEEDING. EDUCATE PT ON KEEPING WOUND CLEAN. EDUCATE PT ON GOOD NUTRITION FOR WOUND HEALING.
--- NOTE | 2018-06-19 13:34 | NUR ---
CONTINUE TO FOLLOW, HEARD BACK FROM [facility], THEY ARE ABLE TO ACCEPT PT AT DC FOR SNF. PT SEEMS AGREEABLE TO THAT, ANTICIPATE IN DAY OR TWO. PT AND SON STILL WORKING ON [employer]. PT STATED THEY HAD DISCUSSED [facility]. RECEIVED CALL FROM [facility], THEY PLAN TO COME VISIT PT TODAY, REFERALL INFO FAXED TO HER. LEFT MESSAGE FOR SON
[2018-06-19 14:25] VITALS: BP 139/79
--- NOTE | 2018-06-19 18:54 | NUR ---
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 [employer] CONTACTED FOR DEVICE INTERROGATION PER DR GAMBLE. PT REMAINS ON CONTACT ISOLATION FOR HX MRSA, FALL PRECAUTIONS IN PLACE, HOURLY ROUNDING COMPLETED.
[2018-06-19 20:00] VITALS: BP 164/59
[2018-06-20] VITALS: BP 138/51
--- NOTE | 2018-06-20 02:03 | NUR ---
PT ALERT ORIENTED. USES URINAL. DENIES PAIN. ON RA. TELMETRY SHOWS V-PACED RATE 40. REFUSED THE HS LISPRO BUT TOOK LONG ACTING INSULIN Tami JAEGER D/I.
[2018-06-20 04:00] VITALS: BP 97/43
[2018-06-20 08:45] VITALS: BP 146/64
--- NOTE | 2018-06-20 10:30 | NUR ---
ASSUMED CARE OF PATIENT. PATIENT AXOX4, ASSESSMENT CHARTED. POSSIBLE D/C TO [facility] TODAY. NO CONCERNS AT THIS TIME. BED IN LOWEST POSITON, CALL LIGHT IN REACH, CABANA ATTENDANT IN PLACE.
[2018-06-20 11:42] VITALS: BP 117/62
[2018-06-20 13:33] LABS: INR 2.4; PROTIME 24.4 Seconds (9.20-11.50)
--- NOTE | 2018-06-20 13:39 | NUR ---
ORDERS RECEIVED FOR DC TO SNF, PT TO GO TO [facility]. CALLED AND FAXED TO [facility], SHE SET UP W/C VAN FOR 3-30PM. PT AWARE AND HE NOTIFIED HIS SON/OLYA. CHART COPIED. RN HAS NUMBER TO CALL REPORT. ALISA/JEFF NOTIFIED PT NOT RETURNING
[2018-06-20] MEDS ORDERED: CEFUROXIME500 MG PO (13:49)
[2018-06-20] MEDS ORDERED: SPIRONOLACTONE25 M1 PO (13:55)
--- NOTE | 2018-06-20 15:29 | NUR ---
RECEIVED CALL FROM [facility] ASKING FOR CLINICAL, THEY ARE PENDING PT ADMITTING TO THEM AFTER SNF. FAXED CLINICAL TO [phone] AND MADE HER AWARE PT DC'D TO [facility] SNF TODAY
== END 2018-06-20 15:14 | DRG 280 ==
LOC: M.ERS 21:31 → M.2W 23:38 → M.TBA-ER 23:38 → M.2W 06-16 00:57
PROVIDERS: Emergency Medicine; Internal Medicine; Internal Medicine Cardiovascular Disease; ADMIT Internal Medicine
DX: I21.4 Non-ST elevation (NSTEMI) myocardial infarction (principal); R65.11 Systemic inflammatory response syndrome (SIRS) of non-infectious origin with acute organ dysfunction; I50.43 Acute on chronic combined systolic (congestive) and diastolic (congestive) heart failure; I47.2 Ventricular tachycardia; N17.9 Acute kidney failure, unspecified; I13.0 Hypertensive heart and chronic kidney disease with heart failure and stage 1 through stage 4 chronic kidney disease, or unspecified chronic kidney disease; N39.0 Urinary tract infection, site not specified; E11.51 Type 2 diabetes mellitus with diabetic peripheral angiopathy without gangrene; I48.91 Unspecified atrial fibrillation; E11.22 Type 2 diabetes mellitus with diabetic chronic kidney disease; N18.9 Chronic kidney disease, unspecified; I25.10 Atherosclerotic heart disease of native coronary artery without angina pectoris; E66.9 Obesity, unspecified; I95.9 Hypotension, unspecified; I25.5 Ischemic cardiomyopathy; Z95.810 Presence of automatic (implantable) cardiac defibrillator; Z79.899 Other long term (current) drug therapy; Z79.4 Long term (current) use of insulin; Z79.01 Long term (current) use of anticoagulants; Z87.01 Personal history of pneumonia (recurrent); Z89.611 Acquired absence of right leg above knee; Z83.3 Family history of diabetes mellitus; Z79.82 Long term (current) use of aspirin; Z68.29 Body mass index [BMI] 29.0-29.9, adult

== ENCOUNTER → 2018-07-11 | Outpatient (CLI) | payer MEDICARE ==
[~2018-07-11] MED LIST changes: +CEFUROXIME500 MG PO; +FLORASTOR250 MG PO; +IPRAT-ALBUT 0.5-3 ML INH; +LOPERAMIDE 2 MG2 M1; +MILK OF MA2400 MG/11 PO; +NIFEREX TABLET1 EACH PO; +SPIRONOLACTONE25 M1 PO; +VITAMINC500 PO; +ZANTAC 150MG T150 MG PO
== END ==
LOC: M.WC 09:15
DX: T81.31XD Disruption of external operation (surgical) wound, not elsewhere classified, subsequent encounter (principal); E11.622 Type 2 diabetes mellitus with other skin ulcer; L97.122 Non-pressure chronic ulcer of left thigh with fat layer exposed; E11.621 Type 2 diabetes mellitus with foot ulcer; I70.235 Atherosclerosis of native arteries of right leg with ulceration of other part of foot; L97.521 Non-pressure chronic ulcer of other part of left foot limited to breakdown of skin; E11.51 Type 2 diabetes mellitus with diabetic peripheral angiopathy without gangrene; E11.36 Type 2 diabetes mellitus with diabetic cataract; I50.9 Heart failure, unspecified; I25.2 Old myocardial infarction; Z99.2 Dependence on renal dialysis; Z89.611 Acquired absence of right leg above knee; Z95.820 Peripheral vascular angioplasty status with implants and grafts; Z87.891 Personal history of nicotine dependence; Z86.711 Personal history of pulmonary embolism; Z86.718 Personal history of other venous thrombosis and embolism; Y83.8 Other surgical procedures as the cause of abnormal reaction of the patient, or of later complication, without mention of misadventure at the time of the procedure

== ENCOUNTER → 2018-07-24 | Outpatient (CLI) | payer MEDICARE | LOC: M.WC 05:03 | DX: T81.31XD Disruption of external operation (surgical) wound, not elsewhere classified, subsequent encounter (principal); E11.622 Type 2 diabetes mellitus with other skin ulcer; L97.122 Non-pressure chronic ulcer of left thigh with fat layer exposed; E11.621 Type 2 diabetes mellitus with foot ulcer; I70.245 Atherosclerosis of native arteries of left leg with ulceration of other part of foot; L97.521 Non-pressure chronic ulcer of other part of left foot limited to breakdown of skin; E11.51 Type 2 diabetes mellitus with diabetic peripheral angiopathy without gangrene; E11.36 Type 2 diabetes mellitus with diabetic cataract; I50.9 Heart failure, unspecified; I25.2 Old myocardial infarction; Z99.2 Dependence on renal dialysis; Z86.718 Personal history of other venous thrombosis and embolism; Z87.891 Personal history of nicotine dependence; Z86.711 Personal history of pulmonary embolism; Z89.611 Acquired absence of right leg above knee; Y83.8 Other surgical procedures as the cause of abnormal reaction of the patient, or of later complication, without mention of misadventure at the time of the procedure ==

== ENCOUNTER → 2018-08-07 | Outpatient (CLI) | payer MEDICARE | LOC: M.WC 05:36 | DX: T81.31XD Disruption of external operation (surgical) wound, not elsewhere classified, subsequent encounter (principal); E11.622 Type 2 diabetes mellitus with other skin ulcer; L97.122 Non-pressure chronic ulcer of left thigh with fat layer exposed; E11.621 Type 2 diabetes mellitus with foot ulcer; I70.245 Atherosclerosis of native arteries of left leg with ulceration of other part of foot; L97.521 Non-pressure chronic ulcer of other part of left foot limited to breakdown of skin; E11.36 Type 2 diabetes mellitus with diabetic cataract; E11.51 Type 2 diabetes mellitus with diabetic peripheral angiopathy without gangrene; I50.9 Heart failure, unspecified; I25.2 Old myocardial infarction; Z99.2 Dependence on renal dialysis; Z86.718 Personal history of other venous thrombosis and embolism; Z87.891 Personal history of nicotine dependence; Z86.711 Personal history of pulmonary embolism; Z89.611 Acquired absence of right leg above knee; Y83.8 Other surgical procedures as the cause of abnormal reaction of the patient, or of later complication, without mention of misadventure at the time of the procedure ==

== ENCOUNTER → 2018-09-04 | Outpatient (CLI) | payer MEDICARE | LOC: M.WC 05:18 | DX: T81.31XD Disruption of external operation (surgical) wound, not elsewhere classified, subsequent encounter (principal); E11.622 Type 2 diabetes mellitus with other skin ulcer; L97.122 Non-pressure chronic ulcer of left thigh with fat layer exposed; E11.621 Type 2 diabetes mellitus with foot ulcer; I70.245 Atherosclerosis of native arteries of left leg with ulceration of other part of foot; L97.521 Non-pressure chronic ulcer of other part of left foot limited to breakdown of skin; E11.36 Type 2 diabetes mellitus with diabetic cataract; E11.51 Type 2 diabetes mellitus with diabetic peripheral angiopathy without gangrene; I50.9 Heart failure, unspecified; I25.2 Old myocardial infarction; Z99.2 Dependence on renal dialysis; Z86.718 Personal history of other venous thrombosis and embolism; Z87.891 Personal history of nicotine dependence; Z89.611 Acquired absence of right leg above knee; Z86.711 Personal history of pulmonary embolism; Y83.8 Other surgical procedures as the cause of abnormal reaction of the patient, or of later complication, without mention of misadventure at the time of the procedure ==

== ENCOUNTER → 2018-10-09 | Outpatient (CLI) | payer MEDICARE | LOC: M.WC 10-02 09:30 | DX: T81.31XD Disruption of external operation (surgical) wound, not elsewhere classified, subsequent encounter (principal); E11.622 Type 2 diabetes mellitus with other skin ulcer; L97.122 Non-pressure chronic ulcer of left thigh with fat layer exposed; E11.621 Type 2 diabetes mellitus with foot ulcer; I70.245 Atherosclerosis of native arteries of left leg with ulceration of other part of foot; L97.521 Non-pressure chronic ulcer of other part of left foot limited to breakdown of skin; E11.51 Type 2 diabetes mellitus with diabetic peripheral angiopathy without gangrene; E11.36 Type 2 diabetes mellitus with diabetic cataract; I50.9 Heart failure, unspecified; I25.2 Old myocardial infarction; Z86.718 Personal history of other venous thrombosis and embolism; Z89.611 Acquired absence of right leg above knee; Z99.2 Dependence on renal dialysis; Z87.891 Personal history of nicotine dependence; Z86.711 Personal history of pulmonary embolism; Y83.8 Other surgical procedures as the cause of abnormal reaction of the patient, or of later complication, without mention of misadventure at the time of the procedure ==

== ENCOUNTER → 2018-10-16 | Outpatient (CLI) | payer MEDICARE | LOC: M.WC 04:57 | DX: T81.31XD Disruption of external operation (surgical) wound, not elsewhere classified, subsequent encounter (principal); E11.622 Type 2 diabetes mellitus with other skin ulcer; L97.122 Non-pressure chronic ulcer of left thigh with fat layer exposed; L03.319 Cellulitis of trunk, unspecified; E11.621 Type 2 diabetes mellitus with foot ulcer; I70.245 Atherosclerosis of native arteries of left leg with ulceration of other part of foot; L97.521 Non-pressure chronic ulcer of other part of left foot limited to breakdown of skin; E11.51 Type 2 diabetes mellitus with diabetic peripheral angiopathy without gangrene; E11.36 Type 2 diabetes mellitus with diabetic cataract; I50.9 Heart failure, unspecified; I25.2 Old myocardial infarction; Z99.2 Dependence on renal dialysis; Z89.611 Acquired absence of right leg above knee; Z87.891 Personal history of nicotine dependence; Z86.711 Personal history of pulmonary embolism; Z86.718 Personal history of other venous thrombosis and embolism; Y83.8 Other surgical procedures as the cause of abnormal reaction of the patient, or of later complication, without mention of misadventure at the time of the procedure ==

== ENCOUNTER → 2018-10-23 | Outpatient (CLI) | payer MEDICARE | LOC: M.WC 04:34 | DX: T81.31XD Disruption of external operation (surgical) wound, not elsewhere classified, subsequent encounter (principal); E11.622 Type 2 diabetes mellitus with other skin ulcer; L97.122 Non-pressure chronic ulcer of left thigh with fat layer exposed; E11.621 Type 2 diabetes mellitus with foot ulcer; I70.245 Atherosclerosis of native arteries of left leg with ulceration of other part of foot; L97.521 Non-pressure chronic ulcer of other part of left foot limited to breakdown of skin; E11.36 Type 2 diabetes mellitus with diabetic cataract; E11.51 Type 2 diabetes mellitus with diabetic peripheral angiopathy without gangrene; I50.9 Heart failure, unspecified; I25.2 Old myocardial infarction; Z86.718 Personal history of other venous thrombosis and embolism; Z99.2 Dependence on renal dialysis; Z87.891 Personal history of nicotine dependence; Z86.711 Personal history of pulmonary embolism; Z89.611 Acquired absence of right leg above knee; Y83.8 Other surgical procedures as the cause of abnormal reaction of the patient, or of later complication, without mention of misadventure at the time of the procedure ==

== ENCOUNTER → 2018-11-06 | Outpatient (CLI) | payer MEDICARE | LOC: M.WC 05:26 | DX: T81.31XD Disruption of external operation (surgical) wound, not elsewhere classified, subsequent encounter (principal); E11.622 Type 2 diabetes mellitus with other skin ulcer; L97.122 Non-pressure chronic ulcer of left thigh with fat layer exposed; E11.621 Type 2 diabetes mellitus with foot ulcer; I70.245 Atherosclerosis of native arteries of left leg with ulceration of other part of foot; L97.521 Non-pressure chronic ulcer of other part of left foot limited to breakdown of skin; E11.51 Type 2 diabetes mellitus with diabetic peripheral angiopathy without gangrene; E11.36 Type 2 diabetes mellitus with diabetic cataract; I50.9 Heart failure, unspecified; I25.2 Old myocardial infarction; Z99.2 Dependence on renal dialysis; Z89.611 Acquired absence of right leg above knee; Z87.891 Personal history of nicotine dependence; Z86.711 Personal history of pulmonary embolism; Z86.718 Personal history of other venous thrombosis and embolism; Y83.8 Other surgical procedures as the cause of abnormal reaction of the patient, or of later complication, without mention of misadventure at the time of the procedure ==

== ENCOUNTER → 2018-11-20 | Outpatient (CLI) | payer MEDICARE | LOC: M.WC 05:01 | DX: T81.31XD Disruption of external operation (surgical) wound, not elsewhere classified, subsequent encounter (principal); E11.622 Type 2 diabetes mellitus with other skin ulcer; L97.122 Non-pressure chronic ulcer of left thigh with fat layer exposed; E11.621 Type 2 diabetes mellitus with foot ulcer; I70.245 Atherosclerosis of native arteries of left leg with ulceration of other part of foot; L97.521 Non-pressure chronic ulcer of other part of left foot limited to breakdown of skin; E11.36 Type 2 diabetes mellitus with diabetic cataract; E11.51 Type 2 diabetes mellitus with diabetic peripheral angiopathy without gangrene; I50.9 Heart failure, unspecified; I25.2 Old myocardial infarction; Z86.718 Personal history of other venous thrombosis and embolism; Z99.2 Dependence on renal dialysis; Z87.891 Personal history of nicotine dependence; Z86.711 Personal history of pulmonary embolism ==

== ENCOUNTER → 2019-01-08 | Outpatient (CLI) | payer MEDICARE | LOC: M.WC 10:00 | DX: T81.89XD Other complications of procedures, not elsewhere classified, subsequent encounter (principal); E11.622 Type 2 diabetes mellitus with other skin ulcer; L98.491 Non-pressure chronic ulcer of skin of other sites limited to breakdown of skin; L03.314 Cellulitis of groin; E11.36 Type 2 diabetes mellitus with diabetic cataract; I50.9 Heart failure, unspecified; I25.2 Old myocardial infarction; Z99.2 Dependence on renal dialysis; Z86.718 Personal history of other venous thrombosis and embolism; Z87.891 Personal history of nicotine dependence; Z86.711 Personal history of pulmonary embolism; Z89.619 Acquired absence of unspecified leg above knee; Z79.4 Long term (current) use of insulin; Z79.82 Long term (current) use of aspirin; Z89.511 Acquired absence of right leg below knee ==

== ENCOUNTER → 2019-01-15 | Outpatient (CLI) | payer MEDICARE | LOC: M.WC 04:41 | DX: T81.89XD Other complications of procedures, not elsewhere classified, subsequent encounter (principal); E11.622 Type 2 diabetes mellitus with other skin ulcer; L98.491 Non-pressure chronic ulcer of skin of other sites limited to breakdown of skin; L03.314 Cellulitis of groin; E11.36 Type 2 diabetes mellitus with diabetic cataract; I50.9 Heart failure, unspecified; I25.2 Old myocardial infarction; Z86.718 Personal history of other venous thrombosis and embolism; Z99.2 Dependence on renal dialysis; Z87.891 Personal history of nicotine dependence; Z86.711 Personal history of pulmonary embolism; Y83.8 Other surgical procedures as the cause of abnormal reaction of the patient, or of later complication, without mention of misadventure at the time of the procedure ==

== ENCOUNTER → 2019-01-22 | Outpatient (CLI) | payer MEDICARE | LOC: M.WC 04:57 | DX: T81.89XD Other complications of procedures, not elsewhere classified, subsequent encounter (principal); E11.622 Type 2 diabetes mellitus with other skin ulcer; L98.491 Non-pressure chronic ulcer of skin of other sites limited to breakdown of skin; L03.314 Cellulitis of groin; E11.36 Type 2 diabetes mellitus with diabetic cataract; I50.9 Heart failure, unspecified; I25.2 Old myocardial infarction; Z86.718 Personal history of other venous thrombosis and embolism; Z99.2 Dependence on renal dialysis; Z87.891 Personal history of nicotine dependence; Z86.711 Personal history of pulmonary embolism; Y83.8 Other surgical procedures as the cause of abnormal reaction of the patient, or of later complication, without mention of misadventure at the time of the procedure ==

== ENCOUNTER → 2019-01-29 | Outpatient (CLI) | payer MEDICARE | LOC: M.WC 04:51 | DX: T81.89XD Other complications of procedures, not elsewhere classified, subsequent encounter (principal); E11.622 Type 2 diabetes mellitus with other skin ulcer; L98.491 Non-pressure chronic ulcer of skin of other sites limited to breakdown of skin; L03.314 Cellulitis of groin; E11.36 Type 2 diabetes mellitus with diabetic cataract; I50.9 Heart failure, unspecified; I25.2 Old myocardial infarction; Z99.2 Dependence on renal dialysis; Z86.718 Personal history of other venous thrombosis and embolism; Z87.891 Personal history of nicotine dependence; Z86.711 Personal history of pulmonary embolism; Y83.8 Other surgical procedures as the cause of abnormal reaction of the patient, or of later complication, without mention of misadventure at the time of the procedure ==

== ENCOUNTER → 2019-02-05 | Outpatient (CLI) | payer MEDICARE | LOC: M.WC 05:28 | DX: T81.89XD Other complications of procedures, not elsewhere classified, subsequent encounter (principal); E11.622 Type 2 diabetes mellitus with other skin ulcer; L98.491 Non-pressure chronic ulcer of skin of other sites limited to breakdown of skin; L03.314 Cellulitis of groin; E11.36 Type 2 diabetes mellitus with diabetic cataract; I50.9 Heart failure, unspecified; I25.2 Old myocardial infarction; Z86.718 Personal history of other venous thrombosis and embolism; Z87.891 Personal history of nicotine dependence; Z86.711 Personal history of pulmonary embolism; Z99.2 Dependence on renal dialysis; Y83.8 Other surgical procedures as the cause of abnormal reaction of the patient, or of later complication, without mention of misadventure at the time of the procedure ==

== ENCOUNTER → 2019-02-12 | Outpatient (CLI) | payer MEDICARE | LOC: M.WC 04:31 | DX: T81.49XD Infection following a procedure, other surgical site, subsequent encounter (principal); E11.622 Type 2 diabetes mellitus with other skin ulcer; L98.491 Non-pressure chronic ulcer of skin of other sites limited to breakdown of skin; B95.7 Other staphylococcus as the cause of diseases classified elsewhere; L03.314 Cellulitis of groin; E11.36 Type 2 diabetes mellitus with diabetic cataract; I50.9 Heart failure, unspecified; I25.2 Old myocardial infarction; Z87.891 Personal history of nicotine dependence; Z86.711 Personal history of pulmonary embolism; Z86.718 Personal history of other venous thrombosis and embolism; Z99.2 Dependence on renal dialysis; Z79.4 Long term (current) use of insulin; Z79.82 Long term (current) use of aspirin; Y83.8 Other surgical procedures as the cause of abnormal reaction of the patient, or of later complication, without mention of misadventure at the time of the procedure ==

== ENCOUNTER → 2019-02-20 | Outpatient (CLI) | payer MEDICARE | LOC: M.WC 09:26 | DX: T81.89XD Other complications of procedures, not elsewhere classified, subsequent encounter (principal); E11.622 Type 2 diabetes mellitus with other skin ulcer; L98.491 Non-pressure chronic ulcer of skin of other sites limited to breakdown of skin; E11.36 Type 2 diabetes mellitus with diabetic cataract; I50.9 Heart failure, unspecified; I25.2 Old myocardial infarction; Z87.891 Personal history of nicotine dependence; Z86.718 Personal history of other venous thrombosis and embolism; Z86.711 Personal history of pulmonary embolism; Z99.2 Dependence on renal dialysis; Y83.8 Other surgical procedures as the cause of abnormal reaction of the patient, or of later complication, without mention of misadventure at the time of the procedure ==

== ENCOUNTER → 2019-02-26 | Outpatient (CLI) | payer MEDICARE | LOC: M.WC 02:29 | DX: T81.89XD Other complications of procedures, not elsewhere classified, subsequent encounter (principal); E11.622 Type 2 diabetes mellitus with other skin ulcer; L98.491 Non-pressure chronic ulcer of skin of other sites limited to breakdown of skin; E11.36 Type 2 diabetes mellitus with diabetic cataract; I50.9 Heart failure, unspecified; I25.2 Old myocardial infarction; Z86.718 Personal history of other venous thrombosis and embolism; Z87.891 Personal history of nicotine dependence; Z86.711 Personal history of pulmonary embolism; Z99.2 Dependence on renal dialysis; Y83.8 Other surgical procedures as the cause of abnormal reaction of the patient, or of later complication, without mention of misadventure at the time of the procedure ==

== ENCOUNTER → 2019-03-05 | Outpatient (CLI) | payer MEDICARE | LOC: M.WC 05:11 | DX: T81.89XD Other complications of procedures, not elsewhere classified, subsequent encounter (principal); E11.622 Type 2 diabetes mellitus with other skin ulcer; L98.491 Non-pressure chronic ulcer of skin of other sites limited to breakdown of skin; E11.36 Type 2 diabetes mellitus with diabetic cataract; I50.9 Heart failure, unspecified; I25.2 Old myocardial infarction; Z99.2 Dependence on renal dialysis; Z87.891 Personal history of nicotine dependence; Z86.711 Personal history of pulmonary embolism; Z86.718 Personal history of other venous thrombosis and embolism; Y83.8 Other surgical procedures as the cause of abnormal reaction of the patient, or of later complication, without mention of misadventure at the time of the procedure ==

== ENCOUNTER → 2019-03-12 | Outpatient (CLI) | payer MEDICARE | LOC: M.WC 03:35 | DX: T81.89XD Other complications of procedures, not elsewhere classified, subsequent encounter (principal); E11.622 Type 2 diabetes mellitus with other skin ulcer; L98.491 Non-pressure chronic ulcer of skin of other sites limited to breakdown of skin; E11.36 Type 2 diabetes mellitus with diabetic cataract; I50.9 Heart failure, unspecified; I25.2 Old myocardial infarction; Z99.2 Dependence on renal dialysis; Z87.891 Personal history of nicotine dependence; Z86.718 Personal history of other venous thrombosis and embolism; Z86.711 Personal history of pulmonary embolism; Z79.4 Long term (current) use of insulin; Z79.82 Long term (current) use of aspirin; Y83.8 Other surgical procedures as the cause of abnormal reaction of the patient, or of later complication, without mention of misadventure at the time of the procedure ==

== ENCOUNTER → 2019-03-26 | Outpatient (CLI) | payer MEDICARE | LOC: M.WC 03:17 | DX: E11.622 Type 2 diabetes mellitus with other skin ulcer (principal); L98.498 Non-pressure chronic ulcer of skin of other sites with other specified severity; E11.36 Type 2 diabetes mellitus with diabetic cataract; I50.9 Heart failure, unspecified; I25.2 Old myocardial infarction; Z99.2 Dependence on renal dialysis; Z87.891 Personal history of nicotine dependence; Z86.711 Personal history of pulmonary embolism; Z86.718 Personal history of other venous thrombosis and embolism; Z79.4 Long term (current) use of insulin; Z79.82 Long term (current) use of aspirin; Z89.519 Acquired absence of unspecified leg below knee; Z89.619 Acquired absence of unspecified leg above knee ==

== ENCOUNTER 2019-04-21 03:02 | Inpatient (IN) | payer MEDICARE ==
[2019-04-21] VITALS (16 sets, daily range): BP systolic 101–137; BP diastolic 51–100
[~2019-04-21] VITALS: Ht 177.8 cm; Wt 106.1 kg
[2019-04-21 03:32] LABS: ABSOLUTE BASOPHILS 0.1 thou/uL (0.0-0.2); ABSOLUTE EOSINOPHILS 0.1 thou/uL (0.0-0.7); ABSOLUTE LYMPHOCYTES 1.8 thou/uL (0.8-5.3); ABSOLUTE MONOCYTES 0.6 thou/uL (0.0-1.2); ABSOLUTE NEUTROPHILS 4.8 thou/uL (1.6-8.1); BASOPHILS 1.1 %; HEMATOCRIT 45.3 % (42.0-52.0); HEMOGLOBIN 15.6 gm/dL (14.0-18.0); LYMPHOCYTES 24.4 %; MCH 30.4 pg (26.0-34.0); MCHC 34.5 g/dL (28.0-37.0); MCV 88.2 fL (80.0-100.0); MONOCYTES 7.6 %; MPV 9.4 fl. (7.2-11.1); NUCLEATED RBCS 0 /100WBC; PLATELET COUNT* 181 thou/uL (150-400); POLYS 64.9 %; RBC 5.14 mil/uL (4.50-6.00); RDW-CV 14.2 % (10.5-14.5); WBC 7.3 thou/uL (4.0-11.0)
[2019-04-21 03:47] LABS: CALCIUM 10.8 mg/dL (8.5-10.1); CREATININE 1.3 mg/dL (0.6-1.3); POTASSIUM 4.3 mmol/L (3.5-5.1)
[2019-04-21 03:48] LABS: INR 1.9
[2019-04-21 03:58] LABS: ALBUMIN 3.6 g/dL (3.4-5.0); TOTAL BILIRUBIN 0.5 mg/dL (<0.1-1.0); TOTAL PROTEIN 7.1 g/dL (6.4-8.2)
[2019-04-21 12:04] LABS: URINE BILIRUBIN NEGATIVE (Negative); URINE BLOOD NEGATIVE (Negative); URINE CLARITY CLEAR; URINE COLOR YELLOW; URINE GLUCOSE-RANDOM 1+ (Negative); URINE KETONES NEGATIVE (Negative); URINE LEUKOCYTES-REFLEX NEGATIVE (Negative); URINE NITRITE-REFLEX NEGATIVE (Negative); URINE PROTEIN NEGATIVE (Negative); URINE SPECIFIC GRAVITY >= 1.030 (1.005-1.030); URINE UROBILINOGEN 0.2 E.U./dl (0.2-1.0)
[2019-04-21 12:12] LABS: AMP/METHAMP Negative (Negative); BARBITURATES Negative (Negative); BENZODIAZEPINES Negative (Negative); COCAINE Negative (Negative); METHADONE Negative (Negative); OPIATES Negative (Negative); PCP Negative (Negative); THC Negative (Negative)
[2019-04-21 12:21] LABS: MAGNESIUM 2.1 mg/dL (1.8-2.4); PHOSPHORUS* 2.5 mg/dL (2.5-4.9)
--- NOTE | 2019-04-21 12:39 | EKG ---
[place] [address] ELECTROCARDIOGRAM REPORT Name: RITU MONTE Room: [place] [address] ADM IN .R.#: [id number] Admission: 04/21/19 Attend Phys: Julissa Riggs, Discharge: Date of : 49 Date of Service: 04/21/19 0304 Report #: [id number] THIS REPORT FOR: //name// [facility] ED Test Date: 2019-04-21 Test Time: 03:04:22 Pat Name: RITU MONTE Department: Room: [facility] Gender: M Offset Pressman: MS : 1945 Requested By: Virginia Sheldon Order Number: [id number] MD: Lamberto Blake Measurements Intervals [place] Rate: 178 P: 0 MT: 94 QRS: 248 QRSD: 151 T: 76 QT: 325 QTc: 560 Interpretive Statements Extreme tachycardia with wide complex, no further rhythm analysis attempted Baseline wander in lead(s) V3,V4,V5,V6 Compared to ECG 06/18/2018 08:34:52 Sinus bradycardia no longer present Electronically Signed On 04-21-2019 12:38:12 CDT by Lamberto Blake [email or web address] <ELECTRONICALLY SIGNED> By: Lamberto Blake MD, FACC 04/21/19 1238 0304 0304 Lamberto Blake MD, [facility] /EPI
--- NOTE | 2019-04-21 13:15 | CON ---
[address] [address] CONSULTATION Name: RITU MONTE ALDA Room: [address] IN .R.#: [id number] Admission: 04/21/19 Attend Phys: Julissa Riggs MD Discharge: Date of : 49 Report #: [id number] THIS REPORT FOR: //name// cc: Lamberto Tillman MD, David L. MD ~ THIS REPORT FOR: //name// CC: Lamberto Riggs DATE OF SERVICE: 04/21/2019 CARDIOLOGY CONSULTATION HISTORY OF PRESENT ILLNESS: The patient is a 74-year-old single white male who I was asked to see in the hospital after he had an episode of ventricular tachycardia. The history is obtained from the patient as well as some old records. The patient has a history of a cardiomyopathy with previous heart catheterization which showed chronic occlusion of the circumflex artery. Dr. Sellers implanted ICD pacemaker in 2018 for primary prevention of sudden and ventricular tachycardia in light of his cardiomyopathy. He actually had an episode of sustained ventricular tachycardia in the past and was placed on amiodarone. He eventually was taken off of amiodarone. The patient states that recently he has felt lightheaded and noticed heart rate was increasing. Apparently my office called him last week and noticed that he had had termination of ventricular tachycardia with his defibrillator. He was started back on amiodarone 2 days ago. Last night, the patient felt his heart beating fast and he called the paramedics. He was found to be in a wide complex tachycardia. He was given IV amiodarone. Apparently, there were no discharges of his defibrillator. He was brought here to [place] and noted to be in a wide complex tachycardia. He was then cardioverted to sinus rhythm. The patient denies recent chest pain or increased shortness of breath. His past medical history otherwise is significant. He has a long history of PAD. He has had stenting of both legs by [facility]. He eventually required right lqbhf-dma-xdej amputation. He currently lives in assisted living and is basically bedridden. He does not walk at this time. PAST MEDICAL HISTORY: Significant for tonsillectomy, diabetes and chronic kidney disease. He has been on dialysis in the past. He has a history of anemia. CURRENT MEDICATIONS: [facility] consist of the following: He is on amiodarone 200 mg a day, which he just started 3 days ago. He is on clopidogrel, Lasix, insulin, nebulizer, iron supplements, midodrine, ranitidine, spironolactone, sucralfate, [place] [address] CONSULTATION Name: RITU MONTE ALDA Room: [address] IN M.R.#: [id number] Admission: 04/21/19 Attend Phys: Julissa Riggs MD Discharge: Date of : 49 Report #: [id number] ALLERGIES: He has no known drug allergies. FAMILY HISTORY: Negative for heart disease. SOCIAL HISTORY: He is . 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 Quit smoking years ago. No alcohol abuse. REVIEW OF SYSTEMS: He has had no history of stroke, asthma or peptic ulcer disease. He has chronic kidney disease. He does wear glasses. No psychiatric illness. He has a history of anemia. PHYSICAL EXAMINATION: GENERAL: Revealed an elderly male, lying in stretcher, appeared in no distress. VITAL SIGNS: He had a blood pressure of 120/60, pulse is 60, he is afebrile. HEENT: He was anicteric. Conjunctivae pink. Mucous membranes were dry. NECK: Veins do not appear distended. No carotid bruits. CHEST: Clear to auscultation. CARDIOVASCULAR: Regular rate and rhythm. ABDOMEN: Soft. EXTREMITIES: Had trace edema. His ECG on arrival last night, he had a wide complex tachycardia at 180 beats per minute with a right bundle branch block, right axis deviation consistent with ventricular tachycardia. After cardioversion, he had a sinus rhythm, first degree AV block, nonspecific ST and T-wave change. His workup, he had an echocardiogram performed in 06/2018 that showed ejection fraction of 35%, left atrial enlargement, mild mitral regurgitation. Nuclear stress test in 2018 showed the following results, ejection fraction only 30%, fixed defect involving the inferior wall, no reversible defects. His x-rays in the Emergency Room last night, chest x-ray showed normal heart size, clear lung lion. LABORATORY DATA: Sodium 137, potassium 4.3, BUN 27, creatinine 1.3. Liver function studies were normal. Magnesium is not obtained. His troponin is 0.07. BNP 958. TSH 2.4. His white blood cell count 7.3, hemoglobin 15.6. IMPRESSION AND RECOMMENDATIONS: 1. Ventricular tachycardia. I will interrogate the defibrillator. Recommend resuming amiodarone. 2. Cardiomyopathy. Blood pressure in the past has been too low, for titration of medications. 3. Chronic kidney disease. 4. [place] [address] CONSULTATION Name: RITU MONTE Room: [facility] IN M.Joni.#: [id number] Admission: 04/21/19 Attend Phys: Julissa Riggs MD Discharge: Date of : 49 Report #: [id number] 5. Peripheral arterial disease with previous amputation. 6. Previous tobacco abuse. <ELECTRONICALLY SIGNED> By: Lamberto Blake MD, FACC 04/21/19 1315 1043 [id number] Blake MD, FACC /nt
--- NOTE | 2019-04-21 18:50 | NUR ---
PT TRANSFERED TO ICU AT 1500 PT IS BEING MONITORED FOR HEART RATE AND RHYTHM HAS ICD PLACED BUT BROUGHT IN [facility] FROM [facility] FOR "FAST HEART RATE" PRESENTED WITH WIDE QRS COMPLEX TACHYCARDIA/ V-TACH GIVEN AMIO IN AMBULANCE AND WAS SHCKED IN ER AT 100J PT HEART RATE IS IN THE LOWER 40'S WITH MULT PVCS AND SOMETIMES VENT RHYTHM ASYMPTOMATIC SAYS HE FEELS OKAY AND ONLY HAD DISCOMFORT WHERE THE ICD IS LOCATED PLACED IN 2018
[2019-04-22] VITALS (12 sets, daily range): BP systolic 97–144; BP diastolic 45–85
[2019-04-22 02:28] LABS: HEMATOCRIT 43.8 % (42.0-52.0); HEMOGLOBIN 14.8 gm/dL (14.0-18.0); MCH 30.2 pg (26.0-34.0); MCHC 33.7 g/dL (28.0-37.0); MCV 89.7 fL (80.0-100.0); MPV 9.4 fl. (7.2-11.1); RBC 4.89 mil/uL (4.50-6.00); RDW-CV 14.3 % (10.5-14.5); WBC 6.3 thou/uL (4.0-11.0)
[2019-04-22 02:38] LABS: ALBUMIN 3.4 g/dL (3.4-5.0); CALCIUM 10.4 mg/dL (8.5-10.1); CREATININE 1.3 mg/dL (0.6-1.3); INR 2.3; PHOSPHORUS* 2.7 mg/dL (2.5-4.9); POTASSIUM 4.6 mmol/L (3.5-5.1); PROTIME 22.7 Seconds (9.20-11.50)
[2019-04-22 03:09] LABS: GLYCOHEMOGLOBIN (HGB A1C) 8.9 % (4.8-5.6)
--- NOTE | 2019-04-22 06:54 | NUR ---
PT. HAS REMAINED BRADYCARDIC WITH MOSTLY V-PACED BEATS, BUT OCCASIONAL A-PACED BEATS. BUNDLE BRANCH BLOCK. ASYMPTOMATIC. BP'S WITHIN NORMAL LIMITS. HAS BEEN KEPT NPO AFTER MIDNIGHT DUE TO CARDIOLOGY CONSULT. CALL LIGHT REMAINS IN REACH, WILL CONTINUE TO MONITOR.
--- NOTE | 2019-04-22 11:23 | NUR ---
ICU rounds and assessment: Pt tele status. Pt lives at [facility]. Pt has supportive son and dtr in law. Pt has hx with [facility] SNF as well as other SNFs and inpt rehab at [facility]. Pt has hx of HH services with [facility]. Pt has wc. Pt nurse reported no central lines and no vazquez. SW/CM to continue to follow to assist with safe dc planning.
--- NOTE | 2019-04-22 13:39 | NUR ---
WOUND NURSE: PATIENT SEEN TO ADDRESS LEFT GROIN WOUND. PRESENTS WITH A CIRCIFORM SHALLOW LESION MEASURING 1.4 X 1.0 X 0.1 CM. 50% RED SLIGHTLY HYPERGRANULOMATOUS ALONG WITH 50% YELLOWISH NONGRANULATING TISSUE. BLEEDS EASILY WITH CLEANSING WITH WOUND CLEANSER AND GAUZE. APPLIED AQUACEL AG UNDER BORDERED FOAM DRESSING. ETIOLOGY OF WOUND WAS RELATED TO POST VASCULAR PROCEDURE APPROX 1.5 YRS AGO. WOUND HAS HEALED, BUT RECURRED OVER THIS LENGTH OF TIME. PLAN TO CHANGE DRESSING EVERY 3 DAYS AND PRN AT THIS TIME.
--- NOTE | 2019-04-22 15:22 | 2DMMODE ---
[place] [address] 2 D/M-MODE ECHOCARDIOGRAM Name: RITU MONTE ALDA Room: [address] IN Joni#: [id number] Admission: 04/21/19 Attend Phys: Julissa Riggs, Discharge: Date of : 49 Date of Service: 04/22/19 1521 Report #: [id number] THIS REPORT FOR: cc: Lamberto Tillman MD, David L. MD Holkins,Jamar Wiley MD [facility] ~ APPROVED REPORT Study performed: 04/22/2019 10:30:35 EXAM: Comprehensive 2D, Doppler, and color-flow Echocardiogram Patient Location: In-Patient Room #: 003 Status: routine BSA: 2.24 HR: 42 bpm BP: 113/63 mmHg Rhythm: NSR Other Information Study Quality: Good Indications Arrhythmia 2D Dimensions IVSd: 20.81 (7-11mm) LVOT Diam: 21.90 (18-24mm) LVDd: 68.46 mm PWd: 8.41 (7-11mm) Ascending Ao: 36.26 (22-36mm) LVDs: 51.79 (25-40mm) Aortic Root: 35.53 mm Volumes Left Atrial Volume (Systole) LA ESV Index: 32.90 mL/m2 Aortic Valve AoV Peak Tyrone.: 1.85 m/s AO Peak Gr.: 13.71 mmHg LVOT Max P.00 mmHg AO Mean Gr.: 6.79 mmHg LVOT Mean P.63 mmHg LVOT Max V: 1.22 m/s AO V2 VTI: 34.20 cm LVOT Mean V: 0.73 m/s SHIELA (VTI): 2.33 cm2 LVOT V1 VTI: 21.15 [place] [address] 2 D/M-MODE ECHOCARDIOGRAM Name: RITU MONTE Room: [address] IN .#: [id number] Admission: 04/21/19 Attend Phys: Julissa Riggs, Discharge: Date of : 49 Date of Service: 04/22/19 1521 Report #: [id number] Mitral Valve E/A Ratio: 0.65 MV Decel. Time: 265.21 ms MV E Max Tyrone.: 0.62 m/s MV PHT: 76.91 ms MVA (PHT): 2.86 cm2 TDI E/Lateral E': 6.89 E/Medial E': 10.33 Medial E' Tyrone.: 0.06 m/s Lateral E' Tyrone.: 0.09 m/s Pulmonary Valve PV Peak Tyrone.: 1.09 m/s PV Peak Gr.: 4.73 mmHg Left Ventricle The left ventricle is normal size. Regional wall motion abnormalities are noted with inferobasilar hypo-akinesis. Mild concentric left ventricular hypertrophy. Left ventricular systolic function is moderately decreased. LVEF is 35-40%. Grade I - abnormal relaxation pattern. Right Ventricle The right ventricle is normal size. The right ventricular systolic function is normal. Pacemaker lead is present in the right ventricle. Atria The left atrium size is normal. The right atrium size is normal. Aortic Valve Mild aortic valve sclerosis. No aortic regurgitation is present. There is no aortic valvular stenosis. Mitral Valve The mitral valve is normal in structure. Mild mitral regurgitation. No evidence of mitral valve stenosis. Tricuspid Valve The tricuspid valve is normal in structure. Unable to assess PA pressure. Trace tricuspid regurgitation. Pulmonic Valve The pulmonary valve is normal in structure. Mild [place] [address] 2 D/M-MODE ECHOCARDIOGRAM Name: RITU MONTE Room: [address] [facility]#: [id number] Admission: 04/21/19 Attend Phys: Julissa Riggs, Discharge: Date of : 49 Date of Service: 04/22/19 1521 Report #: [id number] Great Vessels The aortic root is normal in size. IVC is not well visualized. Pericardium There is no pericardial effusion. <Conclusion> The left ventricle is normal size. Mild concentric left ventricular hypertrophy. Left ventricular systolic function is moderately decreased. LVEF is 35-40%. Grade I - abnormal relaxation pattern. The right ventricle is normal size. The left atrium size is normal. Mild aortic valve sclerosis. No aortic regurgitation is present. There is no aortic valvular stenosis. The mitral valve is normal in structure. Mild mitral regurgitation. The tricuspid valve is normal in structure. There is no pericardial effusion. Regional wall motion abnormalities are noted with inferobasilar hypo-akinesis. <ELECTRONICALLY SIGNED> By: Jamar Monzon MD, FACC 04/22/19 1521 1521 1521 Jamar Monzon MD, FACC /INF
--- NOTE | 2019-04-22 16:24 | EKG ---
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: [place] : 1945 Requested By: Virginia Sheldon Order Number: [id number] Mauri MD: Mikal Sellers Measurements Intervals [place] Rate: 62 P: 58 [place]: 219 QRS: 37 QRSD: 140 T: 44 QT: 418 QTc: 425 Interpretive Statements Sinus rhythm Atrial premature complexes Borderline prolonged DE interval Probable left atrial enlargement Inferior infarct, old Nonspecific intraventricular conduction delay Baseline wander in lead(s) V3,V4,V5,V6 Compared to ECG 04/21/2019 03:04:22 Atrial premature complex(es) now present Intraventricular conduction delay now present Electronically Signed On 04-22-2019 16:23:45 CDT by Mikal Sellers [email or web address] <ELECTRONICALLY SIGNED> By: Mikal Sellers MD, [facility] 04/22/19 1623 0 0 Mikal Sellers MD, [facility] /EPI
--- NOTE | 2019-04-22 16:33 | EKG ---
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: : 1945 Requested By: Lamberto Blake Order Number: [id number] Mauri MD: Mikal Sellers Measurements Intervals [place] Rate: 52 P: -60 [place]: 205 QRS: -80 QRSD: 218 T: 115 QT: 530 QTc: 493 Interpretive Statements Sinus or ectopic atrial bradycardia Ventricular paced complexes Compared to ECG 04/21/2019 03:04:22 Bradycardia, nonsinus now present Electronically Signed On 04-22-2019 16:32:42 CDT by Mikal Sellers [email or web address] <ELECTRONICALLY SIGNED> By: Mikal Sellers MD, FACC 04/22/19 1632 1409 1409 Mikal Sellers MD, [facility] /EPI
[2019-04-23] VITALS (7 sets, daily range): BP systolic 126–165; BP diastolic 55–103
--- NOTE | 2019-04-23 05:15 | NUR ---
PT. PROGRESSING TOWARDS GOALS. NO COMPLAINTS OF PAIN THROUGHOUT SHIFT. SLEPT WELL THROUGHOUT SHIFT. CARDIAC TRACING BRADYCARDIA W/ PVC'S V-PACED. PT. MILDLY HYPERTENSIVE. CALL LIGHT REMAINS IN REACH, WILL CONTINUE TO MONITOR.
--- NOTE | 2019-04-23 15:32 | NUR ---
PT HAD RUN OF V TACH STABLE IN THE 150S HOOKED UP TO AED DR HICKS PAGED STAT ORDER 150 BOLUS OF AMIODARONE MEDICATION TAKEN FROM CRASH C[facility] TRAY 150MG IV ADMINISTERED PT DID NOT CONVERT ANOTHER 150MG BOLUS GIVEN IV PT CONVERTED BACK DOWN TO THE 40S PHARMACY AWARE CRASH CART REPLACED
--- NOTE | 2019-04-23 17:38 | NUR ---
pt blood glucose 430 at 1200 dosed per sliding scale [address] conner notified
[2019-04-24 03:42] VITALS: BP 110/62
--- NOTE | 2019-04-24 05:51 | NUR ---
Pt awake for most of night, but asleep at this time. VSS. HR 40s; SB/VPaced per monitor. No complaints. States he slept late yesterday and napped in afternoon, so not surprised that he was awake most of night. No episodes of VT or tachycardia. Meeting progress markers. Will continue to monitor.
[2019-04-24 08:28] VITALS: BP 111/57
--- NOTE | 2019-04-24 09:25 | NUR ---
[facility] [phone]
[2019-04-24 12:00] VITALS: BP 124/107
[2019-04-24 16:22] VITALS: BP 117/58
--- NOTE | 2019-04-24 17:07 | NUR ---
PT ASSESSMENT CHARTED. VSS THROUGHOUT SHIFT. HR 35-55 WITH NO EPISODES OF VTACH THIS SHIFT. UP TO BEDSIDE COMMODE WITH ASSIST. NO COMPLAINTS OF PAIN. NO OTHER COMPLAINTS DURING THIS SHIFT.
[2019-04-24 20:51] VITALS: BP 101/53
[2019-04-24 23:57] VITALS: BP 108/61
[2019-04-25 04:47] VITALS: BP 114/59
--- NOTE | 2019-04-25 06:40 | NUR ---
Pt reports he is hoping to be discharged today. No VT overnight, VSS. Reports he slept "a little" overnight. No complaints. Will continue to monitor.
[2019-04-25] MEDS ORDERED: PACERONE 200 M200 M1 PO ×2 (07:42→14:59)
[2019-04-25 09:53] VITALS: BP 114/59
--- NOTE | 2019-04-25 09:55 | NUR ---
Pt to dc home with family today. BERNICE faxed referral and orders/dc summary to pt preference and current/active HH agency: [facility] who will resume HH care.
[2019-04-25 10:05] VITALS: BP 114/59
--- NOTE | 2019-04-25 19:08 | NUR ---
TRANSPORT SERVICE ARRIVED DURING SHIFT REPORT. PT DC'D AT THIS TIME VIA WHEELCHAIR WITH [facility]. 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
== END 2019-04-25 19:08 | disposition home health service (06) | DRG 309 ==
LOC: M.ERS 03:02 → M.TBA-ER 04:26 → M.ICU 04:26 → M.TBA-ER 11:20 → M.ICU 14:35
PROVIDERS: Emergency Medicine; Family Medicine; Internal Medicine Cardiovascular Disease; ADMIT Internal Medicine
PROC: 4B02XTZ Measurement of Cardiac Defibrillator, External Approach (ICD-10-PCS; principal; 2019-04-21)
DX: I47.2 Ventricular tachycardia (principal); L97.128 Non-pressure chronic ulcer of left thigh with other specified severity; I50.22 Chronic systolic (congestive) heart failure; I25.82 Chronic total occlusion of coronary artery; E11.22 Type 2 diabetes mellitus with diabetic chronic kidney disease; N18.9 Chronic kidney disease, unspecified; E11.51 Type 2 diabetes mellitus with diabetic peripheral angiopathy without gangrene; I25.10 Atherosclerotic heart disease of native coronary artery without angina pectoris; I25.5 Ischemic cardiomyopathy; I95.2 Hypotension due to drugs; T46.4X5A Adverse effect of angiotensin-converting-enzyme inhibitors, initial encounter; I48.91 Unspecified atrial fibrillation; Z95.0 Presence of cardiac pacemaker; Z79.899 Other long term (current) drug therapy; Z79.4 Long term (current) use of insulin; Z79.01 Long term (current) use of anticoagulants; Z89.611 Acquired absence of right leg above knee; Z87.01 Personal history of pneumonia (recurrent); Z83.3 Family history of diabetes mellitus; Y92.89 Other specified places as the place of occurrence of the external cause; Z23 Encounter for immunization

== ENCOUNTER → 2019-11-12 | Outpatient (CLI) | payer MEDICARE ==
[2019-11-12 10:34] LABS: ALBUMIN 3.9 g/dL (3.4-5.0); DIRECT BILIRUBIN 0.1 mg/dL (<0.1-0.3); TOTAL BILIRUBIN 0.5 mg/dL (<0.1-1.0); TOTAL PROTEIN 7.7 g/dL (6.4-8.2)
== END ==
LOC: M.LAB 09:51
PROVIDERS: ATTEND Internal Medicine Cardiovascular Disease
DX: M40.294 Other kyphosis, thoracic region (principal); Z79.899 Other long term (current) drug therapy

== ENCOUNTER → 2019-11-14 | Outpatient (CLI) | payer MEDICARE ==
[2019-11-14 10:48] LABS: CREATININE 1.5 mg/dL (0.6-1.3)
== END ==
LOC: M.LAB 10:00 → M.CT 10:19
PROVIDERS: ATTEND Surgery Vascular Surgery
DX: I70.213 Atherosclerosis of native arteries of extremities with intermittent claudication, bilateral legs (principal); I25.10 Atherosclerotic heart disease of native coronary artery without angina pectoris; K31.89 Other diseases of stomach and duodenum; I71.4 Abdominal aortic aneurysm, without rupture; I77.1 Stricture of artery

== ENCOUNTER 2020-04-13 09:01 | Emergency (ER) | payer MEDICARE ==
[~2020-04-13] VITALS: Ht 177.8 cm; Wt 94.0 kg
[2020-04-13 09:32] LABS: ABSOLUTE BASOPHILS 0.1 thou/uL (0.0-0.2); ABSOLUTE EOSINOPHILS 0.2 thou/uL (0.0-0.7); ABSOLUTE LYMPHOCYTES 1.4 thou/uL (0.8-5.3); ABSOLUTE MONOCYTES 0.4 thou/uL (0.0-1.2); ABSOLUTE NEUTROPHILS 4.1 thou/uL (1.6-8.1); EOSINOPHILS 2.5 %; HEMATOCRIT 43.2 % (42.0-52.0); HEMOGLOBIN 14.4 gm/dL (14.0-18.0); LYMPHOCYTES 22.7 %; MCH 28.1 pg (26.0-34.0); MCHC 33.3 g/dL (28.0-37.0); MCV 84.4 fL (80.0-100.0); MONOCYTES 6.4 %; MPV 8.3 fl. (7.2-11.1); NUCLEATED RBCS 0 /100WBC; PLATELET COUNT* 185 thou/uL (150-400); POLYS 67.4 %; RBC 5.12 mil/uL (4.50-6.00); RDW-CV 14.7 % (10.5-14.5); WBC 6.1 thou/uL (4.0-11.0)
[2020-04-13 09:39] LABS: CALCIUM 10.6 mg/dL (8.5-10.1); CREATININE 1.1 mg/dL (0.6-1.3); POTASSIUM 3.8 mmol/L (3.5-5.1)
[2020-04-13 09:44] LABS: ALBUMIN 3.4 g/dL (3.4-5.0); TOTAL BILIRUBIN 0.7 mg/dL (<0.1-1.0); TOTAL PROTEIN 6.9 g/dL (6.4-8.2)
[2020-04-13 10:37] VITALS: BP 162/97
--- NOTE | 2020-04-13 16:17 | EKG ---
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: : 1945 Requested By: Ben Jacobsen Order Number: [id number] MD: Lamberto Blake Measurements Intervals [place] Rate: 46 P: 50 [place]: 214 QRS: 11 QRSD: 119 T: QT: 690 QTc: 604 Interpretive Statements Sinus bradycardia sinus pause with ventricular paced beat noted Probable left atrial enlargement Nonspecific intraventricular conduction delay Borderline repolarization abnormality Compared to ECG 04/22/2019 14:09:37 no change Electronically Signed On 04-13-2020 16:16:55 RADIOISOTOPE TECHNOLOGIST by Lamberto Blake [email or web address] <ELECTRONICALLY SIGNED> By: Lamberto Blake MD, [facility] 04/13/20 1616 0909 0909 Lamberto Blake MD, [facility] /EPI
== END 2020-04-13 10:37 | disposition home or self-care (01) ==
LOC: M.ERS 09:01
PROVIDERS: Emergency Medicine
DX: J12.89 Other viral pneumonia (principal); Z20.822 Contact with and (suspected) exposure to COVID-19; F17.210 Nicotine dependence, cigarettes, uncomplicated; I11.0 Hypertensive heart disease with heart failure; I50.9 Heart failure, unspecified; E11.9 Type 2 diabetes mellitus without complications; I48.91 Unspecified atrial fibrillation; I73.9 Peripheral vascular disease, unspecified; Z79.4 Long term (current) use of insulin

== ENCOUNTER → 2021-04-12 | Outpatient (CLI) | payer MEDICARE ==
--- NOTE | 2021-04-12 11:52 | 2DMMODE ---
[place] [address] 2 D/M-MODE ECHOCARDIOGRAM Name: JONATHANJACOBRITU ALDA Room: [facility]#: [id number] Admission: 04/12/21 Attend Phys: Mikal Sellers, Discharge: Date of : 49 Date of Service: 04/12/21 1152 Report #: [id number] THIS REPORT FOR: cc: Lamine Justice MD, Meng MD Blick, David R. MD [facility] ~ APPROVED REPORT Study performed: 04/12/2021 12:07:33 EXAM: Comprehensive 2D, Doppler, and color-flow Echocardiogram Patient Location: Out-Patient BSA: 2.13 HR: 81 bpm BP: 130/75 mmHg Other Information Study Quality: Good Indications Cardiomyopathy 2D Dimensions IVSd: 12.52 (7-11mm) LVOT Diam: 21.97 (18-24mm) LVDd: 58.54 mm PWd: 6.41 (7-11mm) Ascending Ao: 37.05 (22-36mm) LVDs: 51.63 (25-40mm) Aortic Root: 33.82 mm Volumes Left Atrial Volume (Systole) LA ESV Index: 12.80 mL/m2 Aortic Valve AoV Peak Tyrone.: 1.45 m/s AO Peak Gr.: 8.46 mmHg LVOT Max P.14 mmHg AO Mean Gr.: 4.34 mmHg LVOT Mean P.46 mmHg LVOT Max V: 0.89 m/s AO V2 VTI: 19.08 cm LVOT Mean V: 0.55 m/s SHIELA (VTI): 2.64 cm2 LVOT V1 VTI: 13.28 cm Mitral Valve MV Decel. Time: 200.94 [place] [address] 2 D/M-MODE ECHOCARDIOGRAM Name: RITU MONTE ALDA [id number] Admission: 04/12/21 Attend Phys: Mikal Sellers, Discharge: Date of : 49 Date of Service: 04/12/21 1152 Report #: [id number] MV PHT: 58.27 ms MVA (PHT): 3.78 cm2 TDI Medial E' Tyrone.: 0.12 m/s Lateral E' Tyrone.: 0.12 m/s Pulmonary Valve PV Peak Tyrone.: 1.08 m/s PV Peak Gr.: 4.63 mmHg Tricuspid Valve RAP Estimate: 5.00 mmHg TR Peak Gr.: 12.05 mmHg RVSP: 17.05 mmHg PA Pressure: 17.05 mmHg Left Ventricle Left ventricle is mildly dilated. There is global hypokinesis of the left ventricle. There is normal left ventricular wall thickness. Left ventricular ejection fraction is severely decreased. LVEF is 25-30%. Grade I - abnormal relaxation pattern. Right Ventricle The right ventricle is normal size. The right ventricular systolic function is normal. Device lead is present in the right ventricle. Atria The left atrium size is normal. Pacemaker lead is present in the right atrium. Aortic Valve The aortic valve is normal in structure. No aortic regurgitation is present. There is no aortic valvular stenosis. Mitral Valve The mitral valve is normal in structure. There is no mitral valve regurgitation noted. No evidence of mitral valve stenosis. Tricuspid Valve The tricuspid valve is normal in structure. Mild tricuspid regurgitation. Pulmonic Valve The pulmonary valve is normal in structure. There is trace pulmonic valvular regurgitation. [place] [address] 2 D/M-MODE ECHOCARDIOGRAM Name: RITU MONTE Room: [facility] ANGELIKA Sexton#: [id number] Admission: 04/12/21 Attend Phys: Mikal Sellers, Discharge: Date of : 49 Date of Service: 04/12/21 1152 Report #: [id number] The aortic root is normal in size. IVC is normal in size and collapses >50% with inspiration. Pericardium There is no pericardial effusion. <Conclusion> LVEF is 25-30%. Left ventricle is mildly dilated. There is global hypokinesis of the left ventricle. <ELECTRONICALLY SIGNED> By: Lamberto Blake MD, [facility] 04/12/21 1152 115 51 Lamberto Blake MD, [facility] /INF
== END ==
LOC: M.CRD 10:51
PROVIDERS: ATTEND Internal Medicine Cardiovascular Disease
DX: I07.1 Rheumatic tricuspid insufficiency (principal); I25.5 Ischemic cardiomyopathy